=== PATIENT | female | born 1945 | race Caucasian/White ===

== ENCOUNTER 2019-11-19 11:21 | Outpatient (REF) | payer MEDICARE, SELFPAY | END 2019-11-19 11:22 | disposition home or self-care (01) | LOC: HO.LNP 11:21 | PROVIDERS: Visit Provider Internal Medicine | DX: G20 Parkinson's disease (principal); D64.9 Anemia, unspecified | CPT/HCPCS: 87045; 87046; 87177; 87209 ==

== ENCOUNTER → 2019-12-06 15:43 | Outpatient (BNVA) | payer MEDICARE, SELFPAY | PROVIDERS: PCP Internal Medicine; Visit Provider Nurse Practitioner | DX: K75.81 Nonalcoholic steatohepatitis (NASH) (principal); K62.5 Hemorrhage of anus and rectum; R35.0 Frequency of micturition | CPT/HCPCS: 99212 ==

== ENCOUNTER 2019-12-07 11:14 | Outpatient (REF) | payer MEDICARE, SELFPAY ==
[2019-12-07 11:55] LABS: MANUAL DIFF FLAG NO
[2019-12-07 11:59] LABS: Basophils Percent Auto 0.4 % (0-2); Eosinophils Absolute Auto 0.1 X10*3/uL (0.0-0.4); Eosinophils Percent Auto 1.3 % (0-4); Hematocrit 27.4 % (37-47); Hemoglobin 8.2 g/dl (12.0-16.0); Imm Gran Abs Auto 0.06 X10*3/uL (0.00-0.03); Imm Gran Pct Auto 0.6 % (0.0-0.4); Lymphocytes Absolute Auto 1.3 X10*3/uL (1.2-4.9); Lymphocytes Percent Auto 12.3 % (20-40); Mean Corpuscular HGB Conc 29.9 g/dl (31.0-35.0); Mean Corpuscular Hemoglobin 27.9 pg (27.0-33.0); Mean Corpuscular Volume 93.2 fL (80-98); Mean Platelet Volume 10.3 fL (9.4-12.3); Monocytes Absolute Auto 1.2 X10*3/uL (0.1-1.2); Monocytes Percent Auto 11.3 % (2-11); Neutrophils Absolute Auto 7.8 X10*3/uL (2.0-8.3); Neutrophils Percent Auto 74.1 % (45-73); Platelet Count 251 X10*3/uL (160-400); Red Blood Count 2.94 X10*6/uL (4.20-5.50); Red Cell Distribution Width 15.6 % (11.0-16.0); White Blood Count 10.5 X10*3/uL (4.8-10.8)
[2019-12-07 12:27] LABS: Alanine Aminotransferase 51 U/L (0-31); Albumin Level 3.7 g/dL (3.5-5.0); Alkaline Phosphatase 217 U/L (39-117); Anion Gap 16 (12-20); Aspartate Amino Transferase 105 U/L (5-31); Blood Urea Nitrogen 21 mg/dL (9-16); Carbon Dioxide 21 mmol/L (22-29); Chloride 104 mmol/L (96-108); Estimated Glomerular Filt Rate 54; Glucose Random 187 mg/dL (60-115); Iron 29 mcg/dL (30-160); Percent Iron Saturation 7 % (15-50); Potassium 4.4 mmol/l (3.3-5.1); Sodium 137 mmol/L (135-145); Total Iron Binding Capacity 426 mcg/dL (228-428); Total Protein 7.3 g/dL (6.5-8.0); Unsaturated Iron Binding 397 ug/dL
[2019-12-07 12:28] LABS: B Type Natriuretic Peptide 193 pg/mL (<100)
[2019-12-07 12:42] LABS: Ferritin 24 ng/mL (10-250)
[2019-12-07 14:26] LABS: Estimated Average Glucose 154 mg/dL
[2019-12-07 16:23] LABS: Immature Retic Fraction 32.5 % (3.0-15.9); Retic HGB Equivalent 27.1 pg (30.0-35.0); Reticulocyte Percent 2.6 % (0.5-1.8); Reticulocytes Absolute 0.077 X10*6/uL (0.026-0.095)
== END 2019-12-07 11:15 | disposition home or self-care (01) ==
LOC: HO.LAB 11:14
PROVIDERS: Absent Provider Nurse Practitioner; PCP Internal Medicine; Visit Provider Internal Medicine
DX: D64.9 Anemia, unspecified (principal); R35.0 Frequency of micturition; E11.65 Type 2 diabetes mellitus with hyperglycemia
CPT/HCPCS: 36415; 80053; 82728; 83036; 83540; 83880; 84443; 85025; 85045

== ENCOUNTER 2019-12-08 20:02 | Inpatient (IN) | payer MEDICARE, SELFPAY ==
[2019-12-08 20:17] LABS: Glucose, Whole Blood 149 mg/dL (60-115)
--- NOTE | 2019-12-08 20:20 | ECG_ITS ---
Test Reason : WEAKNESS AMS Blood Pressure : / mmHG Vent. Rate : 059 BPM Atrial Rate : 059 BPM P-R Int : 196 ms QRS Dur : 092 ms QT Int : 506 ms P-R-T Axes : 056 -22 029 degrees QTc Int : 500 ms Sinus bradycardia Nonspecific ST abnormality Prolonged QT Abnormal ECG When compared with ECG of 19-SEP-2019 19:17, No significant change was found Referred By: Rodney Lancaster Electronically Signed By:JENNIFER RICHARDSON MD
--- NOTE | 2019-12-08 20:20 | CT_ITS ---
EXAMINATION: CT HEAD WITHOUT CONTRAST CLINICAL INFORMATION: Weakness. COMPARISON: August 22, 2019. TECHNIQUE: Contiguous helical images of the brain were obtained without IV contrast. Multiplanar reconstructions were performed. DLP: 668 mGy-cm. FINDINGS: There are no pathologic extra-axial fluid collections. The lateral, third, fourth ventricles are mildly prominent, though stable, age-appropriate and concordant with the appearance of the sulci. There is no evidence for acute intraparenchymal hemorrhage or infarct. There is periventricular low-attenuation indicative of small vessel disease. There is neither mass nor mass effect. There is no shift of midline structures. The paranasal sinuses and mastoid air cells are clear. There are no osseous lesions. CT/CT head/brain wo con IMPRESSION: No evidence for acute intracranial injury. Automated exposure control (Care Dose) Adjustment of the mA and/or kv according to patient size (this includes techniques or standardized protocols for targeted exams where dose is matched to indication / reason for exam; i.e. extremities or head).
--- NOTE | 2019-12-08 20:20 | XR_ITS ---
EXAMINATION: CHEST 1 VIEW CLINICAL INFORMATION: Weakness. COMPARISON: September 19, 2019. TECHNIQUE: An AP view of the chest is provided. FINDINGS: The cardiac silhouette is stable. The mediastinal and hilar contours are unremarkable. There are neither pleural effusions nor pneumothoraces. There are no consolidations. The osseous structures are stable. XR/XR chest 1V IMPRESSION: No evidence for acute disease.
[2019-12-08 20:23] VITALS: BP 125/60; PULSE 63; RESP 16; TEMP 36.6; O2SAT 97; BMI 26.5
--- NOTE | 2019-12-08 20:24 | ED_ITS ---
HPI - Weakness General Chief complaint: Weakness Stated complaint: GENERAL WEAKNESS INCREASED X'S 1 WEEK Time Seen by Provider: 12/08/19 20:17 Source: EMS Mode of arrival: EMS Limitations: no limitations History of Present Illness HPI Narrative: 74-year-old female with past medical history that is significant for anxiety, depression, diastolic heart failure, CAD, Gout, hypertension, hyperlipidemia, type 2 diabetes, coronary artery disease, congestive heart failure, anxiety disorder, depression, atrial fibrillation on Eliquis, osteopenia, gout, essential tremor with reported TIA several months ago also history of abnormal EEG showed focal seizure of the left temporal without seizure on Lamictal extended release being followed by Neurology at [facility] currently undergoing evaluation for memory loss and since her TIA apparently she has had around the clock care at home but normally is ambulatory with walker but over the past 1 week or so per family patient has become progressively more weak and lethargic and been her bed. There is no URI symptoms, cough or fever. Family concerns symptoms most consistent with UTI. MD Complaint: generalized weakness Related Data Home Medications Medication Instructions Recorded Confirmed alendronate 70 mg tablet 70 mg PO QWEEK 12/05/19 12/08/19 allopurinol 100 mg tablet 100 mg PO DAILY 12/05/19 12/08/19 amiodarone 200 mg tablet 200 mg PO DAILY 12/05/19 12/09/19 amlodipine 5 mg tablet 5 mg PO DAILY 12/05/19 12/08/19 apixaban 5 mg tablet 5 mg PO BID 12/05/19 12/09/19 dulaglutide 1.5 mg/0.5 mL 1.5 mg SUBCUT QWEEK 12/05/19 12/09/19 subcutaneous pen injector furosemide 20 mg tablet 20 mg PO DAILY 12/05/19 12/08/19 insulin glargine U-300 conc 300 15 unit SUBCUT DAILY ml 12/05/19 12/05/19 unit/mL (3 mL) subcutaneous pen insulin lispro 100 unit/mL 5.5 unit SUBCUT BEDTIME 12/05/19 12/05/19 subcutaneous half-unit pen levetiracetam 500 mg tablet 500 mg PO Q12H 12/05/19 12/08/19 losartan 100 mg tablet 100 mg PO DAILY 12/05/19 12/08/19 metformin 500 mg tablet 500 mg PO BID 12/05/19 12/08/19 metoprolol tartrate 25 mg tablet 25 mg PO BID 12/05/19 12/09/19 multivit with 1 tab PO DAILY 12/05/19 12/09/19 rkdsizlc-orgo-XF-lutein 8 mg iron-400 mcg-300 mcg tablet omega-3 fatty acids 1,000 mg 1,000 mg PO DAILY 12/05/19 12/09/19 capsule primidone 50 mg tablet 50 mg PO BID tab 12/05/19 12/09/19 spironolactone 25 mg tablet 25 mg PO DAILY 12/05/19 12/09/19 Previous Rx's Medication Instructions Recorded sertraline 100 mg tablet 100 mg PO DAILY 90 Days #90 tab 11/16/19 Allergies Allergy/AdvReac Type Severity Reaction Status Date / Time lisinopril [From ZESTRIL] Allergy Intermediate RASH-FROM Verified 12/06/19 15:46 ZESTRIL propranolol [PROPRANOLOL] Allergy Mild HEADACHE Verified 12/05/19 15:23 atorvastatin [Lipitor] Allergy Unknown Unknown Verified 12/06/19 15:46 benazepril Allergy Unknown Unknown Verified 12/06/19 15:46 indomethacin [From INDOCIN] Allergy Unknown UNKNOWN Verified 12/06/19 15:46 simvastatin Allergy Unknown Unknown Verified 12/06/19 15:46 [facility] Past Medical History Medical History (Updated 12/09/19 @ 01:54 by Rodney Lancaster NP) Anxiety and depression Atrial fibrillation Congestive heart failure with LV diastolic dysfunction, NYHA class 2 Coronary artery disease Essential tremor Gout Hypercholesterolemia Hypertension Osteopenia 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 Tubular adenoma of colon Type 2 diabetes mellitus with hyperglycemia Surgical History (Updated 12/06/19 @ 15:49 by GABRIELLE Abel) Ganglion cyst H/O unilateral oophorectomy History of abdominal hysterectomy History of appendectomy History of carpal tunnel surgery History of cholecystectomy Hx of colonoscopy Family History Family History (Updated 12/06/19 @ 15:50 by GABRIELLE Abel) Father Diabetes Hypertension CVD (cardiovascular disease) Mother Diabetes Hypertension Cancer Rectal cancer Daughter Diabetes Social History Social History (Updated 12/06/19 @ 15:50 by GABRIELLE Abel) Alcohol intake: current Alcohol intake frequency: does not drink Smoking Status: Never smoker Advance Directives: No Advance Directives Information Provided: No Physical Exam Vital Signs: Vital Signs: Vital Signs Temp Pulse Resp BP Pulse Ox 12/09/19 00:00 60 16 139/67 96 12/08/19 23:17 63 16 126/61 98 12/08/19 22:00 62 16 124/58 L 98 12/08/19 20:23 97.8 F 63 16 125/60 97 Body Mass Index 26.5 MDM - Weakness MDM Narrative Medical decision making narrative: lab shows progressively worsening anemia since July, on Eliquis, occult stool positive. No obvious signs of infection. UA negative. Chest x-ray negative. COVID-19 negative. Differential Diagnosis Differential diagnosis: Likely UTI, anemia, hypoglycemia, hypothyroidism and dehydration; Unlikely rhabdomyolysis and sepsis Medical Records Attestation: I reviewed the patient's medical records. Medical records narrative: primary care office note Lab Data Attestation: I reviewed the patient's lab results. Result diagrams: 12/08/19 21:23 12/08/19 21:23 Labs: Lab Results 12/08/19 12/08/19 12/08/19 Range/Units 20:13 21:21 21:22 WBC (4.8-10.8) X10*3/uL RBC (4.20-5.50) X10*6/uL Hgb (12.0-16.0) g/dl Hct (37-47) % MCV (80-98) fL MCH (27.0-33.0) pg MCHC (31.0-35.0) g/dl RDW (11.0-16.0) % Plt Count (160-400) X10*3/uL MPV (9.4-12.3) fL Immature Gran % (Auto) (0.0-0.4) % Neut % (Auto) (45-73) % Lymph % (Auto) (20-40) % [place] % (Auto) (2-11) % Eos % (Auto) (0-4) % Baso % (Auto) (0-2) % Lymph # (Auto) (1.2-4.9) X10*3/uL [place] # (Auto) (0.1-1.2) X10*3/uL Eos # (Auto) (0.0-0.4) X10*3/uL Baso # (Auto) (0.0-0.2) X10*3/uL Abs Immat Gran (auto) (0.00-0.03) X10*3/uL Absolute Neuts (auto) (2.0-8.3) X10*3/uL Absolute Nucleated RBC (0.0-0.012) X10*3/uL Nucleated RBC % (auto) (0.0-0.2) /100WBC Smear Tech's Comments PT (10.8-13.0) SEC INR (0.9-1.1) APTT (24.1-38.0) SEC Sodium (135-145) mmol/L Potassium (3.3-5.1) mmol/l Chloride (96-108) mmol/L Carbon Dioxide (22-29) mmol/L Anion Gap (12-20) BUN (9-16) mg/dL Creatinine (0.5-1.4) mg/dL Estim Creat Clear Calc Estimated GFR POC Glucose 149 H (60-115) mg/dL Random Glucose (60-115) mg/dL Lactic Acid 2.4 H* (0.5-2.0) mmol/L Lactic Acid Fup @ 2Hr (0.5-2.0) mmol/L Calcium (8.4-10.2) mg/dL Magnesium (1.6-2.6) mg/dL Total Bilirubin (0.0-1.0) mg/dL AST (5-31) U/L ALT (0-31) U/L Alkaline Phosphatase (39-117) U/L Lactate Dehydrogenase (122-220) U/L Troponin I High Sens (<3.5-17.0) ng/L Total Protein (6.5-8.0) g/dL Albumin (3.5-5.0) g/dL Urine Color Urine Appearance Urine pH (5.0-8.0) Ur Specific [place] (1.005-1.025) Urine Protein (NEG-TRACE) MG/DL Urine Glucose (UA) (NEG) MG/DL Urine Ketones (NEG) MG/DL Urine Blood (NEG) Urine Nitrite (NEG) Ur Leukocyte Esterase (NEG) Stool Occult Blood (NEG) Coronavirus (PCR) NEGATIVE (Negative) 12/08/19 12/08/19 12/08/19 Range/Units 21:23 21:23 21:23 WBC 13.0 H (4.8-10.8) X10*3/uL RBC 2.82 L (4.20-5.50) X10*6/uL Hgb 8.0 L (12.0-16.0) g/dl Hct 25.6 L (37-47) % MCV 90.8 (80-98) fL MCH 28.4 (27.0-33.0) pg MCHC 31.3 (31.0-35.0) g/dl RDW 15.8 (11.0-16.0) % Plt Count 266 (160-400) X10*3/uL MPV 10.4 (9.4-12.3) fL Immature Gran % (Auto) 0.8 H (0.0-0.4) % Neut % (Auto) 71.1 (45-73) % Lymph % (Auto) 12.1 L (20-40) % [place] % (Auto) 14.0 H (2-11) % Eos % (Auto) 1.6 (0-4) % Baso % (Auto) 0.4 (0-2) % Lymph # (Auto) 1.6 (1.2-4.9) X10*3/uL [place] # (Auto) 1.8 H (0.1-1.2) X10*3/uL Eos # (Auto) 0.2 (0.0-0.4) X10*3/uL Baso # (Auto) 0.1 (0.0-0.2) X10*3/uL Abs Immat Gran (auto) 0.11 H (0.00-0.03) X10*3/uL Absolute Neuts (auto) 9.2 H (2.0-8.3) X10*3/uL Absolute Nucleated RBC 0.000 (0.0-0.012) X10*3/uL Nucleated RBC % (auto) 0.0 (0.0-0.2) /100WBC Smear Tech's Comments VERIFIED PT 28.5 H (10.8-13.0) SEC INR 2.4 H (0.9-1.1) APTT 42.8 H (24.1-38.0) SEC Sodium (135-145) mmol/L Potassium (3.3-5.1) mmol/l Chloride (96-108) mmol/L Carbon Dioxide (22-29) mmol/L Anion Gap (12-20) BUN (9-16) mg/dL Creatinine (0.5-1.4) mg/dL Estim Creat Clear Calc Estimated GFR POC Glucose (60-115) mg/dL Random Glucose (60-115) mg/dL Lactic Acid (0.5-2.0) mmol/L Lactic Acid Fup @ 2Hr (0.5-2.0) mmol/L Calcium (8.4-10.2) mg/dL Magnesium 1.5 L (1.6-2.6) mg/dL Total Bilirubin (0.0-1.0) mg/dL AST (5-31) U/L ALT (0-31) U/L Alkaline Phosphatase (39-117) U/L Lactate Dehydrogenase 184 (122-220) U/L Troponin I High Sens (<3.5-17.0) ng/L Total Protein (6.5-8.0) g/dL Albumin (3.5-5.0) g/dL Urine Color Urine Appearance Urine pH (5.0-8.0) Ur Specific [place] (1.005-1.025) Urine Protein (NEG-TRACE) MG/DL Urine Glucose (UA) (NEG) MG/DL Urine Ketones (NEG) MG/DL Urine Blood (NEG) Urine Nitrite (NEG) Ur Leukocyte Esterase (NEG) Stool Occult Blood (NEG) Coronavirus (PCR) (Negative) 12/08/19 12/08/19 12/08/19 Range/Units 21:23 21:23 22:34 WBC (4.8-10.8) X10*3/uL RBC (4.20-5.50) X10*6/uL Hgb (12.0-16.0) g/dl Hct (37-47) % MCV (80-98) fL MCH (27.0-33.0) pg MCHC (31.0-35.0) g/dl RDW (11.0-16.0) % Plt Count (160-400) X10*3/uL MPV (9.4-12.3) fL Immature Gran % (Auto) (0.0-0.4) % Neut % (Auto) (45-73) % Lymph % (Auto) (20-40) % [place] % (Auto) (2-11) % Eos % (Auto) (0-4) % Baso % (Auto) (0-2) % Lymph # (Auto) (1.2-4.9) X10*3/uL [place] # (Auto) (0.1-1.2) X10*3/uL Eos # (Auto) (0.0-0.4) X10*3/uL Baso # (Auto) (0.0-0.2) X10*3/uL Abs Immat Gran (auto) (0.00-0.03) X10*3/uL Absolute Neuts (auto) (2.0-8.3) X10*3/uL Absolute Nucleated RBC (0.0-0.012) X10*3/uL Nucleated RBC % (auto) (0.0-0.2) /100WBC Smear Tech's Comments PT (10.8-13.0) SEC INR (0.9-1.1) APTT (24.1-38.0) SEC Sodium 133 L (135-145) mmol/L Potassium 4.2 (3.3-5.1) mmol/l Chloride 101 (96-108) mmol/L Carbon Dioxide 20 L (22-29) mmol/L Anion Gap 16 (12-20) BUN 22 H (9-16) mg/dL Creatinine 1.18 (0.5-1.4) mg/dL Estim Creat Clear Calc 34.8 Estimated GFR 45 POC Glucose (60-115) mg/dL Random Glucose 107 D (60-115) mg/dL Lactic Acid (0.5-2.0) mmol/L Lactic Acid Fup @ 2Hr (0.5-2.0) mmol/L Calcium 9.5 (8.4-10.2) mg/dL Magnesium (1.6-2.6) mg/dL Total Bilirubin 0.7 (0.0-1.0) mg/dL AST 107 H (5-31) U/L ALT 52 H (0-31) U/L Alkaline Phosphatase 214 H (39-117) U/L Lactate Dehydrogenase (122-220) U/L Troponin I High Sens 27.8 H (<3.5-17.0) ng/L Total Protein 7.5 (6.5-8.0) g/dL Albumin 3.7 (3.5-5.0) g/dL Urine Color YELLOW Urine Appearance CLEAR Urine pH 6.0 (5.0-8.0) Ur Specific [place] 1.015 (1.005-1.025) Urine Protein NEG (NEG-TRACE) MG/DL Urine Glucose (UA) NEG (NEG) MG/DL Urine Ketones NEG (NEG) MG/DL Urine Blood NEG (NEG) Urine Nitrite NEG (NEG) Ur Leukocyte Esterase NEG (NEG) Stool Occult Blood (NEG) Coronavirus (PCR) (Negative) 12/08/19 12/08/19 12/09/19 Range/Units 23:12 23:35 00:41 WBC (4.8-10.8) X10*3/uL RBC (4.20-5.50) X10*6/uL Hgb (12.0-16.0) g/dl Hct (37-47) % MCV (80-98) fL MCH (27.0-33.0) pg MCHC (31.0-35.0) g/dl RDW (11.0-16.0) % Plt Count (160-400) X10*3/uL MPV (9.4-12.3) fL Immature Gran % (Auto) (0.0-0.4) % Neut % (Auto) (45-73) % Lymph % (Auto) (20-40) % [place] % (Auto) (2-11) % Eos % (Auto) (0-4) % Baso % (Auto) (0-2) % Lymph # (Auto) (1.2-4.9) X10*3/uL [place] # (Auto) (0.1-1.2) X10*3/uL Eos # (Auto) (0.0-0.4) X10*3/uL Baso # (Auto) (0.0-0.2) X10*3/uL Abs Immat Gran (auto) (0.00-0.03) X10*3/uL Absolute Neuts (auto) (2.0-8.3) X10*3/uL Absolute Nucleated RBC (0.0-0.012) X10*3/uL Nucleated RBC % (auto) (0.0-0.2) /100WBC Smear Tech's Comments PT (10.8-13.0) SEC INR (0.9-1.1) APTT (24.1-38.0) SEC Sodium (135-145) mmol/L Potassium (3.3-5.1) mmol/l Chloride (96-108) mmol/L Carbon Dioxide (22-29) mmol/L Anion Gap (12-20) BUN (9-16) mg/dL Creatinine (0.5-1.4) mg/dL Estim Creat Clear Calc Estimated GFR POC Glucose (60-115) mg/dL Random Glucose (60-115) mg/dL Lactic Acid (0.5-2.0) mmol/L Lactic Acid Fup @ 2Hr 1.6 (0.5-2.0) mmol/L Calcium (8.4-10.2) mg/dL Magnesium (1.6-2.6) mg/dL Total Bilirubin (0.0-1.0) mg/dL AST (5-31) U/L ALT (0-31) U/L Alkaline Phosphatase (39-117) U/L Lactate Dehydrogenase (122-220) U/L Troponin I High Sens 6.4 D (<3.5-17.0) ng/L Total Protein (6.5-8.0) g/dL Albumin (3.5-5.0) g/dL Urine Color Urine Appearance Urine pH (5.0-8.0) Ur Specific [place] (1.005-1.025) Urine Protein (NEG-TRACE) MG/DL Urine Glucose (UA) (NEG) MG/DL Urine Ketones (NEG) MG/DL Urine Blood (NEG) Urine Nitrite (NEG) Ur Leukocyte Esterase (NEG) Stool Occult Blood POS (NEG) Coronavirus (PCR) (Negative) Discharge Plan Discharge Clinical Impression: Anemia, Weakness Prescriptions: No Action sertraline 100 mg tablet 100 mg PO DAILY 90 Days Qty: 90 RF: 0 Centrum Silver Women 8 mg iron-400 mcg-300 mcg tablet 1 tab PO DAILY RF: 0 omega-3 fatty acids [Fish Oil Concentrate] 1,000 mg capsule 1,000 mg PO DAILY RF: 0 Eliquis 5 mg tablet 5 mg PO BID RF: 0 allopurinol 100 mg tablet 100 mg PO DAILY RF: 0 amiodarone 200 mg tablet 200 mg PO DAILY RF: 0 furosemide [Lasix] 20 mg tablet 20 mg PO DAILY RF: 0 spironolactone 25 mg tablet 25 mg PO DAILY RF: 0 levetiracetam 500 mg tablet 500 mg PO Q12H RF: 0 amlodipine 5 mg tablet 5 mg PO DAILY RF: 0 metoprolol tartrate 25 mg tablet 25 mg PO BID RF: 0 alendronate [Fosamax] 70 mg tablet 70 mg PO QWEEK RF: 0 Trulicity 1.5 mg/0.5 mL pen injector 1.5 mg subcut QWEEK RF: 0 metformin 500 mg tablet 500 mg PO BID RF: 0 Toujeo Max U-300 SoloStar 300 unit/mL (3 mL) insulin pen 15 unit subcut DAILY RF: 0 losartan 100 mg tablet 100 mg PO DAILY RF: 0 insulin lispro [Humalog Melquiades KwikPen U-100] 100 unit/mL insulin pen, half- unit 5.5 unit subcut BEDTIME RF: 0 primidone 50 mg tablet 50 mg PO BID RF: 0
[2019-12-08 21:32] LABS: Basophils Absolute Auto 0.1 X10*3/uL (0.0-0.2); Basophils Percent Auto 0.4 % (0-2); Eosinophils Absolute Auto 0.2 X10*3/uL (0.0-0.4); Eosinophils Percent Auto 1.6 % (0-4); Hematocrit 25.6 % (37-47); Imm Gran Abs Auto 0.11 X10*3/uL (0.00-0.03); Imm Gran Pct Auto 0.8 % (0.0-0.4); Lymphocytes Absolute Auto 1.6 X10*3/uL (1.2-4.9); Lymphocytes Percent Auto 12.1 % (20-40); MANUAL DIFF FLAG SCAN; Mean Corpuscular HGB Conc 31.3 g/dl (31.0-35.0); Mean Corpuscular Hemoglobin 28.4 pg (27.0-33.0); Mean Corpuscular Volume 90.8 fL (80-98); Mean Platelet Volume 10.4 fL (9.4-12.3); Monocytes Absolute Auto 1.8 X10*3/uL (0.1-1.2); Neutrophils Absolute Auto 9.2 X10*3/uL (2.0-8.3); Neutrophils Percent Auto 71.1 % (45-73); Platelet Count 266 X10*3/uL (160-400); Red Blood Count 2.82 X10*6/uL (4.20-5.50); Red Cell Distribution Width 15.8 % (11.0-16.0); SCAN SMEAR FLAG 1
[2019-12-08 21:38] LABS: INTERNATIONAL NORM RATIO 2.4 (0.9-1.1); Prothrombin Time 28.5 SEC (10.8-13.0)
[2019-12-08 21:41] LABS: Partial Thromboplastin Time 42.8 SEC (24.1-38.0)
[2019-12-08 21:52] LABS: Lactic Acid 2.4 mmol/L (0.5-2.0)
[2019-12-08 21:54] LABS: Lactate Dehydrogenase 184 U/L (122-220); Magnesium 1.5 mg/dL (1.6-2.6)
[2019-12-08 21:55] LABS: SLIDE REVIEW VERIFIED
[2019-12-08 21:57] LABS: Alanine Aminotransferase 52 U/L (0-31); Albumin Level 3.7 g/dL (3.5-5.0); Alkaline Phosphatase 214 U/L (39-117); Anion Gap 16 (12-20); Aspartate Amino Transferase 107 U/L (5-31); Bilirubin Total 0.7 mg/dL (0.0-1.0); Blood Urea Nitrogen 22 mg/dL (9-16); Calcium 9.5 mg/dL (8.4-10.2); Carbon Dioxide 20 mmol/L (22-29); Chloride 101 mmol/L (96-108); Creatinine Clr Calc Pharmacy 34.8; Estimated Glomerular Filt Rate 45; Glucose Random 107 mg/dL (60-115); Potassium 4.2 mmol/l (3.3-5.1); Sodium 133 mmol/L (135-145); Total Protein 7.5 g/dL (6.5-8.0)
[2019-12-08 22:00] VITALS: BP 124/58; PULSE 62; RESP 16; O2SAT 98
[2019-12-08 22:04] LABS: Troponin-I High Sensitivity 27.8 ng/L (<3.5-17.0)
[2019-12-08 22:49] LABS: SARS COV2 PCR INHOUSE NEGATIVE (Negative)
[2019-12-08 22:52] LABS: Glucose Urine UA NEG (NEG); Leukocyte Esterase Urine NEG (NEG); Nitrite Urine NEG (NEG); Specific Gravity - Urine 1.015 (1.005-1.025); Urine Blood NEG (NEG); Urine Ketones NEG (NEG); Urine Protein NEG (NEG-TRACE)
[2019-12-08 22:56] LABS: Appearance Urine CLEAR; Color Urine YELLOW
--- NOTE | 2019-12-08 23:00 | PC.NURSE ---
pt was straight cath at 2230 by PCT.
[2019-12-08 23:17] VITALS: BP 126/61; PULSE 63; RESP 16; O2SAT 98
[2019-12-08 23:27] LABS: Reflex Lactate? Lactic Acid Added
--- NOTE | 2019-12-08 23:37 | PC.NURSE ---
LACTIC ACID AND TROPONIN DRAWN AT THIS TIME TO LAB. PT AWAKE AND NONVERBAL AT THIS TIME. RESPIRATIONS EASY, N/L. SKIN W/D. PT AWAITING FURTHER ORDERS. COVID SWAB OBTAINED TO LAB.
[2019-12-09] VITALS (12 sets, daily range): BP systolic 124–161; BP diastolic 61–74; PULSE 56–69; RESP 16–20; TEMP 36.6–37; O2SAT 94–98
[2019-12-09 00:13] LABS: Troponin-I High Sensitivity 6.4 ng/L (<3.5-17.0)
[2019-12-09 00:14] LABS: ~Lactic Acid-LAB USE ONLY 1.6 mmol/L (0.5-2.0)
--- NOTE | 2019-12-09 00:35 | CT_ITS ---
EXAMINATION: CT ABDOMEN AND PELVIS WITHOUT CONTRAST CLINICAL INFORMATION: Weakness COMPARISON: MRI 12/30/2018 TECHNIQUE: Multidetector volumetric imaging was performed from the superior aspect of the liver through the pubic symphysis. Sagittal and coronal reformatted images were obtained on the technologist's workstation. This CT examination was performed using dose optimization techniques as appropriate, variously including the following: *Automated exposure control *Adjustment of mA and/or kV according to patient size (this includes techniques or standardized protocols for targeted exams where dose is matched to indication/reason for exam; i.e. extremities or head) *Use of iterative reconstruction technique DLP: 515 mGy-cm FINDINGS: LUNG BASES: Left basilar atelectasis. The heart is enlarged. LIVER, GALLBLADDER, AND BILIARY TREE: Normal size of the liver with nodular Contour. No focal hepatic lesion. No biliary ductal dilatation. The gallbladder is not seen. PANCREAS: Unremarkable. SPLEEN: Unremarkable. ADRENAL GLANDS: Unremarkable. KIDNEYS AND URETERS: The kidneys are normal in size, shape, and attenuation. No hydronephrosis, hydroureter, or calculi seen. No perinephric stranding. Right renal cysts are noted. BLADDER: Unremarkable. GASTROINTESTINAL TRACT: The stomach is decompressed with no gross abnormality. Normal caliber small bowel. No obstruction. Scattered colonic diverticulosis. No diverticulitis. No free air. No free fluid. ABDOMINAL WALL: Small pelvic fat-containing hernias. LYMPH NODES: Normal. VASCULAR: Normal caliber aorta. Mild atherosclerotic calcification. PELVIC VISCERA: Uterus is not seen. No adnexal mass. OSSEOUS STRUCTURES: No acute or suspicious osseous abnormality. Degenerative changes throughout the spine. Mild changes of the hips. CT/CT abdomen pelvis wo con IMPRESSION: Cirrhotic liver. No acute findings in the abdomen or pelvis.
[2019-12-09 01:27] LABS: OBS Int Ctl Valid YES; OBS1 POS (NEG)
--- NOTE | 2019-12-09 05:06 | PM.IMHP ---
History of Present Illness Date of Service: 12/09/19 Chief Complaint: GI bleed this is a 74-year-old female with an extensive past medical history who presents to the hospital from home with complaints of rectal bleed as well as increased lethargy. History is obtained mostly from the ED PA as patient is somnolent and is not really giving me any history. I also reviewed the EMR and the director of social media marketing's note from 12/04. It appears that patient has caretakers have been concerned about the patient as she has becoming more lethargic and has had rectal bleeding. Patient has a new diagnosis of Parkinson's disease which was recently diagnosed at [facility]. Patient has also been falling. Labs done outpatient reveals patient to be more anemic. Rest of review of system cannot be obtained as patient not cooperating. On arrival to the ED hemodynamically stable with no significant abnormal vitals , no hypoxia Labs are significant for WBC count of 13, hemoglobin of 8.2. on review of her chart, patient's hemoglobin has been progressively dropping from June of this year at 11.3-8.2 today. Patient is on Eliquis for AFib. Patient's other labs are significant for a PT of 28.5, INR of 2.4, sodium of 133, BUN of 22 with a creatinine of 1.18 ( baseline), lactic acid of 2.4, magnesium of 1.5, AST of 107, ALT of 52, alk-phos of 214. COVID-19 negative, chest x-ray no evidence for acute distress abdominal CT showed cirrhotic liver with no acute findings in the abdomen or pelvis head CT negative for acute intracranial injury History is obtained from chart Past medical history: AFib on Eliquis, hyperlipidemia, hypertension, diabetes, seizure disorder, and dementia Surgical history: Appendectomy, hysterectomy, cholecystectomy, carpal tunnel release Family history: CAD, diabetes Social history: Dependent for ADLs, no history of tobacco alcohol or drugs Review of Systems Review of Systems: Yes all other systems are reviewed and are negative [facility] Medical History Anxiety and depression Atrial fibrillation Congestive heart failure with LV diastolic dysfunction, NYHA class 2 Coronary artery disease Essential tremor Gout Hypercholesterolemia Hypertension Osteopenia 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 Tubular adenoma of colon Type 2 diabetes mellitus with hyperglycemia Family History Father Diabetes Hypertension CVD (cardiovascular disease) Mother Diabetes Hypertension Cancer Rectal cancer Daughter Diabetes Surgical History Ganglion cyst H/O unilateral oophorectomy History of abdominal hysterectomy History of appendectomy History of carpal tunnel surgery History of cholecystectomy Hx of colonoscopy Social History Alcohol intake: current Alcohol intake frequency: does not drink Smoking Status: Never smoker Advance Directives: No Advance Directives Information Provided: No Meds Allergies Allergy/AdvReac Type Severity Reaction Status Date / Time lisinopril [From ZESTRIL] Allergy Intermediate RASH-FROM Verified 12/06/19 15:46 ZESTRIL propranolol [PROPRANOLOL] Allergy Mild HEADACHE Verified 12/05/19 15:23 atorvastatin [Lipitor] Allergy Unknown Unknown Verified 12/06/19 15:46 benazepril Allergy Unknown Unknown Verified 12/06/19 15:46 indomethacin [From INDOCIN] Allergy Unknown UNKNOWN Verified 12/06/19 15:46 simvastatin Allergy Unknown Unknown Verified 12/06/19 15:46 Home Medications Medication Instructions Recorded Confirmed Type alendronate 70 mg tablet 70 mg PO QWEEK 12/05/19 12/08/19 History allopurinol 100 mg tablet 100 mg PO DAILY 12/05/19 12/08/19 History amiodarone 200 mg tablet 200 mg PO DAILY 12/05/19 12/09/19 History amlodipine 5 mg tablet 5 mg PO DAILY 12/05/19 12/08/19 History apixaban 5 mg tablet 5 mg PO BID 12/05/19 12/09/19 History dulaglutide 1.5 mg/0.5 mL 1.5 mg SUBCUT QWEEK 12/05/19 12/09/19 History subcutaneous pen injector furosemide 20 mg tablet 20 mg PO DAILY 12/05/19 12/08/19 History insulin glargine U-300 conc 300 15 unit SUBCUT DAILY ml 12/05/19 12/05/19 History unit/mL (3 mL) subcutaneous pen insulin lispro 100 unit/mL 5.5 unit SUBCUT BEDTIME 12/05/19 12/05/19 History subcutaneous half-unit pen levetiracetam 500 mg tablet 500 mg PO Q12H 12/05/19 12/08/19 History losartan 100 mg tablet 100 mg PO DAILY 12/05/19 12/08/19 History metformin 500 mg tablet 500 mg PO BID 12/05/19 12/08/19 History metoprolol tartrate 25 mg tablet 25 mg PO BID 12/05/19 12/09/19 History multivit with 1 tab PO DAILY 12/05/19 12/09/19 History vsqicmjc-ttro-YM-lutein 8 mg iron-400 mcg-300 mcg tablet omega-3 fatty acids 1,000 mg 1,000 mg PO DAILY 12/05/19 12/09/19 History capsule primidone 50 mg tablet 50 mg PO BID tab 12/05/19 12/09/19 History spironolactone 25 mg tablet 25 mg PO DAILY 12/05/19 12/09/19 History Physical Exam Vital Signs and Narrative: Vital Signs: Last Vital Signs Temp 97.8 F 12/08/19 20:23 Pulse 56 12/09/19 02:00 Resp 16 12/09/19 02:00 BP 128/61 12/09/19 02:00 Pulse Ox 98 12/09/19 02:00 Body Mass Index 26.5 Const: General: no acute distress and lethargic Orientation/consciousness: lethargic Eyes: General: appearance normal, both eyes and all related structures Resp: Effort & Inspection: normal respiratory effort Auscultation: clear to auscultation bilaterally Cardio: Rate: regular rate Rhythm: regular rhythm GI: Palpation (GI): Soft to palpation Auscultation: normal bowel sounds Skin: General skin exam: no rashes or lesions noted Neuro: Other: unable to assess orientation, Extrem: General: Yes normal to inspection and Yes no pedal edema Results Labs Labs: Laboratory Tests 12/08/19 12/08/19 12/08/19 20:13 21:21 21:22 WBC RBC Hgb Hct MCV MCH MCHC RDW Plt Count MPV Immature Gran % (Auto) Neut % (Auto) Lymph % (Auto) [place] % (Auto) Eos % (Auto) Baso % (Auto) Lymph # (Auto) [place] # (Auto) Eos # (Auto) Baso # (Auto) Abs Immat Gran (auto) Absolute Neuts (auto) Absolute Nucleated RBC Nucleated RBC % (auto) Smear Tech's Comments PT INR APTT Sodium Potassium Chloride Carbon Dioxide Anion Gap BUN Creatinine Estim Creat Clear Calc Estimated GFR POC Glucose 149 H Random Glucose Lactic Acid 2.4 H* Lactic Acid Fup @ 2Hr Calcium Magnesium Total Bilirubin AST ALT Alkaline Phosphatase Lactate Dehydrogenase Troponin I High Sens Total Protein Albumin Urine Color Urine Appearance Urine pH Ur Specific [place] Urine Protein Urine Glucose (UA) Urine Ketones Urine Blood Urine Nitrite Ur Leukocyte Esterase Stool Occult Blood Coronavirus (PCR) NEGATIVE Blood Type Antibody Screen 12/08/19 12/08/19 12/08/19 21:23 21:23 21:23 WBC 13.0 H RBC 2.82 L Hgb 8.0 L Hct 25.6 L MCV 90.8 MCH 28.4 MCHC 31.3 RDW 15.8 Plt Count 266 MPV 10.4 Immature Gran % (Auto) 0.8 H Neut % (Auto) 71.1 Lymph % (Auto) 12.1 L [place] % (Auto) 14.0 H Eos % (Auto) 1.6 Baso % (Auto) 0.4 Lymph # (Auto) 1.6 [place] # (Auto) 1.8 H Eos # (Auto) 0.2 Baso # (Auto) 0.1 Abs Immat Gran (auto) 0.11 H Absolute Neuts (auto) 9.2 H Absolute Nucleated RBC 0.000 Nucleated RBC % (auto) 0.0 Smear Tech's Comments VERIFIED PT 28.5 H INR 2.4 H APTT 42.8 H Sodium Potassium Chloride Carbon Dioxide Anion Gap BUN Creatinine Estim Creat Clear Calc Estimated GFR POC Glucose Random Glucose Lactic Acid Lactic Acid Fup @ 2Hr Calcium Magnesium 1.5 L Total Bilirubin AST ALT Alkaline Phosphatase Lactate Dehydrogenase 184 Troponin I High Sens Total Protein Albumin Urine Color Urine Appearance Urine pH Ur Specific [place] Urine Protein Urine Glucose (UA) Urine Ketones Urine Blood Urine Nitrite Ur Leukocyte Esterase Stool Occult Blood Coronavirus (PCR) Blood Type Antibody Screen 12/08/19 12/08/19 12/08/19 21:23 21:23 22:34 WBC RBC Hgb Hct MCV MCH MCHC RDW Plt Count MPV Immature Gran % (Auto) Neut % (Auto) Lymph % (Auto) [place] % (Auto) Eos % (Auto) Baso % (Auto) Lymph # (Auto) [place] # (Auto) Eos # (Auto) Baso # (Auto) Abs Immat Gran (auto) Absolute Neuts (auto) Absolute Nucleated RBC Nucleated RBC % (auto) Smear Tech's Comments PT INR APTT Sodium 133 L Potassium 4.2 Chloride 101 Carbon Dioxide 20 L Anion Gap 16 BUN 22 H Creatinine 1.18 Estim Creat Clear Calc 34.8 Estimated GFR 45 POC Glucose Random Glucose 107 D Lactic Acid Lactic Acid Fup @ 2Hr Calcium 9.5 Magnesium Total Bilirubin 0.7 AST 107 H ALT 52 H Alkaline Phosphatase 214 H Lactate Dehydrogenase Troponin I High Sens 27.8 H Total Protein 7.5 Albumin 3.7 Urine Color YELLOW Urine Appearance CLEAR Urine pH 6.0 Ur Specific [place] 1.015 Urine Protein NEG Urine Glucose (UA) NEG Urine Ketones NEG Urine Blood NEG Urine Nitrite NEG Ur Leukocyte Esterase NEG Stool Occult Blood Coronavirus (PCR) Blood Type Antibody Screen 12/08/19 12/08/19 12/09/19 23:12 23:35 00:41 WBC RBC Hgb Hct MCV MCH MCHC RDW Plt Count MPV Immature Gran % (Auto) Neut % (Auto) Lymph % (Auto) [place] % (Auto) Eos % (Auto) Baso % (Auto) Lymph # (Auto) [place] # (Auto) Eos # (Auto) Baso # (Auto) Abs Immat Gran (auto) Absolute Neuts (auto) Absolute Nucleated RBC Nucleated RBC % (auto) Smear Tech's Comments PT INR APTT Sodium Potassium Chloride Carbon Dioxide Anion Gap BUN Creatinine Estim Creat Clear Calc Estimated GFR POC Glucose Random Glucose Lactic Acid Lactic Acid Fup @ 2Hr 1.6 Calcium Magnesium Total Bilirubin AST ALT Alkaline Phosphatase Lactate Dehydrogenase Troponin I High Sens 6.4 D Total Protein Albumin Urine Color Urine Appearance Urine pH Ur Specific [place] Urine Protein Urine Glucose (UA) Urine Ketones Urine Blood Urine Nitrite Ur Leukocyte Esterase Stool Occult Blood POS Coronavirus (PCR) Blood Type Antibody Screen 12/09/19 03:41 WBC RBC Hgb Hct MCV MCH MCHC RDW Plt Count MPV Immature Gran % (Auto) Neut % (Auto) Lymph % (Auto) [place] % (Auto) Eos % (Auto) Baso % (Auto) Lymph # (Auto) [place] # (Auto) Eos # (Auto) Baso # (Auto) Abs Immat Gran (auto) Absolute Neuts (auto) Absolute Nucleated RBC Nucleated RBC % (auto) Smear Tech's Comments PT INR APTT Sodium Potassium Chloride Carbon Dioxide Anion Gap BUN Creatinine Estim Creat Clear Calc Estimated GFR POC Glucose Random Glucose Lactic Acid Lactic Acid Fup @ 2Hr Calcium Magnesium Total Bilirubin AST ALT Alkaline Phosphatase Lactate Dehydrogenase Troponin I High Sens Total Protein Albumin Urine Color Urine Appearance Urine pH Ur Specific [place] Urine Protein Urine Glucose (UA) Urine Ketones Urine Blood Urine Nitrite Ur Leukocyte Esterase Stool Occult Blood Coronavirus (PCR) Blood Type A Negative Antibody Screen NEGATIVE ECG Interpretation: Sinus bradycardia Nonspecific ST abnormality Prolonged QT Abnormal ECG When compared with ECG of 19-SEP-2019 19:17, No significant change was found Imaging CT scan - abdomen: My impression: IMPRESSION: Cirrhotic liver. No acute findings in the abdomen or pelvis. CT scan - head: Radiologist's impression: IMPRESSION: No evidence for acute intracranial injury. Chest x-ray: Radiologist's impression: IMPRESSION: No evidence for acute disease. 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 Patient was also noted to have hemorrhoids which may also be contributing to her anemia. - Guaiac positive - Unable to assess for any symptoms due to anemia - last colonoscopy was in 2006 and the were 3 polyps, she has a history of multiple polyps on scope and is officially due to get a colonoscopy in 2021 - patient on Eliquis plan - NPO, pantoprazole b.i.d., will consult director of social media marketing for pulse will in-patient colonoscopy/ endoscopy - will hold Eliquis at this time # normocytic anemia - hemoglobin trending down from 11 in June to 8 today - has an iron level of 29, ferritin level of 24 suggestive of iron deficiency anemia Plan: - GI consult - given the normocytic anemia will also obtain B12 and folic ass - iron supplement - transfusions threshold of # encephalopathy - unclear etiology - possibly secondary to progressive dementia, deconditioning versus electrolyte abnormality - patient was recently diagnosed with Parkinson's disease - has no evidence of infection, UA negative, chest x-ray negative, abdominal CT negative, has mild leukocytosis with no fever - has hypomagnesemia, hyponatremia, and most likely lower intake plan - IV fluids, replete electrolytes, - if worsening or no improvement, consider LP - PT OT - possibly will need placement # leukocytosis - no evidence of infection, UA negative, imaging negative, afebrile - will follow CBC and if continues to trend up, we will consider LP # lactic acidosis - most likely secondary to dehydration - no evidence of infection - . Patient on fluid - trend lactic at # hyponatremia - most likely secondary to low solute intake - will start on NS and follow BMP # AFib - on Eliquis, amiodarone, and metoprolol - will hold Eliquis, resume amiodarone and metoprolol - admit to telemetry # diabetes - continue home ago that, start low-dose sliding scale insulin, diabetic diet # hypertension - stable - continue losartan, spironolactone, # congestive heart failure - no exacerbated - continue furosemide and metoprolol, spironolactone # history of seizure - continue Keppra DVT prophylaxis: SCDs
--- NOTE | 2019-12-09 05:31 | PC.NURSE ---
spoke with Sirena, Daughter who wants to speak with Hospitalist on phone this morning. Passed info to nurse on floor. report given to Annetta. [facility].
[2019-12-09] MEDS: 0.9 % Sodium Chloride 1,000 ML 100 ML IVCONT ×2 (06:33→16:14)
[2019-12-09] MEDS: Pantoprazole Sodium 40 MG/10 ML VIAL IVPUSH ×2 (06:50→16:20)
[2019-12-09 07:41] LABS: Glucose, Whole Blood 130 mg/dL (60-115)
[2019-12-09 08:28] LABS: Magnesium 1.5 mg/dL (1.6-2.6)
--- NOTE | 2019-12-09 08:44 | MHC.CM.PN ---
pt lives c her son in her home. she is a . her son helps her where needed and will give pt a ride home at dc if plan is home. she reports she also has a vna agency coming into the home, however at this time she cannot remember the name of the agency. pt uses a walker c ambulation. right now she is very weak , she may need str pending a PT eval. pt was unable to give me any ref. choices at this time. dc plan at this time is home c vna for which she cannot remember the name of the agency vs. str pending a pt eval. cm to cont. to follow.
[2019-12-09 09:31] LABS: Folate > 20.0 ng/mL (> or = 4.0); Vitamin B12 1371 pg/mL (200-900)
--- NOTE | 2019-12-09 10:35 | PM.EVENT ---
Event Note Event Note: Seen and examined. H and P from this morning reviewed. Has active bleed, hemodynamically stable. H/H seem stable. A/P per H and p from today. Repeat H/H now.
[2019-12-09 11:08] LABS: Hematocrit 24.9 % (37-47); Hemoglobin 7.7 g/dl (12.0-16.0); Mean Corpuscular HGB Conc 30.9 g/dl (31.0-35.0); Mean Corpuscular Hemoglobin 28.5 pg (27.0-33.0); Mean Corpuscular Volume 92.2 fL (80-98); Mean Platelet Volume 10.8 fL (9.4-12.3); Platelet Count 228 X10*3/uL (160-400); Red Cell Distribution Width 15.9 % (11.0-16.0); White Blood Count 10.2 X10*3/uL (4.8-10.8)
--- NOTE | 2019-12-09 11:11 | PM.GICN ---
History of Present Illness Data of Consult Service Date: 12/09/19 Requesting physician: Wiliam Huggins Primary Care Provider: Mahsa Torres MD [facility] Reason for consult: GI Bleeding, anemia 74 YF with Type 2 DM, CAD, CHF with NYHA class 2, AF on chronic anticoagulation, Htn, Gout, and KIM seen at [facility] [facility] ED yesterday with lethargy, weakness, poor appetite and rectal bleeding. Patient is on Eliquis for AFib. She lives at home with 24 hour care givers. Labs showed worsening anemia with WBC count of 13, hemoglobin of 8.2. On review of her chart, patient's hemoglobin has been progressively dropping from June of this year at 11.3-8.2 today. Patient's other labs are significant for a PT of 28.5, INR of 2.4, sodium of 133, BUN of 22 with a creatinine of 1.18 ( baseline), lactic acid of 2.4, magnesium of 1.5, AST of 107, ALT of 52, alk-phos of 214. COVID-19 negative, chest x-ray no evidence for acute distress. Head CT negative for acute intracranial injury IMAGING STUDIES: 12/08/[address] scan showed: LIVER, GALLBLADDER, AND BILIARY TREE: Normal size of the liver with nodular Contour. No focal hepatic lesion. No biliary ductal dilatation. The gallbladder is not seen. PANCREAS: Unremarkable. SPLEEN: Unremarkable. ENDOSCOPIC STUDIES:2016 colonoscopy was performed by Dr Mata and 6 adenomatous polyps were removed. Pt answers very few questions and its not possible to get a meaningful history from the patient. I spoke to patient's daughter/HCP Sirena ([place] [facility] at [phone] regarding the patient. Daughter reports that patient has had rectal bleeding with passage of bright red blood with bowel movement and on wiping. Patient has been eating poorly with minimal p.o. intake for the past week and has been unable to walk due to weakness. She has been lethargic and sleeps all day. She has been incontinent of urine and bowel movements. Last dose of Eliquis was on 12/08/19. Pt was recently evaluated [place] [facility] and suspected to have Parkinson's disease. Patient's mom was diagnosed with rectal cancer in her 60s. PAST GI HISTORY BY REVIEW OF MEDICAL RECORDS: Pt is followed in the GI clinic by Charla Rodriguez, CARE ADMINISTRATIVE TECH for KIM and was last seen in 12/05/2019: Pt complained of abdominal bloating, decreased appetite and intermittent rectal bleeding. Her jewelry sales representative tells me that they gave concerns, the patient is having a bloated stomach and some rectal bleeding. She was seen at [facility] and they did a CT for her brain and she has a new dx of Parkinsons Disease. Her mother of CRC. Peace last colonoscopy was in 2017 and there were 3 polyps, she has a hx of multiple polyps on scopes and would officially be due for scope in 2021. She came home from [facility] with diarrhea, and was tested for c diff. 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 Her eating habits have changed, she used to eat well but now she is not eating much. It appears that she is having trouble with her hand handling silverware, and she is sleeping alot. BUT this is not the cause of the eating as the staff will readily feed her. They did notice that her butt was extremely raw when she came [place] [facility] and her hemorrhoids were hanging out. They have been using hemorrhoid cream and calmoseptine cream with some relief. Generally, I do not think the anemia is new I reviewed her labs and is normocytic, normochromic so she may have some sort of thalassemia. I will get a ferritin to double-check and consider she should be on iron replacement therapy. I think that her change in mental status may be due to urine tract infection given the patient's history of diarrhea and her history of excoriated broken down skin after her brief hospitalization. This is a common reason for change in mental status and weakness acutely in the elderly and I think it is a good idea to rule out even though it is not exactly a Gastroenterology problem. I have recommended that they start Kandis on fiber as this is very soothing and will help with both constipation and diarrhea until we determine exactly what the problem is. Once we have these tests back and we evaluate her response to any treatment we might render from these I will consider whether not we want to do her colonoscopy early. I really think the rectal bleeding is more from perianal trauma but she does have a strong history and would have been do a due in 2021 for re-screening anyway. If her appetite continues to be off a probably need to consider an EGD. All of this was presented to the family and they are in agreement Review of Systems Review of Systems: Yes Unobtainable due to mental condition Constitutional: Constitutional: Reports daytime sleepiness, Denies fever(s), Reports lethargy, Reports poor appetite and Reports weakness Neurologic: Reports weakness PMFSH Past Medical History Medical History (Updated 12/09/19 @ 18:55 by Kasandra Dobbs MD) Anxiety and depression Atrial fibrillation Cirrhosis of liver without ascites Congestive heart failure with LV diastolic dysfunction, NYHA class 2 Coronary artery disease Essential tremor Gout Hypercholesterolemia Hypertension Osteopenia 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 Tubular adenoma of colon Type 2 diabetes mellitus with hyperglycemia Family History Family History Father Diabetes Hypertension CVD (cardiovascular disease) Mother Diabetes Hypertension Cancer Rectal cancer Daughter Diabetes Surgical History Surgical History Ganglion cyst H/O unilateral oophorectomy History of abdominal hysterectomy History of appendectomy History of carpal tunnel surgery History of cholecystectomy Hx of colonoscopy Social History Social History Household Members: Caregiver Housing: House Do you presently have visiting nurse or other home services: Yes Alcohol intake: current Alcohol intake frequency: does not drink Smoking Status: Never smoker Second Hand Smoke Exposure: No Use of substances other than those prescribed or required for medical reasons: No Currently Displaying Signs/Symptoms of Drug Intoxication Withdrawal: No Have you been hit, kicked, punched, or otherwise hurt by someone within the past year? If so, by whom?: No Do you feel safe in your current relationship?: Yes Is there a partner from a previous relationship who is making you feel unsafe now?: No Are you made to feel afraid or neglected: No Advance Directives: No Advance Directives Information Provided: No Do you have thoughts of harming others: None Do you have a plan to hurt others: No Plan Recently lost weight without trying: No service: No Current occupational status: retired Meds Allergies Allergy/AdvReac Type Severity Reaction Status Date / Time lisinopril [From ZESTRIL] Allergy Intermediate RASH-FROM Verified 12/06/19 15:46 ZESTRIL propranolol [PROPRANOLOL] Allergy Mild HEADACHE Verified 12/05/19 15:23 atorvastatin [Lipitor] Allergy Unknown Unknown Verified 12/06/19 15:46 benazepril Allergy Unknown Unknown Verified 12/06/19 15:46 indomethacin [From INDOCIN] Allergy Unknown UNKNOWN Verified 12/06/19 15:46 simvastatin Allergy Unknown Unknown Verified 12/06/19 15:46 Home Medications Medication Instructions Recorded Confirmed Type alendronate 70 mg tablet 70 mg PO QWEEK 12/05/19 12/08/19 History allopurinol 100 mg tablet 100 mg PO DAILY 12/05/19 12/08/19 History amiodarone 200 mg tablet 200 mg PO DAILY 12/05/19 12/09/19 History amlodipine 5 mg tablet 5 mg PO DAILY 12/05/19 12/08/19 History apixaban 5 mg tablet 5 mg PO BID 12/05/19 12/09/19 History dulaglutide 1.5 mg/0.5 mL 1.5 mg SUBCUT QWEEK 12/05/19 12/09/19 History subcutaneous pen injector furosemide 20 mg tablet 20 mg PO DAILY 12/05/19 12/08/19 History insulin glargine U-300 conc 300 15 unit SUBCUT DAILY ml 12/05/19 12/05/19 History unit/mL (3 mL) subcutaneous pen insulin lispro 100 unit/mL 5.5 unit SUBCUT BEDTIME 12/05/19 12/05/19 History subcutaneous half-unit pen levetiracetam 500 mg tablet 500 mg PO Q12H 12/05/19 12/08/19 History losartan 100 mg tablet 100 mg PO DAILY 12/05/19 12/08/19 History metformin 500 mg tablet 500 mg PO BID 12/05/19 12/08/19 History metoprolol tartrate 25 mg tablet 25 mg PO BID 12/05/19 12/09/19 History multivit with 1 tab PO DAILY 12/05/19 12/09/19 History hcfshpbj-anlt-ON-lutein 8 mg iron-400 mcg-300 mcg tablet omega-3 fatty acids 1,000 mg 1,000 mg PO DAILY 12/05/19 12/09/19 History capsule primidone 50 mg tablet 50 mg PO BID tab 12/05/19 12/09/19 History spironolactone 25 mg tablet 25 mg PO DAILY 12/05/19 12/09/19 History Physical Exam Vital Signs: Vital Signs: Vital Signs Temp Pulse Resp BP Pulse Ox 12/09/19 07:28 97.8 F 62 18 151/70 H 96 12/09/19 06:04 98.6 F 61 18 161/74 H 98 12/09/19 05:16 58 16 126/64 96 12/09/19 04:00 60 16 124/68 97 12/09/19 02:00 56 16 128/61 98 12/09/19 00:00 60 16 139/67 96 12/08/19 23:17 63 16 126/61 98 12/08/19 22:00 62 16 124/58 L 98 12/08/19 20:23 97.8 F 63 16 125/60 97 Body Mass Index 26.5 Const: General: no acute distress and ill appearing Nutritional Appearance: average body habitus Orientation/consciousness: oriented to person Limitations: no limitations HENMT: Head: Yes normal to inspection Ears: hearing grossly normal bilaterally Mouth: Normal oral and palatal mucosa present Eyes: Sclerae: sclerae normal Pupils: Equal, round and reactive pupils present Neck: Neck: Yes normal visual inspection Chest: Chest palpation & inspection: normal inspection of the chest Resp: Effort & Inspection: normal respiratory effort Auscultation: clear to auscultation bilaterally Cardio: Palpation: normal PMI Rhythm: abnormal rhythm (irregularly Irregular) Heart sounds: S1 normal heart sound present, S2 normal heart sound present and no murmurs GI: Palpation (GI): Soft to palpation, nontender and No hepatosplenomegaly present Auscultation: normal bowel sounds Rectal Exam - Female: deferred Skin: General skin exam: no rashes or lesions noted Neuro: General: oriented to person, gait normal and moves all extremities Cranial nerves: Yes Equal, round and reactive pupils present Psych: Appearance: grossly normal Mental Status: mental status grossly normal Results Labs CBC & Chem 7: 12/09/19 07:49 12/08/19 21:23 Labs: Short CBC 12/08/19 12/09/19 Range/Units 21:23 07:49 WBC 13.0 H 10.2 (4.8-10.8) X10*3/uL Hgb 8.0 L 7.7 L (12.0-16.0) g/dl Hct 25.6 L 24.9 L (37-47) % Plt Count 266 228 (160-400) X10*3/uL BMP 12/08/19 21:23 Sodium 133 L Potassium 4.2 Chloride 101 Carbon Dioxide 20 L BUN 22 H Creatinine 1.18 Calcium 9.5 Liver Function 12/08/19 Range/Units 21:23 Total Bilirubin 0.7 (0.0-1.0) mg/dL AST 107 H (5-31) U/L ALT 52 H (0-31) U/L Alkaline Phosphatase 214 H (39-117) U/L Albumin 3.7 (3.5-5.0) g/dL Urine 12/08/19 Range/Units 22:34 Urine Color YELLOW Urine Appearance CLEAR Urine pH 6.0 (5.0-8.0) Ur Specific [place] 1.015 (1.005-1.025) Urine Protein NEG (NEG-TRACE) MG/DL Urine Glucose (UA) NEG (NEG) MG/DL Assessment and Plan (1) Anemia: Problem details: Likely a combination of anemia of chronic disease with superimposed iron def anemia Status: Acute (2) GI bleed: Problem details: Likely from hemorrhoids or colon polyps Status: Acute (3) Cirrhosis of liver without ascites: Status: Acute 74 YF with Type 2 DM, CAD, CHF with NYHA class 2, AF on chronic anticoagulation, Htn, Gout, and KIM seen at [facility] [place] [facility] yesterday with lethargy, weakness, poor appetite and rectal bleeding. Pt has a personal hx of multiple colon polyp removed during her last colonoscopy in 2017. She has a known FH hx of rectal cancer in her Mom. Patient is on Eliquis for AFib and last dose was on 12/08/19. Labs showed worsening anemia. Abd CT scan shows cirrhosis attributed to KIM. Liver Fibrosis score was 0.69 with fibrosis stage of F3 in 2016. Cirrhosis can be due to Autoimmune hepatitis or PBC. MELD score is 18 Hepatitis B & C serologies were negative in 2010. RECOMMENDATIONS: 1. Check , AMA, WESLY, ASMA, SPEP, iron studies - ordered for tomorrow am. 2. Resume ADA. 3. If Hct is less than 23%, transfuse with 2 units of PRBC 4. Rhodell of Lactulose once daily since lethargy and daytime somnolence may be due to hepatic encephalopathy. 4. EGD and Colonoscopy is scheduled on 12/12/19 at 3 pm. Order placed for a clear liquid diet and PEG prep on 12/11/19 Above plan was discussed with Sirena, patient's daughter/ HCP who agrees with proceeding with EGD and colon as planned and signed consents for both procedures.
[2019-12-09 11:40] LABS: Glucose, Whole Blood 131 mg/dL (60-115)
[2019-12-09 16:43] LABS: Glucose, Whole Blood 122 mg/dL (60-115)
[2019-12-09 20:52] LABS: Glucose, Whole Blood 139 mg/dL (60-115)
[2019-12-09] MEDS: Lactulose 20 GM/30 ML SOLUTION PO (21:07)
[2019-12-09] MEDS: 0.9 % Sodium Chloride Flush 3 ML SYRINGE IVFLUSH (21:07)
[2019-12-09] MEDS: Primidone 50 MG TABLET PO (21:07)
[2019-12-09] MEDS: levETIRAcetam 500 MG TABLET PO (21:08)
[2019-12-09] MEDS: Metoprolol Tartrate 25 MG TABLET PO (21:12)
[2019-12-10] VITALS (15 sets, daily range): BP systolic 133–156; BP diastolic 62–79; PULSE 56–78; RESP 16–18; TEMP 36–36.7; O2SAT 95–98
[2019-12-10] MEDS: 0.9 % Sodium Chloride 1,000 ML 100 ML IVCONT ×2 (01:51→13:57)
[2019-12-10] MEDS: Pantoprazole Sodium 40 MG/10 ML VIAL IVPUSH ×2 (05:35→16:54)
[2019-12-10 07:01] LABS: MANUAL DIFF FLAG NO
[2019-12-10 07:13] LABS: INTERNATIONAL NORM RATIO 1.5 (0.9-1.1)
[2019-12-10 07:14] LABS: Glucose, Whole Blood 117 mg/dL (60-115)
[2019-12-10 07:17] LABS: Basophils Percent Auto 0.5 % (0-2); Eosinophils Absolute Auto 0.1 X10*3/uL (0.0-0.4); Eosinophils Percent Auto 1.4 % (0-4); Hematocrit 22.9 % (37-47); Imm Gran Abs Auto 0.05 X10*3/uL (0.00-0.03); Imm Gran Pct Auto 0.6 % (0.0-0.4); Lymphocytes Percent Auto 12.8 % (20-40); Mean Corpuscular HGB Conc 30.6 g/dl (31.0-35.0); Mean Corpuscular Volume 91.6 fL (80-98); Mean Platelet Volume 10.3 fL (9.4-12.3); Monocytes Absolute Auto 1.1 X10*3/uL (0.1-1.2); Monocytes Percent Auto 13.6 % (2-11); Neutrophils Absolute Auto 5.6 X10*3/uL (2.0-8.3); Neutrophils Percent Auto 71.1 % (45-73); Platelet Count 176 X10*3/uL (160-400); Red Cell Distribution Width 15.8 % (11.0-16.0); White Blood Count 7.9 X10*3/uL (4.8-10.8)
[2019-12-10 07:31] LABS: Iron 15 mcg/dL (30-160); Percent Iron Saturation 4 % (15-50); Total Iron Binding Capacity 369 mcg/dL (228-428); Unsaturated Iron Binding 354 ug/dL
[2019-12-10 07:37] LABS: Anion Gap 12 (12-20); Blood Urea Nitrogen 14 mg/dL (9-16); Carbon Dioxide 20 mmol/L (22-29); Chloride 110 mmol/L (96-108); Creatinine Clr Calc Pharmacy 51.9; Estimated Glomerular Filt Rate > 60; Glucose Random 120 mg/dL (60-115); Potassium 3.9 mmol/l (3.3-5.1); Sodium 138 mmol/L (135-145)
[2019-12-10 07:53] LABS: Ferritin 32 ng/mL (10-250)
[2019-12-10 07:54] LABS: Calcium 7.7 mg/dL (8.4-10.2)
[2019-12-10] MEDS: Lactulose 20 GM/30 ML SOLUTION PO (08:05)
[2019-12-10] MEDS: Furosemide 20 MG TABLET PO (08:06)
[2019-12-10] MEDS: levETIRAcetam 500 MG TABLET PO ×2 (08:06→21:40)
[2019-12-10] MEDS: Spironolactone 25 MG TABLET PO (08:06)
[2019-12-10] MEDS: 0.9 % Sodium Chloride Flush 3 ML SYRINGE IVFLUSH ×3 (08:06→21:46)
[2019-12-10] MEDS: Sertraline HCL 100 MG TABLET PO (08:06)
[2019-12-10] MEDS: allopurinoL 100 MG TABLET PO (08:06)
[2019-12-10] MEDS: Iron Polysaccharide Complex 150 MG CAPSULE PO (08:07)
[2019-12-10] MEDS: Amiodarone HCL 200 MG TABLET PO (08:09)
[2019-12-10] MEDS: Primidone 50 MG TABLET PO ×2 (08:11→21:40)
--- NOTE | 2019-12-10 11:02 | P.PNIM_ITS ---
Subjective Subjective Date of Service: 12/10/19 Interval History: Seen in follow up for for acute blood loss anemia and rectala bleeding. H/H has drop further and hgb is 7, however not having active bleed. She is more awake and alert today, sitting up and eating breakfast Review of Systems Gen: no fever Resp: no sob, no cough CV: no chest, no PRIEST, no leg edema GI: No n/v, no abd pain, no rectal bleeding Neuro: + confusion from dementia Physical Exam Vital Signs: Vital Signs: Vital Signs Temp Pulse Resp BP Pulse Ox 12/10/19 08:10 56 133/67 12/10/19 08:09 56 133/67 12/10/19 08:07 56 12/10/19 08:06 58 133/67 12/10/19 07:08 97.1 F 62 18 133/67 97 12/10/19 04:00 98.0 F 59 16 134/64 95 12/10/19 03:39 98.0 F 59 16 134/64 95 12/09/19 23:45 98.5 F 64 18 146/65 H 96 12/09/19 23:07 98.5 F 63 18 144/65 H 94 12/09/19 21:12 69 153/70 H 12/09/19 19:09 98.4 F 69 18 144/67 H 98 12/09/19 15:48 98 F 65 17 152/72 H 95 12/09/19 11:39 98.1 F 68 20 155/70 H 95 Body Mass Index 26.5 General: Oriented to self otherwise vague Resp: CTA bilateral CVS: S1,S2,RRR GI: +BS, NT, no distention Skin: No rash Neuro: motor grossly intact Psych: flat affect Objective Data Current Medications Generic Name Dose Route Start Last Admin Trade Name Freq PRN Reason Stop Dose Admin Acetaminophen 650 mg 12/09/19 05:31 Acetaminophen 325 Mg Tablet PO Q6H PRN Pain, Mild (Pain Scale 1-3) Allopurinol 100 mg 12/09/19 09:00 12/10/19 08:06 Allopurinol 100 Mg Tablet PO 100 mg DAILY LAN Administration Amiodarone HCl 200 mg 12/09/19 09:00 12/10/19 08:09 Amiodarone Hcl 200 Mg Tablet PO 200 mg DAILY LAN Administration Amlodipine Besylate 5 mg 12/09/19 09:00 12/10/19 08:10 Amlodipine Besylate 5 Mg Tablet PO Not Given DAILY LAN Protocol Furosemide 20 mg 12/09/19 09:00 12/10/19 08:06 Furosemide 20 Mg Tablet PO 20 mg DAILY LAN Administration Protocol Sodium Chloride 1,000 mls @ 100 mls/hr 12/09/19 05:15 12/10/19 01:51 Ns IVCONT 100 mls/hr .Q10H LAN Administration Insulin Glargine 10 unit 12/09/19 21:00 12/09/19 21:06 Insulin Glargine,Hum.Rec.Anlog 100 Unit/Ml 10 Ml Vial SUBCUT Not Given BEDTIME [facility] Insulin Human Lispro 0 unit 12/09/19 07:30 12/10/19 08:06 Insulin Lispro 100 Unit/Ml 3 Ml Vial SUBCUT Not Given QIDACHS [facility] Protocol Lactulose 20 gm 12/09/19 18:45 12/10/19 08:05 Lactulose 20 Gm/30 Ml Solution PO 20 gm DAILY LAN Administration Levetiracetam 500 mg 12/09/19 09:00 12/10/19 08:06 Levetiracetam 500 Mg Tablet PO 500 mg Q12H LAN Administration Losartan Potassium 100 mg 12/09/19 09:00 12/09/19 08:42 Losartan Potassium 50 Mg Tablet PO Not Given DAILY [facility] Protocol Metoprolol Tartrate 25 mg 12/09/19 09:00 12/10/19 08:07 Metoprolol Tartrate 25 Mg Tablet PO Not Given BID LAN Protocol Multivitamins/Minerals 1 tab 12/09/19 09:00 12/10/19 08:06 Multivitamin With Minerals Tablet PO 1 tab DAILY LAN Administration Ondansetron HCl 4 mg 12/09/19 05:31 Ondansetron Hcl 4 Mg/2 Ml Vial IVPUSH Q8H PRN Nausea and Vomiting Pantoprazole Sodium 40 mg 12/09/19 06:30 12/10/19 05:35 Pantoprazole Sodium 40 Mg/10 Ml Vial IVPUSH 40 mg BID@0630,1630 LAN Administration Polyethylene Glycol/Electrolytes 4,000 ml 12/11/19 14:00 Peg 3350/Na Sulf,Bicarb,Cl/Kcl 4,000 Ml Soln.Recon PO 12/11/19 14:01 ONCE ONE Polysaccharide Iron Complex 150 mg 12/09/19 09:00 12/10/19 08:07 Iron Polysaccharide Complex 150 Mg Capsule PO 150 mg DAILY LAN Administration Primidone 50 mg 12/09/19 09:00 12/10/19 08:11 Primidone 50 Mg Tablet PO 50 mg BID LAN Administration Sertraline HCl 100 mg 12/09/19 09:00 12/10/19 08:06 Sertraline Hcl 100 Mg Tablet PO 100 mg DAILY LAN Administration Sodium Chloride 3 ml 12/09/19 08:00 12/10/19 08:06 0.9 % Sodium Chloride Flush 3 Ml Syringe IVFLUSH 3 ml QSHIFT LAN Administration Spironolactone 25 mg 12/09/19 09:00 12/10/19 08:06 Spironolactone 25 Mg Tablet PO 25 mg DAILY LAN Administration Protocol Labs CBC & Chem 7: 12/10/19 06:09 12/10/19 06:09 Microbiology Microbiology Results: Microbiology 12/08/19 21:22 Blood - Venous Blood Culture - Preliminary No growth after 24 hours. 12/08/19 21:22 Blood - Venous Blood Culture - Preliminary No growth after 24 hours. Assessment and Plan (1) Type 2 diabetes mellitus with hyperglycemia: Status: Acute Assessment and Plan: 74-year-old female with dementia, HLD, HTN, DM, AF on eliquis here with rectal bleeding, acute blood loss anemia. # LGIB, Acute blood loss anemiano active bleed. Baseline hgb is 11 now 7. -Transfuse 2 units today -Eliquis stopped -For EGD/Colonoscopy by Dr. Dobbs on Monday 12/11 -PPI -Bleeding scan with active bleed #Confusion likely from dementia, no acute delirium or encephalopathy component here. -check Ammonia given history of KIM # leukocytosis--reative, and resolved. # lactic acidosis--not due to sepsis, likely related to anemia, resolved. #KIM--LFTS are normal, -AMA, WESLY, ASMA, SPEP, iron studies --pending # hyponatremia--mild 133, now 138 # AFib--rate controlled on Amio and Metoprolol. -Hold Eliquis due to GIB # diabetes--continue Lantus and SSI # hypertension - stable - continue losartan, spironolactone, # congestive heart failure - no exacerbated - continue furosemide and metoprolol, spironolactone # history of seizure - continue Keppra # Gout: Allopurinol DVT prophylaxis: SCDs (2) Atrial fibrillation: Status: Acute (3) Hypercholesterolemia: Status: Acute (4) Hypertension: Status: Acute (5) Coronary artery disease: Problem details: Echo 60-65% grade 2 diastolic dysfunction November 2017 normal LV grade 2 diastolic dysfunction moderate MR, left atrial enlargement May 2019, NSTEMI June 2019, nuclear stress test June 2019 normal Status: Acute (6) GI bleed: Problem details: Likely from hemorrhoids or colon polyps Status: Acute (7) Lethargy: Status: Acute (8) 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
[2019-12-10 12:08] LABS: Glucose, Whole Blood 193 mg/dL (60-115)
[2019-12-10] MEDS: Insulin Lispro 100 UNIT/ML 3 ML VIAL SUBCUT ×2 (12:12→21:41)
[2019-12-10 17:02] LABS: Glucose, Whole Blood 114 mg/dL (60-115)
[2019-12-10 21:34] LABS: Glucose, Whole Blood 160 mg/dL (60-115)
[2019-12-10] MEDS: Metoprolol Tartrate 25 MG TABLET PO (21:40)
[2019-12-10 21:42] LABS: MANUAL DIFF FLAG NO
[2019-12-10 21:44] LABS: Basophils Percent Auto 0.3 % (0-2); Eosinophils Absolute Auto 0.1 X10*3/uL (0.0-0.4); Eosinophils Percent Auto 1.2 % (0-4); Hematocrit 29.1 % (37-47); Hemoglobin 9.3 g/dl (12.0-16.0); Imm Gran Abs Auto 0.16 X10*3/uL (0.00-0.03); Imm Gran Pct Auto 1.6 % (0.0-0.4); Lymphocytes Absolute Auto 1.1 X10*3/uL (1.2-4.9); Lymphocytes Percent Auto 10.9 % (20-40); Mean Corpuscular Hemoglobin 28.9 pg (27.0-33.0); Mean Corpuscular Volume 90.4 fL (80-98); Mean Platelet Volume 9.6 fL (9.4-12.3); Monocytes Absolute Auto 1.4 X10*3/uL (0.1-1.2); Monocytes Percent Auto 14.3 % (2-11); NRBC Pct Auto 0.3 /100WBC (0.0-0.2); Neutrophils Absolute Auto 7.1 X10*3/uL (2.0-8.3); Neutrophils Percent Auto 71.7 % (45-73); Platelet Count 165 X10*3/uL (160-400); Red Blood Count 3.22 X10*6/uL (4.20-5.50); White Blood Count 9.9 X10*3/uL (4.8-10.8)
[2019-12-11] VITALS (10 sets, daily range): BP systolic 128–169; BP diastolic 62–81; PULSE 54–64; RESP 18–20; TEMP 36.2–37.1; O2SAT 95–100
[2019-12-11] MEDS: 0.9 % Sodium Chloride 1,000 ML 100 ML IVCONT ×2 (04:38→15:54)
[2019-12-11] MEDS: Pantoprazole Sodium 40 MG/10 ML VIAL IVPUSH ×2 (05:21→16:45)
[2019-12-11 07:14] LABS: Hematocrit 29.2 % (37-47); Hemoglobin 9.4 g/dl (12.0-16.0); Mean Corpuscular HGB Conc 32.2 g/dl (31.0-35.0); Mean Corpuscular Volume 90.1 fL (80-98); Mean Platelet Volume 10.4 fL (9.4-12.3); NRBC Pct Auto 0.2 /100WBC (0.0-0.2); Platelet Count 165 X10*3/uL (160-400); Red Blood Count 3.24 X10*6/uL (4.20-5.50); White Blood Count 8.1 X10*3/uL (4.8-10.8)
[2019-12-11 07:33] LABS: Glucose, Whole Blood 113 mg/dL (60-115)
[2019-12-11 07:48] LABS: Glucose, Whole Blood 114 mg/dL (60-115)
[2019-12-11] MEDS: Losartan Potassium 50 MG TABLET 100 MG PO (08:00)
[2019-12-11] MEDS: Sertraline HCL 100 MG TABLET PO (08:01)
[2019-12-11] MEDS: Amiodarone HCL 200 MG TABLET PO (08:01)
[2019-12-11] MEDS: amLODIPine Besylate 5 MG TABLET PO (08:01)
[2019-12-11] MEDS: levETIRAcetam 500 MG TABLET PO ×2 (08:01→21:40)
[2019-12-11] MEDS: allopurinoL 100 MG TABLET PO (08:01)
[2019-12-11] MEDS: Furosemide 20 MG TABLET PO (08:01)
[2019-12-11] MEDS: Primidone 50 MG TABLET PO ×2 (08:01→21:40)
[2019-12-11] MEDS: Spironolactone 25 MG TABLET PO (08:01)
[2019-12-11] MEDS: 0.9 % Sodium Chloride Flush 3 ML SYRINGE IVFLUSH ×2 (08:03→15:54)
[2019-12-11] MEDS: Iron Polysaccharide Complex 150 MG CAPSULE PO (08:04)
[2019-12-11 11:34] LABS: Glucose, Whole Blood 141 mg/dL (60-115)
--- NOTE | 2019-12-11 13:49 | HO.PM.IMPN ---
Subjective Subjective Date of Service: 12/11/19 Interval History: no complaints Cardiovascular Cardiovascular: Reports no additional cardiovascular complaints Respiratory Respiratory: Reports no additional respiratory complaints Physical Exam Vital Signs: Vital Signs: Vital Signs Temp Pulse Resp BP Pulse Ox 12/11/19 12:00 98.6 F 59 18 128/62 98 12/11/19 08:01 64 140/76 H 12/11/19 08:00 64 140/76 H 12/11/19 07:48 98.2 F 57 18 140/76 H 97 12/11/19 02:59 98.4 F 60 18 147/71 H 97 12/11/19 00:00 98.0 F 57 18 135/73 95 12/10/19 21:40 65 152/70 H 12/10/19 19:45 98 F 75 18 156/66 H 12/10/19 19:44 98 F 75 18 151/66 H 98 12/10/19 16:46 96.8 F 78 16 142/79 H 12/10/19 16:26 97.7 F 66 18 141/65 H Body Mass Index 26.5 General: no acute distress Resp: CTA bilateral CVS: S1,S2,RRR GI: soft, non tender, non distended Neuro: motor grossly intact Psych: impaired insight Objective Data Current Medications Generic Name Dose Route Start Last Admin Trade Name Justoq PRN Reason Stop Dose Admin Acetaminophen 650 mg 12/09/19 05:31 Acetaminophen 325 Mg Tablet PO Q6H PRN Pain, Mild (Pain Scale 1-3) Allopurinol 100 mg 12/09/19 09:00 12/11/19 08:01 Allopurinol 100 Mg Tablet PO 100 mg DAILY LAN Administration Amiodarone HCl 200 mg 12/09/19 09:00 12/11/19 08:01 Amiodarone Hcl 200 Mg Tablet PO 200 mg DAILY LAN Administration Amlodipine Besylate 5 mg 12/09/19 09:00 12/11/19 08:01 Amlodipine Besylate 5 Mg Tablet PO 5 mg DAILY LAN Administration Protocol Sodium Chloride 1,000 mls @ 100 mls/hr 12/09/19 05:15 12/11/19 04:38 Ns IVCONT 100 mls/hr .Q10H LAN Administration Insulin Glargine 10 unit 12/09/19 21:00 12/10/19 21:42 Insulin Glargine,Hum.Rec.Anlog 100 Unit/Ml 10 Ml Vial SUBCUT Not Given BEDTIME [facility] Insulin Human Lispro 0 unit 12/09/19 07:30 12/11/19 13:13 Insulin Lispro 100 Unit/Ml 3 Ml Vial SUBCUT Not Given QIDACHS [facility] Protocol Lactulose 20 gm 12/09/19 18:45 12/11/19 08:02 Lactulose 20 Gm/30 Ml Solution PO Not Given DAILY LAN Levetiracetam 500 mg 12/09/19 09:00 12/11/19 08:01 Levetiracetam 500 Mg Tablet PO 500 mg Q12H LAN Administration Losartan Potassium 100 mg 12/09/19 09:00 12/11/19 08:00 Losartan Potassium 50 Mg Tablet PO 100 mg DAILY LAN Administration Protocol Metoprolol Tartrate 25 mg 12/09/19 09:00 12/11/19 08:04 Metoprolol Tartrate 25 Mg Tablet PO Not Given BID [facility] Protocol Multivitamins/Minerals 1 tab 12/09/19 09:00 12/11/19 08:01 Multivitamin With Minerals Tablet PO 1 tab DAILY LAN Administration Ondansetron HCl 4 mg 12/09/19 05:31 Ondansetron Hcl 4 Mg/2 Ml Vial IVPUSH Q8H PRN Nausea and Vomiting Pantoprazole Sodium 40 mg 12/09/19 06:30 12/11/19 05:21 Pantoprazole Sodium 40 Mg/10 Ml Vial IVPUSH 40 mg BID@0630,1630 LAN Administration Polyethylene Glycol/Electrolytes 4,000 ml 12/11/19 14:00 Peg 3350/Na Sulf,Bicarb,Cl/Kcl 4,000 Ml Soln.Recon PO 12/11/19 14:01 ONCE ONE Polysaccharide Iron Complex 150 mg 12/09/19 09:00 12/11/19 08:04 Iron Polysaccharide Complex 150 Mg Capsule PO 150 mg DAILY LAN Administration Primidone 50 mg 12/09/19 09:00 12/11/19 08:01 Primidone 50 Mg Tablet PO 50 mg BID LAN Administration Sertraline HCl 100 mg 12/09/19 09:00 12/11/19 08:01 Sertraline Hcl 100 Mg Tablet PO 100 mg DAILY LAN Administration Sodium Chloride 3 ml 12/09/19 08:00 12/11/19 08:03 0.9 % Sodium Chloride Flush 3 Ml Syringe IVFLUSH 3 ml QSHIFT LAN Administration Spironolactone 25 mg 12/09/19 09:00 12/11/19 08:01 Spironolactone 25 Mg Tablet PO 25 mg DAILY LAN Administration Protocol Labs CBC & Chem 7: 12/11/19 06:07 12/10/19 06:09 Microbiology Microbiology Results: Microbiology 12/08/19 21:22 Blood - Venous Blood Culture - Preliminary No growth after 48 hours. 12/08/19 21:22 Blood - Venous Blood Culture - Preliminary No growth after 48 hours. 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 Acute blood loss anemiano active bleed. -Transfused 2 units 10-, hgb responeded appropriately -Eliquis stopped -For EGD/Colonoscopy by Dr. Dobbs on Monday 12/11 -PPI -Bleeding scan if active bleed Confusion likely from dementia, no acute delirium or encephalopathy component here. KIM--LFTS are normal, -AMA, WESLY, ASMA, SPEP, iron studies --pending aFib-- rate controlled on Amio and Metoprolol. -Hold Eliquis due to GIB diabetes-- continue Lantus and SSI hypertension continue losartan, spironolactone, chronic diastolic congestive heart failure - not exacerbated history of seizure - continue Keppra Gout: Allopurinol
[2019-12-11 16:31] LABS: Glucose, Whole Blood 135 mg/dL (60-115)
[2019-12-11] MEDS: PEG 3350/Na Sulf,Bicarb,Cl/KCL 4,000 ML SOLN.RECON 4000 ML PO (16:35)
[2019-12-11] MEDS: Metoprolol Tartrate 25 MG TABLET PO (21:40)
[2019-12-11 21:50] LABS: Glucose, Whole Blood 110 mg/dL (60-115)
[2019-12-12] VITALS (15 sets, daily range): BP systolic 120–167; BP diastolic 55–95; PULSE 52–66; RESP 14–20; TEMP 36.2–37; O2SAT 92–99; BMI 26.5; BMI 27.3
[2019-12-12] MEDS: 0.9 % Sodium Chloride 1,000 ML 100 ML IVCONT (01:57)
[2019-12-12] MEDS: Pantoprazole Sodium 40 MG/10 ML VIAL IVPUSH (05:33)
[2019-12-12 06:19] LABS: MANUAL DIFF FLAG NO
[2019-12-12 06:49] LABS: Basophils Absolute Auto 0.1 X10*3/uL (0.0-0.2); Basophils Percent Auto 0.6 % (0-2); Eosinophils Absolute Auto 0.2 X10*3/uL (0.0-0.4); Eosinophils Percent Auto 2.4 % (0-4); Hematocrit 32.1 % (37-47); Hemoglobin 10.1 g/dl (12.0-16.0); Imm Gran Abs Auto 0.11 X10*3/uL (0.00-0.03); Imm Gran Pct Auto 1.2 % (0.0-0.4); Lymphocytes Percent Auto 11.2 % (20-40); Mean Corpuscular HGB Conc 31.5 g/dl (31.0-35.0); Mean Corpuscular Hemoglobin 28.4 pg (27.0-33.0); Mean Corpuscular Volume 90.2 fL (80-98); Monocytes Percent Auto 11.6 % (2-11); Neutrophils Absolute Auto 6.5 X10*3/uL (2.0-8.3); Platelet Count 196 X10*3/uL (160-400); Red Blood Count 3.56 X10*6/uL (4.20-5.50); White Blood Count 8.9 X10*3/uL (4.8-10.8)
[2019-12-12 06:52] LABS: Anion Gap 15 (12-20); Blood Urea Nitrogen 7 mg/dL (9-16); Calcium 7.8 mg/dL (8.4-10.2); Carbon Dioxide 18 mmol/L (22-29); Chloride 111 mmol/L (96-108); Creatinine Clr Calc Pharmacy 67.3; Estimated Glomerular Filt Rate > 60; Glucose Fasting 112 mg/dL (60-99); Potassium 3.2 mmol/l (3.3-5.1); Sodium 141 mmol/L (135-145)
[2019-12-12 08:40] LABS: Glucose, Whole Blood 114 mg/dL (60-115)
--- NOTE | 2019-12-12 09:44 | P.PNIM_ITS ---
Subjective Subjective Interval History: no complaints Physical Exam Vital Signs: Vital Signs: Vital Signs Temp Pulse Resp BP Pulse Ox 12/12/19 07:06 97.7 F 53 20 149/95 H 99 12/12/19 03:02 98.6 F 53 18 128/64 92 12/11/19 23:34 98.6 F 54 20 145/81 H 97 12/11/19 21:40 60 166/71 H 12/11/19 19:30 98.7 F 58 18 169/68 H 98 12/11/19 15:31 97.1 F 57 18 138/64 100 12/11/19 12:00 98.6 F 59 18 128/62 98 Body Mass Index 26.5 General: no acute distress Resp: CTA bilateral CVS: S1,S2,RRR GI: soft, non tender, non distended Neuro: motor grossly intact Psych: impaired insight Objective Data Current Medications Generic Name Dose Route Start Last Admin Trade Name Freq PRN Reason Stop Dose Admin Acetaminophen 650 mg 12/09/19 05:31 Acetaminophen 325 Mg Tablet PO Q6H PRN Pain, Mild (Pain Scale 1-3) Allopurinol 100 mg 12/09/19 09:00 12/11/19 08:01 Allopurinol 100 Mg Tablet PO 100 mg DAILY LAN Administration Amiodarone HCl 200 mg 12/09/19 09:00 12/11/19 08:01 Amiodarone Hcl 200 Mg Tablet PO 200 mg DAILY LAN Administration Amlodipine Besylate 5 mg 12/09/19 09:00 12/11/19 08:01 Amlodipine Besylate 5 Mg Tablet PO 5 mg DAILY LAN Administration Protocol Insulin Glargine 10 unit 12/09/19 21:00 12/11/19 21:39 Insulin Glargine,Hum.Rec.Anlog 100 Unit/Ml 10 Ml Vial SUBCUT Not Given BEDTIME COUNTS INCLUDE 234 BEDS AT THE [facility] Insulin Human Lispro 0 unit 12/09/19 07:30 12/11/19 21:40 Insulin Lispro 100 Unit/Ml 3 Ml Vial SUBCUT Not Given QIDACHS COUNTS INCLUDE 234 BEDS AT THE [facility] Protocol Lactulose 20 gm 12/09/19 18:45 12/11/19 08:02 Lactulose 20 Gm/30 Ml Solution PO Not Given DAILY LAN Levetiracetam 500 mg 12/09/19 09:00 12/11/19 21:40 Levetiracetam 500 Mg Tablet PO 500 mg Q12H ALN Administration Losartan Potassium 100 mg 12/09/19 09:00 12/11/19 08:00 Losartan Potassium 50 Mg Tablet PO 100 mg DAILY COUNTS INCLUDE 234 BEDS AT THE [facility] Administration Protocol Metoprolol Tartrate 25 mg 12/09/19 09:00 12/11/19 21:40 Metoprolol Tartrate 25 Mg Tablet PO 25 mg BID LAN Administration Protocol Multivitamins/Minerals 1 tab 12/09/19 09:00 12/11/19 08:01 Multivitamin With Minerals Tablet PO 1 tab DAILY LAN Administration Ondansetron HCl 4 mg 12/09/19 05:31 Ondansetron Hcl 4 Mg/2 Ml Vial IVPUSH Q8H PRN Nausea and Vomiting Polysaccharide Iron Complex 150 mg 12/09/19 09:00 12/11/19 08:04 Iron Polysaccharide Complex 150 Mg Capsule PO 150 mg DAILY COUNTS INCLUDE 234 BEDS AT THE [facility] Administration Primidone 50 mg 12/09/19 09:00 12/11/19 21:40 Primidone 50 Mg Tablet PO 50 mg BID LAN Administration Sertraline HCl 100 mg 12/09/19 09:00 12/11/19 08:01 Sertraline Hcl 100 Mg Tablet PO 100 mg DAILY COUNTS INCLUDE 234 BEDS AT THE [facility] Administration Sodium Chloride 3 ml 12/09/19 08:00 12/11/19 22:56 0.9 % Sodium Chloride Flush 3 Ml Syringe IVFLUSH Not Given QSHIFT COUNTS INCLUDE 234 BEDS AT THE [facility] Spironolactone 25 mg 12/09/19 09:00 12/11/19 08:01 Spironolactone 25 Mg Tablet PO 25 mg DAILY COUNTS INCLUDE 234 BEDS AT THE [facility] Administration Protocol Labs CBC & Chem 7: 12/12/19 05:17 12/12/19 05:17 Microbiology Microbiology Results: Microbiology 12/08/19 21:22 Blood - Venous Blood Culture - Preliminary No growth after 48 hours. 12/08/19 21:22 Blood - Venous Blood Culture - Preliminary No growth after 48 hours. 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 Acute blood loss anemiano active bleed. -Transfused 2 units 10-, hgb responeded appropriately -Eliquis stopped -For EGD/Colonoscopy by Dr. Dobbs today -PPI Confusion likely from dementia, no acute delirium or encephalopathy component here. KIM--LFTS are normal, -AMA, WESLY, ASMA, SPEP, iron studies --pending aFib-- rate controlled on Amio and Metoprolol. -Hold Eliquis due to GIB diabetes-- continue Lantus and SSI hypertension continue losartan, spironolactone, chronic diastolic congestive heart failure - not exacerbated history of seizure - continue Keppra Gout: Allopurinol
[2019-12-12] MEDS: Primidone 50 MG TABLET PO ×2 (09:46→20:08)
[2019-12-12] MEDS: allopurinoL 100 MG TABLET PO (09:47)
[2019-12-12] MEDS: Sertraline HCL 100 MG TABLET PO (09:47)
[2019-12-12] MEDS: Iron Polysaccharide Complex 150 MG CAPSULE PO (09:47)
[2019-12-12] MEDS: levETIRAcetam 500 MG TABLET PO ×2 (09:47→20:09)
[2019-12-12] MEDS: Amiodarone HCL 200 MG TABLET PO (09:49)
[2019-12-12] MEDS: amLODIPine Besylate 5 MG TABLET PO (09:52)
[2019-12-12] MEDS: Metoprolol Tartrate 25 MG TABLET PO ×2 (09:52→20:08)
[2019-12-12] MEDS: Losartan Potassium 50 MG TABLET 100 MG PO (09:52)
[2019-12-12] MEDS: Spironolactone 25 MG TABLET PO (09:52)
[2019-12-12 11:27] LABS: Glucose, Whole Blood 120 mg/dL (60-115)
[2019-12-12] MEDS: Potassium Chloride/H20 10 MEQ/100 ML PIGGYBACK 100 MEQ IV ×4 (11:34→18:24)
--- NOTE | 2019-12-12 11:41 | MHC.CM.PN ---
Patient is active with [facility]; a referral has been made in [employer].
--- NOTE | 2019-12-12 11:43 | MHC.CM.PN ---
The goal for dc is to return home with resumption of [facility]. Patient appears to be a 2 assist with mobility and may need a PT eval to determine if STR is recommended. CM will continue to follow for dc planning.
--- NOTE | 2019-12-12 12:28 | MHC.CLN ---
RE: CONSULT WHEN DIET TO ADVANCE; RECOMMEND STARTING GLUCERNA BID TO INCREASE KCALS R/T HX POOR PO INTAKE STRICT PO INTAKE RECORDS SEE ALSO NUTRITION ASSESSMENT
[2019-12-12 14:51] LABS: Prot Elec - Albumin 2.9 g/dL (3.8-4.8); Prot Elec - Alpha1 0.4 g/dL (0.2-0.3); Prot Elec - Alpha2 0.8 g/dL (0.5-0.9); Prot Elec - Beta 1 0.5 g/dL (0.4-0.6); Prot Elec - Beta 2 0.6 g/dL (0.2-0.5); Prot Elec - Gamma 1.2 g/dL (0.8-1.7); Prot Elec - Total Protein 6.2 g/dL (6.1-8.1)
[2019-12-12 15:05] LABS: Glucose, Whole Blood 111 mg/dL (60-115)
--- NOTE | 2019-12-12 15:23 | MHC.SHP ---
Pre-Procedural Eval Section A The patient is an INPATIENT: Yes Changes since office visit: No Cold of Flu in the past 2 weeks, No New Medical Problems, No Changes in Medication and No Patient answered all questions The History & Physical has been completed within 30 days and I have reviewed it.: Yes Section B Chief Complaint: GI BLEED Allergies: Allergies Allergy/AdvReac Type Severity Reaction Status Date / Time lisinopril [From ZESTRIL] Allergy Intermediate RASH-FROM Verified 12/06/19 15:46 ZESTRIL propranolol [PROPRANOLOL] Allergy Mild HEADACHE Verified 12/05/19 15:23 atorvastatin [Lipitor] Allergy Unknown Unknown Verified 12/06/19 15:46 benazepril Allergy Unknown Unknown Verified 12/06/19 15:46 indomethacin [From INDOCIN] Allergy Unknown UNKNOWN Verified 12/06/19 15:46 simvastatin Allergy Unknown Unknown Verified 12/06/19 15:46 Plan Patient has been examined and remains a candidate for the planned procedure
--- NOTE | 2019-12-12 15:25 | HO.ANESPROP2 ---
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 Tubular adenoma of colon Type 2 diabetes mellitus with hyperglycemia Family History Family History Father Diabetes Hypertension CVD (cardiovascular disease) Mother Diabetes Hypertension Cancer Rectal cancer Daughter Diabetes Surgical History Surgical History Ganglion cyst H/O unilateral oophorectomy History of abdominal hysterectomy History of appendectomy History of carpal tunnel surgery History of cholecystectomy Hx of colonoscopy Social History Social History Household Members: Caregiver Housing: House Do you presently have visiting nurse or other home services: Yes Alcohol intake: current Alcohol intake frequency: does not drink Smoking Status: Never smoker Second Hand Smoke Exposure: No Use of substances other than those prescribed or required for medical reasons: No Currently Displaying Signs/Symptoms of Drug Intoxication Withdrawal: No Have you been hit, kicked, punched, or otherwise hurt by someone within the past year? If so, by whom?: No Do you feel safe in your current relationship?: Yes Is there a partner from a previous relationship who is making you feel unsafe now?: No Are you made to feel afraid or neglected: No Advance Directives: No Advance Directives Information Provided: No Do you have thoughts of harming others: None Do you have a plan to hurt others: No Plan Recently lost weight without trying: No service: No Current occupational status: retired Meds Allergies Allergy/AdvReac Type Severity Reaction Status Date / Time lisinopril [From ZESTRIL] Allergy Intermediate RASH-FROM Verified 12/06/19 15:46 ZESTRIL propranolol [PROPRANOLOL] Allergy Mild HEADACHE Verified 12/05/19 15:23 atorvastatin [Lipitor] Allergy Unknown Unknown Verified 12/06/19 15:46 benazepril Allergy Unknown Unknown Verified 12/06/19 15:46 indomethacin [From INDOCIN] Allergy Unknown UNKNOWN Verified 12/06/19 15:46 simvastatin Allergy Unknown Unknown Verified 12/06/19 15:46 Home Medications Medication Instructions Recorded Confirmed Type alendronate 70 mg tablet 70 mg PO QWEEK 12/05/19 12/08/19 History allopurinol 100 mg tablet 100 mg PO DAILY 12/05/19 12/08/19 History amiodarone 200 mg tablet 200 mg PO DAILY 12/05/19 12/09/19 History amlodipine 5 mg tablet 5 mg PO DAILY 12/05/19 12/08/19 History apixaban 5 mg tablet 5 mg PO BID 12/05/19 12/09/19 History dulaglutide 1.5 mg/0.5 mL 1.5 mg SUBCUT QWEEK 12/05/19 12/09/19 History subcutaneous pen injector furosemide 20 mg tablet 20 mg PO DAILY 12/05/19 12/08/19 History insulin glargine U-300 conc 300 15 unit SUBCUT DAILY ml 12/05/19 12/05/19 History unit/mL (3 mL) subcutaneous pen insulin lispro 100 unit/mL 5.5 unit SUBCUT BEDTIME 12/05/19 12/05/19 History subcutaneous half-unit pen levetiracetam 500 mg tablet 500 mg PO Q12H 12/05/19 12/08/19 History losartan 100 mg tablet 100 mg PO DAILY 12/05/19 12/08/19 History metformin 500 mg tablet 500 mg PO BID 12/05/19 12/08/19 History metoprolol tartrate 25 mg tablet 25 mg PO BID 12/05/19 12/09/19 History multivit with 1 tab PO DAILY 12/05/19 12/09/19 History cqumyqap-ihma-ZC-lutein 8 mg iron-400 mcg-300 mcg tablet omega-3 fatty acids 1,000 mg 1,000 mg PO DAILY 12/05/19 12/09/19 History capsule primidone 50 mg tablet 50 mg PO BID tab 12/05/19 12/09/19 History spironolactone 25 mg tablet 25 mg PO DAILY 12/05/19 12/09/19 History Exam Exam Date and Time: December 12, 2019 1525 Height,Weight and Vital Signs: Height 5 ft Weight 63.503 kg Last Vital Signs Temp 98.4 F 12/12/19 14:46 Pulse 56 12/12/19 14:46 Resp 16 12/12/19 14:46 BP 149/66 H 12/12/19 14:46 Pulse Ox 96 12/12/19 14:46 Pertinent Lab Results Pertinent Lab Results: Laboratory Tests 12/08/19 12/08/19 12/08/19 20:13 21:21 21:22 WBC RBC Hgb Hct MCV MCH MCHC RDW Plt Count MPV Immature Gran % (Auto) Neut % (Auto) Lymph % (Auto) [place] % (Auto) Eos % (Auto) Baso % (Auto) Lymph # (Auto) [place] # (Auto) Eos # (Auto) Baso # (Auto) Abs Immat Gran (auto) Absolute Neuts (auto) Absolute Nucleated RBC Nucleated RBC % (auto) Smear Tech's Comments PT INR APTT Sodium Potassium Chloride Carbon Dioxide Anion Gap BUN Creatinine Estim Creat Clear Calc Estimated GFR POC Glucose 149 H Random Glucose Fasting Glucose Lactic Acid 2.4 H* Lactic Acid Fup @ 2Hr Calcium Magnesium Iron TIBC % Saturation Unsat Iron Binding Ferritin Total Bilirubin AST ALT Alkaline Phosphatase Lactate Dehydrogenase Troponin I High Sens Total Protein Total Protein (PEP) Albumin Albumin (PEP) Btsum-2-Kkvjvemjx Krbmn-1-Ipmqwesgm Xivk-2-Duoxzobx Yajf-9-Uqcdthrz Gamma Globulins Abnorm Protein Band 1 PEP Interpretation Vitamin B12 Folate Urine Color Urine Appearance Urine pH Ur Specific [place] Urine Protein Urine Glucose (UA) Urine Ketones Urine Blood Urine Nitrite Ur Leukocyte Esterase Stool Occult Blood Coronavirus (PCR) NEGATIVE Blood Type Antibody Screen Crossmatch 12/08/19 12/08/19 12/08/19 21:23 21:23 21:23 WBC 13.0 H RBC 2.82 L Hgb 8.0 L Hct 25.6 L MCV 90.8 MCH 28.4 MCHC 31.3 RDW 15.8 Plt Count 266 MPV 10.4 Immature Gran % (Auto) 0.8 H Neut % (Auto) 71.1 Lymph % (Auto) 12.1 L [place] % (Auto) 14.0 H Eos % (Auto) 1.6 Baso % (Auto) 0.4 Lymph # (Auto) 1.6 [place] # (Auto) 1.8 H Eos # (Auto) 0.2 Baso # (Auto) 0.1 Abs Immat Gran (auto) 0.11 H Absolute Neuts (auto) 9.2 H Absolute Nucleated RBC 0.000 Nucleated RBC % (auto) 0.0 Smear Tech's Comments VERIFIED PT 28.5 H INR 2.4 H APTT 42.8 H Sodium Potassium Chloride Carbon Dioxide Anion Gap BUN Creatinine Estim Creat Clear Calc Estimated GFR POC Glucose Random Glucose Fasting Glucose Lactic Acid Lactic Acid Fup @ 2Hr Calcium Magnesium 1.5 L Iron TIBC % Saturation Unsat Iron Binding Ferritin Total Bilirubin AST ALT Alkaline Phosphatase Lactate Dehydrogenase 184 Troponin I High Sens Total Protein Total Protein (PEP) Albumin Albumin (PEP) Lwigi-2-Ncgnwjxfn Mxyzc-1-Yvaxmdomc Jspr-3-Zzwicsax Rquu-1-Luscbdcb Gamma Globulins Abnorm Protein Band 1 PEP Interpretation Vitamin B12 Folate Urine Color Urine Appearance Urine pH Ur Specific [place] Urine Protein Urine Glucose (UA) Urine Ketones Urine Blood Urine Nitrite Ur Leukocyte Esterase Stool Occult Blood Coronavirus (PCR) Blood Type Antibody Screen Crossmatch 12/08/19 12/08/19 12/08/19 21:23 21:23 22:34 WBC RBC Hgb Hct MCV MCH MCHC RDW Plt Count MPV Immature Gran % (Auto) Neut % (Auto) Lymph % (Auto) [place] % (Auto) Eos % (Auto) Baso % (Auto) Lymph # (Auto) [place] # (Auto) Eos # (Auto) Baso # (Auto) Abs Immat Gran (auto) Absolute Neuts (auto) Absolute Nucleated RBC Nucleated RBC % (auto) Smear Tech's Comments PT INR APTT Sodium 133 L Potassium 4.2 Chloride 101 Carbon Dioxide 20 L Anion Gap 16 BUN 22 H Creatinine 1.18 Estim Creat Clear Calc 34.8 Estimated GFR 45 POC Glucose Random Glucose 107 D Fasting Glucose Lactic Acid Lactic Acid Fup @ 2Hr Calcium 9.5 Magnesium Iron TIBC % Saturation Unsat Iron Binding Ferritin Total Bilirubin 0.7 AST 107 H ALT 52 H Alkaline Phosphatase 214 H Lactate Dehydrogenase Troponin I High Sens 27.8 H Total Protein 7.5 Total Protein (PEP) Albumin 3.7 Albumin (PEP) Cltfi-2-Ikfxtuukx Ntjxt-3-Pvnopbuhx Wiui-4-Innvemlf Ffiw-8-Mewplhui Gamma Globulins Abnorm Protein Band 1 PEP Interpretation Vitamin B12 Folate Urine Color YELLOW Urine Appearance CLEAR Urine pH 6.0 Ur Specific [place] 1.015 Urine Protein NEG Urine Glucose (UA) NEG Urine Ketones NEG Urine Blood NEG Urine Nitrite NEG Ur Leukocyte Esterase NEG Stool Occult Blood Coronavirus (PCR) Blood Type Antibody Screen Crossmatch 12/08/19 12/08/19 12/09/19 23:12 23:35 00:41 WBC RBC Hgb Hct MCV MCH MCHC RDW Plt Count MPV Immature Gran % (Auto) Neut % (Auto) Lymph % (Auto) [place] % (Auto) Eos % (Auto) Baso % (Auto) Lymph # (Auto) [place] # (Auto) Eos # (Auto) Baso # (Auto) Abs Immat Gran (auto) Absolute Neuts (auto) Absolute Nucleated RBC Nucleated RBC % (auto) Smear Tech's Comments PT INR APTT Sodium Potassium Chloride Carbon Dioxide Anion Gap BUN Creatinine Estim Creat Clear Calc Estimated GFR POC Glucose Random Glucose Fasting Glucose Lactic Acid Lactic Acid Fup @ 2Hr 1.6 Calcium Magnesium Iron TIBC % Saturation Unsat Iron Binding Ferritin Total Bilirubin AST ALT Alkaline Phosphatase Lactate Dehydrogenase Troponin I High Sens 6.4 D Total Protein Total Protein (PEP) Albumin Albumin (PEP) Sfqov-3-Mxrjnxisz Jycsk-7-Zxxsfjuzz Lazz-9-Hzgzwfks Famw-2-Lgpnalth Gamma Globulins Abnorm Protein Band 1 PEP Interpretation Vitamin B12 Folate Urine Color Urine Appearance Urine pH Ur Specific [place] Urine Protein Urine Glucose (UA) Urine Ketones Urine Blood Urine Nitrite Ur Leukocyte Esterase Stool Occult Blood POS Coronavirus (PCR) Blood Type Antibody Screen Crossmatch 12/09/19 12/09/19 12/09/19 03:41 07:37 07:49 WBC RBC Hgb Hct MCV MCH MCHC RDW Plt Count MPV Immature Gran % (Auto) Neut % (Auto) Lymph % (Auto) [place] % (Auto) Eos % (Auto) Baso % (Auto) Lymph # (Auto) [place] # (Auto) Eos # (Auto) Baso # (Auto) Abs Immat Gran (auto) Absolute Neuts (auto) Absolute Nucleated RBC Nucleated RBC % (auto) Smear Tech's Comments PT INR APTT Sodium Potassium Chloride Carbon Dioxide Anion Gap BUN Creatinine Estim Creat Clear Calc Estimated GFR POC Glucose 130 H Random Glucose Fasting Glucose Lactic Acid Lactic Acid Fup @ 2Hr Calcium Magnesium 1.5 L Iron TIBC % Saturation Unsat Iron Binding Ferritin Total Bilirubin AST ALT Alkaline Phosphatase Lactate Dehydrogenase Troponin I High Sens Total Protein Total Protein (PEP) Albumin Albumin (PEP) Yskzm-6-Nmbktgvxb Ymxlf-1-Pktpavmiy Niok-2-Nxuxigqe Uuql-0-Kjlasabt Gamma Globulins Abnorm Protein Band 1 PEP Interpretation Vitamin B12 Folate Urine Color Urine Appearance Urine pH Ur Specific [place] Urine Protein Urine Glucose (UA) Urine Ketones Urine Blood Urine Nitrite Ur Leukocyte Esterase Stool Occult Blood Coronavirus (PCR) Blood Type A Negative Antibody Screen NEGATIVE Crossmatch See Detail 12/09/19 12/09/19 12/09/19 07:49 07:49 11:36 WBC 10.2 RBC 2.70 L Hgb 7.7 L Hct 24.9 L MCV 92.2 MCH 28.5 MCHC 30.9 L RDW 15.9 Plt Count 228 MPV 10.8 Immature Gran % (Auto) Neut % (Auto) Lymph % (Auto) [place] % (Auto) Eos % (Auto) Baso % (Auto) Lymph # (Auto) [place] # (Auto) Eos # (Auto) Baso # (Auto) Abs Immat Gran (auto) Absolute Neuts (auto) Absolute Nucleated RBC 0.000 Nucleated RBC % (auto) 0.0 Smear Tech's Comments PT INR APTT Sodium Potassium Chloride Carbon Dioxide Anion Gap BUN Creatinine Estim Creat Clear Calc Estimated GFR POC Glucose 131 H Random Glucose Fasting Glucose Lactic Acid Lactic Acid Fup @ 2Hr Calcium Magnesium Iron TIBC % Saturation Unsat Iron Binding Ferritin Total Bilirubin AST ALT Alkaline Phosphatase Lactate Dehydrogenase Troponin I High Sens Total Protein Total Protein (PEP) Albumin Albumin (PEP) Hxvdn-4-Pjivgkrwm Hxllm-7-Dmxwrodzd Yuef-1-Tzqrwfnm Ylzj-5-Lrrzugmg Gamma Globulins Abnorm Protein Band 1 PEP Interpretation Vitamin B12 1371 H Folate > 20.0 Urine Color Urine Appearance Urine pH Ur Specific [place] Urine Protein Urine Glucose (UA) Urine Ketones Urine Blood Urine Nitrite Ur Leukocyte Esterase Stool Occult Blood Coronavirus (PCR) Blood Type Antibody Screen Crossmatch 12/09/19 12/09/19 12/10/19 16:30 20:43 06:09 WBC 7.9 RBC 2.50 L Hgb 7.0 L* Hct 22.9 L MCV 91.6 MCH 28.0 MCHC 30.6 L RDW 15.8 Plt Count 176 MPV 10.3 Immature Gran % (Auto) 0.6 H Neut % (Auto) 71.1 Lymph % (Auto) 12.8 L [place] % (Auto) 13.6 H Eos % (Auto) 1.4 Baso % (Auto) 0.5 Lymph # (Auto) 1.0 L [place] # (Auto) 1.1 Eos # (Auto) 0.1 Baso # (Auto) 0.0 Abs Immat Gran (auto) 0.05 H Absolute Neuts (auto) 5.6 Absolute Nucleated RBC 0.000 Nucleated RBC % (auto) 0.0 Smear Tech's Comments PT INR APTT Sodium Potassium Chloride Carbon Dioxide Anion Gap BUN Creatinine Estim Creat Clear Calc Estimated GFR POC Glucose 122 H 139 H Random Glucose Fasting Glucose Lactic Acid Lactic Acid Fup @ 2Hr Calcium Magnesium Iron TIBC % Saturation Unsat Iron Binding Ferritin Total Bilirubin AST ALT Alkaline Phosphatase Lactate Dehydrogenase Troponin I High Sens Total Protein Total Protein (PEP) Albumin Albumin (PEP) Zdwrg-4-Ckxqytkze Uvxxv-7-Cxxdvntqj Bpar-5-Kjnsgtzq Jfrz-9-Ujibqqwi Gamma Globulins Abnorm Protein Band 1 PEP Interpretation Vitamin B12 Folate Urine Color Urine Appearance Urine pH Ur Specific [place] Urine Protein Urine Glucose (UA) Urine Ketones Urine Blood Urine Nitrite Ur Leukocyte Esterase Stool Occult Blood Coronavirus (PCR) Blood Type Antibody Screen Crossmatch 12/10/19 12/10/19 12/10/19 06:09 06:09 06:09 WBC RBC Hgb Hct MCV MCH MCHC RDW Plt Count MPV Immature Gran % (Auto) Neut % (Auto) Lymph % (Auto) [place] % (Auto) Eos % (Auto) Baso % (Auto) Lymph # (Auto) [place] # (Auto) Eos # (Auto) Baso # (Auto) Abs Immat Gran (auto) Absolute Neuts (auto) Absolute Nucleated RBC Nucleated RBC % (auto) Smear Tech's Comments PT 18.0 H D INR 1.5 H APTT Sodium 138 Potassium 3.9 Chloride 110 H Carbon Dioxide 20 L Anion Gap 12 BUN 14 Creatinine 0.79 Estim Creat Clear Calc 51.9 Estimated GFR > 60 POC Glucose Random Glucose 120 H Fasting Glucose Lactic Acid Lactic Acid Fup @ 2Hr Calcium 7.7 L Magnesium Iron TIBC % Saturation Unsat Iron Binding Ferritin Total Bilirubin AST ALT Alkaline Phosphatase Lactate Dehydrogenase Troponin I High Sens Total Protein Total Protein (PEP) 6.2 Albumin Albumin (PEP) 2.9 L Kpqqv-2-Hgnsgxyyg 0.4 H Zgfgo-2-Zazcmglds 0.8 Ksah-2-Mwieoavd 0.5 Mgqo-2-Ediaykmo 0.6 H Gamma Globulins 1.2 Abnorm Protein Band 1 SEE NOTE PEP Interpretation SEE NOTE Vitamin B12 Folate Urine Color Urine Appearance Urine pH Ur Specific [place] Urine Protein Urine Glucose (UA) Urine Ketones Urine Blood Urine Nitrite Ur Leukocyte Esterase Stool Occult Blood Coronavirus (PCR) Blood Type Antibody Screen Crossmatch 12/10/19 12/10/19 12/10/19 06:09 07:12 12:05 WBC RBC Hgb Hct MCV MCH MCHC RDW Plt Count MPV Immature Gran % (Auto) Neut % (Auto) Lymph % (Auto) [place] % (Auto) Eos % (Auto) Baso % (Auto) Lymph # (Auto) [place] # (Auto) Eos # (Auto) Baso # (Auto) Abs Immat Gran (auto) Absolute Neuts (auto) Absolute Nucleated RBC Nucleated RBC % (auto) Smear Tech's Comments PT INR APTT Sodium Potassium Chloride Carbon Dioxide Anion Gap BUN Creatinine Estim Creat Clear Calc Estimated GFR POC Glucose 117 H 193 H Random Glucose Fasting Glucose Lactic Acid Lactic Acid Fup @ 2Hr Calcium Magnesium Iron 15 L TIBC 369 % Saturation 4 L Unsat Iron Binding 354 Ferritin 32 Total Bilirubin AST ALT Alkaline Phosphatase Lactate Dehydrogenase Troponin I High Sens Total Protein Total Protein (PEP) Albumin Albumin (PEP) Zovvh-7-Ttmlkanjd Sucna-7-Duoqipbwh Ihii-0-Okeukjgv Aorw-7-Hlpbjymk Gamma Globulins Abnorm Protein Band 1 PEP Interpretation Vitamin B12 Folate Urine Color Urine Appearance Urine pH Ur Specific [place] Urine Protein Urine Glucose (UA) Urine Ketones Urine Blood Urine Nitrite Ur Leukocyte Esterase Stool Occult Blood Coronavirus (PCR) Blood Type Antibody Screen Crossmatch 12/10/19 12/10/19 12/10/19 16:58 21:29 21:37 WBC 9.9 RBC 3.22 L D Hgb 9.3 L D Hct 29.1 L D MCV 90.4 MCH 28.9 MCHC 32.0 RDW 15.0 Plt Count 165 MPV 9.6 Immature Gran % (Auto) 1.6 H Neut % (Auto) 71.7 Lymph % (Auto) 10.9 L [place] % (Auto) 14.3 H Eos % (Auto) 1.2 Baso % (Auto) 0.3 Lymph # (Auto) 1.1 L [place] # (Auto) 1.4 H Eos # (Auto) 0.1 Baso # (Auto) 0.0 Abs Immat Gran (auto) 0.16 H Absolute Neuts (auto) 7.1 Absolute Nucleated RBC 0.030 H Nucleated RBC % (auto) 0.3 H Smear Tech's Comments PT INR APTT Sodium Potassium Chloride Carbon Dioxide Anion Gap BUN Creatinine Estim Creat Clear Calc Estimated GFR POC Glucose 114 160 H Random Glucose Fasting Glucose Lactic Acid Lactic Acid Fup @ 2Hr Calcium Magnesium Iron TIBC % Saturation Unsat Iron Binding Ferritin Total Bilirubin AST ALT Alkaline Phosphatase Lactate Dehydrogenase Troponin I High Sens Total Protein Total Protein (PEP) Albumin Albumin (PEP) Nvjad-9-Kvejuzbil Wujge-2-Tokpckolq Viyx-7-Vicobjny Iqpf-4-Vrpvnzmy Gamma Globulins Abnorm Protein Band 1 PEP Interpretation Vitamin B12 Folate Urine Color Urine Appearance Urine pH Ur Specific [place] Urine Protein Urine Glucose (UA) Urine Ketones Urine Blood Urine Nitrite Ur Leukocyte Esterase Stool Occult Blood Coronavirus (PCR) Blood Type Antibody Screen Crossmatch 12/11/19 12/11/19 12/11/19 06:07 07:29 07:44 WBC 8.1 RBC 3.24 L Hgb 9.4 L Hct 29.2 L MCV 90.1 MCH 29.0 MCHC 32.2 RDW 15.0 Plt Count 165 MPV 10.4 Immature Gran % (Auto) Neut % (Auto) Lymph % (Auto) [place] % (Auto) Eos % (Auto) Baso % (Auto) Lymph # (Auto) [place] # (Auto) Eos # (Auto) Baso # (Auto) Abs Immat Gran (auto) Absolute Neuts (auto) Absolute Nucleated RBC 0.020 H Nucleated RBC % (auto) 0.2 Smear Tech's Comments PT INR APTT Sodium Potassium Chloride Carbon Dioxide Anion Gap BUN Creatinine Estim Creat Clear Calc Estimated GFR POC Glucose 113 114 Random Glucose Fasting Glucose Lactic Acid Lactic Acid Fup @ 2Hr Calcium Magnesium Iron TIBC % Saturation Unsat Iron Binding Ferritin Total Bilirubin AST ALT Alkaline Phosphatase Lactate Dehydrogenase Troponin I High Sens Total Protein Total Protein (PEP) Albumin Albumin (PEP) Plmvx-7-Jnuuzzhxi Otiqm-6-Tmlejohhh Kxxr-3-Epvtcxti Crvb-6-Epoihzzc Gamma Globulins Abnorm Protein Band 1 PEP Interpretation Vitamin B12 Folate Urine Color Urine Appearance Urine pH Ur Specific [place] Urine Protein Urine Glucose (UA) Urine Ketones Urine Blood Urine Nitrite Ur Leukocyte Esterase Stool Occult Blood Coronavirus (PCR) Blood Type Antibody Screen Crossmatch 12/11/19 12/11/19 12/11/19 11:29 16:18 21:32 WBC RBC Hgb Hct MCV MCH MCHC RDW Plt Count MPV Immature Gran % (Auto) Neut % (Auto) Lymph % (Auto) [place] % (Auto) Eos % (Auto) Baso % (Auto) Lymph # (Auto) [place] # (Auto) Eos # (Auto) Baso # (Auto) Abs Immat Gran (auto) Absolute Neuts (auto) Absolute Nucleated RBC Nucleated RBC % (auto) Smear Tech's Comments PT INR APTT Sodium Potassium Chloride Carbon Dioxide Anion Gap BUN Creatinine Estim Creat Clear Calc Estimated GFR POC Glucose 141 H 135 H 110 Random Glucose Fasting Glucose Lactic Acid Lactic Acid Fup @ 2Hr Calcium Magnesium Iron TIBC % Saturation Unsat Iron Binding Ferritin Total Bilirubin AST ALT Alkaline Phosphatase Lactate Dehydrogenase Troponin I High Sens Total Protein Total Protein (PEP) Albumin Albumin (PEP) Cibmd-3-Vtjklmwvw [place]alum-3-Dlmfplcpn Cihm-8-Zekjjspx Rigz-0-Zjzkfgcc Gamma Globulins Abnorm Protein Band 1 PEP Interpretation Vitamin B12 Folate Urine Color Urine Appearance Urine pH Ur Specific [place] Urine Protein Urine Glucose (UA) Urine Ketones Urine Blood Urine Nitrite Ur Leukocyte Esterase Stool Occult Blood Coronavirus (PCR) Blood Type Antibody Screen Crossmatch 12/12/19 12/12/19 12/12/19 05:17 05:17 07:17 WBC 8.9 RBC 3.56 L Hgb 10.1 L Hct 32.1 L MCV 90.2 MCH 28.4 MCHC 31.5 RDW 15.0 Plt Count 196 MPV 10.0 Immature Gran % (Auto) 1.2 H Neut % (Auto) 73.0 Lymph % (Auto) 11.2 L [place] % (Auto) 11.6 H Eos % (Auto) 2.4 Baso % (Auto) 0.6 Lymph # (Auto) 1.0 L [place] # (Auto) 1.0 Eos # (Auto) 0.2 Baso # (Auto) 0.1 Abs Immat Gran (auto) 0.11 H Absolute Neuts (auto) 6.5 Absolute Nucleated RBC 0.000 Nucleated RBC % (auto) 0.0 Smear Tech's Comments PT INR APTT Sodium 141 Potassium 3.2 L Chloride 111 H Carbon Dioxide 18 L Anion Gap 15 BUN 7 L Creatinine 0.61 Estim Creat Clear Calc 67.3 Estimated GFR > 60 POC Glucose 114 Random Glucose Fasting Glucose 112 H Lactic Acid Lactic Acid Fup @ 2Hr Calcium 7.8 L Magnesium Iron TIBC % Saturation Unsat Iron Binding Ferritin Total Bilirubin AST ALT Alkaline Phosphatase Lactate Dehydrogenase Troponin I High Sens Total Protein Total Protein (PEP) Albumin Albumin (PEP) Uuabg-9-Dyqozqizp Inott-7-Zqxquyhkg Bunc-7-Mcvzrjgw Roek-0-Youvpcyc Gamma Globulins Abnorm Protein Band 1 PEP Interpretation Vitamin B12 Folate Urine Color Urine Appearance Urine pH Ur Specific [place] Urine Protein Urine Glucose (UA) Urine Ketones Urine Blood Urine Nitrite Ur Leukocyte Esterase Stool Occult Blood Coronavirus (PCR) Blood Type Antibody Screen Crossmatch 12/12/19 12/12/19 11:21 14:59 WBC RBC Hgb Hct MCV MCH MCHC RDW Plt Count MPV Immature Gran % (Auto) Neut % (Auto) Lymph % (Auto) [place] % (Auto) Eos % (Auto) Baso % (Auto) Lymph # (Auto) [place] # (Auto) Eos # (Auto) Baso # (Auto) Abs Immat Gran (auto) Absolute Neuts (auto) Absolute Nucleated RBC Nucleated RBC % (auto) Smear Tech's Comments PT INR APTT Sodium Potassium Chloride Carbon Dioxide Anion Gap BUN Creatinine Estim Creat Clear Calc Estimated GFR POC Glucose 120 H 111 Random Glucose Fasting Glucose Lactic Acid Lactic Acid Fup @ 2Hr Calcium Magnesium Iron TIBC % Saturation Unsat Iron Binding Ferritin Total Bilirubin AST ALT Alkaline Phosphatase Lactate Dehydrogenase Troponin I High Sens Total Protein Total Protein (PEP) Albumin Albumin (PEP) Liqkv-7-Cjkgqxipy Sbdeu-7-Mmpgcdwbt Opty-5-Fegcidnr Aqth-8-Tapmfaiv Gamma Globulins Abnorm Protein Band 1 PEP Interpretation Vitamin B12 Folate Urine Color Urine Appearance Urine pH Ur Specific [place] Urine Protein Urine Glucose (UA) Urine Ketones Urine Blood Urine Nitrite Ur Leukocyte Esterase Stool Occult Blood Coronavirus (PCR) Blood Type Antibody Screen Crossmatch Airway Mallampati Class: III TM Dist: >3cm Neck ROM: Poor Loose/Missing/Broken Teeth: Yes (Missing) Heart: RRR Assessment and Plan Assessment Anesthesia Assessment: Anesthesia Plan Discussed Final Anesthetic Review NPO: Yes ASA Class: IV Final Preanesthetic Review: Consent Obtained/Reviewed and DNR Form (If Appl.) Anesthetic Plan Anesthetic Plan: MAC:
[2019-12-12 15:36] LABS: Mitochondrial Antibodies NEGATIVE (NEGATIVE)
--- NOTE | 2019-12-12 15:39 | PC.NURSE ---
pt's daughter with pt and states she is supposed to be a DNR. MOLST form in computer. Unable to obtain which hospitalist is covering at this time. 3 different hospitalists notified and dr marin responded he will take care of it.
[2019-12-12 20:22] LABS: Glucose, Whole Blood 122 mg/dL (60-115)
[2019-12-13 02:58] VITALS: BP 160/84; PULSE 52; RESP 19; TEMP 36.1; O2SAT 97
[2019-12-13] MEDS: Pantoprazole Sodium 40 MG/10 ML VIAL IVPUSH (05:34)
[2019-12-13 06:11] LABS: MANUAL DIFF FLAG NO
[2019-12-13 06:27] LABS: Basophils Absolute Auto 0.1 X10*3/uL (0.0-0.2); Basophils Percent Auto 0.6 % (0-2); Eosinophils Absolute Auto 0.2 X10*3/uL (0.0-0.4); Eosinophils Percent Auto 1.6 % (0-4); Hematocrit 33.7 % (37-47); Hemoglobin 10.5 g/dl (12.0-16.0); Imm Gran Abs Auto 0.08 X10*3/uL (0.00-0.03); Imm Gran Pct Auto 0.7 % (0.0-0.4); Lymphocytes Absolute Auto 1.2 X10*3/uL (1.2-4.9); Mean Corpuscular HGB Conc 31.2 g/dl (31.0-35.0); Mean Corpuscular Hemoglobin 28.7 pg (27.0-33.0); Mean Corpuscular Volume 92.1 fL (80-98); Mean Platelet Volume 9.9 fL (9.4-12.3); Monocytes Absolute Auto 1.3 X10*3/uL (0.1-1.2); Neutrophils Absolute Auto 8.8 X10*3/uL (2.0-8.3); Neutrophils Percent Auto 76.1 % (45-73); Platelet Count 230 X10*3/uL (160-400); Red Blood Count 3.66 X10*6/uL (4.20-5.50); Red Cell Distribution Width 15.3 % (11.0-16.0); White Blood Count 11.6 X10*3/uL (4.8-10.8)
[2019-12-13 06:56] LABS: Anion Gap 17 (12-20); Blood Urea Nitrogen 8 mg/dL (9-16); Calcium 8.1 mg/dL (8.4-10.2); Carbon Dioxide 16 mmol/L (22-29); Chloride 108 mmol/L (96-108); Creatinine Clr Calc Pharmacy 68.3; Estimated Glomerular Filt Rate > 60; Glucose Fasting 104 mg/dL (60-99); Potassium 3.6 mmol/l (3.3-5.1); Sodium 137 mmol/L (135-145)
[2019-12-13 07:20] VITALS: BP 154/72; PULSE 56; RESP 18; TEMP 36.4; O2SAT 97
[2019-12-13 07:47] LABS: Glucose, Whole Blood 102 mg/dL (60-115)
[2019-12-13] MEDS: levETIRAcetam 500 MG TABLET PO (07:59)
[2019-12-13] MEDS: allopurinoL 100 MG TABLET PO (07:59)
[2019-12-13] MEDS: amLODIPine Besylate 5 MG TABLET PO (08:00)
[2019-12-13] MEDS: Sertraline HCL 100 MG TABLET PO (08:01)
[2019-12-13] MEDS: Amiodarone HCL 200 MG TABLET PO (08:01)
[2019-12-13] MEDS: Primidone 50 MG TABLET PO (08:01)
[2019-12-13] MEDS: Furosemide 20 MG TABLET PO (08:02)
[2019-12-13] MEDS: Spironolactone 25 MG TABLET PO (08:02)
--- NOTE | 2019-12-13 09:58 | P.DS_ITS ---
DS: Providers Provider Date of admission: 12/09/19 03:34 Primary care physician: Unknown Physician Consults: 12/09/19 05:31 Consult to Gastroenterology Routine Consulting Provider: Madhu Tierney Reason for consultation: GI bleed Has provider been notified: No DS: Diagnosis Discharge Diagnosis (1) Type 2 diabetes mellitus with hyperglycemia: Status: Acute (2) Atrial fibrillation: Status: Acute (3) Hypercholesterolemia: Status: Acute (4) Hypertension: Status: Acute (5) Coronary artery disease: Status: Acute Problem details: Echo 60-65% grade 2 diastolic dysfunction November 2017 normal LV grade 2 diastolic dysfunction moderate MR, left atrial enlargement May 2019, NSTEMI June 2019, nuclear stress test June 2019 normal (6) GI bleed: Status: Acute Problem details: Likely from hemorrhoids or colon polyps (7) Lethargy: Status: Acute (8) 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 She was transfused 2 units and hemoglobin responded appropriately. Patient then had no further bleeding. Her Eliquis was discontinued. She was given PPI. She was seen by Dr. Dobbs who performed EGD and colonoscopy which revealed grade 3-4 varices and underwent band ligation, focal esophagitis, mild portal hypertensive gastropathy, multiple large polyps on colonoscopy, moderate diverticulosis, moderate hemorrhoids. Patient's metoprolol was switched to nadolol, she is started on Prilosec, she was given Barrier cream for her perianal rash, her Eliquis will be on hold for 1 week, she should follow-up with Gastroenterology. Time Spent with Patient Time attestation: Total time spent providing and/or coordinating discharge services: Physical Exam Vital Signs: Vital Signs: Vital Signs Temp Pulse Resp BP Pulse Ox 12/13/19 07:20 97.6 F 56 18 154/72 H 97 12/13/19 02:58 96.9 F 52 19 160/84 H 97 12/12/19 23:04 97.2 F 60 19 167/81 H 97 12/12/19 20:08 62 158/68 H 12/12/19 19:08 98.3 F 54 18 159/64 H 98 12/12/19 18:25 98.5 F 54 18 161/72 H 97 12/12/19 18:00 56 16 133/57 L 95 12/12/19 17:45 97.4 F 53 16 127/55 L 95 12/12/19 17:30 52 16 133/56 L 96 12/12/19 17:23 56 16 133/59 L 95 12/12/19 17:18 97.6 F 53 14 126/60 12/12/19 14:46 98.4 F 56 16 149/66 H 96 12/12/19 11:06 97.7 F 54 16 120/58 L 98 Body Mass Index 27.3 General: AO X 3, lethargic, no acute distress Resp: CTA bilateral CVS: S1,S2,RRR GI: soft, non tender, non distended Neuro: motor grossly intact Psych: appropriate affect DS: Data Data Completed and Pending Pending studies at discharge: Pending at discharge 12/12/19 16:40 Surgical [PTH] Routine Labs on day of discharge: Labs from last 24 hours 12/13/19 12/13/19 12/13/19 07:07 05:25 05:25 WBC 11.6 H RBC 3.66 L Hgb 10.5 L Hct 33.7 L MCV 92.1 MCH 28.7 MCHC 31.2 RDW 15.3 Plt Count 230 MPV 9.9 Immature Gran % (Auto) 0.7 H Neut % (Auto) 76.1 H Lymph % (Auto) 10.0 L [place] % (Auto) 11.0 Eos % (Auto) 1.6 Baso % (Auto) 0.6 Lymph # (Auto) 1.2 [place] # (Auto) 1.3 H Eos # (Auto) 0.2 Baso # (Auto) 0.1 Abs Immat Gran (auto) 0.08 H Absolute Neuts (auto) 8.8 H Absolute Nucleated RBC 0.000 Nucleated RBC % (auto) 0.0 Sodium 137 Potassium 3.6 Chloride 108 Carbon Dioxide 16 L Anion Gap 17 BUN 8 L Creatinine 0.61 Estim Creat Clear Calc 68.3 Estimated GFR > 60 POC Glucose 102 Fasting Glucose 104 H Calcium 8.1 L Total Protein (PEP) Albumin (PEP) Lsatr-0-Vreeesyfk Rdfow-4-Mycihbuvf Ivvw-5-Ihbjmfwq Oclq-9-Bwdptxmh Gamma Globulins Abnorm Protein Band 1 Abnorm Protein Band 2 Abnorm Protein Band 3 PEP Interpretation Mitochondrial AB Titer Anti-Mitochondrial Ab 12/12/19 12/12/19 12/12/19 20:11 14:59 11:21 WBC RBC Hgb Hct MCV MCH MCHC RDW Plt Count MPV Immature Gran % (Auto) Neut % (Auto) Lymph % (Auto) [place] % (Auto) Eos % (Auto) Baso % (Auto) Lymph # (Auto) [place] # (Auto) Eos # (Auto) Baso # (Auto) Abs Immat Gran (auto) Absolute Neuts (auto) Absolute Nucleated RBC Nucleated RBC % (auto) Sodium Potassium Chloride Carbon Dioxide Anion Gap BUN Creatinine Estim Creat Clear Calc Estimated GFR POC Glucose 122 H 111 120 H Fasting Glucose Calcium Total Protein (PEP) Albumin (PEP) Uewiy-6-Pagnjslss Fzvlt-4-Ipyhoukaq Ggsu-8-Qrgcisxh Tnmo-3-Cpedzoua Gamma Globulins Abnorm Protein Band 1 Abnorm Protein Band 2 Abnorm Protein Band 3 PEP Interpretation Mitochondrial AB Titer Anti-Mitochondrial Ab 12/10/19 12/10/19 06:09 06:09 WBC RBC Hgb Hct MCV MCH MCHC RDW Plt Count MPV Immature Gran % (Auto) Neut % (Auto) Lymph % (Auto) [place] % (Auto) Eos % (Auto) Baso % (Auto) Lymph # (Auto) [place] # (Auto) Eos # (Auto) Baso # (Auto) Abs Immat Gran (auto) Absolute Neuts (auto) Absolute Nucleated RBC Nucleated RBC % (auto) Sodium Potassium Chloride Carbon Dioxide Anion Gap BUN Creatinine Estim Creat Clear Calc Estimated GFR POC Glucose Fasting Glucose Calcium Total Protein (PEP) 6.2 Albumin (PEP) 2.9 L Loeok-9-Wmtmzaabk 0.4 H Davkj-1-Znhgewoar 0.8 Mkuc-8-Nixidxik 0.5 Wnkb-9-Ptssledc 0.6 H Gamma Globulins 1.2 Abnorm Protein Band 1 SEE NOTE Abnorm Protein Band 2 TNP Abnorm Protein Band 3 TNP PEP Interpretation SEE NOTE Mitochondrial AB Titer TNP Anti-Mitochondrial Ab NEGATIVE Preliminary micro results at discharge 12/08/19 21:22 Blood Culture - Preliminary Blood - Venous No growth after 48 hours. 12/08/19 21:22 Blood Culture - Preliminary Blood - Venous No growth after 48 hours. Discharge Plan Discharge Patient Disposition: Home Health Service Referrals: Kasandra Dobbs MD [Physician] - Physician,Unknown [Primary Care Provider] - Discharge Medications: New zinc oxide 20 % Ointment 1 applic topical TID PRN (Reason: skin irritation) Qty: 28 RF: 0 nadolol 40 mg tablet 40 mg PO DAILY Qty: 30 RF: 0 omeprazole 40 mg capsule,delayed release(DR/EC) 40 mg PO DAILY Qty: 30 RF: 0 Continued sertraline 100 mg tablet 100 mg PO DAILY 90 Days Qty: 90 RF: 0 Centrum Silver Women 8 mg iron-400 mcg-300 mcg tablet 1 tab PO DAILY RF: 0 omega-3 fatty acids [Fish Oil Concentrate] 1,000 mg capsule 1,000 mg PO DAILY RF: 0 allopurinol 100 mg tablet 100 mg PO DAILY RF: 0 amiodarone 200 mg tablet 200 mg PO DAILY RF: 0 furosemide [Lasix] 20 mg tablet 20 mg PO DAILY RF: 0 spironolactone 25 mg tablet 25 mg PO DAILY RF: 0 levetiracetam 500 mg tablet 500 mg PO Q12H RF: 0 amlodipine 5 mg tablet 5 mg PO DAILY RF: 0 alendronate [Fosamax] 70 mg tablet 70 mg PO QWEEK RF: 0 Trulicity 1.5 mg/0.5 mL pen injector 1.5 mg subcut QWEEK RF: 0 metformin 500 mg tablet 500 mg PO BID RF: 0 Toujeo Max U-300 SoloStar 300 unit/mL (3 mL) insulin pen 15 unit subcut DAILY RF: 0 losartan 100 mg tablet 100 mg PO DAILY RF: 0 insulin lispro [Humalog Melquiades KwikPen U-100] 100 unit/mL insulin pen, half- unit 5.5 unit subcut BEDTIME RF: 0 primidone 50 mg tablet 50 mg PO BID RF: 0 Held Eliquis 5 mg tablet 5 mg PO BID RF: 0 Hold Instructions: Resume on 12/19/19. Discontinued metoprolol tartrate 25 mg tablet 25 mg PO BID RF: 0 Discharge Orders: Discharge Order (Routine); Ordered 12/13/19 Ordered By: Osei Blanchard Diet: advance to your usual diet Activity on Discharge: As tolerated Visit Report Forms: Patient Portal Discharge page Care Plan Goals: recovery Health Concerns: liver cirrhosis Plan of Treatment: metoprolol changed to nadolol as better for varices, start prilosec, barrier cream, hold eliquis for one week, follow up with gi
--- NOTE | 2019-12-13 10:52 | HO.POSTANES ---
Post Anesthesia Evaluation Post Anesthesia Evaluation Vital Signs: Vital Signs Temp Pulse Resp BP Pulse Ox 12/13/19 07:20 97.6 F 56 18 154/72 H 97 12/13/19 02:58 96.9 F 52 19 160/84 H 97 12/12/19 23:04 97.2 F 60 19 167/81 H 97 Anesthesia: Monitored Mental Status: Awake Pain Control: Satisfactory Nausea/Vomiting: None Hydration: Adequate Anesthesia-Related Issues: No Anes. Related Issues
[2019-12-13 11:00] VITALS: BP 123/60; PULSE 58; RESP 18; TEMP 36.4; O2SAT 98
[2019-12-13 11:23] LABS: CDIFF Ag Negative (Negative); CDIFF Internal ctrl Dots and bkg OK (V); CDiff Toxin Negative (Negative)
--- NOTE | 2019-12-13 11:52 | MHC.CM.PN ---
Addendum entered by Lety Hernandez 12/13/19 13:35: Spoke with HCP Sirena GARNICA. Due to weakness and deconditioning, from GIB. The patient will return home via [facility] @ 2:30pm. Scheduled at 2:30pm at request of DTR, Sirena/HCP.. in network provider declined the call. Original Note: IMM 12/13/19 DC today home with RESUPTION of [facility]. Notified Pts Son Alexx of DC. Alexx will arrange for transportation later this afternoon .
[2019-12-13 11:53] LABS: Glucose, Whole Blood 262 mg/dL (60-115)
[2019-12-13] MEDS: Insulin Lispro 100 UNIT/ML 3 ML VIAL SUBCUT (11:54)
--- NOTE | 2019-12-13 15:11 | PC.NURSE ---
pt discharged home via ambulance. attempted to review discharge with daughter austin bergman. left message that her mother was doing well .
[2019-12-15 13:36] LABS: Smooth Muscle Antibody <20 U (<20)
--- NOTE | 2019-12-18 13:20 | W.PM.OPN ---
Operative Note Operative Note Narrative: Date of procedure: 12/18/19 Pre-op diagnosis: anemia, history of colon polyps Post-op diagnosis: other (esophageal varices, portal gastropathy, colon polyps, diverticulosis, hemorrhoids) Procedure: FLEXIBLE TRANSORAL UPPER GASTROINTESTINAL ENDOSCOPY WITH BAND LIGATION OF ESOPHAGEAL VARICES AND COLONOSCOPY TILL CECUM WITH BIOPSIES AND SNARE POLYPECTOMY UPPER ENDOSCOPY Consent: Indications for the procedure and potential complications of bleeding, perforation, reaction to medications and missed diagnosis were discussed with the patient and informed consent was obtained. Instrument: Olympus GIF H 190 mid size upper endoscope Monitoring: Vital signs and clinical assessment, continuous EKG monitoring, Pulse oximetry, Carbon Dioxide monitoring and blood pressure monitoring were done throughout the procedure. Procedure: The patient was placed in the left lateral decubitis position and pre-procedure medications were administered and a bite block was placed. The endoscope was inserted into the mouth and advanced under direct vision to the third part of duodenum. A careful inspection was made as the upper endoscope was withdrawn including a retroflexed examination of the proximal stomach; Findings and interventions are described below. Findings: Larynx: Normal Esophagus: Grade 3-4 four column varices from 25 to 35 cms - band ligation x 5 with flattening of varices. GE junction at 35 cms. Focal esophagtitis at GE junction Stomach: Mild portal hypertensive gastropathy involving the entire gastric mucosa. Grade 2 flap valve and prominent folds versus early gastric varices on retroflexed examination of the cardia. Duodenum: Normal bulb and descending duodenum Intervention: Band ligation as noted above COLONOSCOPY PROCEDURE NOTE Consent: Indications for the procedure and potential complications of bleeding, perforation, reaction to medications and missed diagnosis were discussed with the patient and informed consent was obtained. Instrument: Olympus PCF H 190 L variable stiffness pediatric colonoscope Monitoring: Vital signs and clinical assessment, intermittent blood pressure monitoring, continuous EKG monitoring, Pulse oximetry and Carbon Dioxide monitoring were done throughout the procedure. Colon withdrawl time was 40 minutes. Procedure: The patient was placed in the left lateral decubitis position and pre-procedure medications were administered. After a digital rectal examination of the ano-rectum, the video colonoscope was inserted into the rectum and advanced through the colon to the cecum. The colonoscope was slowly withdrawn in a retrograde panoramic fashion and the colon mucosa was carefully examined including a retroflexed view of the rectum. Findings and interventions are described below. Procedure Difficulty: LLQ pressure applied to intubate the cecum Findings: Terminal Ileum: Not evaluated Cecum: A 10-12 mm sessile polyp overlying a fold removed with a hot snare - minor bleeding from polypectomy site treated with cautery using the snare tip. A 4-5 mm sessile polyp removed with the cold biopsy. An 8-9 mm sessile polyp removed with a cold snare. Ascending Colon: Normal Transverse Colon: Three 10-15 mm sessile polyps removed with hot and cold snares. Descending Colon: Moderate diverticulosis. Sigmoid Colon: Four 10-20 mm sessile polyps removed with a hot snare. And moderate diverticulosis Rectum: Normal Ano-rectum: Moderate internal hemorrhoids and perianal skin tags. Colon preparation: Good after copious irrigation. Impression and Post Procedure Diagnosis: Endoscopy Findings: ESOPHAGUS: Grade 3-4 four column varices from 25 to 35 cms - band ligation x 5 with flattening of varices. GE junction at 35 cms. Focal esophagtitis at GE junction STOMACH: Mild portal hypertensive gastropathy involving the entire gastric mucosa. Colonoscopy Findings: Ten medium to large polyps removed Moderate diverticulosis seen in the left colon Moderate hemorrhoids on retroflexed exam. Plan: Await pathology results Patient has a FU appointment on 01/25/20 in the [facility] with Charla Rodriguez NP -. Repeat Colonoscopy interval based on path results - in 1-2 years if polyps are adenomatous if pt remains in stable health. Above findings were reviewed with the patient and colon polyps and diverticulosis handouts were given in the discharge area Surgeon: Kasandra Dobbs MD Anesthesia: MAC Estimated blood loss (mL): 0 Pathology: other (A. Cecal polyps x 3, B. Random colon bx, C. TC polyps x 3, D. SC polyps x 4) Condition: stable Disposition: PACU
== END 2019-12-13 15:14 | disposition home health service (06) | DRG 377 ==
LOC: HO.ED 12-09 03:19 → HO.IMC 12-09 04:21
PROVIDERS: Internal Medicine; Internal Medicine Gastroenterology; Nurse Practitioner Primary Care; Admitting Provider Internal Medicine; Emergency Provider Emergency Medicine; Visit Provider Internal Medicine
PROC: 0DBH8ZZ Excision of Cecum, Via Natural or Artificial Opening Endoscopic (ICD-10-PCS; principal; 2019-12-12 14:00)
DX: K57.31 Diverticulosis of large intestine without perforation or abscess with bleeding (principal); I85.11 Secondary esophageal varices with bleeding; D62 Acute posthemorrhagic anemia; E87.1 Hypo-osmolality and hyponatremia; I50.32 Chronic diastolic (congestive) heart failure; K76.6 Portal hypertension; K74.60 Unspecified cirrhosis of liver; K31.89 Other diseases of stomach and duodenum; K63.5 Polyp of colon; I11.0 Hypertensive heart disease with heart failure; E11.65 Type 2 diabetes mellitus with hyperglycemia; F41.9 Anxiety disorder, unspecified; G40.909 Epilepsy, unspecified, not intractable, without status epilepticus; F03.90 Unspecified dementia, unspecified severity, without behavioral disturbance, psychotic disturbance, mood disturbance, and anxiety; I25.10 Atherosclerotic heart disease of native coronary artery without angina pectoris; I25.2 Old myocardial infarction; M10.9 Gout, unspecified; F32.9 Major depressive disorder, single episode, unspecified; Z20.828 Contact with and (suspected) exposure to other viral communicable diseases; Z79.4 Long term (current) use of insulin; Z79.01 Long term (current) use of anticoagulants; Z79.899 Other long term (current) drug therapy
CPT/HCPCS: 36415; 70450; 71045; 74176; 80048; 80053; 81003; 82272; 82607; 82728; 82746; 82947; 83036; 83540; 83605; 83615; 83735; 83880; 84155; 84165; 84443; 84484; 85025; 85027; 85045; 85610; 85730; 86038; 86039; 86255; 86256; 86850; 86900; 86901; 86920; 86923; 87040; 87324; 87449; 88305; 93005; 99212; 99285; J2405; P9016; U0003

== ENCOUNTER 2019-12-23 11:21 | Inpatient (IN) | payer MEDICARE, SELFPAY ==
[2019-12-23] VITALS (7 sets, daily range): BP systolic 119–151; BP diastolic 55–78; PULSE 56–62; RESP 16–18; TEMP 36.1–37.2; O2SAT 94–98; BMI 25.0; BMI 24.3
--- NOTE | 2019-12-23 11:24 | ED_ITS ---
HPI - Altered Mental Status General Chief Complaint: Weakness Stated Complaint: AMS/WEAKNESS,D/C LAST WEEK Time Seen by Provider: 12/23/19 11:24 Source: patient, EMS and old records reviewed Mode of arrival: EMS Limitations: altered mental status History of Present Illness complaint: altered mental status Onset (ago): day(s) (started yesterday) Timing confirmed by: family member Severity: moderate Consistency of symptoms: getting Worse Context: liver disease Associated symptoms: loss of appetite, malaise, weakness and difficulty walking Related Data Home Medications Medication Instructions Recorded Confirmed alendronate 70 mg tablet 70 mg PO QWEEK 12/05/19 12/08/19 allopurinol 100 mg tablet 100 mg PO DAILY 12/05/19 12/08/19 amiodarone 200 mg tablet 200 mg PO DAILY 12/05/19 12/09/19 amlodipine 5 mg tablet 5 mg PO DAILY 12/05/19 12/08/19 apixaban 5 mg tablet 5 mg PO BID 12/05/19 12/09/19 dulaglutide 1.5 mg/0.5 mL 1.5 mg SUBCUT QWEEK 12/05/19 12/09/19 subcutaneous pen injector furosemide 20 mg tablet 20 mg PO DAILY 12/05/19 12/08/19 insulin glargine U-300 conc 300 15 unit SUBCUT DAILY ml 12/05/19 12/05/19 unit/mL (3 mL) subcutaneous pen insulin lispro 100 unit/mL 5.5 unit SUBCUT BEDTIME 12/05/19 12/05/19 subcutaneous half-unit pen levetiracetam 500 mg tablet 500 mg PO Q12H 12/05/19 12/08/19 losartan 100 mg tablet 100 mg PO DAILY 12/05/19 12/08/19 metformin 500 mg tablet 500 mg PO BID 12/05/19 12/08/19 multivit with 1 tab PO DAILY 12/05/19 12/09/19 bbrflkbe-dhpz-KH-lutein 8 mg iron-400 mcg-300 mcg tablet omega-3 fatty acids 1,000 mg 1,000 mg PO DAILY 12/05/19 12/09/19 capsule primidone 50 mg tablet 50 mg PO BID tab 12/05/19 12/09/19 spironolactone 25 mg tablet 25 mg PO DAILY 12/05/19 12/09/19 Previous Rx's Medication Instructions Recorded sertraline 100 mg tablet 100 mg PO DAILY 90 Days #90 tab 11/16/19 nadolol 40 mg PO DAILY #30 tab 12/13/19 omeprazole 40 mg PO DAILY #30 cap 12/13/19 zinc oxide 1 applic TOPICAL TID PRN #28 g 12/13/19 Allergies Allergy/AdvReac Type Severity Reaction Status Date / Time lisinopril [From ZESTRIL] Allergy Intermediate RASH-FROM Verified 12/06/19 15:46 ZESTRIL propranolol [PROPRANOLOL] Allergy Mild HEADACHE Verified 12/05/19 15:23 atorvastatin [Lipitor] Allergy Unknown Unknown Verified 12/06/19 15:46 benazepril Allergy Unknown Unknown Verified 12/06/19 15:46 indomethacin [From INDOCIN] Allergy Unknown UNKNOWN Verified 12/06/19 15:46 simvastatin Allergy Unknown Unknown Verified 12/06/19 15:46 Review of Systems Review of Systems: ROS unable to be obtained due to altered mental status PMFSH Past Medical History Attestation statement: The following information was validated with the patient. 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 Tubular adenoma of colon Type 2 diabetes mellitus with hyperglycemia Surgical History Ganglion cyst H/O unilateral oophorectomy History of abdominal hysterectomy History of appendectomy History of carpal tunnel surgery History of cholecystectomy Hx of colonoscopy Family History Family History Father Diabetes Hypertension CVD (cardiovascular disease) Mother Diabetes Hypertension Cancer Rectal cancer Daughter Diabetes Social History Social History Household Members: Caregiver Housing: House Alcohol intake: former Smoking Status: Former smoker Second Hand Smoke Exposure: No Use of substances other than those prescribed or required for medical reasons: No Advance Directives: No Advance Directives Information Provided: Yes service: No Current occupational status: retired Physical Exam Vital Signs: Vital Signs: Last Vital Signs Temp 98.1 F 12/23/19 11:56 Pulse 56 12/23/19 11:56 Resp 16 12/23/19 11:56 BP 151/70 H 12/23/19 11:56 Pulse Ox 96 12/23/19 11:56 Body Mass Index 25.0 Appearance: Somnolent, does respond to her name. able to say her name. Confused. Mild acute distress. Eyes: Pupils equal, round and reactive to light. ENT: Pharynx normal. Neck: Normal inspection. Neck supple. CVS: Normal heart rate and rhythm. Pulses normal. Respiratory: No respiratory distress. Breath sounds normal. able to protect airway Abdomen: Soft and nontender. no grimace to palpation Skin: Skin warm and dry. Normal skin color. Normal skin turgor. Extremities: No lower extremity edema. No calf ttp Neuro: Confused, diffusely weak, slow to respond, no focal deficits noted, no asterixis Course Course Course Narrative: likely encephalopathy - will start on lactulose and admit MDM - Altered Mental Status MDM Narrative Medical decision making narrative: 74 yo female with hx of KIM and cirrhosis with varices recent GIB [facility] therapy held DC 12/12 s/p transfusion 2 UPRBCs here now with AMS and diffuse weakness since yesterday, suspect either encephalopathy vs infection, labs, cultures, UA, ammonia level, CT scan for ICH ordered, CXR, anticipate admit. Lab Data Result diagrams: 12/23/19 12:00 12/23/19 12:01 Labs: Lab Results 12/23/19 12/23/19 12/23/19 Range/Units 12:00 12:00 12:00 WBC 11.6 H (4.8-10.8) X10*3/uL RBC 3.61 L (4.20-5.50) X10*6/uL Hgb 10.2 L (12.0-16.0) g/dl Hct 32.8 L (37-47) % MCV 90.9 (80-98) fL MCH 28.3 (27.0-33.0) pg MCHC 31.1 (31.0-35.0) g/dl RDW 16.8 H (11.0-16.0) % Plt Count 188 (160-400) X10*3/uL MPV 10.3 (9.4-12.3) fL Immature Gran % (Auto) 0.5 H (0.0-0.4) % Neut % (Auto) 76.7 H (45-73) % Lymph % (Auto) 9.8 L (20-40) % [place] % (Auto) 11.7 H (2-11) % Eos % (Auto) 0.9 (0-4) % Baso % (Auto) 0.4 (0-2) % Lymph # (Auto) 1.1 L (1.2-4.9) X10*3/uL [place] # (Auto) 1.4 H (0.1-1.2) X10*3/uL Eos # (Auto) 0.1 (0.0-0.4) X10*3/uL Baso # (Auto) 0.1 (0.0-0.2) X10*3/uL Abs Immat Gran (auto) 0.06 H (0.00-0.03) X10*3/uL Absolute Neuts (auto) 8.9 H (2.0-8.3) X10*3/uL Absolute Nucleated RBC 0.000 (0.0-0.012) X10*3/uL Nucleated RBC % (auto) 0.0 (0.0-0.2) /100WBC PT 21.9 H D (10.8-13.0) SEC INR 1.8 H (0.9-1.1) APTT 45.7 H (24.1-38.0) SEC Sodium (135-145) mmol/L Potassium (3.3-5.1) mmol/l Chloride (96-108) mmol/L Carbon Dioxide (22-29) mmol/L Anion Gap (12-20) BUN (9-16) mg/dL Creatinine (0.5-1.4) mg/dL Estim Creat Clear Calc Estimated GFR Random Glucose (60-115) mg/dL Lactic Acid (0.5-2.0) mmol/L Calcium (8.4-10.2) mg/dL Magnesium (1.6-2.6) mg/dL Total Bilirubin (0.0-1.0) mg/dL Direct Bilirubin (0.0-0.5) mg/dL AST (5-31) U/L ALT (0-31) U/L Alkaline Phosphatase (39-117) U/L Ammonia 94 H (13-55) umol/L Troponin I High Sens (<3.5-17.0) ng/L Total Protein (6.5-8.0) g/dL Albumin (3.5-5.0) g/dL Lipase (8-78) U/L TSH (0.32-4.0) uIU/mL 12/23/19 12/23/19 12/23/19 Range/Units 12:01 12:01 12:07 WBC (4.8-10.8) X10*3/uL RBC (4.20-5.50) X10*6/uL Hgb (12.0-16.0) g/dl Hct (37-47) % MCV (80-98) fL MCH (27.0-33.0) pg MCHC (31.0-35.0) g/dl RDW (11.0-16.0) % Plt Count (160-400) X10*3/uL MPV (9.4-12.3) fL Immature Gran % (Auto) (0.0-0.4) % Neut % (Auto) (45-73) % Lymph % (Auto) (20-40) % [place] % (Auto) (2-11) % Eos % (Auto) (0-4) % Baso % (Auto) (0-2) % Lymph # (Auto) (1.2-4.9) X10*3/uL [place] # (Auto) (0.1-1.2) X10*3/uL Eos # (Auto) (0.0-0.4) X10*3/uL Baso # (Auto) (0.0-0.2) X10*3/uL Abs Immat Gran (auto) (0.00-0.03) X10*3/uL Absolute Neuts (auto) (2.0-8.3) X10*3/uL Absolute Nucleated RBC (0.0-0.012) X10*3/uL Nucleated RBC % (auto) (0.0-0.2) /100WBC PT (10.8-13.0) SEC INR (0.9-1.1) APTT (24.1-38.0) SEC Sodium 137 (135-145) mmol/L Potassium 3.9 (3.3-5.1) mmol/l Chloride 105 (96-108) mmol/L Carbon Dioxide 22 (22-29) mmol/L Anion Gap 14 (12-20) BUN 14 D (9-16) mg/dL Creatinine 0.81 (0.5-1.4) mg/dL Estim Creat Clear Calc 55.7 Estimated GFR > 60 Random Glucose 133 H (60-115) mg/dL Lactic Acid 1.7 (0.5-2.0) mmol/L Calcium 9.0 D (8.4-10.2) mg/dL Magnesium 1.5 L (1.6-2.6) mg/dL Total Bilirubin 1.0 (0.0-1.0) mg/dL Direct Bilirubin 0.6 H (0.0-0.5) mg/dL AST 101 H (5-31) U/L ALT 54 H (0-31) U/L Alkaline Phosphatase 238 H (39-117) U/L Ammonia (13-55) umol/L Troponin I High Sens 4.3 (<3.5-17.0) ng/L Total Protein 7.1 (6.5-8.0) g/dL Albumin 3.5 (3.5-5.0) g/dL Lipase 105 H (8-78) U/L TSH 3.19 (0.32-4.0) uIU/mL ECG Data ECG #1: Attestation: I personally reviewed and interpreted this ECG as follows: ECG interpretation date: 12/23/19 ECG interpretation time: 11:45 Interpretation: Rate: 58 Rhythm: sinus bradycardia [place]: left Normal P waves. Normal AKT. Normal QRS complex. ST T wave : nonspecific qTC: prolonged prior studies: no acute ischemia The study has been interpreted contemporaneously by me. . Discharge Plan Discharge Clinical Impression: Acute hepatic encephalopathy Patient Disposition: Admitted As Inpatient Prescriptions: No [facility] sertraline 100 mg tablet 100 mg PO DAILY 90 Days Qty: 90 RF: 0 zinc oxide 20 % Ointment 1 applic topical TID PRN (Reason: skin irritation) Qty: 28 RF: 0 nadolol 40 mg tablet 40 mg PO DAILY Qty: 30 RF: 0 omeprazole 40 mg capsule,delayed release(DR/EC) 40 mg PO DAILY Qty: 30 RF: 0 Centrum Silver Women 8 mg iron-400 mcg-300 mcg tablet 1 tab PO DAILY RF: 0 omega-3 fatty acids [Fish Oil Concentrate] 1,000 mg capsule 1,000 mg PO DAILY RF: 0 Eliquis 5 mg tablet 5 mg PO BID RF: 0 Hold Instructions: Resume on 12/19/19. allopurinol 100 mg tablet 100 mg PO DAILY RF: 0 amiodarone 200 mg tablet 200 mg PO DAILY RF: 0 furosemide [Lasix] 20 mg tablet 20 mg PO DAILY RF: 0 spironolactone 25 mg tablet 25 mg PO DAILY RF: 0 levetiracetam 500 mg tablet 500 mg PO Q12H RF: 0 amlodipine 5 mg tablet 5 mg PO DAILY RF: 0 alendronate [Fosamax] 70 mg tablet 70 mg PO QWEEK RF: 0 Trulicity 1.5 mg/0.5 mL pen injector 1.5 mg subcut QWEEK RF: 0 metformin 500 mg tablet 500 mg PO BID RF: 0 Toujeo Max U-300 SoloStar 300 unit/mL (3 mL) insulin pen 15 unit subcut DAILY RF: 0 losartan 100 mg tablet 100 mg PO DAILY RF: 0 insulin lispro [Humalog Melquiades KwikPen U-100] 100 unit/mL insulin pen, half- unit 5.5 unit subcut BEDTIME RF: 0 primidone 50 mg tablet 50 mg PO BID RF: 0
--- NOTE | 2019-12-23 11:25 | ECG_ITS ---
Test Reason : WEAKNESS Blood Pressure : / mmHG Vent. Rate : 058 BPM Atrial Rate : 058 BPM P-R Int : 190 ms QRS Dur : 090 ms QT Int : 528 ms P-R-T Axes : 066 -19 013 degrees QTc Int : 518 ms Sinus bradycardia Nonspecific ST and T wave abnormality Prolonged QT Abnormal ECG When compared with ECG of 08-DEC-2019 21:01, Nonspecific T wave abnormality now evident in Anterior leads Referred By: Kimmie Gambino Electronically Signed By:JENNIFER RICHARDSON MD
--- NOTE | 2019-12-23 11:25 | CT_ITS ---
EXAMINATION: CT HEAD WITHOUT CONTRAST CLINICAL INFORMATION: Acute mental status change COMPARISON: Previous exam most recent November 2019 TECHNIQUE: Contiguous axial imaging was performed from the skull base to vertex without intravenous administration of contrast. This CT examination was performed using dose optimization techniques as appropriate, variously including the following: *Automated exposure control *Adjustment of mA and/or kV according to patient size (this includes techniques or standardized protocols for targeted exams where dose is matched to indication/reason for exam; i.e. extremities or head) *Use of iterative reconstruction technique DLP: 6 7 mGy-cm FINDINGS: There is no evidence of acute intracranial hemorrhage or territorial infarction. No abnormal mass effect or midline shift is seen. There is nonspecific periventricular white matter disease similar to previous exam. No extra-axial fluid collections are identified. The ventricles are normal in size. There is no abnormal attenuation within the brain parenchyma. The osseous structures and soft tissues are normal. The mastoid air cells and visualized portions of the paranasal sinuses are well aerated. CT/CT head/brain wo con IMPRESSION: No acute intracranial findings. Nonspecific periventricular white matter disease similar to previous exams.
--- NOTE | 2019-12-23 11:26 | XR_ITS ---
EXAMINATION: XR CHEST CLINICAL INFORMATION: Acute mental status change COMPARISON: Previous chest x-ray 12/08/2019 TECHNIQUE: Frontal view of the chest was obtained. FINDINGS: The cardiac and mediastinal contours are stable. The lungs are clear. There is no pleural effusion or pneumothorax. Bony structures are unremarkable. XR/XR chest 1V IMPRESSION: No evidence for acute disease in the chest.
[2019-12-23 12:05] LABS: MANUAL DIFF FLAG NO
[2019-12-23 12:07] LABS: Basophils Absolute Auto 0.1 X10*3/uL (0.0-0.2); Basophils Percent Auto 0.4 % (0-2); Eosinophils Absolute Auto 0.1 X10*3/uL (0.0-0.4); Eosinophils Percent Auto 0.9 % (0-4); Hematocrit 32.8 % (37-47); Hemoglobin 10.2 g/dl (12.0-16.0); Imm Gran Abs Auto 0.06 X10*3/uL (0.00-0.03); Imm Gran Pct Auto 0.5 % (0.0-0.4); Lymphocytes Absolute Auto 1.1 X10*3/uL (1.2-4.9); Lymphocytes Percent Auto 9.8 % (20-40); Mean Corpuscular HGB Conc 31.1 g/dl (31.0-35.0); Mean Corpuscular Hemoglobin 28.3 pg (27.0-33.0); Mean Corpuscular Volume 90.9 fL (80-98); Mean Platelet Volume 10.3 fL (9.4-12.3); Monocytes Absolute Auto 1.4 X10*3/uL (0.1-1.2); Monocytes Percent Auto 11.7 % (2-11); Neutrophils Absolute Auto 8.9 X10*3/uL (2.0-8.3); Neutrophils Percent Auto 76.7 % (45-73); Platelet Count 188 X10*3/uL (160-400); Red Blood Count 3.61 X10*6/uL (4.20-5.50); Red Cell Distribution Width 16.8 % (11.0-16.0); White Blood Count 11.6 X10*3/uL (4.8-10.8)
[2019-12-23 12:15] LABS: INTERNATIONAL NORM RATIO 1.8 (0.9-1.1); Prothrombin Time 21.9 SEC (10.8-13.0)
[2019-12-23 12:18] LABS: Partial Thromboplastin Time 45.7 SEC (24.1-38.0)
[2019-12-23 12:33] LABS: Lactic Acid 1.7 mmol/L (0.5-2.0)
[2019-12-23 12:41] LABS: Troponin-I High Sensitivity 4.3 ng/L (<3.5-17.0)
[2019-12-23 12:48] LABS: Alanine Aminotransferase 54 U/L (0-31); Albumin Level 3.5 g/dL (3.5-5.0); Alkaline Phosphatase 238 U/L (39-117); Anion Gap 14 (12-20); Aspartate Amino Transferase 101 U/L (5-31); Bilirubin Direct 0.6 mg/dL (0.0-0.5); Blood Urea Nitrogen 14 mg/dL (9-16); Carbon Dioxide 22 mmol/L (22-29); Chloride 105 mmol/L (96-108); Creatinine Clr Calc Pharmacy 55.7; Estimated Glomerular Filt Rate > 60; Glucose Random 133 mg/dL (60-115); Magnesium 1.5 mg/dL (1.6-2.6); Potassium 3.9 mmol/l (3.3-5.1); Sodium 137 mmol/L (135-145); Total Protein 7.1 g/dL (6.5-8.0)
[2019-12-23 12:52] LABS: Ammonia 94 umol/L (13-55)
[2019-12-23 12:59] LABS: Thyroid Stimulating Hormone 3.19 uIU/mL (0.32-4.0)
[2019-12-23 13:03] LABS: Lipase 105 U/L (8-78)
--- NOTE | 2019-12-23 13:40 | PM.EVENT ---
Event Note Date of Service: 12/23/19 Event Note: Patient seen and examined independently and was present during nguyen portion of E/M service. Agree with midlevel's history, physical, assessment, and plan. 74F presented with confusion metabolic encephalopathy likely hepatic encephaloapthy, lactulose, GI,
[2019-12-23] MEDS: Magnesium Sulfate/H2O 2 GM/50 ML PIGGYBACK IV (13:55)
[2019-12-23] MEDS: Lactulose 20 GM/30 ML SOLUTION 30 GM PO (13:56)
[2019-12-23 14:03] LABS: HCO3 VBG 20 mmol/L; PCO2 VBG 30 mmhg; PO2 VBG 44 mmhg; pH VBG 7.46 (7.32-7.43)
[2019-12-23 14:04] LABS: Glucose Urine UA NEG (NEG); Nitrite Urine NEG (NEG); Specific Gravity - Urine 1.015 (1.005-1.025); Urine Blood NEG (NEG); Urine Ketones NEG (NEG); Urine Protein NEG (NEG-TRACE)
[2019-12-23 14:04] LABS: Base Excess VBG -2.7 mmol/L; Oxygen Saturation VBG 79.7 %
[2019-12-23 14:13] LABS: Appearance Urine CLOUDY; Color Urine YELLOW
[2019-12-23 14:14] LABS: Leukocyte Esterase Urine TRACE (NEG)
[2019-12-23 14:15] LABS: Bacteria Urine 4+ /LPF; RBC Urine 0 /HPF (0); Squamous Epithelial Cell Urine TRACE /LPF
--- NOTE | 2019-12-23 14:29 | PC.NURSE ---
pt seen by hospitalist, waiting on orders and bed
[2019-12-23 14:38] LABS: COVID-19 Test Negative (Negative); IDNOW Serial# 9DD0AD1C
--- NOTE | 2019-12-23 14:47 | PM.IMHP ---
History of Present Illness Date of Service: 12/23/19 Chief Complaint: lethargy this is a 74-year-old female with a history of KIM with esophageal varices who was brought in due to increasing lethargy. Workup in the emergency department including brain CT was unremarkable with the exception of ammonia level of 94 and magnesium of 1.5. she was given a dose of lactulose and magnesium replacement. And the decision was made to admit her for hepatic encephalopathy. Patient was unable to provide any significant history. 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 Tubular adenoma of colon Type 2 diabetes mellitus with hyperglycemia Family History Father Diabetes Hypertension CVD (cardiovascular disease) Mother Diabetes Hypertension Cancer Rectal cancer Daughter Diabetes Surgical History Ganglion cyst H/O unilateral oophorectomy History of abdominal hysterectomy History of appendectomy History of carpal tunnel surgery History of cholecystectomy Hx of colonoscopy Social History Household Members: Caregiver Housing: House Alcohol intake: former Smoking Status: Former smoker Second Hand Smoke Exposure: No Use of substances other than those prescribed or required for medical reasons: No Advance Directives: No Advance Directives Information Provided: Yes service: No Current occupational status: retired Meds Allergies Allergy/AdvReac Type Severity Reaction Status Date / Time lisinopril [From ZESTRIL] Allergy Intermediate RASH-FROM Verified 12/06/19 15:46 ZESTRIL propranolol [PROPRANOLOL] Allergy Mild HEADACHE Verified 12/05/19 15:23 atorvastatin [Lipitor] Allergy Unknown Unknown Verified 12/06/19 15:46 benazepril Allergy Unknown Unknown Verified 12/06/19 15:46 indomethacin [From INDOCIN] Allergy Unknown UNKNOWN Verified 12/06/19 15:46 simvastatin Allergy Unknown Unknown Verified 12/06/19 15:46 Home Medications Medication Instructions Recorded Confirmed Type alendronate 70 mg tablet 70 mg PO QWEEK 12/05/19 12/23/19 History allopurinol 100 mg tablet 100 mg PO DAILY 12/05/19 12/23/19 History amiodarone 200 mg tablet 200 mg PO DAILY 12/05/19 12/23/19 History amlodipine 5 mg tablet 5 mg PO DAILY 12/05/19 12/23/19 History apixaban 5 mg tablet 5 mg PO BID 12/05/19 12/23/19 History dulaglutide 1.5 mg/0.5 mL 1.5 mg SUBCUT QWEEK 12/05/19 12/23/19 History subcutaneous pen injector furosemide 20 mg tablet 20 mg PO DAILY 12/05/19 12/23/19 History insulin glargine U-300 conc 300 15 unit SUBCUT DAILY ml 12/05/19 12/23/19 History unit/mL (3 mL) subcutaneous pen insulin lispro 100 unit/mL 5.5 unit SUBCUT BEDTIME 12/05/19 12/23/19 History subcutaneous half-unit pen levetiracetam 500 mg tablet 500 mg PO Q12H 12/05/19 12/23/19 History losartan 100 mg tablet 100 mg PO DAILY 12/05/19 12/23/19 History metformin 500 mg tablet 500 mg PO BID 12/05/19 12/23/19 History multivit with 1 tab PO DAILY 12/05/19 12/23/19 History vxqlypwv-cqvb-AR-lutein 8 mg iron-400 mcg-300 mcg tablet omega-3 fatty acids 1,000 mg 1,000 mg PO DAILY 12/05/19 12/23/19 History capsule primidone 50 mg tablet 50 mg PO BID tab 12/05/19 12/23/19 History spironolactone 25 mg tablet 25 mg PO DAILY 12/05/19 12/23/19 History Physical Exam Vital Signs and Narrative: Vital Signs: Last Vital Signs Temp 98.1 F 12/23/19 14:00 Pulse 56 12/23/19 14:00 Resp 16 12/23/19 14:00 BP 148/74 H 12/23/19 14:00 Pulse Ox 98 12/23/19 14:00 Body Mass Index 25.0 Const: General: awake and lethargic Nutritional Appearance: well nourished Orientation/consciousness: lethargic HENMT: Head: Yes normocephalic and Yes atraumatic Eyes: Sclerae: sclerae normal Chest: Chest palpation & inspection: normal inspection of the chest Resp: Effort & Inspection: normal respiratory effort and no respiratory distress Cardio: Rate: regular rate Rhythm: regular rhythm GI: Palpation (GI): Soft to palpation and nontender Skin: General skin exam: no rashes or lesions noted Neuro: Other: awake, answering only simple questions. Extrem: General: Yes normal to inspection Results Labs CBC and Chem 7: 12/23/19 12:00 12/23/19 12:01 Labs: Laboratory Results - last 24 hr 12/23/19 12/23/19 12/23/19 12:00 12:00 12:00 MCV 90.9 MCH 28.3 MCHC 31.1 RDW 16.8 H Plt Count 188 MPV 10.3 Immature Gran % (Auto) 0.5 H Neut % (Auto) 76.7 H Lymph % (Auto) 9.8 L Travis % (Auto) 11.7 H Eos % (Auto) 0.9 Baso % (Auto) 0.4 Lymph # (Auto) 1.1 L Travis # (Auto) 1.4 H Eos # (Auto) 0.1 Baso # (Auto) 0.1 Abs Immat Gran (auto) 0.06 H Absolute Neuts (auto) 8.9 H Absolute Nucleated RBC 0.000 Nucleated RBC % (auto) 0.0 PT 21.9 H D INR 1.8 H APTT 45.7 H VBG pH VBG pCO2 VBG Oxygen Liters/Min VBG pO2 VBG HCO3 VBG O2 Saturation VBG Base Excess Anion Gap Estim Creat Clear Calc Estimated GFR Random Glucose Lactic Acid Calcium Magnesium Total Bilirubin Direct Bilirubin AST ALT Alkaline Phosphatase Ammonia 94 H Troponin I High Sens Total Protein Albumin Lipase TSH Urine Color Urine Appearance Urine pH Ur Specific [place] Urine Protein Urine Glucose (UA) Urine Ketones Urine Blood Urine Nitrite Ur Leukocyte Esterase Urine RBC Urine WBC Ur Squamous Epith Cells Urine Bacteria COVID-19 (RUDDY) COVID-19 Clin Com 12/23/19 12/23/19 12/23/19 12:01 12:01 12:07 MCV MCH MCHC RDW Plt Count MPV Immature Gran % (Auto) Neut % (Auto) Lymph % (Auto) Travis % (Auto) Eos % (Auto) Baso % (Auto) Lymph # (Auto) Travis # (Auto) Eos # (Auto) Baso # (Auto) Abs Immat Gran (auto) Absolute Neuts (auto) Absolute Nucleated RBC Nucleated RBC % (auto) PT INR APTT VBG pH VBG pCO2 VBG Oxygen Liters/Min VBG pO2 VBG HCO3 VBG O2 Saturation VBG Base Excess Anion Gap 14 Estim Creat Clear Calc 55.7 Estimated GFR > 60 Random Glucose 133 H Lactic Acid 1.7 Calcium 9.0 D Magnesium 1.5 L Total Bilirubin 1.0 Direct Bilirubin 0.6 H AST 101 H ALT 54 H Alkaline Phosphatase 238 H Ammonia Troponin I High Sens 4.3 Total Protein 7.1 Albumin 3.5 Lipase 105 H TSH 3.19 Urine Color Urine Appearance Urine pH Ur Specific [place] Urine Protein Urine Glucose (UA) Urine Ketones Urine Blood Urine Nitrite Ur Leukocyte Esterase Urine RBC Urine WBC Ur Squamous Epith Cells Urine Bacteria COVID-19 ([facility]UDDY) COVID-19 Clin Com 12/23/19 12/23/19 12/23/19 13:36 13:38 13:38 MCV MCH MCHC RDW Plt Count MPV Immature Gran % (Auto) Neut % (Auto) Lymph % (Auto) Travis % (Auto) Eos % (Auto) Baso % (Auto) Lymph # (Auto) Travis # (Auto) Eos # (Auto) Baso # (Auto) Abs Immat Gran (auto) Absolute Neuts (auto) Absolute Nucleated RBC Nucleated RBC % (auto) PT INR APTT VBG pH 7.46 H VBG pCO2 30 VBG Oxygen Liters/Min TNP VBG pO2 44 VBG HCO3 20 VBG O2 Saturation 79.7 VBG Base Excess -2.7 Anion Gap Estim Creat Clear Calc Estimated GFR Random Glucose Lactic Acid Calcium Magnesium Total Bilirubin Direct Bilirubin AST ALT Alkaline Phosphatase Ammonia Troponin I High Sens Total Protein Albumin Lipase TSH Urine Color YELLOW Urine Appearance CLOUDY Urine pH 7.0 Ur Specific [place] 1.015 Urine Protein NEG Urine Glucose (UA) NEG Urine Ketones NEG Urine Blood NEG Urine Nitrite NEG Ur Leukocyte Esterase TRACE H Urine RBC 0 Urine WBC 5-9 H Ur Squamous Epith Cells TRACE Urine Bacteria 4+ COVID-19 ([facility]UDDY) Negative COVID-19 Clin Com See Note Imaging Radiologist's Impressions: Impressions Head CT 12/23/19 11:25 IMPRESSION: No acute intracranial findings. Nonspecific periventricular white matter disease similar to previous exams. Chest X-Ray 12/23/19 11:26 IMPRESSION: No evidence for acute disease in the chest. Assessment and Plan (1) Acute hepatic encephalopathy: Status: Acute this is a 74-year-old female with a history KIM, diabetes, seizure disorder, atrial fibrillation on Eliquis, coronary artery disease among others who presents to the emergency department with increasing lethargy found to have hepatic encephalopathy hepatic encephalopathy lactulose follow ammonia level GI evaluation KIM with esophageal varices continue nadolol, Lasix, spironolactone unclear if taking lactulose at home abdominal ultrasound to assess for ascites GI evaluation leukocytosis urinalysis pending, abdominal ultrasound to evaluate for ascites trend CBC low magnesium replaced in the ED, repeat in a.m. diabetes not able to eat currently we will cover the sliding scale - Toujeo and Trulicity are non formulary QT prolongation related to amiodarone, low magnesium magnesium replaced in the ED repeat EKG in a.m. tele monitoring hypertension continue losartan, Norvasc, Tylenol atrial fibrillation continue amiodarone, anticoagulation with Eliquis seizure disorder continue heparin anemia H/H at baseline follow CBC history of tremor, question of Parkinson's on 1 previous notes continue primidone mood hold sertraline for prolonged qt DVT prophylaxis- Eliquis code status- MOLST form in chart DNR DNI this case was discussed with Dr. Blanchard
[2019-12-23 14:52] LABS: Glucose, Whole Blood 98 mg/dL (60-115)
--- NOTE | 2019-12-23 20:32 | US_ITS ---
EXAMINATION: US ABDOMEN LIMITED CLINICAL INFORMATION: KIM? Ascites. COMPARISON: CT abdomen pelvis 12/09/2019 TECHNIQUE: Real-time imaging of the abdomen was performed for assessment of ascites.. FINDINGS: Examination of the right upper quadrant, left upper quadrant, left lower quadrant and right lower quadrant show no evidence of ascites. US/US abdomen limited IMPRESSION: No ascites is detected.
--- NOTE | 2019-12-23 20:51 | PM.GICN ---
History of Present Illness Data of Consult Service Date: 12/23/19 Requesting physician: Osei Blanchard Primary Care Provider: Unknown Physician HPI Reason for consult: confusion 74 yr old f with decompensated KIM cirrhosis who I am asked to see for confusion and suspected hepatic encephalopathy. Unable to obtain history, patient mumbling and not answering questions. Information from chart. Patient brought by ?family member to ED with AMS and weakness, CT brain negative, ammonia elevated, Mag low,mildly raised WCC She had recent admission with anemia few weeks back and had EGD with variceal banding and colonoscopy with several polyps removed. 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 Tubular adenoma of colon Type 2 diabetes mellitus with hyperglycemia Family History Family History Father Diabetes Hypertension CVD (cardiovascular disease) Mother Diabetes Hypertension Cancer Rectal cancer Daughter Diabetes Surgical History Surgical History Ganglion cyst H/O unilateral oophorectomy History of abdominal hysterectomy History of appendectomy History of carpal tunnel surgery History of cholecystectomy Hx of colonoscopy Social History Social History Household Members: Caregiver Housing: House Alcohol intake: former Smoking Status: Former smoker Second Hand Smoke Exposure: No Use of substances other than those prescribed or required for medical reasons: No Advance Directives: No Advance Directives Information Provided: Yes service: No Current occupational status: retired Meds Allergies Allergy/AdvReac Type Severity Reaction Status Date / Time lisinopril [From ZESTRIL] Allergy Intermediate RASH-FROM Verified 12/06/19 15:46 ZESTRIL propranolol [PROPRANOLOL] Allergy Mild HEADACHE Verified 12/05/19 15:23 atorvastatin [Lipitor] Allergy Unknown Unknown Verified 12/06/19 15:46 benazepril Allergy Unknown Unknown Verified 12/06/19 15:46 indomethacin [From INDOCIN] Allergy Unknown UNKNOWN Verified 12/06/19 15:46 simvastatin Allergy Unknown Unknown Verified 12/06/19 15:46 Home Medications Medication Instructions Recorded Confirmed Type alendronate 70 mg tablet 70 mg PO QWEEK 12/05/19 12/23/19 History allopurinol 100 mg tablet 100 mg PO DAILY 12/05/19 12/23/19 History amiodarone 200 mg tablet 200 mg PO DAILY 12/05/19 12/23/19 History amlodipine 5 mg tablet 5 mg PO DAILY 12/05/19 12/23/19 History apixaban 5 mg tablet 5 mg PO BID 12/05/19 12/23/19 History dulaglutide 1.5 mg/0.5 mL 1.5 mg SUBCUT QWEEK 12/05/19 12/23/19 History subcutaneous pen injector furosemide 20 mg tablet 20 mg PO DAILY 12/05/19 12/23/19 History insulin glargine U-300 conc 300 15 unit SUBCUT DAILY ml 12/05/19 12/23/19 History unit/mL (3 mL) subcutaneous pen insulin lispro 100 unit/mL 5.5 unit SUBCUT BEDTIME 12/05/19 12/23/19 History subcutaneous half-unit pen levetiracetam 500 mg tablet 500 mg PO Q12H 12/05/19 12/23/19 History losartan 100 mg tablet 100 mg PO DAILY 12/05/19 12/23/19 History metformin 500 mg tablet 500 mg PO BID 12/05/19 12/23/19 History multivit with 1 tab PO DAILY 12/05/19 12/23/19 History zbzkqmlo-bdea-WF-lutein 8 mg iron-400 mcg-300 mcg tablet omega-3 fatty acids 1,000 mg 1,000 mg PO DAILY 12/05/19 12/23/19 History capsule primidone 50 mg tablet 50 mg PO BID tab 12/05/19 12/23/19 History spironolactone 25 mg tablet 25 mg PO DAILY 12/05/19 12/23/19 History Physical Exam Vital Signs: Vital Signs: Last Vital Signs Temp 98.9 F 12/23/19 20:26 Pulse 62 12/23/19 20:26 Resp 17 11/13/20 20:26 BP 148/71 H 12/23/19 20:26 Pulse Ox 97 12/23/19 20:26 Body Mass Index 25.0 Const: General: confusion and lethargic Orientation/consciousness: No patient oriented x3, confusion and lethargic Eyes: General: appearance normal, both eyes and all related structures Cardio: Rate: regular rate Heart sounds: S1 normal heart sound present and S2 normal heart sound present GI: Inspection: Yes normal to inspection Palpation (GI): Soft to palpation Percussion: Yes normal to percussion Auscultation: normal bowel sounds Neuro: General: No patient oriented x3 and confusion Cognition (Neuro): abnormal cognition Results Labs CBC & Chem 7: 12/23/19 12:00 12/23/19 12:01 Labs: Short CBC 12/23/19 Range/Units 12:00 WBC 11.6 H (4.8-10.8) X10*3/uL Hgb 10.2 L (12.0-16.0) g/dl Hct 32.8 L (37-47) % Plt Count 188 (160-400) X10*3/uL BMP 12/23/19 12:01 Sodium 137 Potassium 3.9 Chloride 105 Carbon Dioxide 22 BUN 14 D Creatinine 0.81 Calcium 9.0 D Liver Function 12/23/19 Range/Units 12:01 Total Bilirubin 1.0 (0.0-1.0) mg/dL Direct Bilirubin 0.6 H (0.0-0.5) mg/dL AST 101 H (5-31) U/L ALT 54 H (0-31) U/L Alkaline Phosphatase 238 H (39-117) U/L Albumin 3.5 (3.5-5.0) g/dL Urine 12/23/19 Range/Units 13:36 Urine Color YELLOW Urine Appearance CLOUDY Urine pH 7.0 (5.0-8.0) Ur Specific [place] 1.015 (1.005-1.025) Urine Protein NEG (NEG-TRACE) MG/DL Urine Glucose (UA) NEG (NEG) MG/DL Assessment and Plan (1) Acute hepatic encephalopathy: Status: Acute (2) Cirrhosis of liver without ascites: Status: Acute (3) Weakness: Status: Acute 1/ Suspected hepatic encephalopathy, no obvious trigger, infection screen incl COVID neg so far, Mag mildly low, no evidence of acute GI bleeding, CT head neg for acute injury, may have splenorenal shunt or HCC (original CT not dedicated triple phase CT), may also be a post ictal state or ongoing atypical seizure PLAN: 1/ Optimize lytes, MAG>2, K >3.5, check ionized Ca 2/ lactulose aiming for 3 soft stools daily, can use PO or SC, can add rifaximin if needed 3/montior HGB, watch for signs of GI bleeding 4/ consider u tox and check drug levels of levetiracetam, primidone (both can cause mental changes, in addition amiodarone is a strong enzyme inducer may cause therapuetic failure of levetiracetam hence predisposing to seizures) and for tylenol 5/ us abdomen, to look for ascites, tap if enough present 6/ consider neuro consult in case needs EEG if clinical condition doesn;t improve Procedures Abscess I/D Date of Service: 12/23/19
[2019-12-23 21:07] LABS: Glucose, Whole Blood 88 mg/dL (60-115)
[2019-12-23] MEDS: 0.9 % Sodium Chloride Flush 3 ML SYRINGE IVFLUSH ×2 (22:18→22:28)
[2019-12-23] MEDS: Apixaban 5 MG TABLET PO (22:18)
[2019-12-23] MEDS: levETIRAcetam 500 MG TABLET PO (22:18)
[2019-12-23] MEDS: Primidone 50 MG TABLET PO (22:18)
[2019-12-23] MEDS: Lactulose 20 GM/30 ML SOLUTION PO (22:18)
[2019-12-23 22:22] LABS: Glucose, Whole Blood 90 mg/dL (60-115)
[2019-12-24] VITALS (11 sets, daily range): BP systolic 127–153; BP diastolic 63–85; PULSE 54–72; RESP 18–20; TEMP 36.2–36.6; O2SAT 95–100
[2019-12-24] MEDS: Omeprazole 40 MG CAPSULE.DR PO (05:53)
[2019-12-24 07:03] LABS: MANUAL DIFF FLAG NO
[2019-12-24 07:17] LABS: Basophils Absolute Auto 0.1 X10*3/uL (0.0-0.2); Basophils Percent Auto 0.7 % (0-2); Eosinophils Absolute Auto 0.2 X10*3/uL (0.0-0.4); Eosinophils Percent Auto 1.5 % (0-4); Hematocrit 30.3 % (37-47); Hemoglobin 9.4 g/dl (12.0-16.0); Imm Gran Abs Auto 0.04 X10*3/uL (0.00-0.03); Imm Gran Pct Auto 0.4 % (0.0-0.4); Lymphocytes Absolute Auto 1.1 X10*3/uL (1.2-4.9); Lymphocytes Percent Auto 10.7 % (20-40); Mean Corpuscular Volume 90.2 fL (80-98); Mean Platelet Volume 10.5 fL (9.4-12.3); Monocytes Absolute Auto 1.2 X10*3/uL (0.1-1.2); Neutrophils Absolute Auto 8.1 X10*3/uL (2.0-8.3); Neutrophils Percent Auto 75.7 % (45-73); Platelet Count 190 X10*3/uL (160-400); Red Blood Count 3.36 X10*6/uL (4.20-5.50); Red Cell Distribution Width 16.9 % (11.0-16.0); White Blood Count 10.7 X10*3/uL (4.8-10.8)
[2019-12-24 07:21] LABS: Ammonia 93 umol/L (13-55)
[2019-12-24 07:39] LABS: Alanine Aminotransferase 49 U/L (0-31); Albumin Level 3.4 g/dL (3.5-5.0); Alkaline Phosphatase 205 U/L (39-117); Anion Gap 14 (12-20); Aspartate Amino Transferase 98 U/L (5-31); Bilirubin Direct 0.6 mg/dL (0.0-0.5); Blood Urea Nitrogen 15 mg/dL (9-16); Calcium 8.5 mg/dL (8.4-10.2); Carbon Dioxide 21 mmol/L (22-29); Chloride 105 mmol/L (96-108); Creatinine Clr Calc Pharmacy 52.4; Estimated Glomerular Filt Rate > 60; Glucose Random 103 mg/dL (60-115); Potassium 3.6 mmol/l (3.3-5.1); Sodium 136 mmol/L (135-145); Total Protein 6.7 g/dL (6.5-8.0)
[2019-12-24 07:46] LABS: Magnesium 1.7 mg/dL (1.6-2.6)
[2019-12-24 08:00] LABS: Glucose, Whole Blood 112 mg/dL (60-115)
[2019-12-24] MEDS: Furosemide 20 MG TABLET PO (09:03)
[2019-12-24] MEDS: levETIRAcetam 500 MG TABLET PO ×2 (09:03→21:29)
[2019-12-24] MEDS: Amiodarone HCL 200 MG TABLET PO (09:03)
[2019-12-24] MEDS: Losartan Potassium 50 MG TABLET 100 MG PO (09:03)
[2019-12-24] MEDS: Lactulose 20 GM/30 ML SOLUTION PO ×2 (09:04→21:29)
[2019-12-24] MEDS: Spironolactone 25 MG TABLET PO (09:04)
[2019-12-24] MEDS: allopurinoL 100 MG TABLET PO (09:04)
[2019-12-24] MEDS: Primidone 50 MG TABLET PO ×2 (09:04→21:29)
[2019-12-24] MEDS: Apixaban 5 MG TABLET PO ×2 (09:04→21:29)
[2019-12-24] MEDS: amLODIPine Besylate 5 MG TABLET PO (09:04)
[2019-12-24] MEDS: 0.9 % Sodium Chloride Flush 3 ML SYRINGE IVFLUSH ×3 (09:05→21:29)
--- NOTE | 2019-12-24 10:30 | HO.PM.IMPN ---
Subjective Subjective Date of Service: 12/24/19 Interval History: weak Cardiovascular Cardiovascular: Reports no additional cardiovascular complaints Respiratory Respiratory: Reports no additional respiratory complaints Physical Exam Vital Signs: Vital Signs: Last Vital Signs Temp 97.7 F 12/24/19 07:51 Pulse 62 12/24/19 09:04 Resp 18 12/24/19 07:51 BP 153/79 H 12/24/19 09:04 Pulse Ox 96 12/24/19 07:51 Body Mass Index 24.3 General: lethargic, eyes open but not speaking, no acute distress Resp: CTA bilateral CVS: S1,S2,RRR GI: soft, non tender, non distended Neuro: asterixis Psych: impaired insight Objective Data Current Medications Generic Name Dose Route Start Last Admin Trade Name Freq PRN Reason Stop Dose Admin Acetaminophen 650 mg 12/23/19 20:32 Acetaminophen Supp 650 Mg Supp.Rect MD Q6H PRN Pain, Mild (Pain Scale 1-3) Allopurinol 100 mg 12/24/19 09:00 12/24/19 09:04 Allopurinol 100 Mg Tablet PO 100 mg DAILY LAN Administration Amiodarone HCl 200 mg 12/24/19 09:00 12/24/19 09:03 Amiodarone Hcl 200 Mg Tablet PO 200 mg DAILY LAN Administration Amlodipine Besylate 5 mg 12/24/19 09:00 12/24/19 09:04 Amlodipine Besylate 5 Mg Tablet PO 5 mg DAILY LAN Administration Protocol Apixaban 5 mg 12/23/19 21:00 12/24/19 09:04 Apixaban 5 Mg Tablet PO 5 mg BID LAN Administration Furosemide 20 mg 12/24/19 09:00 12/24/19 09:03 Furosemide 20 Mg Tablet PO 20 mg DAILY LAN Administration Protocol Insulin Human Lispro 0 unit 12/23/19 20:32 12/24/19 07:58 Insulin Lispro 100 Unit/Ml 3 Ml Vial SUBCUT Not Given QIDACHS [facility]1983 Protocol Lactulose 20 gm 12/23/19 21:00 12/24/19 09:04 Lactulose 20 Gm/30 Ml Solution PO 20 gm BID LAN Administration Levetiracetam 500 mg 12/23/19 20:32 12/24/19 09:03 Levetiracetam 500 Mg Tablet PO 500 mg Q12H LAN Administration Losartan Potassium 100 mg 12/24/19 09:00 12/24/19 09:03 Losartan Potassium 50 Mg Tablet PO 100 mg DAILY LAN Administration Protocol Multivitamins/Minerals 1 tab 12/24/19 09:00 12/24/19 09:04 Multivitamin With Minerals Tablet PO 1 tab DAILY LAN Administration Nadolol 40 mg 12/24/19 09:00 12/24/19 09:04 Nadolol 40 Mg Tablet PO 40 mg DAILY LAN Administration Protocol Omeprazole 40 mg 12/24/19 06:30 12/24/19 05:53 Omeprazole 40 Mg Capsule. PO 40 mg DAILY@0630 [facility] Administration Pharmacy Consult 1 each 12/23/19 12:49 Consult Rx Perform Med Rec MISCELLANE ONCE PRN Consult order Primidone 50 mg 12/23/19 21:00 12/24/19 09:04 Primidone 50 Mg Tablet PO 50 mg BID LAN Administration Sodium Chloride 3 ml 12/23/19 20:32 12/24/19 09:05 0.9 % Sodium Chloride Flush 3 Ml Syringe IVFLUSH 3 ml QSHIFT [facility]1983 Administration Spironolactone 25 mg 12/24/19 09:00 12/24/19 09:04 Spironolactone 25 Mg Tablet PO 25 mg DAILY [facility] Administration Protocol Zinc Oxide 1 appl 12/23/19 20:32 Zinc Oxide 20% Ointment 28.35 Gm Tube TOPICAL TID PRN skin irritation Protocol Labs CBC & Chem 7: 12/24/19 06:51 12/24/19 06:51 Microbiology Microbiology Results: Microbiology 12/23/19 13:22 Urine Catheterized - Straight Catheter Urine Culture - Preliminary Gram negative arielle Assessment and Plan (1) Acute hepatic encephalopathy: Status: Acute Assessment and Plan: 74-year-old female with a history KIM, diabetes, seizure disorder, atrial fibrillation on Eliquis, coronary artery disease among others who presents to the emergency department with increasing lethargy hepatic encephalopathy in setting of KIM cirrhosis continue lactulose For goal of 3 bowel movements a day continue nadolol, Lasix, Aldactone GI following hypomagnesemia replace and monitor diabetes insulin hypertension continue losartan, Norvasc, Tylenol atrial fibrillation continue amiodarone, anticoagulation with Eliquis seizure disorder continue keppra anemia H/H at baseline follow CBC history of tremor, question of Parkinson's on 1 previous notes continue primidone mood hold sertraline for prolonged qt DVT prophylaxis- Eliquis code status- MOLST form in chart DNR DNI
[2019-12-24 11:21] LABS: Glucose, Whole Blood 167 mg/dL (60-115)
[2019-12-24] MEDS: Magnesium Sulfate/H2O 2 GM/50 ML PIGGYBACK IV (11:26)
[2019-12-24] MEDS: Insulin Lispro 100 UNIT/ML 3 ML VIAL SUBCUT ×2 (11:30→21:28)
--- NOTE | 2019-12-24 15:35 | MHC.CM.PN ---
DIRECTOR BROADCAST completed via t/c to pts daughter/HCP, Sirena ([phone]) who reports the pt lives alone but the family pays for 24/7 care. She reports the pt has both a walker and a cane at home. She has primarily been using the walker when she feels up to ambulating at all however has often not been getting up. Sirena reports the pt has had [facility] for PT/OT in the past and they usually use [facility], she would be agreeable to those services if recommended at DC. Pts PCP is Susan Torres. IMM explained and a copy will be sent to Sirena's home via certified mail current DC plan is home with resumption of 24/7 private pay help. [facility] services will be added if ordered at DC. Pts family will transport
[2019-12-24] MEDS: cefTRIAXone sodium 1 GM in 0.9 % Sodium Chloride 50 ML IV (15:43)
[2019-12-24 16:39] LABS: Glucose, Whole Blood 92 mg/dL (60-115)
[2019-12-24 20:45] LABS: Glucose, Whole Blood 198 mg/dL (60-115)
[2019-12-25 03:09] VITALS: BP 144/70; PULSE 53; RESP 18; TEMP 36.5; O2SAT 96
[2019-12-25] MEDS: Omeprazole 40 MG CAPSULE.DR PO (05:34)
[2019-12-25 07:12] VITALS: BP 134/61; PULSE 54; RESP 18; TEMP 36.4; O2SAT 98
[2019-12-25 07:23] LABS: MANUAL DIFF FLAG NO
[2019-12-25 07:24] LABS: Glucose, Whole Blood 120 mg/dL (60-115)
[2019-12-25 07:39] LABS: Basophils Percent Auto 0.4 % (0-2); Eosinophils Absolute Auto 0.2 X10*3/uL (0.0-0.4); Hematocrit 31.8 % (37-47); Hemoglobin 9.8 g/dl (12.0-16.0); Imm Gran Abs Auto 0.04 X10*3/uL (0.00-0.03); Imm Gran Pct Auto 0.4 % (0.0-0.4); Lymphocytes Absolute Auto 1.2 X10*3/uL (1.2-4.9); Lymphocytes Percent Auto 11.3 % (20-40); Mean Corpuscular HGB Conc 30.8 g/dl (31.0-35.0); Mean Corpuscular Hemoglobin 27.8 pg (27.0-33.0); Mean Corpuscular Volume 90.3 fL (80-98); Mean Platelet Volume 10.7 fL (9.4-12.3); Monocytes Absolute Auto 1.2 X10*3/uL (0.1-1.2); Monocytes Percent Auto 11.9 % (2-11); Neutrophils Absolute Auto 7.7 X10*3/uL (2.0-8.3); Platelet Count 214 X10*3/uL (160-400); Red Blood Count 3.52 X10*6/uL (4.20-5.50); Red Cell Distribution Width 16.9 % (11.0-16.0); White Blood Count 10.4 X10*3/uL (4.8-10.8)
[2019-12-25 07:57] LABS: Anion Gap 14 (12-20); Blood Urea Nitrogen 14 mg/dL (9-16); Calcium 8.5 mg/dL (8.4-10.2); Carbon Dioxide 23 mmol/L (22-29); Chloride 106 mmol/L (96-108); Creatinine Clr Calc Pharmacy 53.8; Estimated Glomerular Filt Rate > 60; Glucose Fasting 111 mg/dL (60-99); Potassium 3.6 mmol/l (3.3-5.1); Sodium 139 mmol/L (135-145)
[2019-12-25 08:08] LABS: Magnesium 1.6 mg/dL (1.6-2.6)
[2019-12-25] MEDS: Amiodarone HCL 200 MG TABLET PO (08:17)
[2019-12-25] MEDS: Primidone 50 MG TABLET PO ×2 (08:17→21:04)
[2019-12-25] MEDS: levETIRAcetam 500 MG TABLET PO ×2 (08:17→21:04)
[2019-12-25] MEDS: Apixaban 5 MG TABLET PO ×2 (08:17→21:04)
[2019-12-25] MEDS: allopurinoL 100 MG TABLET PO (08:17)
[2019-12-25] MEDS: 0.9 % Sodium Chloride Flush 3 ML SYRINGE IVFLUSH ×3 (08:17→21:06)
[2019-12-25] MEDS: Spironolactone 25 MG TABLET PO (08:17)
[2019-12-25] MEDS: Lactulose 20 GM/30 ML SOLUTION PO ×2 (08:18→21:04)
[2019-12-25] MEDS: Furosemide 20 MG TABLET PO (08:18)
[2019-12-25] MEDS: amLODIPine Besylate 5 MG TABLET PO (08:18)
[2019-12-25] MEDS: Losartan Potassium 50 MG TABLET 100 MG PO (08:18)
--- NOTE | 2019-12-25 10:08 | HO.PM.IMPN ---
Subjective Subjective Date of Service: 12/25/19 Interval History: much more alert, wants to go home Cardiovascular Cardiovascular: Reports no additional cardiovascular complaints Respiratory Respiratory: Reports no additional respiratory complaints Physical Exam Vital Signs: Vital Signs: Last Vital Signs Temp 97.6 F 12/25/19 07:12 Pulse 54 12/25/19 07:12 Resp 18 12/25/19 07:12 BP 134/61 12/25/19 07:12 Pulse Ox 98 12/25/19 07:12 Body Mass Index 24.3 General: lethargic, eyes open but not speaking, no acute distress Resp: CTA bilateral CVS: S1,S2,RRR GI: soft, non tender, non distended Neuro: asterixis Psych: impaired insight Objective Data Current Medications Generic Name Dose Route Start Last Admin Trade Name Freq PRN Reason Stop Dose Admin Acetaminophen 650 mg 12/23/19 20:32 Acetaminophen Supp 650 Mg Supp.Rect PA Q6H PRN Pain, Mild (Pain Scale 1-3) Allopurinol 100 mg 12/24/19 09:00 12/25/19 08:17 Allopurinol 100 Mg Tablet PO 100 mg DAILY LAN Administration Amiodarone HCl 200 mg 12/24/19 09:00 12/25/19 08:17 Amiodarone Hcl 200 Mg Tablet PO 200 mg DAILY [facility] Administration Amlodipine Besylate 5 mg 12/24/19 09:00 12/25/19 08:18 Amlodipine Besylate 5 Mg Tablet PO 5 mg DAILY [facility] Administration Protocol Apixaban 5 mg 12/23/19 21:00 12/25/19 08:17 Apixaban 5 Mg Tablet PO 5 mg BID LAN Administration Furosemide 20 mg 12/24/19 09:00 12/25/19 08:18 Furosemide 20 Mg Tablet PO 20 mg DAILY [facility] Administration Protocol Ceftriaxone Sodium 1 gm/ 50 mls @ 100 mls/hr 12/24/19 15:00 12/24/19 16:34 Sodium Chloride IV Infused Q24H LAN Infusion Magnesium Sulfate 2 gm in 50 mls @ 25 mls/hr 12/25/19 09:03 IV 12/25/19 11:02 ONCE ONE Insulin Human Lispro 0 unit 12/23/19 20:32 12/25/19 07:32 Insulin Lispro 100 Unit/Ml 3 Ml Vial SUBCUT Not Given QIDACHS [facility] Protocol Lactulose 20 gm 12/23/19 21:00 12/25/19 08:18 Lactulose 20 Gm/30 Ml Solution PO 20 gm BID LAN Administration Levetiracetam 500 mg 12/23/19 20:32 12/25/19 08:17 Levetiracetam 500 Mg Tablet PO 500 mg Q12H LAN Administration Losartan Potassium 100 mg 12/24/19 09:00 12/25/19 08:18 Losartan Potassium 50 Mg Tablet PO 100 mg DAILY [facility] Administration Protocol Multivitamins/Minerals 1 tab 12/24/19 09:00 12/25/19 08:17 Multivitamin With Minerals Tablet PO 1 tab DAILY [facility] Administration Nadolol 40 mg 12/24/19 09:00 12/25/19 08:17 Nadolol 40 Mg Tablet PO 40 mg DAILY [facility] Administration Protocol Omeprazole 40 mg 12/24/19 06:30 12/25/19 05:34 Omeprazole 40 Mg Capsule. PO 40 mg DAILY@0630 [facility] Administration Pharmacy Consult 1 each 12/23/19 12:49 Consult Rx Perform Med Rec MISCELLANE ONCE PRN Consult order Primidone 50 mg 12/23/19 21:00 12/25/19 08:17 Primidone 50 Mg Tablet PO 50 mg BID LAN Administration Sodium Chloride 3 ml 12/23/19 20:32 12/25/19 08:17 0.9 % Sodium Chloride Flush 3 Ml Syringe IVFLUSH 3 ml QSHIFT [facility] Administration Spironolactone 25 mg 12/24/19 09:00 12/25/19 08:17 Spironolactone 25 Mg Tablet PO 25 mg DAILY [facility] Administration Protocol Zinc Oxide 1 appl 12/23/19 20:32 Zinc Oxide 20% Ointment 28.35 Gm Tube TOPICAL TID PRN skin irritation Protocol Labs CBC & Chem 7: 12/25/19 05:55 12/25/19 05:55 Microbiology Microbiology Results: Microbiology 12/23/19 13:22 Urine Catheterized - Straight Catheter Urine Culture - Final Escherichia coli 12/23/19 12:07 Blood - Venous Blood Culture - Preliminary No growth after 24 hours. 12/23/19 12:01 Blood - Venous Blood Culture - Preliminary No growth after 24 hours. Assessment and Plan (1) Acute hepatic encephalopathy: Status: Acute Assessment and Plan: 74-year-old female with a history KIM, diabetes, seizure disorder, atrial fibrillation on Eliquis, coronary artery disease among others who presents to the emergency department with increasing lethargy hepatic encephalopathy in setting of KIM cirrhosis continue lactulose For goal of 3 bowel movements a day continue nadolol, Lasix, Aldactone GI following much improved today possible uti ecoli ceftriaxone hypomagnesemia replace and monitor diabetes insulin hypertension continue losartan, Norvasc, Tylenol atrial fibrillation continue amiodarone, anticoagulation with Eliquis seizure disorder continue keppra anemia H/H at baseline follow CBC history of tremor, question of Parkinson's on 1 previous notes continue primidone mood hold sertraline for prolonged qt DVT prophylaxis- Eliquis code status- MOLST form in chart DNR DNI
[2019-12-25] MEDS: Magnesium Sulfate/H2O 2 GM/50 ML PIGGYBACK IV (10:17)
[2019-12-25 11:56] LABS: Glucose, Whole Blood 193 mg/dL (60-115)
[2019-12-25 12:00] VITALS: BP 109/54; PULSE 52; RESP 18; TEMP 36.6; O2SAT 94
[2019-12-25] MEDS: Insulin Lispro 100 UNIT/ML 3 ML VIAL SUBCUT (12:28)
[2019-12-25] MEDS: cefTRIAXone sodium 1 GM in 0.9 % Sodium Chloride 50 ML IV (15:10)
[2019-12-25 15:59] VITALS: BP 111/61; PULSE 50; RESP 18; TEMP 36.3; O2SAT 95
[2019-12-25 16:48] LABS: Glucose, Whole Blood 129 mg/dL (60-115)
--- NOTE | 2019-12-25 19:07 | PC.NURSE ---
PT ONLY HAVING ONE BM THIS SHIFT- SPOKE WITH DR WILLIAMSON AT 1700- AWAITING FURTHER ORDERS, ALSO DISCUSSED NEED OF PT CONSULT 2/2 WEAKNESS AND DAUGHTER REPORTING PT AMBULATORY INDEPENDENT AT HOME WITH WALKER WITH DR WILLIAMSON- PT ABLE TO FEED SELF JELLO THIS EVENING; PT OOB TO COMMODE AFTER DINNER BUT MOVING VERY SLOWLY AND DELAYED- PT BACK TO BED AFTERWARDS- HIGH FALL RISK PROTOCOL REMAINING IN PLACE FOR PT SAFETY;
[2019-12-25 19:30] VITALS: BP 109/55; PULSE 54; RESP 18; TEMP 36.8; O2SAT 95
[2019-12-25 21:11] LABS: Glucose, Whole Blood 113 mg/dL (60-115)
[2019-12-25 23:35] VITALS: BP 118/59; PULSE 52; RESP 16; TEMP 36.2; O2SAT 95
[2019-12-26] VITALS (9 sets, daily range): BP systolic 111–143; BP diastolic 57–72; PULSE 51–54; RESP 16–18; TEMP 36.1–36.6; O2SAT 94–98
[2019-12-26] MEDS: Omeprazole 40 MG CAPSULE.DR PO (05:13)
[2019-12-26 06:37] LABS: MANUAL DIFF FLAG NO
[2019-12-26 06:59] LABS: Basophils Percent Auto 0.4 % (0-2); Eosinophils Absolute Auto 0.2 X10*3/uL (0.0-0.4); Hematocrit 31.4 % (37-47); Hemoglobin 9.7 g/dl (12.0-16.0); Imm Gran Abs Auto 0.04 X10*3/uL (0.00-0.03); Imm Gran Pct Auto 0.4 % (0.0-0.4); Lymphocytes Absolute Auto 1.4 X10*3/uL (1.2-4.9); Lymphocytes Percent Auto 14.2 % (20-40); Mean Corpuscular HGB Conc 30.9 g/dl (31.0-35.0); Mean Corpuscular Volume 90.8 fL (80-98); Mean Platelet Volume 10.6 fL (9.4-12.3); Monocytes Absolute Auto 1.1 X10*3/uL (0.1-1.2); Monocytes Percent Auto 11.7 % (2-11); Neutrophils Absolute Auto 6.9 X10*3/uL (2.0-8.3); Neutrophils Percent Auto 71.3 % (45-73); Platelet Count 208 X10*3/uL (160-400); Red Blood Count 3.46 X10*6/uL (4.20-5.50); Red Cell Distribution Width 16.9 % (11.0-16.0); White Blood Count 9.7 X10*3/uL (4.8-10.8)
[2019-12-26 07:20] LABS: Magnesium 1.6 mg/dL (1.6-2.6)
[2019-12-26 07:22] LABS: Anion Gap 15 (12-20); Blood Urea Nitrogen 17 mg/dL (9-16); Calcium 8.9 mg/dL (8.4-10.2); Carbon Dioxide 20 mmol/L (22-29); Chloride 107 mmol/L (96-108); Creatinine Clr Calc Pharmacy 49.3; Estimated Glomerular Filt Rate > 60; Glucose Fasting 112 mg/dL (60-99); Potassium 3.8 mmol/l (3.3-5.1); Sodium 138 mmol/L (135-145)
[2019-12-26 07:44] LABS: Glucose, Whole Blood 136 mg/dL (60-115)
[2019-12-26] MEDS: Lactulose 20 GM/30 ML SOLUTION PO ×3 (08:01→20:44)
[2019-12-26] MEDS: amLODIPine Besylate 5 MG TABLET PO (08:01)
[2019-12-26] MEDS: Amiodarone HCL 200 MG TABLET PO (08:01)
[2019-12-26] MEDS: 0.9 % Sodium Chloride Flush 3 ML SYRINGE IVFLUSH ×3 (08:01→20:47)
[2019-12-26] MEDS: Losartan Potassium 50 MG TABLET 100 MG PO (08:02)
[2019-12-26] MEDS: Primidone 50 MG TABLET PO ×2 (08:02→20:44)
[2019-12-26] MEDS: levETIRAcetam 500 MG TABLET PO ×2 (08:03→20:44)
[2019-12-26] MEDS: Spironolactone 25 MG TABLET PO (08:03)
[2019-12-26] MEDS: Furosemide 20 MG TABLET PO (08:03)
[2019-12-26] MEDS: allopurinoL 100 MG TABLET PO (08:03)
[2019-12-26] MEDS: Apixaban 5 MG TABLET PO ×2 (08:03→20:44)
--- NOTE | 2019-12-26 10:07 | MHC.CLN ---
RECOMMEND 1500 DM 2GM NA DIET R/T HX DM AND CHF/CAD
--- NOTE | 2019-12-26 10:10 | HO.PM.IMPN ---
Subjective Subjective Date of Service: 12/26/19 Interval History: alert his AM, but was lethargic yesterday Cardiovascular Cardiovascular: Reports no additional cardiovascular complaints Respiratory Respiratory: Reports no additional respiratory complaints Physical Exam Vital Signs: Vital Signs: Last Vital Signs Temp 97.6 F 12/26/19 07:39 Pulse 52 12/26/19 08:03 Resp 18 12/26/19 07:39 BP 130/63 12/26/19 08:03 Pulse Ox 94 12/26/19 07:39 Body Mass Index 24.3 General: lethargic, but more alert, feeding herself, no acute distress Resp: CTA bilateral CVS: S1,S2,RRR GI: soft, non tender, non distended Neuro: asterixis Psych: impaired insight Objective Data Current Medications Generic Name Dose Route Start Last Admin Trade Name Freq PRN Reason Stop Dose Admin Acetaminophen 650 mg 12/23/19 20:32 Acetaminophen Supp 650 Mg Supp.Rect [place] Q6H PRN Pain, Mild (Pain Scale 1-3) Allopurinol 100 mg 12/24/19 09:00 12/26/19 08:03 Allopurinol 100 Mg Tablet PO 100 mg DAILY LAN Administration Amiodarone HCl 200 mg 12/24/19 09:00 12/26/19 08:01 Amiodarone Hcl 200 Mg Tablet PO 200 mg DAILY [facility] Administration Amlodipine Besylate 5 mg 12/24/19 09:00 12/26/19 08:01 Amlodipine Besylate 5 Mg Tablet PO 5 mg DAILY [facility] Administration Protocol Apixaban 5 mg 12/23/19 21:00 12/26/19 08:03 Apixaban 5 Mg Tablet PO 5 mg BID LAN Administration Furosemide 20 mg 12/24/19 09:00 12/26/19 08:03 Furosemide 20 Mg Tablet PO 20 mg DAILY [facility] Administration Protocol Ceftriaxone Sodium 1 gm/ 50 mls @ 100 mls/hr 12/24/19 15:00 12/25/19 15:45 Sodium Chloride IV Infused Q24H LAN Infusion Magnesium Sulfate 2 gm in 50 mls @ 25 mls/hr 12/26/19 10:07 IV 12/26/19 12:06 ONCE ONE Insulin Human Lispro 0 unit 12/23/19 20:32 12/26/19 08:03 Insulin Lispro 100 Unit/Ml 3 Ml Vial SUBCUT Not Given QIDACHS [facility] Protocol Lactulose 20 gm 12/26/19 09:00 12/26/19 08:01 Lactulose 20 Gm/30 Ml Solution PO 20 gm TID LAN Administration Levetiracetam 500 mg 12/23/19 20:32 12/26/19 08:03 Levetiracetam 500 Mg Tablet PO 500 mg Q12H LAN Administration Losartan Potassium 100 mg 12/24/19 09:00 12/26/19 08:02 Losartan Potassium 50 Mg Tablet PO 100 mg DAILY LAN Administration Protocol Multivitamins/Minerals 1 tab 12/24/19 09:00 12/26/19 08:01 Multivitamin With Minerals Tablet PO 1 tab DAILY [facility] Administration Nadolol 40 mg 12/24/19 09:00 12/26/19 08:02 Nadolol 40 Mg Tablet PO 40 mg DAILY [facility] Administration Protocol Omeprazole 40 mg 12/24/19 06:30 12/26/19 05:13 Omeprazole 40 Mg Capsule. PO 40 mg DAILY@0630 [facility] Administration Pharmacy Consult 1 each 12/23/19 12:49 Consult Rx Perform Med Rec MISCELLANE ONCE PRN Consult order Primidone 50 mg 12/23/19 21:00 12/26/19 08:02 Primidone 50 Mg Tablet PO 50 mg BID [facility] Administration Sodium Chloride 3 ml 12/23/19 20:32 12/26/19 08:01 0.9 % Sodium Chloride Flush 3 Ml Syringe IVFLUSH 3 ml QSHIFT [facility] Administration Spironolactone 25 mg 12/24/19 09:00 12/26/19 08:03 Spironolactone 25 Mg Tablet PO 25 mg DAILY [facility] Administration Protocol Zinc Oxide 1 appl 12/23/19 20:32 Zinc Oxide 20% Ointment 28.35 Gm Tube TOPICAL TID PRN skin irritation Protocol Labs CBC & Chem 7: 12/26/19 05:25 12/26/19 05:25 Microbiology Microbiology Results: Microbiology 12/23/19 12:07 Blood - Venous Blood Culture - Preliminary No growth after 48 hours. 12/23/19 12:01 Blood - Venous Blood Culture - Preliminary No growth after 48 hours. 12/23/19 13:22 Urine Catheterized - Straight Catheter Urine Culture - Final Escherichia coli Assessment and Plan (1) Acute hepatic encephalopathy: Status: Acute Assessment and Plan: 74-year-old female with a history KIM, diabetes, seizure disorder, atrial fibrillation on Eliquis, coronary artery disease among others who presents to the emergency department with increasing lethargy hepatic encephalopathy in setting of KIM cirrhosis continue lactulose For goal of 3 bowel movements a day, increased lactulose to 3 times a day as only had one BM yesterday continue nadolol, Lasix, Aldactone GI following much improved yesterday AM, but became more lethargic towards evening, discussed with GI, recommended neuro eval to rule out possible seizures/postictal state d/w HCP, patient had been previously adamant about not going to SNF, will try to respect those wishes possible uti ecoli continue ceftriaxone hypomagnesemia replace and monitor diabetes insulin hypertension continue losartan, Norvasc, Tylenol atrial fibrillation continue amiodarone, anticoagulation with Eliquis seizure disorder continue keppra anemia H/H at baseline follow CBC history of tremor, question of Parkinson's on 1 previous notes continue primidone mood hold sertraline for prolonged qt DVT prophylaxis- Eliquis code status- MOLST form in chart DNR DNI
[2019-12-26 11:23] LABS: Glucose, Whole Blood 216 mg/dL (60-115)
[2019-12-26] MEDS: Magnesium Sulfate/H2O 2 GM/50 ML PIGGYBACK IV (11:27)
[2019-12-26] MEDS: Insulin Lispro 100 UNIT/ML 3 ML VIAL SUBCUT (12:10)
--- NOTE | 2019-12-26 13:47 | PM.NEUROCN ---
History of Present Illness Data of Consult Primary Care Provider: Unknown Physician 74 years old woman with underlying history of complex partial seizure disorder and tremor who I was asked to see for change in mental status. She was brought to hospital with lethargy. She was not sure why she was here. There was no evidence of recent seizure. There was no history of trauma. Review of Systems Review of Systems: Somewhat limited. 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 Tubular adenoma of colon Type 2 diabetes mellitus with hyperglycemia Family History Family History Father Diabetes Hypertension CVD (cardiovascular disease) Mother Diabetes Hypertension Cancer Rectal cancer Daughter Diabetes Surgical History Surgical History Ganglion cyst H/O unilateral oophorectomy History of abdominal hysterectomy History of appendectomy History of carpal tunnel surgery History of cholecystectomy Hx of colonoscopy Social History Social History Household Members: Unknown / Unable to assess Housing: Unknown / Unable to assess Alcohol intake: former Smoking Status: Former smoker Second Hand Smoke Exposure: No service: No Current occupational status: retired Meds Allergies Allergy/AdvReac Type Severity Reaction Status Date / Time lisinopril [From ZESTRIL] Allergy Intermediate RASH-FROM Verified 12/06/19 15:46 ZESTRIL propranolol [PROPRANOLOL] Allergy Mild HEADACHE Verified 12/05/19 15:23 atorvastatin [Lipitor] Allergy Unknown Unknown Verified 12/06/19 15:46 benazepril Allergy Unknown Unknown Verified 12/06/19 15:46 indomethacin [From INDOCIN] Allergy Unknown UNKNOWN Verified 12/06/19 15:46 simvastatin Allergy Unknown Unknown Verified 12/06/19 15:46 Home Medications Medication Instructions Recorded Confirmed Type alendronate 70 mg tablet 70 mg PO QWEEK 12/05/19 12/23/19 History allopurinol 100 mg tablet 100 mg PO DAILY 12/05/19 12/23/19 History amiodarone 200 mg tablet 200 mg PO DAILY 12/05/19 12/23/19 History amlodipine 5 mg tablet 5 mg PO DAILY 12/05/19 12/23/19 History apixaban 5 mg tablet 5 mg PO BID 12/05/19 12/23/19 History dulaglutide 1.5 mg/0.5 mL 1.5 mg SUBCUT QWEEK 12/05/19 12/23/19 History subcutaneous pen injector furosemide 20 mg tablet 20 mg PO DAILY 12/05/19 12/23/19 History insulin glargine U-300 conc 300 15 unit SUBCUT DAILY ml 12/05/19 12/23/19 History unit/mL (3 mL) subcutaneous pen insulin lispro 100 unit/mL 5.5 unit SUBCUT BEDTIME 12/05/19 12/23/19 History subcutaneous half-unit pen levetiracetam 500 mg tablet 500 mg PO Q12H 12/05/19 12/23/19 History losartan 100 mg tablet 100 mg PO DAILY 12/05/19 12/23/19 History metformin 500 mg tablet 500 mg PO BID 12/05/19 12/23/19 History multivit with 1 tab PO DAILY 12/05/19 12/23/19 History [id number]-[id number]-DX-lutein 8 mg iron-400 mcg-300 mcg tablet omega-3 fatty acids 1,000 mg 1,000 mg PO DAILY 12/05/19 12/23/19 History capsule primidone 50 mg tablet 50 mg PO BID tab 12/05/19 12/23/19 History spironolactone 25 mg tablet 25 mg PO DAILY 12/05/19 12/23/19 History Physical Exam Vital Signs: Vital Signs: Last Vital Signs Temp 97.0 F 12/26/19 11:18 Pulse 54 12/26/19 11:18 Resp 18 12/26/19 11:18 BP 122/64 12/26/19 11:18 Pulse Ox 97 12/26/19 11:18 Body Mass Index 24.3 She was alert and awake with wake affect. Spontaneity and fluency of speech were okay and she was able to comprehend and follow commands though she was slow. She was not in any distress. There was no nystagmus. There was no obvious tremor or as to risks. Deep tendon reflexes are absent with flexor plantars. Const: General: confusion Orientation/consciousness: confusion Neuro: General: confusion Results Labs CBC & Chem 7: 12/26/19 05:25 12/26/19 05:25 Labs: Short CBC 12/26/19 Range/Units 05:25 WBC 9.7 (4.8-10.8) X10*3/uL Hgb 9.7 L (12.0-16.0) g/dl Hct 31.4 L (37-47) % Plt Count 208 (160-400) X10*3/uL BMP 12/26/19 05:25 Sodium 138 Potassium 3.8 Chloride 107 Carbon Dioxide 20 L BUN 17 H Creatinine 0.84 Calcium 8.9 Her initial ammonia level was high. Head CT revealed moderate microvascular ischemic changes. Microbiology Microbiology Results: Microbiology 12/23/19 12:07 Blood - Venous Blood Culture - Preliminary No growth after 48 hours. 12/23/19 12:01 Blood - Venous Blood Culture - Preliminary No growth after 48 hours. 12/23/19 13:22 Urine Catheterized - Straight Catheter Urine Culture - Final Escherichia coli Assessment and Plan (1) Acute hepatic encephalopathy: Status: Acute 74 years old woman with hepatic encephalopathy. She also had moderate microvascular ischemic changes of brain but that probably was not the main factor. I would suggest eliminating primidone. Also her dose of Keppra can be decreased to 250 mg twice a day. She has underlying history of seizure disorder and EEG is recommended to rule out any possibility of ongoing epileptic discharges. Procedures Abscess I/D Date of Service: 12/26/19
[2019-12-26] MEDS: cefTRIAXone sodium 1 GM in 0.9 % Sodium Chloride 50 ML IV (14:10)
--- NOTE | 2019-12-26 14:56 | MHC.CM.PN ---
per multi dis rounds dc expected i n 1 to 2 days home with hvns
[2019-12-26 16:15] LABS: Glucose, Whole Blood 129 mg/dL (60-115)
[2019-12-26 20:45] LABS: Glucose, Whole Blood 136 mg/dL (60-115)
[2019-12-27] VITALS (10 sets, daily range): BP systolic 128–150; BP diastolic 63–89; PULSE 50–60; RESP 16–18; TEMP 36.2–36.8; O2SAT 95–98
--- NOTE | 2019-12-27 | EEG_ITS ---
This is a 16-channel EEG with an EKG lead. The patient is reported awake during the tracing. Background EEG rhythm is intermittently about 10 hertz, low to medium amplitude posteriorly and lower amplitude fast anteriorly with the patient transitioning frequently into drowsiness resulting in lower amplitude slow rhythm. No definite asymmetry or sharp wave activity was noted. Cardiac lead revealed bradycardia with a rate of about 60 per minute. Photic stimulation did not produce any significant driving. Hyperventilation was not performed. IMPRESSION: 1. No definite epileptic discharges noted on this EEG . 2. Bradycardia with a rate of about 60 per minute. MD HERBERT Goldstein/RONAN / [id number]
[2019-12-27] MEDS: Omeprazole 40 MG CAPSULE.DR PO (05:40)
[2019-12-27 06:38] LABS: MANUAL DIFF FLAG NO
[2019-12-27 06:56] LABS: Basophils Absolute Auto 0.1 X10*3/uL (0.0-0.2); Basophils Percent Auto 0.5 % (0-2); Eosinophils Absolute Auto 0.2 X10*3/uL (0.0-0.4); Eosinophils Percent Auto 1.6 % (0-4); Hematocrit 31.1 % (37-47); Hemoglobin 9.5 g/dl (12.0-16.0); Imm Gran Abs Auto 0.08 X10*3/uL (0.00-0.03); Imm Gran Pct Auto 0.8 % (0.0-0.4); Lymphocytes Absolute Auto 1.3 X10*3/uL (1.2-4.9); Lymphocytes Percent Auto 13.7 % (20-40); Mean Corpuscular HGB Conc 30.5 g/dl (31.0-35.0); Mean Corpuscular Hemoglobin 28.2 pg (27.0-33.0); Mean Corpuscular Volume 92.3 fL (80-98); Mean Platelet Volume 10.8 fL (9.4-12.3); Monocytes Absolute Auto 1.3 X10*3/uL (0.1-1.2); Monocytes Percent Auto 12.9 % (2-11); Neutrophils Absolute Auto 6.9 X10*3/uL (2.0-8.3); Neutrophils Percent Auto 70.5 % (45-73); Platelet Count 189 X10*3/uL (160-400); Red Blood Count 3.37 X10*6/uL (4.20-5.50); White Blood Count 9.8 X10*3/uL (4.8-10.8)
[2019-12-27 07:13] LABS: Glucose, Whole Blood 127 mg/dL (60-115)
[2019-12-27 07:18] LABS: Anion Gap 12 (12-20); Blood Urea Nitrogen 17 mg/dL (9-16); Calcium 8.5 mg/dL (8.4-10.2); Carbon Dioxide 23 mmol/L (22-29); Chloride 111 mmol/L (96-108); Creatinine Clr Calc Pharmacy 52.4; Estimated Glomerular Filt Rate > 60; Glucose Fasting 112 mg/dL (60-99); Magnesium 1.6 mg/dL (1.6-2.6); Potassium 3.5 mmol/l (3.3-5.1); Sodium 142 mmol/L (135-145)
[2019-12-27] MEDS: allopurinoL 100 MG TABLET PO (09:11)
[2019-12-27] MEDS: amLODIPine Besylate 5 MG TABLET PO (09:11)
[2019-12-27] MEDS: 0.9 % Sodium Chloride Flush 3 ML SYRINGE IVFLUSH ×2 (09:11→15:42)
[2019-12-27] MEDS: levETIRAcetam 500 MG TABLET 250 MG PO ×2 (09:12→22:22)
[2019-12-27] MEDS: Apixaban 5 MG TABLET PO ×2 (09:12→22:21)
[2019-12-27] MEDS: Losartan Potassium 50 MG TABLET 100 MG PO (09:12)
[2019-12-27] MEDS: Amiodarone HCL 200 MG TABLET PO (09:12)
[2019-12-27] MEDS: Lactulose 20 GM/30 ML SOLUTION PO ×3 (09:13→22:21)
[2019-12-27] MEDS: Furosemide 20 MG TABLET PO (09:13)
[2019-12-27] MEDS: Spironolactone 25 MG TABLET PO (09:19)
[2019-12-27 10:59] LABS: Glucose, Whole Blood 186 mg/dL (60-115)
[2019-12-27] MEDS: Insulin Lispro 100 UNIT/ML 3 ML VIAL SUBCUT ×2 (12:03→16:39)
--- NOTE | 2019-12-27 13:38 | P.PNIM_ITS ---
Subjective Subjective Date of Service: 12/27/19 Interval History: seen and examined this AM reports she wants to go home oriented to place and time, denies any other complaints ROS General - no fevers or chills Cardiovascular - no chest pain Respiratory - no shortness of breath or cough Abdominal- no abdominal pain, nausea, vomiting, diarrhea Physical Exam Vital Signs: Vital Signs: Last Vital Signs Temp 98.0 F 12/27/19 11:12 Pulse 52 12/27/19 11:12 Resp 18 12/27/19 11:12 BP 148/70 H 12/27/19 11:12 Pulse Ox 98 12/27/19 11:12 Body Mass Index 24.3 General - no acute distress, appears comfortable Cardiovascular - regular rate and rhythm, S1-S2 Lungs - normal respiratory effort, clear to auscultation bilaterally, no wheezing Abdomen - soft, nontender, no rebound regarding Extremities - no edema bilaterally Neuro - oriented to place/time; otherwise disoriented Objective Data Current Medications Generic Name Dose Route Start Last Admin Trade Name Freq PRN Reason Stop Dose Admin Acetaminophen 650 mg 12/23/19 20:32 Acetaminophen Supp 650 Mg Supp.Rect [place] Q6H PRN Pain, Mild (Pain Scale 1-3) Allopurinol 100 mg 12/24/19 09:00 12/27/19 09:11 Allopurinol 100 Mg Tablet PO 100 mg DAILY [facility] Administration Amiodarone HCl 200 mg 12/24/19 09:00 12/27/19 09:12 Amiodarone Hcl 200 Mg Tablet PO 200 mg DAILY [facility] Administration Amlodipine Besylate 5 mg 12/24/19 09:00 12/27/19 09:11 Amlodipine Besylate 5 Mg Tablet PO 5 mg DAILY [facility] Administration Protocol Apixaban 5 mg 12/23/19 21:00 12/27/19 09:12 Apixaban 5 Mg Tablet PO 5 mg BID [facility] Administration Furosemide 20 mg 12/24/19 09:00 12/27/19 09:13 Furosemide 20 Mg Tablet PO 20 mg DAILY [facility] Administration Protocol Ceftriaxone Sodium 1 gm/ 50 mls @ 100 mls/hr 12/24/19 15:00 12/26/19 14:44 Sodium Chloride IV Infused Q24H LAN Infusion Insulin Human Lispro 0 unit 12/23/19 20:32 12/27/19 12:03 Insulin Lispro 100 Unit/Ml 3 Ml Vial SUBCUT 2 unit QIDACHS [facility] Administration Protocol Lactulose 20 gm 12/26/19 09:00 12/27/19 09:13 Lactulose 20 Gm/30 Ml Solution PO 20 gm TID [facility] Administration Levetiracetam 250 mg 12/27/19 09:00 12/27/19 09:12 Levetiracetam 500 Mg Tablet PO 250 mg Q12H [facility] Administration Losartan Potassium 100 mg 12/24/19 09:00 12/27/19 09:12 Losartan Potassium 50 Mg Tablet PO 100 mg DAILY [facility] Administration Protocol Multivitamins/Minerals 1 tab 12/24/19 09:00 12/27/19 09:12 Multivitamin With Minerals Tablet PO 1 tab DAILY [facility] Administration Nadolol 40 mg 12/24/19 09:00 12/27/19 09:12 Nadolol 40 Mg Tablet PO 40 mg DAILY [facility] Administration Protocol Omeprazole 40 mg 12/24/19 06:30 12/27/19 05:40 Omeprazole 40 Mg Capsule. PO 40 mg DAILY@0630 [facility] Administration Pharmacy Consult 1 each 12/23/19 12:49 Consult Rx Perform Med Rec MISCELLANE ONCE PRN Consult order Sodium Chloride 3 ml 12/23/19 20:32 12/27/19 09:11 0.9 % Sodium Chloride Flush 3 Ml Syringe IVFLUSH 3 ml QSHIFT [facility] Administration Spironolactone 25 mg 12/24/19 09:00 12/27/19 09:19 Spironolactone 25 Mg Tablet PO 25 mg DAILY [facility] Administration Protocol Zinc Oxide 1 appl 12/23/19 20:32 Zinc Oxide 20% Ointment 28.35 Gm Tube TOPICAL TID PRN skin irritation Protocol Labs CBC & Chem 7: 12/27/19 05:02 12/27/19 05:36 Microbiology Microbiology Results: Microbiology 12/23/19 12:07 Blood - Venous Blood Culture - Preliminary No growth after 48 hours. 12/23/19 12:01 Blood - Venous Blood Culture - Preliminary No growth after 48 hours. 12/23/19 13:22 Urine Catheterized - Straight Catheter Urine Culture - Final Escherichia coli Assessment and Plan (1) Acute hepatic encephalopathy: Status: Acute Assessment and Plan: This is a 74 yo F with a PMH of KIM, DM, Seizure d/o, a. fib on [facility], CAD who is admitted to the hospital for increasing lethargy. 1. Acute Encephalopathy, likely toxic and metabolic clinically appears to be improving -- d/w the daughter, based off her description of her mother's baseline, pt nearly at basline multifcatorial -- hepatic encephalopathy + UTI+ possiblye seizures/med in continue lactulose, continue rocephin, taper meds per neuro recs (primidone d/c'ed, keppra decreased to 250mg bid. plan for eeg 2. HypoMg stable at 1.6 continue monitoring as needed 3. A. fib rate controlled continue baseline meds 4. anemia h/h stable, continue 5. seizures dec. keppra to 250mg twice daily eeg ordered DNR/DNI DVT pptx, Eliquis dispo: home in the next 24-48 hours with services.
[2019-12-27] MEDS: cefTRIAXone sodium 1 GM in 0.9 % Sodium Chloride 50 ML IV (15:40)
[2019-12-27 16:07] LABS: Glucose, Whole Blood 176 mg/dL (60-115)
[2019-12-27 21:09] LABS: Glucose, Whole Blood 123 mg/dL (60-115)
[2019-12-28] MEDS: 0.9 % Sodium Chloride Flush 3 ML SYRINGE IVFLUSH ×3 (00:38→15:52)
[2019-12-28 03:07] VITALS: BP 146/71; PULSE 51; RESP 18; TEMP 36.6; O2SAT 97
[2019-12-28] MEDS: Omeprazole 40 MG CAPSULE.DR PO (06:20)
[2019-12-28 07:45] LABS: Glucose, Whole Blood 116 mg/dL (60-115)
[2019-12-28 07:46] VITALS: BP 143/66; PULSE 56; RESP 18; TEMP 36.1; O2SAT 94
[2019-12-28] MEDS: Lactulose 20 GM/30 ML SOLUTION PO ×2 (08:02→21:14)
[2019-12-28] MEDS: levETIRAcetam 500 MG TABLET 250 MG PO ×2 (08:02→21:10)
[2019-12-28] MEDS: Furosemide 20 MG TABLET PO (08:03)
[2019-12-28] MEDS: Spironolactone 25 MG TABLET PO (08:03)
[2019-12-28] MEDS: Losartan Potassium 50 MG TABLET 100 MG PO (08:03)
[2019-12-28] MEDS: allopurinoL 100 MG TABLET PO (08:04)
[2019-12-28] MEDS: amLODIPine Besylate 5 MG TABLET PO (08:04)
[2019-12-28] MEDS: Amiodarone HCL 200 MG TABLET PO (08:04)
[2019-12-28] MEDS: Apixaban 5 MG TABLET PO ×2 (08:04→21:11)
[2019-12-28 12:00] VITALS: BP 140/73; PULSE 52; RESP 18; TEMP 36.3; O2SAT 94
--- NOTE | 2019-12-28 12:12 | P.PNIM_ITS ---
Subjective Subjective Date of Service: 12/28/19 Interval History: seen and examined this AM much more awake and alert this AM denying any complaints and wants to go home was initially hesistant on EEG, but ultimately agreed ROS unreliable due to baseline confusion Physical Exam Vital Signs: Vital Signs: Last Vital Signs Temp 97.3 F 12/28/19 12:00 Pulse 52 12/28/19 12:00 Resp 18 12/28/19 12:00 BP 140/73 H 12/28/19 12:00 Pulse Ox 94 12/28/19 12:00 Body Mass Index 24.3 Objective Data Current Medications Generic Name Dose Route Start Last Admin Trade Name Freq PRN Reason Stop Dose Admin Acetaminophen 650 mg 12/23/19 20:32 Acetaminophen Supp 650 Mg Supp.Rect [place] Q6H PRN Pain, Mild (Pain Scale 1-3) Allopurinol 100 mg 12/24/19 09:00 12/28/19 08:04 Allopurinol 100 Mg Tablet PO 100 mg DAILY LAN Administration Amiodarone HCl 200 mg 12/24/19 09:00 12/28/19 08:04 Amiodarone Hcl 200 Mg Tablet PO 200 mg DAILY LAN Administration Amlodipine Besylate 5 mg 12/24/19 09:00 12/28/19 08:04 Amlodipine Besylate 5 Mg Tablet PO 5 mg DAILY LAN Administration Protocol Apixaban 5 mg 12/23/19 21:00 12/28/19 08:04 Apixaban 5 Mg Tablet PO 5 mg BID LAN Administration Furosemide 20 mg 12/24/19 09:00 12/28/19 08:03 Furosemide 20 Mg Tablet PO 20 mg DAILY LAN Administration Protocol Ceftriaxone Sodium 1 gm/ 50 mls @ 100 mls/hr 12/24/19 15:00 12/27/19 16:15 Sodium Chloride IV Infused Q24H LAN Infusion Insulin Human Lispro 0 unit 12/23/19 20:32 12/28/19 08:04 Insulin Lispro 100 Unit/Ml 3 Ml Vial SUBCUT Not Given QIDACHS [facility] Protocol Lactulose 20 gm 12/28/19 21:00 Lactulose 20 Gm/30 Ml Solution PO BID LAN Levetiracetam 250 mg 12/27/19 09:00 12/28/19 08:02 Levetiracetam 500 Mg Tablet PO 250 mg Q12H LAN Administration Losartan Potassium 100 mg 12/24/19 09:00 12/28/19 08:03 Losartan Potassium 50 Mg Tablet PO 100 mg DAILY [facility] Administration Protocol Multivitamins/Minerals 1 tab 12/24/19 09:00 12/28/19 08:03 Multivitamin With Minerals Tablet PO 1 tab DAILY [facility] Administration Nadolol 40 mg 12/24/19 09:00 12/28/19 08:03 Nadolol 40 Mg Tablet PO 40 mg DAILY [facility] Administration Protocol Omeprazole 40 mg 12/24/19 06:30 12/28/19 06:20 Omeprazole 40 Mg Capsule. PO 40 mg DAILY@0630 [facility] Administration Pharmacy Consult 1 each 12/23/19 12:49 Consult Rx Perform Med Rec MISCELLANE ONCE PRN Consult order Sodium Chloride 3 ml 12/23/19 20:32 12/28/19 08:04 0.9 % Sodium Chloride Flush 3 Ml Syringe IVFLUSH 3 ml QSHIFT [facility] Administration Spironolactone 25 mg 12/24/19 09:00 12/28/19 08:03 Spironolactone 25 Mg Tablet PO 25 mg DAILY [facility] Administration Protocol Zinc Oxide 1 appl 12/23/19 20:32 Zinc Oxide 20% Ointment 28.35 Gm Tube TOPICAL TID PRN skin irritation Protocol Labs CBC & Chem 7: 12/27/19 05:02 12/27/19 05:36 Microbiology Microbiology Results: Microbiology 12/23/19 12:07 Blood - Venous Blood Culture - Preliminary No growth after 48 hours. 12/23/19 12:01 Blood - Venous Blood Culture - Preliminary No growth after 48 hours. 12/23/19 13:22 Urine Catheterized - Straight Catheter Urine Culture - Final Escherichia coli
[2019-12-28 12:18] LABS: Glucose, Whole Blood 138 mg/dL (60-115)
--- NOTE | 2019-12-28 12:44 | HO.PM.IMPN ---
Subjective Subjective Date of Service: 12/28/19 Interval History: seen and examined more alert today no issues reported had 5 BM yesterday per rn clinical documentation specialist ROS unreliable Physical Exam Vital Signs: Vital Signs: Last Vital Signs Temp 97.3 F 12/28/19 12:00 Pulse 52 12/28/19 12:00 Resp 18 12/28/19 12:00 BP 140/73 H 12/28/19 12:00 Pulse Ox 94 12/28/19 12:00 Body Mass Index 24.3 General - no acute distress, appears comfortable Cardiovascular - regular rate and rhythm, S1-S2 Lungs - normal respiratory effort, clear to auscultation bilaterally, no wheezing Abdomen - soft, nontender, no rebound regarding Extremities - no edema bilaterally Neuro - oriented to place/time; otherwise disoriented Objective Data Current Medications Generic Name Dose Route Start Last Admin Trade Name Freq PRN Reason Stop Dose Admin Acetaminophen 650 mg 12/23/19 20:32 Acetaminophen Supp 650 Mg Supp.Rect [place] Q6H PRN Pain, Mild (Pain Scale 1-3) Allopurinol 100 mg 12/24/19 09:00 12/28/19 08:04 Allopurinol 100 Mg Tablet PO 100 mg DAILY LAN Administration Amiodarone HCl 200 mg 12/24/19 09:00 12/28/19 08:04 Amiodarone Hcl 200 Mg Tablet PO 200 mg DAILY [facility] Administration Amlodipine Besylate 5 mg 12/24/19 09:00 12/28/19 08:04 Amlodipine Besylate 5 Mg Tablet PO 5 mg DAILY [facility] Administration Protocol Apixaban 5 mg 12/23/19 21:00 12/28/19 08:04 Apixaban 5 Mg Tablet PO 5 mg BID LAN Administration Furosemide 20 mg 12/24/19 09:00 12/28/19 08:03 Furosemide 20 Mg Tablet PO 20 mg DAILY [facility] Administration Protocol Ceftriaxone Sodium 1 gm/ 50 mls @ 100 mls/hr 12/24/19 15:00 12/27/19 16:15 Sodium Chloride IV 12/28/19 15:29 Infused Q24H [facility] Infusion Insulin Human Lispro 0 unit 12/23/19 20:32 12/28/19 12:21 Insulin Lispro 100 Unit/Ml 3 Ml Vial SUBCUT Not Given QIDACHS [facility] Protocol Lactulose 20 gm 12/28/19 21:00 Lactulose 20 Gm/30 Ml Solution PO BID [facility] Levetiracetam 250 mg 12/27/19 09:00 12/28/19 08:02 Levetiracetam 500 Mg Tablet PO 250 mg Q12H [facility] Administration Losartan Potassium 100 mg 12/24/19 09:00 12/28/19 08:03 Losartan Potassium 50 Mg Tablet PO 100 mg DAILY LAN Administration Protocol Multivitamins/Minerals 1 tab 12/24/19 09:00 12/28/19 08:03 Multivitamin With Minerals Tablet PO 1 tab DAILY [facility] Administration Nadolol 40 mg 12/24/19 09:00 12/28/19 08:03 Nadolol 40 Mg Tablet PO 40 mg DAILY [facility] Administration Protocol Omeprazole 40 mg 12/24/19 06:30 12/28/19 06:20 Omeprazole 40 Mg Capsule. PO 40 mg DAILY@0630 [facility] Administration Pharmacy Consult 1 each 12/23/19 12:49 Consult Rx Perform Med Rec MISCELLANE ONCE PRN Consult order Sodium Chloride 3 ml 12/23/19 20:32 12/28/19 08:04 0.9 % Sodium Chloride Flush 3 Ml Syringe IVFLUSH 3 ml QSHIFT [facility] Administration Spironolactone 25 mg 12/24/19 09:00 12/28/19 08:03 Spironolactone 25 Mg Tablet PO 25 mg DAILY [facility] Administration Protocol Zinc Oxide 1 appl 12/23/19 20:32 Zinc Oxide 20% Ointment 28.35 Gm Tube TOPICAL TID PRN skin irritation Protocol Labs CBC & Chem 7: 12/27/19 05:02 12/27/19 05:36 Microbiology Microbiology Results: Microbiology 12/23/19 12:07 Blood - Venous Blood Culture - Preliminary No growth after 48 hours. 12/23/19 12:01 Blood - Venous Blood Culture - Preliminary No growth after 48 hours. 12/23/19 13:22 Urine Catheterized - Straight Catheter Urine Culture - Final Escherichia coli Assessment and Plan (1) Acute hepatic encephalopathy: Status: Acute Assessment and Plan: This is a 74 yo F with a PMH of KIM, DM, Seizure d/o, a. fib on Eliquis, CAD who is admitted to the hospital for increasing lethargy. 1. Acute Encephalopathy, likely toxic and metabolic multifactorial including uti, hepatic as well as neuro meds UTI -- day 06/13 for IV rocephin Hepatic - continue lactulose, change to BID medications -- keppra decreased to 250mg bid, primidone stopped 2. HypoMg stable at 1.6 continue monitoring as needed 3. A. fib rate controlled continue baseline meds 4. anemia h/h stable, continue 5. seizures dec. keppra to 250mg twice daily eeg today 6. Asthenia pt eval plan remains for home with 24/7 care which the family is already doing for her DNR/DNI DVT pptx, Elieloiseis dispo: anticipate d/c by tomorrow if no significant findings on EEG
--- NOTE | 2019-12-28 15:45 | MHC.CM.PN ---
dc plan remanins homcedric with resumption of 24/7 pp home care and hvns for ppt and ot
[2019-12-28] MEDS: cefTRIAXone sodium 1 GM in 0.9 % Sodium Chloride 50 ML IV (15:51)
[2019-12-28 15:57] VITALS: BP 142/69; PULSE 51; RESP 18; TEMP 36.1; O2SAT 99
[2019-12-28 16:55] LABS: Glucose, Whole Blood 101 mg/dL (60-115)
[2019-12-28 20:08] VITALS: BP 131/64; PULSE 53; RESP 18; TEMP 36.6; O2SAT 98
[2019-12-28 21:05] LABS: Glucose, Whole Blood 128 mg/dL (60-115)
[2019-12-28 23:40] VITALS: BP 116/65; PULSE 52; RESP 18; TEMP 37; O2SAT 96
[2019-12-29] VITALS (7 sets, daily range): BP systolic 130–138; BP diastolic 68; PULSE 51–60; RESP 18–20; TEMP 36.2–36.4; O2SAT 96–98
[2019-12-29] MEDS: 0.9 % Sodium Chloride Flush 3 ML SYRINGE IVFLUSH ×2 (00:32→09:54)
[2019-12-29] MEDS: Omeprazole 40 MG CAPSULE.DR PO (06:32)
[2019-12-29 07:02] LABS: Glucose, Whole Blood 109 mg/dL (60-115)
--- NOTE | 2019-12-29 09:33 | P.DS_ITS ---
DS: Providers Provider Date of admission: 12/23/19 14:39 Primary care physician: Unknown Physician Consults: 12/23/19 20:32 Consult to Gastroenterology Routine Consulting Provider: Katie Gallego Reason for consultation: hepatic encephalopathy Has provider been notified: No 12/26/19 09:34 Consult to Neurology Routine Consulting Provider: [facility] Reason for consultation: AMS unclear if hepatic or maybe postictal DS: Diagnosis Discharge Diagnosis (1) Acute hepatic encephalopathy: Status: Acute (2) UTI (urinary tract infection): Status: Acute (3) Polypharmacy: Status: Acute (4) KIM (nonalcoholic steatohepatitis): Status: Acute DS: Medications Discharge Medications Home Medications: Home Medications Medication Instructions Recorded Confirmed alendronate 70 mg tablet 70 mg PO QWEEK 12/05/19 12/23/19 allopurinol 100 mg tablet 100 mg PO DAILY 12/05/19 12/23/19 amiodarone 200 mg tablet 200 mg PO DAILY 12/05/19 12/23/19 amlodipine 5 mg tablet 5 mg PO DAILY 12/05/19 12/23/19 apixaban 5 mg tablet 5 mg PO BID 12/05/19 12/23/19 dulaglutide 1.5 mg/0.5 mL 1.5 mg SUBCUT QWEEK 12/05/19 12/23/19 subcutaneous pen injector furosemide 20 mg tablet 20 mg PO DAILY 12/05/19 12/23/19 insulin glargine U-300 conc 300 15 unit SUBCUT DAILY ml 12/05/19 12/23/19 unit/mL (3 mL) subcutaneous pen insulin lispro 100 unit/mL 5.5 unit SUBCUT BEDTIME 12/05/19 12/23/19 subcutaneous half-unit pen losartan 100 mg tablet 100 mg PO DAILY 12/05/19 12/23/19 metformin 500 mg tablet 500 mg PO BID 12/05/19 12/23/19 multivit with 1 tab PO DAILY 12/05/19 12/23/19 yzaovnbm-gfol-XG-lutein 8 mg iron-400 mcg-300 mcg tablet omega-3 fatty acids 1,000 mg 1,000 mg PO DAILY 12/05/19 12/23/19 capsule spironolactone 25 mg tablet 25 mg PO DAILY 12/05/19 12/23/19 Previous Rx's Medication Instructions Recorded sertraline 100 mg tablet 100 mg PO DAILY 90 Days #90 tab 11/16/19 nadolol 40 mg PO DAILY #30 tab 12/13/19 omeprazole 40 mg PO DAILY #30 cap 12/13/19 zinc oxide 1 applic TOPICAL TID PRN #28 g 12/13/19 lactulose 20 g PO BID #1000 ml 12/29/19 levetiracetam 250 mg PO Q12H #60 tab 12/29/19 DS: Summary Hospital Course Hospital Course: HPI from admission H&P: this is a 74-year-old female with an extensive past medical history who presents to the hospital from home with complaints of rectal bleed as well as increased lethargy. History is obtained mostly from the ED PA as patient is somnolent and is not really giving me any history. I also reviewed the EMR and the operations research group manager's note from 12/04. It appears that patient has caretakers have been concerned about the patient as she has becoming more lethargic and has had rectal bleeding. Patient has a new diagnosis of Parkinson's disease which was recently diagnosed at [facility]. Patient has also been falling. Labs done outpatient reveals patient to be more anemic. Rest of review of system cannot be obtained as patient not cooperating. On arrival to the ED hemodynamically stable with no significant abnormal vitals , no hypoxia Labs are significant for WBC count of 13, hemoglobin of 8.2. on review of her chart, patient's hemoglobin has been progressively dropping from June of this year at 11.3-8.2 today. Patient is on Eliquis for AFib. Patient's other labs are significant for a PT of 28.5, INR of 2.4, sodium of 133, BUN of 22 with a creatinine of 1.18 ( baseline), lactic acid of 2.4, magnesium of 1.5, AST of 107, ALT of 52, alk-phos of 214. COVID-19 negative, chest x-ray no evidence for acute distress abdominal CT showed cirrhotic liver with no acute findings in the abdomen or pelvis head CT negative for acute intracranial injury Hospital Course: Patient presented with encephalopathy. Work-up Revealed multiple potential causes. Her ammonia was noted to be elevated, likely secondary to her known KIM. She was started on lactulose and had a good response. She will be discharged home on lactulose twice a day with the goal of 4 bowel movements daily. This can be up titrated as needed. An additional cause of her encephalopathy may have been related to urinary tract infection and her urine ultimately grew E coli which was sensitive to cephalosporins. she was treated with IV ceftriaxone in the hospital and has completed her course of antibiotics during hospitalization. Blood cultures are negative at the time of discharge. Lastly due to her known seizure disorder, and her waxing and waning status an EEG and neurological evaluation was sought. Neurology recommended decreasing her Keppra to 250 mg twice daily As well as discontinuation of her primidone. She underwent EEG which was read as no definitive epileptic discharges noted on this EEG. Prior to discharge, patient was seen by Physical therapy who recommended home PT / 24, 7 care. The patient has these services in place already. She will be discharged home to resume her usual care with the exceptions of her medications changes as outlined above. Patient's daughter who was involved in her care has been notified of the above and would like patient home with care and not LTC at SNF. Time Spent with Patient Time attestation: Total time spent providing and/or coordinating discharge services: Physical Exam Vital Signs: Vital Signs: Last Vital Signs Temp 97.6 F 12/29/19 07:07 Pulse 56 12/29/19 07:07 Resp 18 12/29/19 07:07 BP 130/68 12/29/19 07:07 Pulse Ox 96 12/29/19 07:07 Body Mass Index 24.3 General - no acute distress, appears comfortable Cardiovascular - regular rate and rhythm, S1-S2 Lungs - normal respiratory effort, clear to auscultation bilaterally, no wheezing Abdomen - soft, nontender, no rebound regarding Extremities - no edema bilaterally Neuro - oriented to place/time; otherwise disoriented -- at baseline orientation per daughter DS: Data Data Completed and Pending Completed studies during hospitalization [Text1]: Procedures Excision of Cecum, Via Natural or Artificial Opening Endoscopic (12/09/19) Excision of Sigmoid Colon, Via Natural or Artificial Opening Endoscopic, Diagnostic (12/09/19) Excision of Transverse Colon, Via Natural or Artificial Opening Endoscopic, Diagnostic (12/09/19) Occlusion of Esophageal Vein with Extraluminal Device, Via Natural or Artificial Opening Endoscopic (12/09/19) Transfusion of Nonautologous Red Blood Cells into Peripheral Vein, Percutaneous Approach (12/09/19) Labs on day of discharge: Laboratory Last Values WBC 9.8 X10*3/uL (4.8-10.8) 12/27/19 05:02 RBC 3.37 X10*6/uL (4.20-5.50) L 12/27/19 05:02 Hgb 9.5 g/dl (12.0-16.0) L 12/27/19 05:02 Hct 31.1 % (37-47) L 12/27/19 05:02 MCV 92.3 fL (80-98) 12/27/19 05:02 MCH 28.2 pg (27.0-33.0) 12/27/19 05:02 MCHC 30.5 g/dl (31.0-35.0) L 12/27/19 05:02 RDW 17.0 % (11.0-16.0) H 12/27/19 05:02 Plt Count 189 X10*3/uL (160-400) 12/27/19 05:02 MPV 10.8 fL (9.4-12.3) 12/27/19 05:02 Immature Gran % (Auto) 0.8 % (0.0-0.4) H 12/27/19 05:02 Neut % (Auto) 70.5 % (45-73) 12/27/19 05:02 Lymph % (Auto) 13.7 % (20-40) L 12/27/19 05:02 Jenkins % (Auto) 12.9 % (2-11) H 12/27/19 05:02 Eos % (Auto) 1.6 % (0-4) 12/27/19 05:02 Baso % (Auto) 0.5 % (0-2) 12/27/19 05:02 Lymph # (Auto) 1.3 X10*3/uL (1.2-4.9) 12/27/19 05:02 Jenkins # (Auto) 1.3 X10*3/uL (0.1-1.2) H 12/27/19 05:02 Eos # (Auto) 0.2 X10*3/uL (0.0-0.4) 12/27/19 05:02 Baso # (Auto) 0.1 X10*3/uL (0.0-0.2) 12/27/19 05:02 Abs Immat Gran (auto) 0.08 X10*3/uL (0.00-0.03) H 12/27/19 05:02 Absolute Neuts (auto) 6.9 X10*3/uL (2.0-8.3) 12/27/19 05:02 Absolute Nucleated RBC 0.000 X10*3/uL (0.0-0.012) 12/27/19 05:02 Nucleated RBC % (auto) 0.0 /100WBC (0.0-0.2) 12/27/19 05:02 PT 21.9 SEC (10.8-13.0) H D 12/23/19 12:00 INR 1.8 (0.9-1.1) H 12/23/19 12:00 APTT 45.7 SEC (24.1-38.0) H 12/23/19 12:00 VBG pH 7.46 (7.32-7.43) H 12/23/19 13:38 VBG pCO2 30 mmhg 12/23/19 13:38 VBG Oxygen Liters/Min TNP 12/23/19 13:38 VBG pO2 44 mmhg 12/23/19 13:38 VBG HCO3 20 mmol/L 12/23/19 13:38 VBG O2 Saturation 79.7 % 12/23/19 13:38 VBG Base Excess -2.7 mmol/L 12/23/19 13:38 Sodium 142 mmol/L (135-145) 12/27/19 05:36 Potassium 3.5 mmol/l (3.3-5.1) 12/27/19 05:36 Chloride 111 mmol/L (96-108) H 12/27/19 05:36 Carbon Dioxide 23 mmol/L (22-29) 12/27/19 05:36 Anion Gap 12 (12-20) 12/27/19 05:36 BUN 17 mg/dL (9-16) H 12/27/19 05:36 Creatinine 0.79 mg/dL (0.5-1.4) 12/27/19 05:36 Estim Creat Clear Calc 52.4 12/27/19 05:36 Estimated GFR > 60 12/27/19 05:36 POC Glucose 109 mg/dL (60-115) 12/29/19 06:52 Random Glucose 103 mg/dL (60-115) 12/24/19 06:51 Fasting Glucose 112 mg/dL (60-99) H 12/27/19 05:36 Lactic Acid 1.7 mmol/L (0.5-2.0) 12/23/19 12:07 Calcium 8.5 mg/dL (8.4-10.2) 12/27/19 05:36 Magnesium 1.6 mg/dL (1.6-2.6) 12/27/19 05:36 Total Bilirubin 1.0 mg/dL (0.0-1.0) 12/24/19 06:51 Direct Bilirubin 0.6 mg/dL (0.0-0.5) H 12/24/19 06:51 AST 98 U/L (5-31) H 12/24/19 06:51 ALT 49 U/L (0-31) H 12/24/19 06:51 Alkaline Phosphatase 205 U/L (39-117) H 12/24/19 06:51 Ammonia 93 umol/L (13-55) H 12/24/19 06:51 Troponin I High Sens 4.3 ng/L (<3.5-17.0) 12/23/19 12:01 Total Protein 6.7 g/dL (6.5-8.0) 12/24/19 06:51 Albumin 3.4 g/dL (3.5-5.0) L 12/24/19 06:51 Lipase 105 U/L (8-78) H 12/23/19 12:01 TSH 3.19 uIU/mL (0.32-4.0) 12/23/19 12:01 Urine Color YELLOW 12/23/19 13:36 Urine Appearance CLOUDY 12/23/19 13:36 Urine pH 7.0 (5.0-8.0) 12/23/19 13:36 Ur Specific [place] 1.015 (1.005-1.025) 12/23/19 13:36 Urine Protein NEG MG/DL (NEG-TRACE) 12/23/19 13:36 Urine Glucose (UA) NEG MG/DL (NEG) 12/23/19 13:36 Urine Ketones NEG MG/DL (NEG) 12/23/19 13:36 Urine Blood NEG (NEG) 12/23/19 13:36 Urine Nitrite NEG (NEG) 12/23/19 13:36 Ur Leukocyte Esterase TRACE (NEG) H 12/23/19 13:36 Urine RBC 0 /HPF (0) 12/23/19 13:36 Urine WBC 5-9 /HPF (0-4) H 12/23/19 13:36 Ur Squamous Epith Cells TRACE /LPF 12/23/19 13:36 Urine Bacteria 4+ /LPF 12/23/19 13:36 COVID-19 (RUDDY) Negative (Negative) 12/23/19 13:38 COVID-19 Clin Com See Note 12/23/19 13:38 Discharge Plan Discharge Patient Disposition: Home Health Service Referrals: Jas Freeman MD [Physician] - 1 Week (01/02/2020 @ 2:45pm. If you can't keep this appointment please call and reschedule.) Discharge Medications: New levetiracetam 500 mg Tablet 250 mg PO Q12H Qty: 60 RF: 0 lactulose 20 gram/30 mL Solution 20 g PO BID Qty: 1000 RF: 0 Continued sertraline 100 mg tablet 100 mg PO DAILY 90 Days Qty: 90 RF: 0 zinc oxide 20 % Ointment 1 applic topical TID PRN (Reason: skin irritation) Qty: 28 RF: 0 nadolol 40 mg tablet 40 mg PO DAILY Qty: 30 RF: 0 omeprazole 40 mg capsule,delayed release(DR/EC) 40 mg PO DAILY Qty: 30 RF: 0 Centrum Silver Women 8 mg iron-400 mcg-300 mcg tablet 1 tab PO DAILY RF: 0 omega-3 fatty acids [Fish Oil Concentrate] 1,000 mg capsule 1,000 mg PO DAILY RF: 0 Eliquis 5 mg tablet 5 mg PO BID RF: 0 Hold Instructions: Resume on 12/19/19. allopurinol 100 mg tablet 100 mg PO DAILY RF: 0 amiodarone 200 mg tablet 200 mg PO DAILY RF: 0 furosemide [Lasix] 20 mg tablet 20 mg PO DAILY RF: 0 spironolactone 25 mg tablet 25 mg PO DAILY RF: 0 amlodipine 5 mg tablet 5 mg PO DAILY RF: 0 alendronate [Fosamax] 70 mg tablet 70 mg PO QWEEK RF: 0 Trulicity 1.5 mg/0.5 mL pen injector 1.5 mg subcut QWEEK RF: 0 metformin 500 mg tablet 500 mg PO BID RF: 0 Toujeo Max U-300 SoloStar 300 unit/mL (3 mL) insulin pen 15 unit subcut DAILY RF: 0 losartan 100 mg tablet 100 mg PO DAILY RF: 0 insulin lispro [Humalog Melquiades KwikPen U-100] 100 unit/mL insulin pen, half- unit 5.5 unit subcut BEDTIME RF: 0 Discontinued levetiracetam 500 mg tablet 500 mg PO Q12H RF: 0 primidone 50 mg tablet 50 mg PO BID RF: 0 Discharge Orders: Discharge Order (Routine); Ordered 12/29/19 Ordered By: Raghu Galindo Diet: advance to usual diet Activity on Discharge: As tolerated Visit Report Forms: Patient Portal Discharge page Care Plan Goals: To feel better and stay out of the hospital Health Concerns: Hepatic Encepahlopathy UTI Seizures Plan of Treatment: Hepatic Encephalopathy - Take Lactulose twice daily. Aim for 4 bowel movements daily UTI - you have finished antibiotics in the hospital Seizures - Decrease Keppra to 250mg twice daily. Stop taking primidone. Your EEG did not show any seizure activity.
[2019-12-29] MEDS: Apixaban 5 MG TABLET PO (09:51)
[2019-12-29] MEDS: Amiodarone HCL 200 MG TABLET PO (09:51)
[2019-12-29] MEDS: levETIRAcetam 500 MG TABLET 250 MG PO (09:52)
--- NOTE | 2019-12-29 09:53 | MHC.CM.PN ---
PT CLEARED FOR DC TODAY. DISCHARGE PLAN IS HOME WITH RESUMPTION OF 24/7 CARE AND [place] [facility]. [facility] NOTIFIED VIA [employer]. VM MESSAGE LEFT FOR PTS DAUGHTER/HCP, FLORIDALMA ([phone]) REQUESTING A CALL BACK TO COORDINATE DC
[2019-12-29] MEDS: Losartan Potassium 50 MG TABLET 100 MG PO (09:57)
[2019-12-29] MEDS: amLODIPine Besylate 5 MG TABLET PO (09:57)
[2019-12-29] MEDS: Furosemide 20 MG TABLET PO (09:58)
[2019-12-29] MEDS: allopurinoL 100 MG TABLET PO (09:58)
[2019-12-29] MEDS: Spironolactone 25 MG TABLET PO (10:03)
[2019-12-29] MEDS: Lactulose 20 GM/30 ML SOLUTION PO (10:04)
[2019-12-29 11:35] LABS: Glucose, Whole Blood 221 mg/dL (60-115)
--- NOTE | 2019-12-29 11:55 | MHC.CM.PN ---
SUMA spoke to pts daughter Sirena ([phone]) to confirm DC plan. Sirena is aware the pt is cleared to discharge today and she reports she already spoke to the pts home caregiver who will be prepared to receive pt at home starting at 1300 hours. Sirena reports she would like the pt sent home via ambulance which she reports is usually covered by [facility]. SUMA contacted [facility] ambulance company to arrange transport. They were booked until 1400 hours. SUMA contacted Sirena again to inform her of the 1400 hour ambulance transport. SUMA also informed her that [facility] had been notified of pts pending discharge and would be resuming services. Sirena agreeable to discharge plan
[2019-12-29] MEDS: Insulin Lispro 100 UNIT/ML 3 ML VIAL SUBCUT (12:04)
== END 2019-12-29 15:05 | disposition home health service (06) | DRG 441 ==
LOC: HO.ED 13:17 → HO.IMC 17:36
PROVIDERS: Physician Assistant Medical; Admitting Provider Internal Medicine; Emergency Provider Emergency Medicine; Visit Provider Family Medicine
DX: K72.00 Acute and subacute hepatic failure without coma (principal); G93.41 Metabolic encephalopathy; N39.0 Urinary tract infection, site not specified; I48.91 Unspecified atrial fibrillation; D72.829 Elevated white blood cell count, unspecified; E11.9 Type 2 diabetes mellitus without complications; G40.909 Epilepsy, unspecified, not intractable, without status epilepticus; E83.42 Hypomagnesemia; R94.31 Abnormal electrocardiogram [ECG] [EKG]; K75.81 Nonalcoholic steatohepatitis (NASH); K74.60 Unspecified cirrhosis of liver; I25.10 Atherosclerotic heart disease of native coronary artery without angina pectoris; D64.9 Anemia, unspecified; Z20.828 Contact with and (suspected) exposure to other viral communicable diseases; B96.20 Unspecified Escherichia coli [E. coli] as the cause of diseases classified elsewhere; Z87.891 Personal history of nicotine dependence; Z79.4 Long term (current) use of insulin; Z79.01 Long term (current) use of anticoagulants; Z79.899 Other long term (current) drug therapy; Z66 Do not resuscitate
CPT/HCPCS: 36415; 70450; 71045; 76705; 80048; 80076; 81001; 81003; 82140; 82803; 82947; 83605; 83690; 83735; 84443; 84484; 85025; 85610; 85730; 87040; 87086; 87088; 87186; 87635; 93005; 95816; 97162; 99285; J0696; J3475

== ENCOUNTER 2020-01-02 15:17 | Outpatient (REF) | payer MEDICARE, SELFPAY ==
[2020-01-02 15:37] LABS: MANUAL DIFF FLAG NO
[2020-01-02 15:38] LABS: Basophils Percent Auto 0.4 % (0-2); Eosinophils Absolute Auto 0.2 X10*3/uL (0.0-0.4); Eosinophils Percent Auto 1.6 % (0-4); Hemoglobin 9.6 g/dl (12.0-16.0); Imm Gran Abs Auto 0.05 X10*3/uL (0.00-0.03); Imm Gran Pct Auto 0.5 % (0.0-0.4); Lymphocytes Absolute Auto 1.1 X10*3/uL (1.2-4.9); Lymphocytes Percent Auto 11.7 % (20-40); Mean Corpuscular Hemoglobin 28.5 pg (27.0-33.0); Mean Platelet Volume 10.3 fL (9.4-12.3); Monocytes Absolute Auto 1.2 X10*3/uL (0.1-1.2); Monocytes Percent Auto 12.5 % (2-11); Neutrophils Absolute Auto 6.8 X10*3/uL (2.0-8.3); Neutrophils Percent Auto 73.3 % (45-73); Platelet Count 204 X10*3/uL (160-400); Red Blood Count 3.37 X10*6/uL (4.20-5.50); Red Cell Distribution Width 17.6 % (11.0-16.0); White Blood Count 9.3 X10*3/uL (4.8-10.8)
[2020-01-02 16:10] LABS: Ammonia 82 umol/L (13-55)
[2020-01-02 16:29] LABS: Alanine Aminotransferase 52 U/L (0-31); Albumin Level 3.5 g/dL (3.5-5.0); Alkaline Phosphatase 250 U/L (39-117); Aspartate Amino Transferase 107 U/L (5-31); Bilirubin Direct 0.4 mg/dL (0.0-0.5); Bilirubin Total 0.7 mg/dL (0.0-1.0); Total Protein 6.9 g/dL (6.5-8.0); Uric Acid 4.4 mg/dL (2.4-5.7)
[2020-01-02 16:35] LABS: Ferritin 59 ng/mL (10-250)
== END 2020-01-02 15:18 | disposition home or self-care (01) ==
LOC: HO.LAB 15:17
PROVIDERS: PCP Internal Medicine; Visit Provider Internal Medicine
DX: K75.81 Nonalcoholic steatohepatitis (NASH) (principal); M10.9 Gout, unspecified; D64.9 Anemia, unspecified; Z00.00 Encounter for general adult medical examination without abnormal findings
CPT/HCPCS: 36415; 80076; 82140; 82728; 84550; 85025

== ENCOUNTER → 2020-01-19 09:07 | Outpatient (BNVA) | payer MEDICARE, SELFPAY | PROVIDERS: PCP Internal Medicine; Referring Provider Internal Medicine; Visit Provider Internal Medicine Gastroenterology | DX: D64.9 Anemia, unspecified (principal); K74.60 Unspecified cirrhosis of liver; I85.10 Secondary esophageal varices without bleeding; E11.9 Type 2 diabetes mellitus without complications; I50.9 Heart failure, unspecified; I25.10 Atherosclerotic heart disease of native coronary artery without angina pectoris; I48.91 Unspecified atrial fibrillation; Z79.01 Long term (current) use of anticoagulants; Z79.899 Other long term (current) drug therapy; Z79.84 Long term (current) use of oral hypoglycemic drugs | CPT/HCPCS: Q3014 ==

== ENCOUNTER 2020-02-06 15:34 | Outpatient (REF) | payer MEDICARE, SELFPAY ==
[2020-02-06 18:05] LABS: Basophils Percent Auto 0.2 % (0-2); Eosinophils Absolute Auto 0.3 X10*3/uL (0.0-0.4); Hematocrit 30.7 % (37-47); Hemoglobin 9.2 g/dl (12.0-16.0); Imm Gran Abs Auto 0.13 X10*3/uL (0.00-0.03); Lymphocytes Absolute Auto 1.1 X10*3/uL (1.2-4.9); Lymphocytes Percent Auto 8.6 % (20-40); MANUAL DIFF FLAG SCAN; Mean Corpuscular Volume 93.6 fL (80-98); Mean Platelet Volume 11.4 fL (9.4-12.3); Monocytes Absolute Auto 1.8 X10*3/uL (0.1-1.2); Monocytes Percent Auto 14.5 % (2-11); Neutrophils Absolute Auto 9.3 X10*3/uL (2.0-8.3); Neutrophils Percent Auto 73.7 % (45-73); Platelet Count 245 X10*3/uL (160-400); Red Blood Count 3.28 X10*6/uL (4.20-5.50); Red Cell Distribution Width 20.7 % (11.0-16.0); SCAN SMEAR FLAG 1; White Blood Count 12.6 X10*3/uL (4.8-10.8)
[2020-02-06 18:17] LABS: Alanine Aminotransferase 48 U/L (0-31); Albumin Level 3.4 g/dL (3.5-5.0); Alkaline Phosphatase 244 U/L (39-117); Anion Gap 13 (12-20); Aspartate Amino Transferase 99 U/L (5-31); B Type Natriuretic Peptide 408 pg/mL (<100); Bilirubin Direct 0.7 mg/dL (0.0-0.5); Bilirubin Total 1.3 mg/dL (0.0-1.0); Blood Urea Nitrogen 15 mg/dL (9-16); Calcium 8.6 mg/dL (8.4-10.2); Carbon Dioxide 20 mmol/L (22-29); Chloride 113 mmol/L (96-108); Estimated Glomerular Filt Rate > 60; Glucose Random 128 mg/dL (60-115); Potassium 3.8 mmol/l (3.3-5.1); Sodium 142 mmol/L (135-145); Total Protein 7.2 g/dL (6.5-8.0)
[2020-02-06 18:23] LABS: SLIDE REVIEW VERIFIED
[2020-02-07 15:22] LABS: Prot Elec - Albumin 3.1 g/dL (3.8-4.8); Prot Elec - Alpha1 0.4 g/dL (0.2-0.3); Prot Elec - Alpha2 0.8 g/dL (0.5-0.9); Prot Elec - Beta 1 0.5 g/dL (0.4-0.6); Prot Elec - Beta 2 0.7 g/dL (0.2-0.5); Prot Elec - Gamma 1.5 g/dL (0.8-1.7)
== END 2020-02-06 15:35 | disposition home or self-care (01) ==
LOC: HO.LAB 15:34
PROVIDERS: Absent Provider Internal Medicine Gastroenterology; PCP Internal Medicine; Visit Provider Internal Medicine
DX: I50.30 Unspecified diastolic (congestive) heart failure (principal); K74.60 Unspecified cirrhosis of liver; D64.9 Anemia, unspecified
CPT/HCPCS: 36415; 80053; 80076; 82248; 83880; 84155; 84165; 85025

== ENCOUNTER 2020-02-08 14:42 | Outpatient (REF) | payer MEDICARE, SELFPAY ==
[2020-02-08 14:52] LABS: Glucose Urine UA NEG (NEG); Leukocyte Esterase Urine NEG (NEG); Nitrite Urine NEG (NEG); Specific Gravity - Urine 1.015 (1.005-1.025); Urine Blood NEG (NEG); Urine Ketones NEG (NEG); Urine Protein NEG (NEG-TRACE)
[2020-02-08 14:53] LABS: Appearance Urine CLEAR; Color Urine YELLOW
[2020-02-08 15:01] LABS: Bacteria Urine 2+ /LPF; Mucus Urine TRACE /LPF; RBC Urine 0 /HPF (0); Squamous Epithelial Cell Urine 1+ /LPF; WBC Urine 0 /HPF (0-4)
== END 2020-02-08 14:43 | disposition home or self-care (01) ==
LOC: HO.LNP 14:42
PROVIDERS: Visit Provider Nurse Practitioner
DX: R35.0 Frequency of micturition (principal)
CPT/HCPCS: 81001

== ENCOUNTER 2020-02-15 12:29 | Outpatient (REF) | payer MEDICARE, SELFPAY ==
[2020-02-15 13:33] LABS: Basophils Absolute Auto 0.1 X10*3/uL (0.0-0.2); Basophils Percent Auto 0.4 % (0-2); Eosinophils Absolute Auto 0.1 X10*3/uL (0.0-0.4); Eosinophils Percent Auto 1.1 % (0-4); Hematocrit 30.8 % (37-47); Hemoglobin 9.5 g/dl (12.0-16.0); Imm Gran Abs Auto 0.09 X10*3/uL (0.00-0.03); Imm Gran Pct Auto 0.7 % (0.0-0.4); Lymphocytes Absolute Auto 1.2 X10*3/uL (1.2-4.9); Lymphocytes Percent Auto 9.7 % (20-40); MANUAL DIFF FLAG SCAN; Mean Corpuscular HGB Conc 30.8 g/dl (31.0-35.0); Mean Corpuscular Hemoglobin 28.9 pg (27.0-33.0); Mean Corpuscular Volume 93.6 fL (80-98); Mean Platelet Volume 11.1 fL (9.4-12.3); Monocytes Absolute Auto 1.6 X10*3/uL (0.1-1.2); Monocytes Percent Auto 12.9 % (2-11); Neutrophils Absolute Auto 9.4 X10*3/uL (2.0-8.3); Neutrophils Percent Auto 75.2 % (45-73); Platelet Count 214 X10*3/uL (160-400); Red Blood Count 3.29 X10*6/uL (4.20-5.50); Red Cell Distribution Width 20.4 % (11.0-16.0); SCAN SMEAR FLAG 1; White Blood Count 12.5 X10*3/uL (4.8-10.8)
[2020-02-15 13:44] LABS: Ammonia 111 umol/L (13-55)
[2020-02-15 13:57] LABS: Alanine Aminotransferase 43 U/L (0-31); Albumin Level 3.2 g/dL (3.5-5.0); Alkaline Phosphatase 207 U/L (39-117); Anion Gap 20 (12-20); Aspartate Amino Transferase 93 U/L (5-31); Bilirubin Total 1.2 mg/dL (0.0-1.0); Blood Urea Nitrogen 20 mg/dL (9-16); Calcium 8.9 mg/dL (8.4-10.2); Carbon Dioxide 18 mmol/L (22-29); Chloride 110 mmol/L (96-108); Estimated Glomerular Filt Rate 51; Glucose Random 204 mg/dL (60-115); Potassium 3.5 mmol/l (3.3-5.1); Sodium 144 mmol/L (135-145); Total Protein 7.1 g/dL (6.5-8.0)
[2020-02-15 14:48] LABS: SLIDE REVIEW VERIFIED
== END 2020-02-15 12:30 | disposition home or self-care (01) ==
LOC: HO.LAB 12:29
PROVIDERS: Visit Provider Internal Medicine
DX: K74.60 Unspecified cirrhosis of liver (principal); R53.83 Other fatigue
CPT/HCPCS: 36415; 80053; 82140; 85025

== ENCOUNTER → 2020-02-16 12:17 | Outpatient (BNVA) | payer MEDICARE, SELFPAY | PROVIDERS: PCP Internal Medicine; Visit Provider Internal Medicine | DX: I48.0 Paroxysmal atrial fibrillation (principal); I21.4 Non-ST elevation (NSTEMI) myocardial infarction; I50.32 Chronic diastolic (congestive) heart failure; E11.8 Type 2 diabetes mellitus with unspecified complications; I10 Essential (primary) hypertension; E78.5 Hyperlipidemia, unspecified; K75.81 Nonalcoholic steatohepatitis (NASH) | CPT/HCPCS: 99212 ==

== ENCOUNTER 2020-02-21 08:36 | Outpatient (REF) | payer MEDICARE, SELFPAY ==
--- NOTE | 2020-02-21 08:42 | US_ITS ---
EXAMINATION: US ABDOMEN LIMITED CLINICAL INFORMATION: K74.60 - Unspecified cirrhosis of liver. COMPARISON: Ultrasound abdomen Limited 12/23/2019, ultrasound abdomen complete 08/02/2019, CT abdomen noncontrast 12/09/2019 TECHNIQUE: Real-time imaging of the right upper quadrant abdominal viscera. FINDINGS: PANCREAS: The pancreas is largely obscured by bowel gas and not clearly visualized. LIVER: The liver has fine nodular surface contour and coarsening of the parenchymal echotexture consistent with the cirrhosis noted on prior studies. There is no focal hepatic parenchymal lesion. No intrahepatic ductal dilatation. Color Doppler shows portal flow towards the liver. GALLBLADDER: Prior cholecystectomy. COMMON BILE DUCT: Normal in caliber measuring 0.6 cm in diameter. RIGHT KIDNEY: Normal. No hydronephrosis. No renal calculi or focal parenchymal lesions. The kidney measures 10.5 cm in maximum dimension. There is a lower pole cyst measuring 1.6 cm. FREE FLUID: Moderate ascites present, new from prior ultrasound 12/23/2019. US/US abdomen limited IMPRESSION: 1. Cirrhosis. No focal hepatic parenchymal lesion. Portal flow towards the liver. 2. Moderate ascites, new from prior 12/23/2019. 3. Prior cholecystectomy. No ductal dilatation.
== END 2020-02-21 08:37 | disposition home or self-care (01) ==
LOC: HO.US 08:36
PROVIDERS: Visit Provider Internal Medicine
DX: K74.60 Unspecified cirrhosis of liver (principal)
CPT/HCPCS: 76705

== ENCOUNTER 2020-02-28 12:13 | Day surgery (SDC) | payer MEDICARE, SELFPAY ==
[2020-02-28 12:57] VITALS: BMI 33.6
[2020-02-28 13:11] LABS: Glucose, Whole Blood 119 mg/dL (60-115)
--- NOTE | 2020-02-28 13:14 | US_ITS ---
PROCEDURE: ULTRASOUND-GUIDED PARACENTESIS CLINICAL INFORMATION: Cirrhosis with ascites. COMPARISON: None TECHNIQUE: Following explaining ultrasound-guided paracentesis procedure, benefits and risk to patient's daughter, a written consent was obtained in presence of IR nurse. Preliminary ultrasound imaging was performed through the abdomen and an optimal site was selected through the right abdomen. The site was marked, cleaned and draped in usual sterile manner. 1% lidocaine was injected at puncture site. Through a small skin incision a 4 [place] Yueh catheter was advanced into the peritoneal space. After obtaining all fluid and observing no more fluid return, catheter was withdrawn and complete hemostasis achieved at puncture site. Sterile dressing applied postprocedure. Patient tolerated procedure extremely well. Patient was monitored by IR nurse during the paracentesis. FINDINGS: On preliminary ultrasound imaging there is a large amount of free fluid. Approximately 5 L of clear yellowish fluid was taken from the right lower quadrant. Part of this fluid was sent to lab for diagnostic testing. US/US paracentesis abd w/image IMPRESSION: Successful ultrasound-guided paracentesis performed with approximately 5 L of clear yellowish fluid drained. Part of this fluid was sent to lab as per Dr. Torres's orders.
[2020-02-28 13:53] LABS: Basophils Absolute Auto 0.1 X10*3/uL (0.0-0.2); Basophils Percent Auto 0.4 % (0-2); Eosinophils Absolute Auto 0.2 X10*3/uL (0.0-0.4); Eosinophils Percent Auto 1.7 % (0-4); Hematocrit 30.5 % (37-47); Hemoglobin 9.3 g/dl (12.0-16.0); Imm Gran Abs Auto 0.11 X10*3/uL (0.00-0.03); Imm Gran Pct Auto 0.8 % (0.0-0.4); Lymphocytes Absolute Auto 1.6 X10*3/uL (1.2-4.9); Lymphocytes Percent Auto 11.2 % (20-40); MANUAL DIFF FLAG SCAN; Mean Corpuscular HGB Conc 30.5 g/dl (31.0-35.0); Mean Platelet Volume 10.6 fL (9.4-12.3); Monocytes Percent Auto 13.9 % (2-11); Neutrophils Absolute Auto 10.1 X10*3/uL (2.0-8.3); Platelet Count 223 X10*3/uL (160-400); Red Blood Count 3.21 X10*6/uL (4.20-5.50); Red Cell Distribution Width 19.9 % (11.0-16.0); SCAN SMEAR FLAG 1; White Blood Count 14.1 X10*3/uL (4.8-10.8)
[2020-02-28 13:59] LABS: Prothrombin Time 23.7 SEC (10.8-13.0)
[2020-02-28 14:18] LABS: SLIDE REVIEW VERIFIED
[2020-02-28 15:35] VITALS: BP 128/67; PULSE 57; RESP 20; TEMP 36.5; O2SAT 97
[2020-02-28 15:50] VITALS: BP 126/62; PULSE 59; RESP 20; O2SAT 97
[2020-02-28 15:50] LABS: MN% 95.8 %; PMN% 4.2 %; WBC Peritoneal Fluid 0.157 X10*3/uL
[2020-02-28 15:54] LABS: RBC Peritoneal Fluid < 0.002 X10*6/uL
[2020-02-28 16:05] VITALS: BP 121/54; PULSE 63; RESP 20; O2SAT 98
[2020-02-28 16:16] LABS: BF Shift QC OK YES; Lymphocyte Peritoneal Fl 28 %; Man Diluent Bkgrd OK YES; Monocytes Peritoneal Fl 28 %; Neutrophils Peritoneal Fluid 8 %; Other Peritioneal Fl 36 %
[2020-02-28 16:35] VITALS: BP 123/99; PULSE 60; RESP 20; O2SAT 97
--- NOTE | 2020-02-28 17:00 | PC.NURSE ---
ASSISTED PATIENT TO BATHROOM TO [id number]. STEADY GAIT WITH CONTACT GUARD FOR ASSIST. NO DIZZINESS. IV REMOVED. ASSISTED TO DRESS.
--- NOTE | 2020-02-28 19:03 | PM.EVENT ---
Event Note Date of Service: 03/02/20 Event Note: Patient was seen briefly in the or prep area after she arrived to have a large volume paracentesis scheduled for today. History was obtained from patient's daughter who was at the bedside. Patient is unable to give accurate history due to underlying dementia. Patient has had progressive abdominal distension and lower extremity edema. Patient's daughter was advised to increase spironolactone to 50 mg daily (from 25 mg) and furosemide to 40 mg daily (from 20 mg) Continue daily or twice weekly weights Repeat labs next week to check electrolytes and Creatinine. 03/02/20: labs reviewed - no evidence of SBP. SAAG ratio is 2.6 cw portal hypertension.
[2020-02-29 07:16] LABS: Albumin Peritoneal Fluid 0.6; Glucose Peritoneal Fluid 154; LDH Peritoneal Fluid 40; Total Protein Peritoneal Fluid 1.1
[2020-02-29 07:20] LABS: Amylase Peritoneal Fluid 21
== END 2020-02-28 17:01 | disposition home or self-care (01) ==
PROVIDERS: Radiology Diagnostic Radiology; PCP Internal Medicine; Visit Provider Radiology Diagnostic Radiology
DX: R18.8 Other ascites (principal); K74.60 Unspecified cirrhosis of liver
CPT/HCPCS: 36415; 49083; 82042; 82150; 82945; 82947; 83615; 84157; 85025; 85610; 85730; 87070; 87073; 87205; 89051; J3010

== ENCOUNTER 2020-03-02 14:33 | Outpatient (REF) | payer MEDICARE, SELFPAY ==
[2020-03-02 14:45] LABS: Appearance Urine HAZY; Color Urine YELLOW; Glucose Urine UA NEG (NEG); Leukocyte Esterase Urine NEG (NEG); Nitrite Urine NEG (NEG); Urine Blood NEG (NEG); Urine Ketones NEG (NEG); Urine Protein NEG (NEG-TRACE)
== END 2020-03-02 14:34 | disposition home or self-care (01) ==
LOC: HO.LNP 14:33
PROVIDERS: Visit Provider Internal Medicine
DX: Z13.89 Encounter for screening for other disorder (principal)
CPT/HCPCS: 81003

== ENCOUNTER 2020-03-02 15:47 | Inpatient (IN) | payer MEDICARE, SELFPAY ==
[2020-03-02] VITALS (9 sets, daily range): BP systolic 113–134; BP diastolic 50–78; PULSE 58–62; RESP 16–22; TEMP 36.8–37; O2SAT 96–98; BMI 26.6
[2020-03-02 16:38] LABS: Basophils Absolute Auto 0.1 X10*3/uL (0.0-0.2); Basophils Percent Auto 0.3 % (0-2); Eosinophils Absolute Auto 0.1 X10*3/uL (0.0-0.4); Eosinophils Percent Auto 0.9 % (0-4); Hemoglobin 9.7 g/dl (12.0-16.0); INTERNATIONAL NORM RATIO 1.5 (0.9-1.1); Imm Gran Abs Auto 0.11 X10*3/uL (0.00-0.03); Imm Gran Pct Auto 0.7 % (0.0-0.4); Lymphocytes Absolute Auto 1.5 X10*3/uL (1.2-4.9); Lymphocytes Percent Auto 9.9 % (20-40); MANUAL DIFF FLAG SCAN; Mean Corpuscular HGB Conc 30.3 g/dl (31.0-35.0); Mean Corpuscular Hemoglobin 28.6 pg (27.0-33.0); Mean Corpuscular Volume 94.4 fL (80-98); Mean Platelet Volume 10.7 fL (9.4-12.3); Monocytes Absolute Auto 1.9 X10*3/uL (0.1-1.2); Monocytes Percent Auto 13.2 % (2-11); Platelet Count 263 X10*3/uL (160-400); Prothrombin Time 18.2 SEC (10.8-13.0); Red Blood Count 3.39 X10*6/uL (4.20-5.50); Red Cell Distribution Width 19.9 % (11.0-16.0); SCAN SMEAR FLAG 1; White Blood Count 14.7 X10*3/uL (4.8-10.8)
--- NOTE | 2020-03-02 16:50 | ECG_ITS ---
Test Reason : [id number] Blood Pressure : / mmHG Vent. Rate : 059 BPM Atrial Rate : 059 BPM P-R Int : 192 ms QRS Dur : 090 ms QT Int : 484 ms P-R-T Axes : 052 -15 036 degrees QTc Int : 479 ms Sinus bradycardia with sinus arrhythmia Nonspecific ST abnormality Abnormal ECG When compared with ECG of 23-DEC-2019 11:39, No significant change was found Referred By: Ac Pickard Electronically Signed By:Ap Proctor
[2020-03-02 16:58] LABS: Anion Gap 15 (12-20); Blood Urea Nitrogen 22 mg/dL (9-16); Calcium 8.9 mg/dL (8.4-10.2); Carbon Dioxide 13 mmol/L (22-29); Chloride 116 mmol/L (96-108); Cholesterol 200 mg/dL; Estimated Glomerular Filt Rate 36; Glucose Random 160 mg/dL (60-115); HDL Cholesterol 21 mg/dL; LDL Cholesterol Calculated 128 mg/dl; Potassium 3.9 mmol/l (3.3-5.1); Sodium 140 mmol/L (135-145); Triglycerides 255 mg/dL
[2020-03-02 17:04] LABS: B Type Natriuretic Peptide 184 pg/mL (<100); Troponin-I High Sensitivity 6.4 ng/L (<3.5-17.0)
[2020-03-02 17:08] LABS: SLIDE REVIEW VERIFIED
--- NOTE | 2020-03-02 17:28 | ED.GENADULT ---
HPI - General Adult General Chief complaint: Weakness Stated complaint: ams fever Time Seen by Provider: 03/02/20 17:15 Source: patient and EMS Mode of arrival: EMS Limitations: altered mental status History of Present Illness HPI narrative: 74 years old female with known history of liver cirrhosis secondary to KIM, patient had a history of acute hepatic encephalopathy with multiple admission to the hospital, patient was found more lethargic than usual, brought in by EMS for further workup, patient had recent pre toenail paracentesis fell today that ascites is rebuilding with no abdominal tenderness. Related Data Home Medications Medication Instructions Recorded Confirmed amlodipine 5 mg tablet 5 mg PO DAILY 12/05/19 02/16/20 apixaban 5 mg tablet 5 mg PO BID 12/05/19 02/16/20 dulaglutide 1.5 mg/0.5 mL 1.5 mg SUBCUT QWEEK 12/05/19 02/16/20 subcutaneous pen injector insulin glargine U-300 conc 300 15 unit SUBCUT DAILY ml 12/05/19 02/16/20 unit/mL (3 mL) subcutaneous pen losartan 100 mg tablet 100 mg PO DAILY 12/05/19 02/16/20 multivit with 1 tab PO DAILY 12/05/19 02/16/20 aendqnmv-bnov-LN-lutein 8 mg iron-400 mcg-300 mcg tablet omega-3 fatty acids 1,000 mg 1,000 mg PO DAILY 12/05/19 02/16/20 capsule spironolactone 25 mg tablet 25 mg PO DAILY 12/05/19 02/16/20 levetiracetam 500 mg tablet 250 mg PO DAILY tab 02/06/20 02/16/20 Previous Rx's Medication Instructions Recorded zinc oxide 1 applic TOPICAL TID PRN #28 g 12/13/19 alendronate 70 mg tablet 70 mg PO QWEEK #12 tab 12/30/19 allopurinol 100 mg tablet 100 mg PO DAILY #30 tab 12/30/19 pen needle, diabetic 32 gauge x #5 box 01/11/2002/14 nadolol 40 mg tablet 40 mg PO DAILY #90 tab 01/16/20 lactulose 20 gram/30 mL oral 20 g PO BID #1000 ml 01/18/20 solution omeprazole 40 mg capsule,delayed 40 mg PO DAILY #90 cap 01/18/20 release rifaximin 550 mg tablet 550 mg PO BID 30 Days #60 tab 01/24/20 insulin lispro 100 unit/mL See Rx Instructions SUBCUT TID 90 01/25/20 subcutaneous pen Days #45 ml pen needle, diabetic 32 gauge x #400 ea 01/25/20 furosemide 20 mg tablet 20 mg PO DAILY #90 tab 02/15/20 sertraline 100 mg tablet 100 mg PO DAILY #90 tab 02/16/20 metformin 500 mg tablet 500 mg PO BID #90 tab 02/28/20 Allergies Allergy/AdvReac Type Severity Reaction Status Date / Time lisinopril [From ZESTRIL] Allergy Intermediate RASH-FROM Verified 03/02/20 16:06 ZESTRIL propranolol [PROPRANOLOL] Allergy Mild HEADACHE Verified 03/02/20 16:06 atorvastatin [Lipitor] Allergy Unknown Unknown Verified 03/02/20 16:06 benazepril Allergy Unknown Unknown Verified 03/02/20 16:06 indomethacin [From INDOCIN] Allergy Unknown UNKNOWN Verified 03/02/20 16:06 simvastatin Allergy Unknown Unknown Verified 03/02/20 16:06 Review of Systems Review of Systems: Yes Unobtainable due to mental status [facility] Past Medical History Medical History Anxiety and depression Atrial fibrillation Chronic heart failure with preserved ejection fraction Congestive heart failure with LV diastolic dysfunction, NYHA class 2 Coronary artery disease Essential hypertension Essential tremor Gout Hypercholesterolemia Hypertension KIM (nonalcoholic steatohepatitis) NSTEMI (non-ST elevated myocardial infarction) Osteopenia Other and unspecified hyperlipidemia PAF (paroxysmal atrial fibrillation) 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 Tubular adenoma of colon Type 2 diabetes mellitus with hyperglycemia Type 2 diabetes mellitus with unspecified complications Surgical History Ganglion cyst H/O unilateral oophorectomy History of abdominal hysterectomy History of appendectomy History of carpal tunnel surgery History of cholecystectomy Hx of colonoscopy Family History Family History Father Diabetes Hypertension CVD (cardiovascular disease) Mother Diabetes Hypertension Cancer Rectal cancer Daughter Diabetes Social History Social History (Updated 03/02/20 @ 20:22 by JOHANNY Nichols) Household Members: Caregiver Housing: Unknown / Unable to assess Alcohol intake: former Smoking Status: Never smoker Second Hand Smoke Exposure: No Advance Directives: Yes Advance Directives on File: Yes Advance Directives Date on File: 02/28/20 service: No Current occupational status: retired Physical Exam Vital Signs: Vital Signs: Last Vital Signs Temp 98.3 F 03/02/20 17:37 Pulse 58 03/02/20 20:18 Resp 22 H 03/02/20 20:18 BP 119/61 03/02/20 20:18 Pulse Ox 98 03/02/20 20:18 Body Mass Index 26.6 Vital signs have been reviewed as normal and appeared to be correct. Blood pressure normal. Heart rate normal. Respiration rate normal. Temperature normal. Oxygen saturation normal. Appearance: Lethargic, arousable by calling her name, No acute distress. Head: Normal external exam. Normocephalic. Atraumatic. No Mcghee signs noted. No raccoon eyes noted Eyes: PERRLA. EOMI. Conjunctiva and sclera normal. Eyelids normal. ENT: EAC normal. TM's Normal. Pharynx normal. Uvula midline. Moist mucous membranes. No trismus noted. No drooling noted. No muffled voice noted. Neck: Normal inspection. Neck supple. FROM. No adenopathy. Thyroid Normal. No meningeal signs. No neck mass noted. CVS: Normal heart rate and rhythm. Heart sound normal. No murmurs noted. Pulses normal throughout. Respiratory: No respiratory distress. Painless inspiration. Breath sounds normal. No wheezes/rales/rhonchi noted. Chest nontender. No accessory muscle usage noted or decreased air movement noted. Abdomen: Distended but nontender. Bowel sounds normal in all 4 quadrants. No distention noted. No organomegaly noted. No visible injury noted. Back: No CVA tenderness. Full range of motion noted. Skin: Skin warm and dry. Normal skin color. Normal skin turgor. No rashes/lesions/lacerations noted. Extremities: No lower extremity edema. Extremities exhibit normal range of motion. Extremities nontender. Neuro: Regard examiner intermittently, No motor deficit. No sensory deficit. Procedures Paracentesis Time Out Performed: Yes Fluid: bloody Post Procedure Exam: awake, alert, normal BP, normal HR and normal SpO2 Patient Tolerated Procedure: other (Correction: total of 3 L of serous peritoneal fluid was drained.) Complications: none Medical Decision Making MDM Narrative Medical decision making narrative: Assessment and plan. 74-year-old female with history of liver cirrhosis likely secondary to KIM, with multiple admission and hospitalization for acute hepatic encephalopathy despite patient is taking lactulose at home. Patient presented today with lethargy and her ammonia level was 93. Patient was seen and evaluated by Dr. Gino hart from [facility] in the emergency department who recommended to give the patient albumin/start the patient on lactulose/check for SBP. Lab Data Result diagrams: 03/02/20 16:11 03/02/20 16:11 Labs: Lab Results 03/02/20 03/02/20 03/02/20 Range/Units 16:11 16:11 16:11 WBC 14.7 H (4.8-10.8) X10*3/uL RBC 3.39 L (4.20-5.50) X10*6/uL Hgb 9.7 L (12.0-16.0) g/dl Hct 32.0 L (37-47) % MCV 94.4 (80-98) fL MCH 28.6 (27.0-33.0) pg MCHC 30.3 L (31.0-35.0) g/dl RDW 19.9 H (11.0-16.0) % Plt Count 263 (160-400) X10*3/uL MPV 10.7 (9.4-12.3) fL Immature Gran % (Auto) 0.7 H (0.0-0.4) % Neut % (Auto) 75.0 H (45-73) % Lymph % (Auto) 9.9 L (20-40) % [place] % (Auto) 13.2 H (2-11) % Eos % (Auto) 0.9 (0-4) % Baso % (Auto) 0.3 (0-2) % Lymph # (Auto) 1.5 (1.2-4.9) X10*3/uL [place] # (Auto) 1.9 H (0.1-1.2) X10*3/uL Eos # (Auto) 0.1 (0.0-0.4) X10*3/uL Baso # (Auto) 0.1 (0.0-0.2) X10*3/uL Abs Immat Gran (auto) 0.11 H (0.00-0.03) X10*3/uL Absolute Neuts (auto) 11.0 H (2.0-8.3) X10*3/uL Absolute Nucleated RBC 0.000 (0.0-0.012) X10*3/uL Nucleated RBC % (auto) 0.0 (0.0-0.2) /100WBC Smear Tech's Comments VERIFIED PT 18.2 H D (10.8-13.0) SEC INR 1.5 H (0.9-1.1) Sodium 140 (135-145) mmol/L Potassium 3.9 (3.3-5.1) mmol/l Chloride 116 H (96-108) mmol/L Carbon Dioxide 13 L (22-29) mmol/L Anion Gap 15 (12-20) BUN 22 H (9-16) mg/dL Creatinine 1.42 H (0.5-1.4) mg/dL Estim Creat Clear Calc 29.0 Estimated GFR 36 Random Glucose 160 H (60-115) mg/dL Calcium 8.9 (8.4-10.2) mg/dL Ammonia (13-55) umol/L Troponin I High Sens (<3.5-17.0) ng/L B-Natriuretic Peptide (<100) pg/mL Triglycerides 255 mg/dL Cholesterol 200 mg/dL LDL Cholesterol, Calc 128 mg/dl HDL Cholesterol 21 mg/dL Hold Red Top Hold Yellow Top Peritoneal WBC X10*3/uL Peritoneal RBC X10*6/uL Periton Neutrophils % Periton Lymphocytes % Peritoneal Monocytes % Peritoneal Eosinophils % Peritoneal Basophils % Peritoneal Other Cells % COVID-19 ([facility]) (Negative) COVID-19 Clin Com 03/02/20 03/02/20 03/02/20 Range/Units 16:11 16:13 17:46 WBC (4.8-10.8) X10*3/uL RBC (4.20-5.50) X10*6/uL Hgb (12.0-16.0) g/dl Hct (37-47) % MCV (80-98) fL MCH (27.0-33.0) pg MCHC (31.0-35.0) g/dl RDW (11.0-16.0) % Plt Count (160-400) X10*3/uL MPV (9.4-12.3) fL Immature Gran % (Auto) (0.0-0.4) % Neut % (Auto) (45-73) % Lymph % (Auto) (20-40) % [place] % (Auto) (2-11) % Eos % (Auto) (0-4) % Baso % (Auto) (0-2) % Lymph # (Auto) (1.2-4.9) X10*3/uL [place] # (Auto) (0.1-1.2) X10*3/uL Eos # (Auto) (0.0-0.4) X10*3/uL Baso # (Auto) (0.0-0.2) X10*3/uL Abs Immat Gran (auto) (0.00-0.03) X10*3/uL Absolute Neuts (auto) (2.0-8.3) X10*3/uL Absolute Nucleated RBC (0.0-0.012) X10*3/uL Nucleated RBC % (auto) (0.0-0.2) /100WBC Smear Tech's Comments PT (10.8-13.0) SEC INR (0.9-1.1) Sodium (135-145) mmol/L Potassium (3.3-5.1) mmol/l Chloride (96-108) mmol/L Carbon Dioxide (22-29) mmol/L Anion Gap (12-20) BUN (9-16) mg/dL Creatinine (0.5-1.4) mg/dL Estim Creat Clear Calc Estimated GFR Random Glucose (60-115) mg/dL Calcium (8.4-10.2) mg/dL Ammonia 98 H (13-55) umol/L Troponin I High Sens 6.4 (<3.5-17.0) ng/L B-Natriuretic Peptide 184 H (<100) pg/mL Triglycerides mg/dL Cholesterol mg/dL LDL Cholesterol, Calc mg/dl HDL Cholesterol mg/dL Hold Red Top Hold Yellow Top See Note Peritoneal WBC X10*3/uL Peritoneal RBC X10*6/uL Periton Neutrophils % Periton Lymphocytes % Peritoneal Monocytes % Peritoneal Eosinophils % Peritoneal Basophils % Peritoneal Other Cells % COVID-19 ([facility]) (Negative) COVID-19 Clin Com 03/02/20 03/02/20 03/02/20 Range/Units 17:47 17:48 19:06 WBC (4.8-10.8) X10*3/uL RBC (4.20-5.50) X10*6/uL Hgb (12.0-16.0) g/dl Hct (37-47) % MCV (80-98) fL MCH (27.0-33.0) pg MCHC (31.0-35.0) g/dl RDW (11.0-16.0) % Plt Count (160-400) X10*3/uL MPV (9.4-12.3) fL Immature Gran % (Auto) (0.0-0.4) % Neut % (Auto) (45-73) % Lymph % (Auto) (20-40) % [place] % (Auto) (2-11) % Eos % (Auto) (0-4) % Baso % (Auto) (0-2) % Lymph # (Auto) (1.2-4.9) X10*3/uL [place] # (Auto) (0.1-1.2) X10*3/uL Eos # (Auto) (0.0-0.4) X10*3/uL Baso # (Auto) (0.0-0.2) X10*3/uL Abs Immat Gran (auto) (0.00-0.03) X10*3/uL Absolute Neuts (auto) (2.0-8.3) X10*3/uL Absolute Nucleated RBC (0.0-0.012) X10*3/uL Nucleated RBC % (auto) (0.0-0.2) /100WBC Smear Tech's Comments PT (10.8-13.0) SEC INR (0.9-1.1) Sodium (135-145) mmol/L Potassium (3.3-5.1) mmol/l Chloride (96-108) mmol/L Carbon Dioxide (22-29) mmol/L Anion Gap (12-20) BUN (9-16) mg/dL Creatinine (0.5-1.4) mg/dL Estim Creat Clear Calc Estimated GFR Random Glucose (60-115) mg/dL Calcium (8.4-10.2) mg/dL Ammonia (13-55) umol/L Troponin I High Sens (<3.5-17.0) ng/L B-Natriuretic Peptide (<100) pg/mL Triglycerides mg/dL Cholesterol mg/dL LDL Cholesterol, Calc mg/dl HDL Cholesterol mg/dL Hold Red Top See Note Hold Yellow Top Peritoneal WBC 0.290 X10*3/uL Peritoneal RBC 0.011 X10*6/uL Periton Neutrophils 4 % Periton Lymphocytes 34 % Peritoneal Monocytes 52 % Peritoneal Eosinophils 0 % Peritoneal Basophils 0 % Peritoneal Other Cells 10 % COVID-19 ([facility]) Negative (Negative) COVID-19 Clin Com See Note Discharge Plan Discharge Clinical Impression: Acute hepatic encephalopathy, S/P abdominal paracentesis Ascites Qualifiers: Ascites type: other type Qualified Code(s): R18.8 - Other ascites Patient Disposition: Admitted As Inpatient
--- NOTE | 2020-03-02 17:52 | P.CNGI_ITS ---
History of Present Illness Data of Consult Service Date: 03/02/20 Requesting physician: Ac Pickard Primary Care Provider: Mahsa Torres MD HPI Reason for consult: change in mental status, lethargy 74 YF with Type 2 DM, CAD, CHF with NYHA class 2, AF on chronic anticoagulation, Htn, Gout, and ESLD brought to [facility] ED with a change in mental status. Pt is followed in GI with ESLD complicated by portal hypertension, esophageal varices, hepatic encephalopathy and recent onset ascites. Patient was hospitalized in mid December with hepatic encephalopathy without clear precipitating factors. Pt's daughter HCP Sirena ([place] [facility] [place] [phone] called the GI clinic this afternoon stating that patient has been weak and lethargic and is oriented only to herself. Did not ask to go to the bathroom and was incontinent of urine and stool. Patient's daughter was advised to bring the patient to ED for further evaluation. She is continuing to take the lactulose 3 times a day and Rifaximin was added 1- 2 days ago. Patient had an uneventful large volume paracenteses on 02/27/[address] Masters Ascitic fluid analysis was negative for SBP and consistent with portal hypertension. She lives at home with 24 hour care givers. Pt has dementia and was [place] [facility] [place] suspected to have Parkinson's disease. Pt is awake and replies to some questions. It is not possible to get a meaningf ul history from the patient due to dementia. Per patient's daughter, her weight has been stable since recent paracentesis. Pt is on a low sodium diet. Baseline wt is 138 lbs. Labs showed leucocytosis, increase in BUN and Cr of 1.42 (increased from 1.05 on 02/28/20) Patient's mom was diagnosed with rectal cancer in her 60s. PAST GI HISTORY BY REVIEW OF MEDICAL RECORDS: Past Labs showed worsening anemia with WBC count of 13, hemoglobin of 8.2. On review of her chart, patient's hemoglobin has been progressively dropping from June of this year at 11.3-8.2 . Patient's other labs were significant for a PT of 28.5, INR of 2.4, sodium of 133, BUN of 22 with a creatinine of 1.18 ( baseline), lactic acid of 2.4, magnesium of 1.5, AST of 107, ALT of 52, alk-phos of 214. COVID-19 negative, chest x-ray no evidence for acute distress. Head CT negative for acute intracranial injury ENDOSCOPIC STUDIES: 12/12/19 EGD AND COLONOSCOPY SHOWED: Endoscopy Findings: ESOPHAGUS: Grade 3-4 four column varices from 25 to 35 cms - band ligation x 5 with flattening of varices. GE junction at 35 cms. Focal esophagtitis at GE junction STOMACH: Mild portal hypertensive gastropathy involving the entire gastric mucosa. Colonoscopy Findings: Ten medium to large polyps removed Moderate diverticulosis seen in the left colon Moderate hemorrhoids on retroflexed exam. Plan: Patient has a FU appointment on 01/25/20 in the GI Clinic with Charla Rodriguez NP -. Repeat Colonoscopy interval based on path results - in 1-2 years if polyps are adenomatous if pt remains in stable health. Above findings were reviewed with the patient and colon polyps and diverticulosis handouts were given in the discharge area IMAGING STUDIES: 12/08/[address] scan showed: LIVER, GALLBLADDER, AND BILIARY TREE: Normal size of the liver with nodular Contour. No focal hepatic lesion. No biliary ductal dilatation. The gallbladder is not seen. PANCREAS: Unremarkable. SPLEEN: Unremarkable. Pt is followed in the GI clinic by Charla Rodriguez NP for KIM and was last seen in 12/05/2019: Pt complained of abdominal bloating, decreased appetite and intermittent rectal bleeding. Her extended day teacher tells me that they gave concerns, the patient is having a bloated stomach and some rectal bleeding. She was seen at [facility] and they did a CT for her brain and she has a new dx of Parkinsons Disease. Her mother of CRC. [facility] last colonoscopy was in 2016 and there were 3 polyps, she has a hx of multiple polyps on scopes and would officially be due for scope in 2021. She came home from [facility] with diarrhea, and was tested for c diff. 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 Her eating habits have changed, she used to eat well but now she is not eating much. It appears that she is having trouble with her hand handling silverware, and she is sleeping alot. BUT this is not the cause of the eating as the staff will readily feed her. They did notice that her butt was extremely raw when she came [place] [facility] [place] and her hemorrhoids were hanging out. They have been using hemorrhoid cream and calmoseptine cream with some relief. Generally, I do not think the anemia is new I reviewed her labs and is normocytic, normochromic so she may have some sort of thalassemia. I will get a ferritin to double-check and consider she should be on iron replacement therapy. I think that her change in mental status may be due to urine tract infection given the patient's history of diarrhea and her history of excoriated broken down skin after her brief hospitalization. This is a common reason for change in mental status and weakness acutely in the elderly and I think it is a good idea to rule out even though it is not exactly a Gastroenterology problem. I have recommended that they start Kandis on fiber as this is very soothing and will help with both constipation and diarrhea until we determine exactly what the problem is. Once we have these tests back and we evaluate her response to any treatment we might render from these I will consider whether not we want to do her colonoscopy early. I really think the rectal bleeding is more from perianal trauma but she does have a strong history and would have been do a due in 2021 for re-screening anyway. If her appetite continues to be off a probably need to consider an EGD. All of this was presented to the family and they are in agreement Review of Systems Review of Systems: Not obtainable due to dementia and altered mental status PMFSH Past Medical History Medical History Anxiety and depression Atrial fibrillation Chronic heart failure with preserved ejection fraction Congestive heart failure with LV diastolic dysfunction, NYHA class 2 Coronary artery disease Essential hypertension Essential tremor Gout Hypercholesterolemia Hypertension KIM (nonalcoholic steatohepatitis) NSTEMI (non-ST elevated myocardial infarction) Osteopenia Other and unspecified hyperlipidemia PAF (paroxysmal atrial fibrillation) 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 Tubular adenoma of colon Type 2 diabetes mellitus with hyperglycemia Type 2 diabetes mellitus with unspecified complications Family History Family History Father Diabetes Hypertension CVD (cardiovascular disease) Mother Diabetes Hypertension Cancer Rectal cancer Daughter Diabetes Surgical History Surgical History Ganglion cyst H/O unilateral oophorectomy History of abdominal hysterectomy History of appendectomy History of carpal tunnel surgery History of cholecystectomy Hx of colonoscopy Social History Social History (Updated 03/02/20 @ 20:22 by JOHANNY Nichols) Household Members: Unknown / Unable to assess Housing: Unknown / Unable to assess Alcohol intake: former Smoking Status: Never smoker Second Hand Smoke Exposure: No Use of substances other than those prescribed or required for medical reasons: Unknown Substance Use Type: Unknown Last Used Substance: Unknown Currently Displaying Signs/Symptoms of Drug Intoxication Withdrawal: No Advance Directives: Yes Advance Directives on File: Yes Advance Directives Date on File: 02/28/20 Do you have thoughts of harming others: None Do you have a plan to hurt others: No Plan Recently lost weight without trying: Unsure service: No Current occupational status: retired Meds Allergies Allergy/AdvReac Type Severity Reaction Status Date / Time lisinopril [From ZESTRIL] Allergy Intermediate RASH-FROM Verified 03/02/20 16:06 ZESTRIL propranolol [PROPRANOLOL] Allergy Mild HEADACHE Verified 03/02/20 16:06 atorvastatin [Lipitor] Allergy Unknown Unknown Verified 03/02/20 16:06 benazepril Allergy Unknown Unknown Verified 03/02/20 16:06 indomethacin [From INDOCIN] Allergy Unknown UNKNOWN Verified 03/02/20 16:06 simvastatin Allergy Unknown Unknown Verified 03/02/20 16:06 Home Medications Medication Instructions Recorded Confirmed Type amlodipine 5 mg tablet 5 mg PO DAILY 12/05/19 03/02/20 History apixaban 5 mg tablet 5 mg PO BID 12/05/19 03/02/20 History insulin glargine U-300 conc 300 15 unit SUBCUT DAILY ml 12/05/19 03/02/20 History unit/mL (3 mL) subcutaneous pen losartan 100 mg tablet 100 mg PO DAILY 12/05/19 03/02/20 History spironolactone 25 mg tablet 25 mg PO DAILY 12/05/19 03/02/20 History amiodarone 200 mg PO DAILY 03/02/20 03/02/20 History insulin lispro [Humalog KwikPen 11 unit SUBCUT TIDAC 03/02/20 03/02/20 History Insulin] levetiracetam [Keppra] 250 mg PO DAILY 03/02/20 03/02/20 History Physical Exam Vital Signs: Vital Signs: Last Vital Signs Temp 98.3 F 03/02/20 17:37 Pulse 62 03/02/20 17:37 Resp 18 03/02/20 17:37 BP 118/55 L 03/02/20 17:37 Pulse Ox 97 03/02/20 17:37 Body Mass Index 26.6 Const: General: no acute distress and ill appearing Nutritional Appearance: average body habitus Orientation/consciousness: oriented to person Limitations: altered mental status HENMT: Head: Yes normal to inspection Ears: hearing grossly normal bilaterally Eyes: Sclerae: sclerae normal Pupils: Equal, round and reactive pupils pr esent Neck: Neck: Yes normal visual inspection Chest: Chest palpation & inspection: normal inspection of the chest Resp: Effort & Inspection: normal respiratory effort Auscultation: clear to auscultation bilaterally Cardio: Palpation: normal PMI Rate: regular rate Rhythm: regular rhythm Heart sounds: S1 normal heart sound present, S2 normal heart sound present and no murmurs GI: Inspection: Yes distended Palpation (GI): Soft to palpation, nontender and No hepatosplenomegaly present Auscultation: normal bowel sounds Rectal Exam - Female: deferred Skin: General skin exam: no rashes or lesions noted Neuro: General: oriented to person, gait normal and moves all extremities Cranial nerves: Yes Equal, round and reactive pupils present Psych: Appearance: grossly normal Results Labs CBC & Chem 7: 03/04/20 05:09 03/04/20 05:09 Labs: Short CBC 03/02/20 Range/Units 16:11 WBC 14.7 H (4.8-10.8) X10*3/uL Hgb 9.7 L (12.0-16.0) g/dl Hct 32.0 L (37-47) % Plt Count 263 (160-400) X10*3/uL BMP 03/02/20 16:11 Sodium 140 Potassium 3.9 Chloride 116 H Carbon Dioxide 13 L BUN 22 H Creatinine 1.42 H Calcium 8.9 Assessment and Plan (1) Cirrhosis of liver with ascites: Problem details: Abd CT scan showed cirrhosis attributed to KIM. Liver Fibrosis score was 0.69 with fibrosis stage of F3 in 2016. Cirrhosis can be due to Autoimmune hepatitis or PBC or congestive hepatopathy. MELD score is 18. Hepatitis B & C serologies were negative in 2009. WESLY was positive in a titer 1:40, antimitochondrial antibody and anti smooth muscle antibody were normal. Status: Acute (2) Esophageal varices in cirrhosis: Status: Acute (3) Hepatic encephalopathy: Status: Acute 74 YF with Type 2 DM, CAD, CHF with NYHA class 2, AF on chronic anticoagulation, Htn, Gout, and KIM with ESLD complicated by esophageal varices, portal hypertension with thrombocytopenia and hepatic encephalopathy. Pt has developed recent onset ascites and had a LVP with removal of 5 litres if ascitic fluid on 02/28/20. No SBP on AF analysis. Patient is on Eliquis for AFib. Dose of diuretics was increased to spironolactone 50 mg and furosemide 40 mg a day. Pt was brought into the ED with a change in mental status. This is likely due to worsening hepatic encephalopathy due to renal insufficiency (likely pre-renal due to diuretics). She may have SBP RECOMMENDATIONS: 1. Agree with repeat LV paracentesis with albumin infusion in the ED to rule out SBP. 2. Hold diuretics and monitor renal function. 3. Check urine sodium and monitor urine output. 4. Continue lactulose 2-3 times daily and titrate to 2-3 soft bowel movements a day. 5. Continue Rifaximin 550 mg twice daily. 6. Check AFP to rule out HCC - added. Patient's daughter Sirena was called and updated on patient's status, labs and treatment plan Pts code status is DNR. Dr Tony is oncall for GI this weekend.
[2020-03-02 18:12] LABS: COVID-19 Test Negative (Negative); IDNOW Serial# 9DD0AD1C
[2020-03-02 18:12] LABS: Ammonia 98 umol/L (13-55)
--- NOTE | 2020-03-02 18:56 | PC.NURSE ---
PARACENTESIS STARTED AT 1851 BY MD TAPIA BP 113/52 PRIOR
[2020-03-02] MEDS: Albumin Human 25 % 100 ML IV (19:24)
[2020-03-02 19:32] LABS: MN% 97.3 %; PMN% 2.7 %; RBC Peritoneal Fluid 0.011 X10*6/uL
[2020-03-02 20:04] LABS: Basophils Peritoneal Fl 0 %; Eosinophils Peritoneal Fl 0 %; Lymphocyte Peritoneal Fl 34 %; Monocytes Peritoneal Fl 52 %; Neutrophils Peritoneal Fluid 4 %; Other Peritioneal Fl 10 %
[2020-03-02 20:05] LABS: BF Shift QC OK YES
--- NOTE | 2020-03-02 20:17 | P.HPHOSP_ITS ---
History of Present Illness Date of Service: 03/02/20 Chief Complaint: lethargy This is a 74 year old female with history of Type 2 DM, CAD, CHF with NYHA class 2, AFib on chronic anticoagulation, Htn, Gout, and ESLD brought [place] [facility] with increasing lethargy. Pt is followed in GI with ESLD complicated by portal hy pertension, esophageal varices, hepatic encephalopathy and recent onset ascites. Pt's daughter called the GI clinic reporting increased weakness and lethargy and was recommended to bring the patient to ED for further evaluation. Her was significant 98 and creatinine 1.42. Urinalysis was unremarkable. she underwent bedside paracentesis in ED and fluid studies are pending at this time. Lactulose and albumin was ordered and the decision was made to admit her for further management. Due to patient's underlying dementia she is unable to provide any significant history. 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 Tubular adenoma of colon Type 2 diabetes mellitus with hyperglycemia Type 2 diabetes mellitus with unspecified complications Family History Father Diabetes Hypertension CVD (cardiovascular disease) Mother Diabetes Hypertension Cancer Rectal cancer Daughter Diabetes Surgical History Ganglion cyst H/O unilateral oophorectomy History of abdominal hysterectomy History of appendectomy History of carpal tunnel surgery History of cholecystectomy Hx of colonoscopy Social History (Updated 03/02/20 @ 20:22 by JOHANNY Nichols) Household Members: Caregiver Housing: Unknown / Unable to assess Alcohol intake: former Smoking Status: Never smoker Second Hand Smoke Exposure: No Advance Directives: Yes Advance Directives on File: Yes Advance Directives Date on File: 02/28/20 service: No Current occupational status: retired Meds Allergies Allergy/AdvReac Type Severity Reaction Status Date / Time lisinopril [From ZESTRIL] Allergy Intermediate RASH-FROM Verified 03/02/20 16:06 ZESTRIL propranolol [PROPRANOLOL] Allergy Mild HEADACHE Verified 03/02/20 16:06 atorvastatin [Lipitor] Allergy Unknown Unknown Verified 03/02/20 16:06 benazepril Allergy Unknown Unknown Verified 03/02/20 16:06 indomethacin [From INDOCIN] Allergy Unknown UNKNOWN Verified 03/02/20 16:06 simvastatin Allergy Unknown Unknown Verified 03/02/20 16:06 Home Medications Medication Instructions Recorded Confirmed Type amlodipine 5 mg tablet 5 mg PO DAILY 12/05/19 03/02/20 History apixaban 5 mg tablet 5 mg PO BID 12/05/19 03/02/20 History insulin glargine U-300 conc 300 15 unit SUBCUT DAILY ml 12/05/19 03/02/20 History unit/mL (3 mL) subcutaneous pen losartan 100 mg tablet 100 mg PO DAILY 12/05/19 03/02/20 History spironolactone 25 mg tablet 25 mg PO DAILY 12/05/19 03/02/20 History amiodarone 200 mg PO DAILY 03/02/20 03/02/20 History insulin lispro [Humalog KwikPen 11 unit SUBCUT TIDAC 03/02/20 03/02/20 History Insulin] levetiracetam [Keppra] 250 mg PO DAILY 03/02/20 03/02/20 History Physical Exam Vital Signs and Narrative: Vital Signs: Last Vital Signs Temp 98.3 F 03/02/20 17:37 Pulse 59 03/02/20 19:14 Resp 16 03/02/20 19:14 BP 119/51 L 03/02/20 19:14 Pulse Ox 96 03/02/20 19:14 Body Mass Index 26.6 Const: General: awake and lethargic Nutritional Appearance: well nourished Orientation/consciousness: lethargic HENMT: Head: Yes normocephalic and Yes atraumatic Eyes: Sclerae: sclerae normal Chest: Chest palpation & inspection: normal inspection of the chest Resp: Effort & Inspection: normal respiratory effort and no respiratory distress Cardio: Rate: regular rate GI: Other: undergoing bedside paracentesis Palpation (GI): Soft to palpation and nontender Skin: General skin exam: no rashes or lesions noted Neuro: Cranial nerves: Yes CN's II-XII intact bilaterally and Yes Bilaterally intact EOM present Extrem: General: Yes normal to inspection Results Labs CBC and Chem 7: 03/02/20 16:11 03/02/20 16:11 Labs: Laboratory Results - last 24 hr 03/02/20 03/02/20 03/02/20 16:11 16:11 16:11 MCV 94.4 MCH 28.6 MCHC 30.3 L RDW 19.9 H Plt Count 263 MPV 10.7 Immature Gran % (Auto) 0.7 H Neut % (Auto) 75.0 H Lymph % (Auto) 9.9 L [place] % (Auto) 13.2 H Eos % (Auto) 0.9 Baso % (Auto) 0.3 Lymph # (Auto) 1.5 [place] # (Auto) 1.9 H Eos # (Auto) 0.1 Baso # (Auto) 0.1 Abs Immat Gran (auto) 0.11 H Absolute Neuts (auto) 11.0 H Absolute Nucleated RBC 0.000 Nucleated RBC % (auto) 0.0 Smear Tech's Comments VERIFIED PT 18.2 H D INR 1.5 H Anion Gap 15 Estim Creat Clear Calc 29.0 Estimated GFR 36 Random Glucose 160 H Calcium 8.9 Ammonia Troponin I High Sens B-Natriuretic Peptide Triglycerides 255 Cholesterol 200 LDL Cholesterol, Calc 128 HDL Cholesterol 21 Hold Red Top Hold Yellow Top Peritoneal WBC Peritoneal RBC Periton Neutrophils Periton Lymphocytes Peritoneal Monocytes Peritoneal Eosinophils Peritoneal Basophils Peritoneal Other Cells COVID-19 ([facility]UD[facility]) COVID-19 Clin Com 03/02/20 03/02/20 03/02/20 16:11 16:13 17:46 MCV MCH MCHC RDW Plt Count MPV Immature Gran % (Auto) Neut % (Auto) Lymph % (Auto) [place] % (Auto) Eos % (Auto) Baso % (Auto) Lymph # (Auto) [place] # (Auto) Eos # (Auto) Baso # (Auto) Abs Immat Gran (auto) Absolute Neuts (auto) Absolute Nucleated RBC Nucleated RBC % (auto) Smear Tech's Comments PT INR Anion Gap Estim Creat Clear Calc Estimated GFR Random Glucose Calcium Ammonia 98 H Troponin I High Sens 6.4 B-Natriuretic Peptide 184 H Triglycerides Cholesterol LDL Cholesterol, Calc HDL Cholesterol Hold Red Top Hold Yellow Top See Note Peritoneal WBC Peritoneal RBC Periton Neutrophils Periton Lymphocytes Peritoneal Monocytes Peritoneal Eosinophils Peritoneal Basophils Peritoneal Other Cells COVID-19 ([facility]UD[facility]) COVID-19 Clin Com 03/02/20 03/02/20 03/02/20 17:47 17:48 19:06 MCV MCH MCHC RDW Plt Count MPV Immature Gran % (Auto) Neut % (Auto) Lymph % (Auto) [place] % (Auto) Eos % (Auto) Baso % (Auto) Lymph # (Auto) [place] # (Auto) Eos # (Auto) Baso # (Auto) Abs Immat Gran (auto) Absolute Neuts (auto) Absolute Nucleated RBC Nucleated RBC % (auto) Smear Tech's Comments PT INR Anion Gap Estim Creat Clear Calc Estimated GFR Random Glucose Calcium Ammonia Troponin I High Sens B-Natriuretic Peptide Triglycerides Cholesterol LDL Cholesterol, Calc HDL Cholesterol Hold Red Top See Note Hold Yellow Top Peritoneal WBC 0.290 Peritoneal RBC 0.011 Periton Neutrophils 4 Periton Lymphocytes 34 Peritoneal Monocytes 52 Peritoneal Eosinophils 0 Peritoneal Basophils 0 Peritoneal Other Cells 10 COVID-19 ([facility]UD[facility]) Negative COVID-19 Clin Com See Note Assessment and Plan (1) Acute hepatic encephalopathy: Status: Acute (2) Ascites: Qualifiers: Ascites type: other type Qualified Code(s): R18.8 - Other ascites Status: Acute this is a 74-year-old female with a history KIM, diabetes, seizure disorder, atrial fibrillation on Eliquis, coronary artery disease among others who presents to the emergency department with increasing lethargy found to have hepatic encephalopathy hepatic encephalopathy given additional dose of lactulose in ED. continue lactulose, rifaximin follow ammonia level GI evaluated in ED KIM with esophageal varices Pt has developed recent onset ascites and had a LVP with removal of 5 litres if ascitic fluid on 02/28/20. s/p paracentesis in ED - fluid studies pending continue nadolol hold lasix, aldactone for MARCI MARCI SCr 1.42, baseline around .7 to 1 diuretic doses recently increased hold diuretics Follow renal function closely leukocytosis urinalysis negative, abdominal fluid studies pending trend CBC diabetes Toujeo will be converted to Lantus SSI, POCs hypertension continue Norvasc hold losartan for MARCI atrial fibrillation Amiodarone recently d/c per cardiology note continue anticoagulation with Eliquis seizure disorder continue keppra anemia H/H at baseline follow CBC tremor, question of Parkinson's no longer on primidone mood sertraline DVT prophylaxis- Eliquis code status- MOLST form in chart DNR DNI this case was discussed with Dr. Grimaldo
--- NOTE | 2020-03-02 20:17 | PC.NURSE ---
3L FLUIDS DRAWN FROM PARACENTESIS. SPECIMENS OBTAINED. VS WNL.
[2020-03-02] MEDS: Apixaban 5 MG TABLET PO (21:42)
[2020-03-02] MEDS: Lactulose 20 GM/30 ML SOLUTION PO (22:33)
[2020-03-02] MEDS: rifAXIMin 550 MG TABLET PO (23:20)
[2020-03-03] VITALS (7 sets, daily range): BP systolic 106–176; BP diastolic 55–76; PULSE 54–59; RESP 16–20; TEMP 36.4–37.2; O2SAT 95–99; BMI 26.2
[2020-03-03 00:32] LABS: Glucose, Whole Blood 137 mg/dL (60-115)
--- NOTE | 2020-03-03 00:52 | PC.NURSE ---
PATIENT HAD EX LG BOWEL MOVEMENT
--- NOTE | 2020-03-03 01:06 | PC.NURSE ---
Called floor to give report. This medical underwriter was told that patient was in a room at the moment and would be given a message.
[2020-03-03] MEDS: 0.9 % Sodium Chloride Flush 3 ML SYRINGE IVFLUSH ×3 (01:56→16:49)
[2020-03-03 06:19] LABS: MANUAL DIFF FLAG NO
[2020-03-03 06:27] LABS: Basophils Percent Auto 0.4 % (0-2); Eosinophils Absolute Auto 0.2 X10*3/uL (0.0-0.4); Eosinophils Percent Auto 1.6 % (0-4); Hematocrit 29.6 % (37-47); Imm Gran Abs Auto 0.05 X10*3/uL (0.00-0.03); Imm Gran Pct Auto 0.4 % (0.0-0.4); Lymphocytes Absolute Auto 1.3 X10*3/uL (1.2-4.9); Lymphocytes Percent Auto 11.8 % (20-40); Mean Corpuscular HGB Conc 30.4 g/dl (31.0-35.0); Mean Corpuscular Hemoglobin 28.6 pg (27.0-33.0); Mean Platelet Volume 10.9 fL (9.4-12.3); Monocytes Absolute Auto 1.4 X10*3/uL (0.1-1.2); Neutrophils Absolute Auto 8.3 X10*3/uL (2.0-8.3); Neutrophils Percent Auto 73.8 % (45-73); Platelet Count 197 X10*3/uL (160-400); Red Blood Count 3.15 X10*6/uL (4.20-5.50); Red Cell Distribution Width 19.9 % (11.0-16.0); White Blood Count 11.2 X10*3/uL (4.8-10.8)
[2020-03-03 06:46] LABS: Ammonia 91 umol/L (13-55)
[2020-03-03 07:10] LABS: Blood Urea Nitrogen 20 mg/dL (9-16); Calcium 8.5 mg/dL (8.4-10.2); Creatinine Clr Calc Pharmacy 38.8; Estimated Glomerular Filt Rate 51; Glucose Random 133 mg/dL (60-115)
[2020-03-03 07:24] LABS: Anion Gap 15 (12-20); Carbon Dioxide 14 mmol/L (22-29); Chloride 119 mmol/L (96-108); Potassium 3.8 mmol/l (3.3-5.1); Sodium 144 mmol/L (135-145)
[2020-03-03 08:27] LABS: Glucose, Whole Blood 174 mg/dL (60-115)
[2020-03-03] MEDS: Insulin Lispro 100 UNIT/ML 3 ML VIAL SUBCUT ×3 (08:57→22:04)
[2020-03-03] MEDS: Sertraline HCL 100 MG TABLET PO (09:14)
[2020-03-03] MEDS: levETIRAcetam 250 MG TABLET PO (09:14)
[2020-03-03] MEDS: Lactulose 20 GM/30 ML SOLUTION PO ×4 (09:14→22:04)
[2020-03-03] MEDS: Apixaban 5 MG TABLET PO ×2 (09:15→22:04)
[2020-03-03] MEDS: rifAXIMin 550 MG TABLET PO ×2 (09:15→22:04)
[2020-03-03] MEDS: amLODIPine Besylate 5 MG TABLET PO (09:15)
[2020-03-03] MEDS: Omeprazole 40 MG CAPSULE.DR PO (09:16)
[2020-03-03] MEDS: Insulin Glargine,Hum.rec.anlog 100 UNIT/ML 10 ML VIAL 12 UNIT SUBCUT (09:16)
--- NOTE | 2020-03-03 10:14 | HO.PM.IMPN ---
Subjective Subjective Date of Service: 03/03/20 Interval History: not hungry Cardiovascular Cardiovascular: Reports no additional cardiovascular complaints Gastrointestinal Gastrointestinal: Reports no additional gastrointestinal complaints Physical Exam Vital Signs: Vital Signs: Last Vital Signs Temp 97.5 F 03/03/20 07:44 Pulse 59 03/03/20 09:15 Resp 17 03/03/20 07:44 BP 167/72 H 03/03/20 09:15 Pulse Ox 99 03/03/20 07:44 Body Mass Index 26.6 General: Alert, not talking much, no acute distress Resp: CTA bilateral CVS: S1,S2,RRR GI: soft, non tender, non distended Neuro: motor grossly intact Psych: impaired insight Objective Data Current Medications Generic Name Dose Route Start Last Admin Trade Name Freq PRN Reason Stop Dose Admin Acetaminophen 650 mg 03/02/20 20:49 Acetaminophen 325 Mg Tablet PO Q6H PRN Pain, Mild (Pain Scale 1-3) Amlodipine Besylate 5 mg 03/03/20 09:00 03/03/20 09:15 Amlodipine Besylate 5 Mg Tablet PO 5 mg DAILY LAN Administration Protocol Apixaban 5 mg 03/02/20 21:00 03/03/20 09:15 Apixaban 5 Mg Tablet PO 5 mg BID LAN Administration Docusate Sodium 100 mg 03/02/20 20:49 Docusate Sodium 100 Mg Capsule PO DAILY PRN Constipation Insulin Glargine 12 unit 03/03/20 09:00 03/03/20 09:16 Insulin Glargine,Hum.Rec.Anlog 100 Unit/Ml 10 Ml Vial SUBCUT 12 unit DAILY LAN Administration Insulin Human Lispro 0 unit 03/02/20 21:00 03/03/20 08:57 Insulin Lispro 100 Unit/Ml 3 Ml Vial SUBCUT 2 unit QIDACHS LAN Administration Protocol Lactulose 20 gm 03/03/20 09:00 03/03/20 09:14 Lactulose 20 Gm/30 Ml Solution PO 20 gm QID LAN Administration Levetiracetam 250 mg 03/03/20 09:00 03/03/20 09:14 Levetiracetam 250 Mg Tablet PO 250 mg DAILY LAN Administration Nadolol 40 mg 03/03/20 09:00 03/03/20 09:14 Nadolol 40 Mg Tablet PO 40 mg DAILY LAN Administration Protocol Omeprazole 40 mg 03/03/20 09:00 03/03/20 09:16 Omeprazole 40 Mg Capsule. PO 40 mg DAILY LAN Administration Pharmacy Consult 1 each 03/02/20 19:08 Consult Rx Perform Med Rec MISCELLANE ONCE PRN Consult order Rifaximin 550 mg 03/02/20 21:00 03/03/20 09:15 Rifaximin 550 Mg Tablet PO 550 mg BID LAN Administration Sertraline HCl 100 mg 03/03/20 09:00 03/03/20 09:14 Sertraline Hcl 100 Mg Tablet PO 100 mg DAILY LAN Administration Sodium Chloride 3 ml 03/03/20 00:00 03/03/20 09:07 0.9 % Sodium Chloride Flush 3 Ml Syringe IVFLUSH 3 ml QSHIFT LAN Administration Labs CBC & Chem 7: 03/03/20 05:15 03/03/20 05:15 Assessment and Plan (1) Acute hepatic encephalopathy: Status: Acute (2) Ascites: Status: Acute Assessment and Plan: this is a 74-year-old female with a history KIM, diabetes, seizure disorder, atrial fibrillation on Eliquis, coronary artery disease among others who presents to the emergency department with increasing lethargy found to have hepatic encephalopathy hepatic encephalopathy given additional dose of lactulose in ED. continue lactulose will increase to qid, goal 2-4 bm/day, rifaximin KIM with esophageal varices Pt has developed recent onset ascites and had a LVP with removal of 5 litres if ascitic fluid on 02/28/20. s/p paracentesis in ED - fluid studies negative for sbp continue nadolol hold lasix, aldactone for MARCI MARCI resolved leukocytosis urinalysis negative, abdominal fluid studies pending trend CBC diabetes Toujeo will be converted to Lantus SSI, POCs hypertension continue Norvasc hold losartan for MARCI atrial fibrillation Amiodarone recently d/c per cardiology note continue anticoagulation with Eliquis seizure disorder continue keppra anemia H/H at baseline follow CBC tremor, question of Parkinson's no longer on primidone mood sertraline DVT prophylaxis- Eliquis code status- MOLST form in chart DNR DNI
--- NOTE | 2020-03-03 11:51 | P.PNGI_ITS ---
Subjective Subjective Date of Service: 03/03/20 Interval History: Responds to voice, denies abd pain Physical Exam Vital Signs: Vital Signs: Last Vital Signs Temp 97.5 F 03/03/20 07:44 Pulse 59 03/03/20 09:15 Resp 17 03/03/20 07:44 BP 167/72 H 03/03/20 09:15 Pulse Ox 99 03/03/20 07:44 Body Mass Index 26.6 Const: Other: sleepy Cardio: Other: s1, s2 irreg GI: Other: abd soft, nontender Extrem: Other: no edema asterixis present Objective Data Labs CBC & Chem 7: 03/03/20 05:15 03/03/20 05:15 Progress Note: A&P Assessment and plan (1) Acute hepatic encephalopathy: Status: Acute Assessment and Plan: continue Xifaxan and lactulose renal function better, diuretics on hold. Time Spent With Patient Time: Total time spent is greater than 50% in coordination of care (as bere torres) at patient's floor/unit and/or counseling patient: Time with patient: less than 15 minutes
[2020-03-03 11:53] LABS: Glucose, Whole Blood 159 mg/dL (60-115)
--- NOTE | 2020-03-03 11:58 | PC.NURSE ---
pt needs assistance with meals. Matty is able to feed herself but does not. She will eat if fed, also if cued to eat. Pt had poor PO at breakfast and was fed lunch, ate 25% of lunch. Will continue to monitor
--- NOTE | 2020-03-03 14:48 | PC.NURSE ---
Pt having incresing distention to abdomen. Abdomen soft, slightly more distended than this AM. She denies pain.She has had several loose stools and has been cleaned and repositioned. She has a reddened area to buttocks and a stage II wound, barrier cream applied and pt frequently repositioned. Pt has been speaking in few sentences, answers some questions appropriately and at other times shrugs shoulders and does not answer. Daughter called and was updated. MD given daughter's contact info. Will wayneue to monitor
--- NOTE | 2020-03-03 15:04 | MHC.CM.PN ---
CM CONTACTED PTS HCP, FLORIDALMA GARNICA ([phone]) WHO REPORTS NOTHING HAS CHANGED FROM PTS MOST RECENT ADMISSION. PT STILL LIVES ALONE AND HAS 24/7 PRIVATELY PAID HOME CARE. PT USES A WALKER TO AMBULATE AND HAS RAILS IN HER BATHROOM. PT HAS A HCP ON FILE AND MUNDO LOPEZ IS HER PCP. IMM DELIVERED VERBALLY TO HCP AND A COPY WILL BE MAILED CURRENT DC PLAN IS HOME WITH RESUMPTION OF HOME CARE PT MAY NEED BLS TRANSPORT DEPENDING ON HER CONDITION/STRENGTH AT DC
[2020-03-03 16:26] LABS: Glucose, Whole Blood 180 mg/dL (60-115)
[2020-03-03 20:28] LABS: Glucose, Whole Blood 171 mg/dL (60-115)
[2020-03-04] VITALS (7 sets, daily range): BP systolic 114–146; BP diastolic 53–71; PULSE 51–55; RESP 16–18; TEMP 35.9–37; O2SAT 97–100
[2020-03-04] MEDS: 0.9 % Sodium Chloride Flush 3 ML SYRINGE IVFLUSH ×2 (00:27→09:30)
[2020-03-04 06:50] LABS: MANUAL DIFF FLAG NO
[2020-03-04 07:07] LABS: INTERNATIONAL NORM RATIO 1.7 (0.9-1.1); Prothrombin Time 19.8 SEC (10.8-13.0)
[2020-03-04 07:19] LABS: Basophils Absolute Auto 0.1 X10*3/uL (0.0-0.2); Basophils Percent Auto 0.4 % (0-2); Eosinophils Absolute Auto 0.2 X10*3/uL (0.0-0.4); Eosinophils Percent Auto 1.5 % (0-4); Hematocrit 29.2 % (37-47); Hemoglobin 8.8 g/dl (12.0-16.0); Imm Gran Abs Auto 0.09 X10*3/uL (0.00-0.03); Imm Gran Pct Auto 0.8 % (0.0-0.4); Lymphocytes Absolute Auto 1.3 X10*3/uL (1.2-4.9); Lymphocytes Percent Auto 11.3 % (20-40); Mean Corpuscular HGB Conc 30.1 g/dl (31.0-35.0); Mean Corpuscular Hemoglobin 28.8 pg (27.0-33.0); Mean Corpuscular Volume 95.4 fL (80-98); Mean Platelet Volume 11.3 fL (9.4-12.3); Monocytes Absolute Auto 1.2 X10*3/uL (0.1-1.2); Monocytes Percent Auto 10.9 % (2-11); Neutrophils Absolute Auto 8.5 X10*3/uL (2.0-8.3); Neutrophils Percent Auto 75.1 % (45-73); Platelet Count 219 X10*3/uL (160-400); Red Blood Count 3.06 X10*6/uL (4.20-5.50); Red Cell Distribution Width 20.1 % (11.0-16.0); White Blood Count 11.4 X10*3/uL (4.8-10.8)
[2020-03-04 07:38] LABS: Alanine Aminotransferase 43 U/L (0-31); Albumin Level 3.3 g/dL (3.5-5.0); Alkaline Phosphatase 214 U/L (39-117); Aspartate Amino Transferase 116 U/L (5-31); Bilirubin Direct 0.5 mg/dL (0.0-0.5); Blood Urea Nitrogen 23 mg/dL (9-16); Calcium 8.7 mg/dL (8.4-10.2); Creatinine Clr Calc Pharmacy 30.9; Estimated Glomerular Filt Rate 39; Glucose Fasting 134 mg/dL (60-99); Magnesium 1.8 mg/dL (1.6-2.6); Total Protein 6.7 g/dL (6.5-8.0)
[2020-03-04 07:54] LABS: Anion Gap 16 (12-20); Carbon Dioxide 15 mmol/L (22-29); Chloride 121 mmol/L (96-108); Potassium 4.3 mmol/l (3.3-5.1); Sodium 148 mmol/L (135-145)
[2020-03-04 08:13] LABS: Glucose, Whole Blood 144 mg/dL (60-115)
[2020-03-04 09:23] LABS: pH Peritoneal Fluid 7.48
[2020-03-04 09:27] LABS: Albumin Peritoneal Fluid 0.5
[2020-03-04] MEDS: rifAXIMin 550 MG TABLET PO ×2 (09:28→20:48)
[2020-03-04] MEDS: Sertraline HCL 100 MG TABLET PO (09:28)
[2020-03-04] MEDS: Sodium Bicarbonate 650 MG TABLET PO ×3 (09:28→20:48)
[2020-03-04] MEDS: Omeprazole 40 MG CAPSULE.DR PO (09:28)
[2020-03-04] MEDS: amLODIPine Besylate 5 MG TABLET PO (09:28)
[2020-03-04 09:29] LABS: LDH Peritoneal Fluid 37
[2020-03-04] MEDS: Apixaban 5 MG TABLET PO ×2 (09:29→20:48)
[2020-03-04] MEDS: Dextrose 5 % 1,000 ML 100 ML IVCONT ×2 (09:29→20:48)
[2020-03-04] MEDS: Insulin Glargine,Hum.rec.anlog 100 UNIT/ML 10 ML VIAL 12 UNIT SUBCUT (09:29)
[2020-03-04] MEDS: levETIRAcetam 250 MG TABLET PO (09:29)
[2020-03-04 09:30] LABS: Glucose Peritoneal Fluid 197
[2020-03-04 09:31] LABS: Amylase Peritoneal Fluid 20
--- NOTE | 2020-03-04 10:08 | P.PNIM_ITS ---
Subjective Subjective Date of Service: 03/04/20 Interval History: feeling better Cardiovascular Cardiovascular: Reports no additional cardiovascular complaints Genitourinary Genitourinary: Reports no additional female genitourinary complaints Physical Exam Vital Signs: Vital Signs: Last Vital Signs Temp 97.2 F 03/04/20 07:25 Pulse 52 03/04/20 09:28 Resp 16 03/04/20 07:25 BP 128/58 L 03/04/20 09:28 Pulse Ox 99 03/04/20 07:25 Body Mass Index 26.2 General: Alert, no acute distress Resp: CTA bilateral CVS: S1,S2,RRR GI: soft, non tender, non distended Neuro: motor grossly intact Psych: appropriate affect Objective Data Current Medications Generic Name Dose Route Start Last Admin Trade Name Freq PRN Reason Stop Dose Admin Acetaminophen 650 mg 03/02/20 20:49 Acetaminophen 325 Mg Tablet PO Q6H PRN Pain, Mild (Pain Scale 1-3) Amlodipine Besylate 5 mg 03/03/20 09:00 03/04/20 09:28 Amlodipine Besylate 5 Mg Tablet PO 5 mg DAILY LAN Administration Protocol Apixaban 5 mg 03/02/20 21:00 03/04/20 09:29 Apixaban 5 Mg Tablet PO 5 mg BID LAN Administration Docusate Sodium 100 mg 03/02/20 20:49 Docusate Sodium 100 Mg Capsule PO DAILY PRN Constipation Dextrose 1,000 mls @ 100 mls/hr 03/04/20 08:30 03/04/20 09:29 D5w IVCONT 100 mls/hr .Q10H LAN Administration Insulin Glargine 12 unit 03/03/20 09:00 03/04/20 09:29 Insulin Glargine,Hum.Rec.Anlog 100 Unit/Ml 10 Ml Vial SUBCUT 12 unit DAILY LAN Administration Insulin Human Lispro 0 unit 03/02/20 21:00 03/04/20 09:29 Insulin Lispro 100 Unit/Ml 3 Ml Vial SUBCUT Not Given QIDACHS [facility] Protocol Lactulose 20 gm 03/03/20 09:00 03/04/20 09:44 Lactulose 20 Gm/30 Ml Solution PO Not Given QID LAN Levetiracetam 250 mg 03/03/20 09:00 03/04/20 09:29 Levetiracetam 250 Mg Tablet PO 250 mg DAILY LAN Administration Nadolol 40 mg 03/03/20 09:00 03/04/20 09:28 Nadolol 40 Mg Tablet PO 40 mg DAILY LAN Administration Protocol Omeprazole 40 mg 03/03/20 09:00 03/04/20 09:28 Omeprazole 40 Mg Capsule. PO 40 mg DAILY LAN Administration Pharmacy Consult 1 each 03/02/20 19:08 Consult Rx Perform Med Rec MISCELLANE ONCE PRN Consult order Rifaximin 550 mg 03/02/20 21:00 03/04/20 09:28 Rifaximin 550 Mg Tablet PO 550 mg BID LAN Administration Sertraline HCl 100 mg 03/03/20 09:00 03/04/20 09:28 Sertraline Hcl 100 Mg Tablet PO 100 mg DAILY LAN Administration Sodium Bicarbonate 650 mg 03/04/20 09:00 03/04/20 09:28 Sodium Bicarbonate 650 Mg Tablet PO 650 mg TID LAN Administration Sodium Chloride 3 ml 03/03/20 00:00 03/04/20 09:30 0.9 % Sodium Chloride Flush 3 Ml Syringe IVFLUSH 3 ml QSHIFT LAN Administration Labs CBC & Chem 7: 03/04/20 05:09 03/04/20 05:09 Assessment and Plan (1) Acute hepatic encephalopathy: Status: Acute (2) Ascites: Status: Acute Assessment and Plan: this is a 74-year-old female with a history KIM, diabetes, seizure disorder, atrial fibrillation on Eliquis, coronary artery disease among others who presents to the emergency department with increasing lethargy found to have hepatic encephalopathy hepatic encephalopathy continue lactulose for 2-4bm/day, rifaximin mental status improved today, feeding self KIM with esophageal varices Pt has developed recent onset ascites and had a LVP with removal of 5 litres of ascitic fluid on 02/28/20. also s/p paracentesis in ED - fluid studies negative for sbp continue nadolol hold lasix, aldactone for MARCI MARCI resolved hypernatremia and metabolic acidosis start d5w, sodium bicarb po diabetes Toujeo will be converted to Lantus SSI, POCs hypertension continue Norvasc hold losartan for MARCI atrial fibrillation Amiodarone recently d/c per cardiology note continue anticoagulation with Eliquis seizure disorder continue keppra anemia H/H at baseline follow CBC tremor, question of Parkinson's no longer on primidone mood sertraline DVT prophylaxis- Eliquis code status- MOLST form in chart DNR DNI
[2020-03-04 12:18] LABS: Glucose, Whole Blood 337 mg/dL (60-115)
[2020-03-04] MEDS: Insulin Lispro 100 UNIT/ML 3 ML VIAL SUBCUT ×2 (12:39→21:16)
--- NOTE | 2020-03-04 12:39 | PM.GIPN ---
Subjective Subjective Date of Service: 03/04/20 Interval History: more alert today denies pain Physical Exam Vital Signs: Vital Signs: Last Vital Signs Temp 97.6 F 03/04/20 11:24 Pulse 54 03/04/20 11:24 Resp 16 03/04/20 11:24 BP 119/58 L 03/04/20 11:24 Pulse Ox 99 03/04/20 11:24 Body Mass Index 26.2 GI: Other: ascites present, nontender bowel sounds present Extrem: Other: asterixis improved Objective Data Labs CBC & Chem 7: 03/04/20 05:09 03/04/20 05:09 Progress Note: A&P Assessment and plan (1) Hepatic encephalopathy: Status: Acute Assessment and Plan: improving continue present rx Time Spent With Patient Time: Total time spent is greater than 50% in coordination of care (as documented) at patient's floor/unit and/or counseling patient: Time with patient: less than 15 minutes
[2020-03-04 17:05] LABS: Glucose, Whole Blood 120 mg/dL (60-115)
[2020-03-04] MEDS: Lactulose 20 GM/30 ML SOLUTION PO ×2 (17:48→20:47)
[2020-03-04 21:06] LABS: Glucose, Whole Blood 156 mg/dL (60-115)
--- NOTE | 2020-03-04 23:00 | PC.NURSE ---
patient requires air mattress, not available at this moment.reported to receiving RN to install one when possible.
[2020-03-05] VITALS (8 sets, daily range): BP systolic 118–142; BP diastolic 59–71; PULSE 51–58; RESP 18–20; TEMP 36.5–37.2; O2SAT 95–100; BMI 26.2; BMI 27.0
[2020-03-05] MEDS: Dextrose 5 % 1,000 ML 100 ML IVCONT (05:59)
[2020-03-05 06:11] LABS: MANUAL DIFF FLAG NO
[2020-03-05 06:16] LABS: Basophils Absolute Auto 0.1 X10*3/uL (0.0-0.2); Basophils Percent Auto 0.6 % (0-2); Eosinophils Absolute Auto 0.2 X10*3/uL (0.0-0.4); Eosinophils Percent Auto 1.8 % (0-4); Hemoglobin 8.5 g/dl (12.0-16.0); Imm Gran Abs Auto 0.09 X10*3/uL (0.00-0.03); Imm Gran Pct Auto 0.9 % (0.0-0.4); Lymphocytes Absolute Auto 1.2 X10*3/uL (1.2-4.9); Lymphocytes Percent Auto 11.2 % (20-40); Mean Corpuscular HGB Conc 30.4 g/dl (31.0-35.0); Mean Corpuscular Hemoglobin 28.2 pg (27.0-33.0); Monocytes Absolute Auto 1.3 X10*3/uL (0.1-1.2); Neutrophils Absolute Auto 7.7 X10*3/uL (2.0-8.3); Neutrophils Percent Auto 73.5 % (45-73); Platelet Count 186 X10*3/uL (160-400); Red Blood Count 3.01 X10*6/uL (4.20-5.50); Red Cell Distribution Width 19.5 % (11.0-16.0); White Blood Count 10.5 X10*3/uL (4.8-10.8)
[2020-03-05 07:18] LABS: Anion Gap 14 (12-20); Blood Urea Nitrogen 18 mg/dL (9-16); Calcium 8.4 mg/dL (8.4-10.2); Carbon Dioxide 16 mmol/L (22-29); Chloride 111 mmol/L (96-108); Creatinine Clr Calc Pharmacy 42.5; Estimated Glomerular Filt Rate 57; Glucose Fasting 173 mg/dL (60-99); Magnesium 1.4 mg/dL (1.6-2.6); Potassium 4.1 mmol/l (3.3-5.1); Sodium 137 mmol/L (135-145)
[2020-03-05] MEDS: Omeprazole 40 MG CAPSULE.DR PO (08:20)
[2020-03-05] MEDS: amLODIPine Besylate 5 MG TABLET PO (08:20)
[2020-03-05] MEDS: rifAXIMin 550 MG TABLET PO ×2 (08:20→20:56)
[2020-03-05] MEDS: Sodium Bicarbonate 650 MG TABLET PO ×3 (08:20→20:56)
[2020-03-05] MEDS: Magnesium Oxide 400 MG TABLET PO (08:20)
[2020-03-05] MEDS: levETIRAcetam 250 MG TABLET PO (08:21)
[2020-03-05] MEDS: Apixaban 5 MG TABLET PO ×2 (08:21→20:56)
[2020-03-05] MEDS: Sertraline HCL 100 MG TABLET PO (08:21)
[2020-03-05] MEDS: Magnesium Sulfate/H2O 2 GM/50 ML PIGGYBACK IV (08:22)
[2020-03-05] MEDS: Lactulose 20 GM/30 ML SOLUTION PO ×4 (08:22→20:56)
[2020-03-05 08:35] LABS: Glucose, Whole Blood 167 mg/dL (60-115)
[2020-03-05] MEDS: Insulin Glargine,Hum.rec.anlog 100 UNIT/ML 10 ML VIAL 12 UNIT SUBCUT (08:57)
--- NOTE | 2020-03-05 09:39 | HO.PM.IMPN ---
Subjective Subjective Date of Service: 03/05/20 Interval History: weak, but better than 2 days ago Cardiovascular Cardiovascular: Reports no additional cardiovascular complaints Respiratory Respiratory: Reports no additional respiratory complaints Physical Exam Vital Signs: Vital Signs: Last Vital Signs Temp 98.3 F 03/05/20 08:00 Pulse 56 03/05/20 08:20 Resp 20 03/05/20 08:00 BP 135/65 03/05/20 08:20 Pulse Ox 95 03/05/20 08:00 Body Mass Index 26.2 General: Alert, no acute distress Resp: CTA bilateral CVS: S1,S2,RRR GI: soft, non tender, distended - mild, not tight Neuro: motor grossly intact Psych: appropriate affect Objective Data Current Medications Generic Name Dose Route Start Last Admin Trade Name Freq PRN Reason Stop Dose Admin Acetaminophen 650 mg 03/02/20 20:49 Acetaminophen 325 Mg Tablet PO Q6H PRN Pain, Mild (Pain Scale 1-3) Amlodipine Besylate 5 mg 03/03/20 09:00 03/05/20 08:20 Amlodipine Besylate 5 Mg Tablet PO 5 mg DAILY LAN Administration Protocol Apixaban 5 mg 03/02/20 21:00 03/05/20 08:21 Apixaban 5 Mg Tablet PO 5 mg BID LAN Administration Docusate Sodium 100 mg 03/02/20 20:49 Docusate Sodium 100 Mg Capsule PO DAILY PRN Constipation Insulin Glargine 12 unit 03/03/20 09:00 03/05/20 08:57 Insulin Glargine,Hum.Rec.Anlog 100 Unit/Ml 10 Ml Vial SUBCUT 12 unit DAILY LAN Administration Insulin Human Lispro 0 unit 03/02/20 21:00 03/05/20 08:56 Insulin Lispro 100 Unit/Ml 3 Ml Vial SUBCUT Not Given QIDACHS LAN Protocol Lactulose 20 gm 03/03/20 09:00 03/05/20 08:22 Lactulose 20 Gm/30 Ml Solution PO 20 gm QID LAN Administration Levetiracetam 250 mg 03/03/20 09:00 03/05/20 08:21 Levetiracetam 250 Mg Tablet PO 250 mg DAILY LAN Administration Nadolol 40 mg 03/03/20 09:00 03/05/20 08:22 Nadolol 40 Mg Tablet PO Not Given DAILY LAN Protocol Omeprazole 40 mg 03/03/20 09:00 03/05/20 08:20 Omeprazole 40 Mg Capsule. PO 40 mg DAILY LAN Administration Pharmacy Consult 1 each 03/02/20 19:08 Consult Rx Perform Med Rec MISCELLANE ONCE PRN Consult order Rifaximin 550 mg 03/02/20 21:00 03/05/20 08:20 Rifaximin 550 Mg Tablet PO 550 mg BID LAN Administration Sertraline HCl 100 mg 03/03/20 09:00 03/05/20 08:21 Sertraline Hcl 100 Mg Tablet PO 100 mg DAILY LAN Administration Sodium Bicarbonate 650 mg 03/04/20 09:00 03/05/20 08:20 Sodium Bicarbonate 650 Mg Tablet PO 650 mg TID LAN Administration Sodium Chloride 3 ml 03/03/20 00:00 03/05/20 09:30 0.9 % Sodium Chloride Flush 3 Ml Syringe IVFLUSH Not Given QSHIFT [facility] Labs CBC & Chem 7: 03/05/20 05:35 03/05/20 05:35 Assessment and Plan (1) Acute hepatic encephalopathy: Status: Acute (2) Ascites: Status: Acute Assessment and Plan: this is a 74-year-old female with a history KIM, diabetes, seizure disorder, atrial fibrillation on Eliquis, coronary artery disease among others who presented to the emergency department with increasing lethargy found to have hepatic encephalopathy hepatic encephalopathy continue lactulose for 2-4bm/day, rifaximin mental status improved over the last couple of days, although fluctuating, feeding self occasionally, at baseline patient is ambulatory with assistance would like dc home with 24hour care in the next 1-2 days if continues to improve. d/w daughter austin, considering transition to hospice once discharged and has requested informational consult. KIM with esophageal varices Pt has developed recent onset ascites and had a LVP with removal of 5 litres of ascitic fluid on 02/28/20. also s/p paracentesis in ED - fluid studies negative for sbp continue nadolol holding lasix, aldactone for MARCI MARCI resolved hypernatremia and metabolic acidosis hypernatremia resolved, dced d5w continue sodium bicarb po diabetes Toujeo will be converted to Lantus SSI, POCs hypertension continue Norvasc hold losartan for MARCI atrial fibrillation Amiodarone recently d/c per cardiology note continue anticoagulation with Eliquis seizure disorder continue keppra anemia H/H at baseline follow CBC tremor, question of Parkinson's no longer on primidone mood sertraline DVT prophylaxis- Eliquis code status- MOLST form in chart DNR DNI
[2020-03-05 12:01] LABS: Glucose, Whole Blood 148 mg/dL (60-115)
--- NOTE | 2020-03-05 13:26 | MHC.CLN ---
RE: CONSULT RECOMMEND 1200DM 2GM NA DIET R/T HX DM/CAD/CHF WILL START GLUCERNA AND DUKE TO PROMOTE WOUND HEALING
--- NOTE | 2020-03-05 15:03 | MHC.CM.PN ---
Referral sent for consult with [facility]. Pt active with [facility].
[2020-03-05] MEDS: 0.9 % Sodium Chloride Flush 3 ML SYRINGE IVFLUSH ×2 (16:04→20:56)
[2020-03-05 16:08] LABS: Vitamin B12 1497 pg/mL (200-900)
[2020-03-05 16:13] LABS: Glucose, Whole Blood 188 mg/dL (60-115)
[2020-03-05] MEDS: Insulin Lispro 100 UNIT/ML 3 ML VIAL SUBCUT ×2 (16:50→20:56)
[2020-03-05 20:15] LABS: Glucose, Whole Blood 168 mg/dL (60-115)
[2020-03-06] VITALS (7 sets, daily range): BP systolic 114–150; BP diastolic 57–67; PULSE 56–72; RESP 18–20; TEMP 36.5–37; O2SAT 95–98
--- NOTE | 2020-03-06 | US_ITS ---
EXAMINATION: US ABDOMEN LIMITED CLINICAL INFORMATION: Ascites. Patient presents for therapeutic paracentesis. COMPARISON: Previous paracentesis exam 02/28/2020 TECHNIQUE: Limited 4 quadrant abdominal ultrasound FINDINGS: There is a small amount of ascites in both upper quadrants. Therapeutic paracentesis was not performed due to small volume of ascites. US/US abdomen limited IMPRESSION: Small amount of ascites. Therapeutic paracentesis was not performed.
[2020-03-06 06:18] LABS: MANUAL DIFF FLAG NO
[2020-03-06 06:36] LABS: Ammonia 96 umol/L (13-55)
[2020-03-06 06:53] LABS: Basophils Percent Auto 0.4 % (0-2); Eosinophils Absolute Auto 0.2 X10*3/uL (0.0-0.4); Eosinophils Percent Auto 1.4 % (0-4); Hematocrit 27.4 % (37-47); Hemoglobin 8.4 g/dl (12.0-16.0); Imm Gran Abs Auto 0.08 X10*3/uL (0.00-0.03); Imm Gran Pct Auto 0.7 % (0.0-0.4); Lymphocytes Absolute Auto 0.9 X10*3/uL (1.2-4.9); Lymphocytes Percent Auto 8.6 % (20-40); Mean Corpuscular HGB Conc 30.7 g/dl (31.0-35.0); Mean Corpuscular Hemoglobin 28.3 pg (27.0-33.0); Mean Corpuscular Volume 92.3 fL (80-98); Mean Platelet Volume 11.2 fL (9.4-12.3); Monocytes Absolute Auto 1.3 X10*3/uL (0.1-1.2); Monocytes Percent Auto 11.7 % (2-11); Neutrophils Absolute Auto 8.4 X10*3/uL (2.0-8.3); Neutrophils Percent Auto 77.2 % (45-73); Platelet Count 180 X10*3/uL (160-400); Red Blood Count 2.97 X10*6/uL (4.20-5.50); Red Cell Distribution Width 19.1 % (11.0-16.0); White Blood Count 10.9 X10*3/uL (4.8-10.8)
[2020-03-06 06:54] LABS: Anion Gap 14 (12-20); Blood Urea Nitrogen 21 mg/dL (9-16); Calcium 8.3 mg/dL (8.4-10.2); Carbon Dioxide 16 mmol/L (22-29); Chloride 114 mmol/L (96-108); Creatinine Clr Calc Pharmacy 33.4; Estimated Glomerular Filt Rate 42; Glucose Fasting 162 mg/dL (60-99); Potassium 3.8 mmol/l (3.3-5.1); Sodium 140 mmol/L (135-145)
[2020-03-06 07:43] LABS: Glucose, Whole Blood 136 mg/dL (60-115)
[2020-03-06] MEDS: rifAXIMin 550 MG TABLET PO ×2 (08:53→22:29)
[2020-03-06] MEDS: Sertraline HCL 100 MG TABLET PO (08:53)
[2020-03-06] MEDS: amLODIPine Besylate 5 MG TABLET PO (08:53)
[2020-03-06] MEDS: Omeprazole 40 MG CAPSULE.DR PO (08:53)
[2020-03-06] MEDS: 0.9 % Sodium Chloride Flush 3 ML SYRINGE IVFLUSH ×3 (08:53→22:30)
[2020-03-06] MEDS: Lactulose 20 GM/30 ML SOLUTION PO ×2 (08:54→22:29)
[2020-03-06] MEDS: Apixaban 5 MG TABLET PO ×2 (08:54→22:29)
[2020-03-06] MEDS: Sodium Bicarbonate 650 MG TABLET PO ×3 (08:54→22:29)
[2020-03-06] MEDS: Insulin Glargine,Hum.rec.anlog 100 UNIT/ML 10 ML VIAL 12 UNIT SUBCUT (08:54)
[2020-03-06] MEDS: levETIRAcetam 250 MG TABLET PO (08:54)
[2020-03-06 11:51] LABS: Glucose, Whole Blood 301 mg/dL (60-115)
[2020-03-06] MEDS: Insulin Lispro 100 UNIT/ML 3 ML VIAL SUBCUT ×2 (12:14→17:08)
--- NOTE | 2020-03-06 12:44 | MHC.CM.PN ---
Per 's request, CM spoke with Daughter/HCP/Sirena @ [phone]. Per Sirena, no decision regarding Hospice has been made. Patient will return home with resumption of [facility] and if in the future Hospice is the plan, [facility] would likely be able to transition into Hospice easily. Sirena requested a call from , who is agreeable to call Sirena back. SUMA will continue to follow for dc planning.
--- NOTE | 2020-03-06 15:04 | P.PNIM_ITS ---
Subjective Subjective Date of Service: 03/06/20 Interval History: Patient seen and examined at bedside Patient is more awake today Cardiovascular Cardiovascular: Reports no additional cardiovascular complaints Respiratory Respiratory: Reports no additional respiratory complaints Gastrointestinal Gastrointestinal: Reports no additional gastrointestinal complaints Physical Exam Vital Signs: Vital Signs: Last Vital Signs Temp 97.7 F 03/06/20 12:57 Pulse 56 03/06/20 12:57 Resp 18 03/06/20 12:57 BP 114/57 L 03/06/20 12:57 Pulse Ox 97 03/06/20 12:57 Body Mass Index 27.0 Const: General: awake and lethargic Nutritional Appearance: well nourished Orientation/consciousness: lethargic HENMT: Head: Yes normocephalic and Yes atraumatic Eyes: Sclerae: sclerae normal Chest: Chest palpation & inspection: normal inspection of the chest Resp: Effort & Inspection: normal respiratory effort and no respiratory distress Cardio: Rate: regular rate GI: Other: undergoing bedside paracentesis Palpation (GI): Soft to palpation and nontender Skin: General skin exam: no rashes or lesions noted Neuro: Cranial nerves: Yes CN's II-XII intact bilaterally and Yes Bilaterally intact EOM present Extrem: General: Yes normal to inspection Objective Data Current Medications Generic Name Dose Route Start Last Admin Trade Name Freq PRN Reason Stop Dose Admin Acetaminophen 650 mg 03/02/20 20:49 Acetaminophen 325 Mg Tablet PO Q6H PRN Pain, Mild (Pain Scale 1-3) Amlodipine Besylate 5 mg 03/03/20 09:00 03/06/20 08:53 Amlodipine Besylate 5 Mg Tablet PO 5 mg DAILY LAN Administration Protocol Apixaban 5 mg 03/02/20 21:00 03/06/20 08:54 Apixaban 5 Mg Tablet PO 5 mg BID LAN Administration Docusate Sodium 100 mg 03/02/20 20:49 Docusate Sodium 100 Mg Capsule PO DAILY PRN Constipation Albumin Human 100 mls @ 100 mls/hr 03/06/20 14:45 Kedbumin 25 % IV 03/06/20 16:44 Q1H [facility] Insulin Glargine 12 unit 03/03/20 09:00 03/06/20 08:54 Insulin Glargine,Hum.Rec.Anlog 100 Unit/Ml 10 Ml Vial SUBCUT 12 unit DAILY LAN Administration Insulin Human Lispro 0 unit 03/02/20 21:00 03/06/20 12:14 Insulin Lispro 100 Unit/Ml 3 Ml Vial SUBCUT 8 unit QIDACHS [facility] Administration Protocol Lactulose 20 gm 03/06/20 15:00 Lactulose 20 Gm/30 Ml Solution PO TID LAN Levetiracetam 250 mg 03/03/20 09:00 03/06/20 08:54 Levetiracetam 250 Mg Tablet PO 250 mg DAILY LAN Administration Nadolol 40 mg 03/03/20 09:00 03/06/20 08:53 Nadolol 40 Mg Tablet PO 40 mg DAILY LAN Administration Protocol Omeprazole 40 mg 03/03/20 09:00 03/06/20 08:53 Omeprazole 40 Mg Capsule. PO 40 mg DAILY [facility] Administration Pharmacy Consult 1 each 03/02/20 19:08 Consult Rx Perform Med Rec MISCELLANE ONCE PRN Consult order Rifaximin 550 mg 03/02/20 21:00 03/06/20 08:53 Rifaximin 550 Mg Tablet PO 550 mg BID LAN Administration Sertraline HCl 100 mg 03/03/20 09:00 03/06/20 08:53 Sertraline Hcl 100 Mg Tablet PO 100 mg DAILY LAN Administration Sodium Bicarbonate 650 mg 03/04/20 09:00 03/06/20 08:54 Sodium Bicarbonate 650 Mg Tablet PO 650 mg TID LAN Administration Sodium Chloride 3 ml 03/03/20 00:00 03/06/20 08:53 0.9 % Sodium Chloride Flush 3 Ml Syringe IVFLUSH 3 ml QSHIFT [facility] Administration Labs CBC & Chem 7: 03/06/20 05:39 03/06/20 05:39 Assessment and Plan (1) Acute hepatic encephalopathy: Status: Acute (2) Ascites: Status: Acute Assessment and Plan: this is a 74-year-old female with a history KIM, diabetes, seizure disorder, atrial fibrillation on Eliquis, coronary artery disease among others who presented to the emergency department with increasing lethargy found to have hep atic encephalopathy hepatic encephalopathy improving Continue rifaximin Lactulose dose reduced b.i.d. given diarrhea KIM with esophageal varices Pt has developed recent onset ascites and had a LVP with removal of 5 litres of ascitic fluid on 02/28/20. also s/p paracentesis in ED - fluid studies negative for sbp continue nadolol holding lasix, aldactone for AMRCI per gastroenterology, will hold Lasix and Aldactone on discharge, patient will follow-up with gastroenterology Dr. Dobbs will decide outpatient for restarting Lasix Plan for large volume paracentesis today Will give albumin MARCI initially resolved Lasix were restarted, creatinine mildly trended up today Will hold Lasix Monitor kidney functions hypernatremia and metabolic acidosis hypernatremia resolved, dced d5w continue sodium bicarb po diabetes Continue Lantus SSI, POCs hypertension continue Norvasc hold losartan for MARCI atrial fibrillation Amiodarone recently d/c per cardiology note continue anticoagulation with Eliquis seizure disorder continue keppra anemia H/H at baseline follow CBC tremor, question of Parkinson's no longer on primidone mood sertraline DVT prophylaxis- Eliquis code status- MOLST form in chart DNR DNI Plan to dc home with 24hour care in the next 1-2 days if continues to improve. And if kidney function remained stable Family will decide for hospice after discharge have not decided yet
[2020-03-06 16:55] LABS: Glucose, Whole Blood 189 mg/dL (60-115)
--- NOTE | 2020-03-06 18:10 | PC.NURSE ---
Patient OOB frequently with standby assist/walker to BR for loose stools (occasionally incontinent). Lactulose decreased to BID from QID per MD order. Good appetite. POC covered PRN with SS. Pt had left unit to go for paracentesis, however very little acites noted and procedure cancelled. Albumin to be held per MD order. Foam dressing placed on coccyx for scab fell off of Stage II (see pictures #1 #2). Patient can be alert and oriented at times but also has periods of confusion. Bed alarm and chair alarm on fo safety. Tele NSR. Denies SOB/CP at this time. Will continue to monitor
[2020-03-06 20:09] LABS: Glucose, Whole Blood 161 mg/dL (60-115)
[2020-03-07 04:00] VITALS: BP 132/60; PULSE 52; RESP 18; TEMP 36.8; O2SAT 97
[2020-03-07 07:21] VITALS: BP 130/63; PULSE 51; RESP 18; TEMP 36.2; O2SAT 96
[2020-03-07 07:25] LABS: Glucose, Whole Blood 112 mg/dL (60-115)
[2020-03-07] MEDS: Insulin Glargine,Hum.rec.anlog 100 UNIT/ML 10 ML VIAL 12 UNIT SUBCUT (08:19)
[2020-03-07] MEDS: levETIRAcetam 250 MG TABLET PO (08:19)
[2020-03-07] MEDS: 0.9 % Sodium Chloride Flush 3 ML SYRINGE IVFLUSH ×2 (08:19→15:59)
[2020-03-07] MEDS: rifAXIMin 550 MG TABLET PO (08:19)
[2020-03-07] MEDS: Sodium Bicarbonate 650 MG TABLET PO ×2 (08:19→15:59)
[2020-03-07] MEDS: Omeprazole 40 MG CAPSULE.DR PO (08:19)
[2020-03-07] MEDS: Apixaban 5 MG TABLET PO (08:19)
[2020-03-07] MEDS: Sertraline HCL 100 MG TABLET PO (08:19)
[2020-03-07] MEDS: amLODIPine Besylate 5 MG TABLET PO (08:19)
[2020-03-07] MEDS: Lactulose 20 GM/30 ML SOLUTION PO (08:19)
--- NOTE | 2020-03-07 11:30 | MHC.CLN ---
F/U PO INTAKE 75-100% IMPROVED DIET RX: 1200DM 2GM NA-APPROPRIATE PT RECEIVING GLUCERNA AND DUKE TO PROMOTE WOUND HEALING FOLLOWING
[2020-03-07 11:57] LABS: Glucose, Whole Blood 230 mg/dL (60-115)
[2020-03-07 12:00] VITALS: BP 137/66; PULSE 78; RESP 18; TEMP 36.8; O2SAT 94
[2020-03-07] MEDS: Insulin Lispro 100 UNIT/ML 3 ML VIAL SUBCUT ×2 (12:05→16:25)
--- NOTE | 2020-03-07 12:08 | MHC.CM.PN ---
Patient has been medically cleared for dc to home today with resumption of 01/09 private [facility] and [facility], who has been notified of today's dc. SUMA spoke with Daughter/HCP/Sirena at [phone] who is aware of and in agreement with the dc plan. Sirena requested that another IMM NOT be mailed out again. Last IMM addressed 03/03/20.Patient will dc to home today at 6PM, via [facility]
--- NOTE | 2020-03-07 12:27 | PM.DS ---
DS: Providers Provider Date of Service: 03/07/20 Date of admission: 03/02/20 20:14 Primary care physician: Mahsa Torres MD DS: Diagnosis Discharge Diagnosis (1) Acute hepatic encephalopathy: Status: Acute (2) Ascites: Status: Acute (3) MARCI (acute kidney injury): Status: Acute (4) KIM (nonalcoholic steatohepatitis): Status: Acute DS: Medications Discharge Medications Home Medications: Home Medications Medication Instructions Recorded Confirmed amlodipine 5 mg tablet 5 mg PO DAILY 12/05/19 03/02/20 apixaban 5 mg tablet 5 mg PO BID 12/05/19 03/02/20 insulin glargine U-300 conc 300 15 unit SUBCUT DAILY ml 12/05/19 03/02/20 unit/mL (3 mL) subcutaneous pen insulin lispro [Humalog KwikPen 11 unit SUBCUT TIDAC 03/02/20 03/02/20 Insulin] levetiracetam [Keppra] 250 mg PO DAILY 03/02/20 03/02/20 Previous Rx's Medication Instructions Recorded allopurinol 100 mg tablet 100 mg PO DAILY #30 tab 12/30/19 pen needle, diabetic 32 gauge x #5 box 01/11/20 1/ nadolol 40 mg tablet 40 mg PO DAILY #90 tab 01/16/20 lactulose 20 gram/30 mL oral 20 g PO BID #1000 ml 01/18/20 solution omeprazole 40 mg capsule,delayed 40 mg PO DAILY #90 cap 01/18/20 release rifaximin 550 mg tablet 550 mg PO BID 30 Days #60 tab 01/24/20 pen needle, diabetic 32 gauge x #400 ea 01/25/20 sertraline 100 mg tablet 100 mg PO DAILY #90 tab 02/16/20 metformin 500 mg tablet 500 mg PO BID #90 tab 02/28/20 DS: Summary Hospital Course Hospital Course: Patient presented to the hospital with confusion which who is in secondary to hepatic encephalopathy. She was treated with higher frequency of lactulose and continued on rifaximin. She was ruled out for SBP with a negative large volume paracentesis. Patient was restarted on her diuretics but had mild resultant acute kidney insult these were discontinued. Re-initiation will be determined on an outpatient setting by Gastroenterology. Her Lasix, Aldactone, losartan have been discontinued the time of discharge. Her other chronic conditions were stable at time of discharge. She will resume her 01/09 her home. Consideration for palliative/hospice care transition has been recommended to her daughter. Time Spent with Patient Time attestation: Total time spent providing and/or coordinating discharge services: Discharge coordination time: Greater than 30 minutes Physical Exam Vital Signs: Vital Signs: Last Vital Signs Temp 98.2 F 03/07/20 12:00 Pulse 78 03/07/20 12:00 Resp 18 03/07/20 12:00 BP 137/66 03/07/20 12:00 Pulse Ox 94 03/07/20 12:00 Body Mass Index 27.0 Const: Other: General - no acute distress, appears comfortable Cardiovascular - regular rate and rhythm, S1-S2 Lungs - normal respiratory effort, clear to auscultation bilaterally, no wheezing Abdomen - soft, nontender, no rebound or guarding Extremities - no edema bilaterally Neuro - awake and alert, no focal deficits DS: Data Data Completed and Pending Completed studies during hospitalization [Text1]: Procedures Excision of Cecum, Via Natural or Artificial Opening Endoscopic (12/09/19) Excision of Sigmoid Colon, Via Natural or Artificial Opening Endoscopic, Diagnostic (12/09/19) Excision of Transverse Colon, Via Natural or Artificial Opening Endoscopic, Diagnostic (12/09/19) Occlusion of Esophageal Vein with Extraluminal Device, Via Natural or Artificial Opening Endoscopic (12/09/19) Transfusion of Nonautologous Red Blood Cells into Peripheral Vein, Percutaneous Approach (12/09/19) Labs on day of discharge: Laboratory Tests 03/02/20 03/02/20 03/02/20 16:11 16:11 16:11 WBC 14.7 H RBC 3.39 L Hgb 9.7 L Hct 32.0 L MCV 94.4 MCH 28.6 MCHC 30.3 L RDW 19.9 H Plt Count 263 MPV 10.7 Immature Gran % (Auto) 0.7 H Neut % (Auto) 75.0 H Lymph % (Auto) 9.9 L [place] % (Auto) 13.2 H Eos % (Auto) 0.9 Baso % (Auto) 0.3 Lymph # (Auto) 1.5 [place] # (Auto) 1.9 H Eos # (Auto) 0.1 Baso # (Auto) 0.1 Abs Immat Gran (auto) 0.11 H Absolute Neuts (auto) 11.0 H Absolute Nucleated RBC 0.000 Nucleated RBC % (auto) 0.0 Smear Tech's Comments VERIFIED PT 18.2 H D INR 1.5 H Sodium 140 Potassium 3.9 Chloride 116 H Carbon Dioxide 13 L Anion Gap 15 BUN 22 H Creatinine 1.42 H Estim Creat Clear Calc 29.0 Estimated GFR 36 POC Glucose Random Glucose 160 H Fasting Glucose Calcium 8.9 Magnesium Total Bilirubin Direct Bilirubin AST ALT Alkaline Phosphatase Ammonia Troponin I High Sens B-Natriuretic Peptide Total Protein Albumin Triglycerides 255 Cholesterol 200 LDL Cholesterol, Calc 128 HDL Cholesterol 21 Vitamin B12 Hold Red Top Hold Yellow Top Peritoneal pH Peritoneal WBC Peritoneal RBC Periton Neutrophils Periton Lymphocytes Peritoneal Monocytes Peritoneal Eosinophils Peritoneal Basophils Peritoneal Other Cells Peritoneal Tot Protein Peritoneal Albumin Peritoneal LDH Peritoneal Glucose Peritoneal Amylase COVID-19 (RUDDY) [employer] [place] 03/02/20 03/02/20 03/02/20 16:11 16:13 17:46 WBC RBC Hgb Hct MCV MCH MCHC RDW Plt Count MPV Immature Gran % (Auto) Neut % (Auto) Lymph % (Auto) [place] % (Auto) Eos % (Auto) Baso % (Auto) Lymph # (Auto) [place] # (Auto) Eos # (Auto) Baso # (Auto) Abs Immat Gran (auto) Absolute Neuts (auto) Absolute Nucleated RBC Nucleated RBC % (auto) Smear Tech's Comments PT INR Sodium Potassium Chloride Carbon Dioxide Anion Gap BUN Creatinine Estim Creat Clear Calc Estimated GFR POC Glucose Random Glucose Fasting Glucose Calcium Magnesium Total Bilirubin Direct Bilirubin AST ALT Alkaline Phosphatase Ammonia 98 H Troponin I High Sens 6.4 B-Natriuretic Peptide 184 H Total Protein Albumin Triglycerides Cholesterol LDL Cholesterol, Calc HDL Cholesterol Vitamin B12 Hold Red Top Hold Yellow Top See Note Peritoneal pH Peritoneal WBC Peritoneal RBC Periton Neutrophils Periton Lymphocytes Peritoneal Monocytes Peritoneal Eosinophils Peritoneal Basophils Peritoneal Other Cells Peritoneal Tot Protein Peritoneal Albumin Peritoneal LDH Peritoneal Glucose Peritoneal Amylase COVID-19 (RUDDY) COVID-19 [employer] 03/02/20 03/02/20 03/02/20 17:47 17:48 19:06 WBC RBC Hgb Hct MCV MCH MCHC RDW Plt Count MPV Immature Gran % (Auto) Neut % (Auto) Lymph % (Auto) [place] % (Auto) Eos % (Auto) Baso % (Auto) Lymph # (Auto) [place] # (Auto) Eos # (Auto) Baso # (Auto) Abs Immat Gran (auto) Absolute Neuts (auto) Absolute Nucleated RBC Nucleated RBC % (auto) Smear Tech's Comments PT INR Sodium Potassium Chloride Carbon Dioxide Anion Gap BUN Creatinine Estim Creat Clear Calc Estimated GFR POC Glucose Random Glucose Fasting Glucose Calcium Magnesium Total Bilirubin Direct Bilirubin AST ALT Alkaline Phosphatase Ammonia Troponin I High Sens B-Natriuretic Peptide Total Protein Albumin Triglycerides Cholesterol LDL Cholesterol, Calc HDL Cholesterol Vitamin B12 Hold Red Top See Note Hold Yellow Top Peritoneal pH Peritoneal WBC 0.290 Peritoneal RBC 0.011 Periton Neutrophils 4 Periton Lymphocytes 34 Peritoneal Monocytes 52 Peritoneal Eosinophils 0 Peritoneal Basophils 0 Peritoneal Other Cells 10 Peritoneal Tot Protein Peritoneal Albumin Peritoneal LDH Peritoneal Glucose Peritoneal Amylase COVID-19 (RUDDY) Negative COVID-19 [facility] Com See Note 03/02/20 03/02/20 03/02/20 19:06 19:06 21:37 WBC RBC Hgb Hct MCV MCH MCHC RDW Plt Count MPV Immature Gran % (Auto) Neut % (Auto) Lymph % (Auto) [place] % (Auto) Eos % (Auto) Baso % (Auto) Lymph # (Auto) [place] # (Auto) Eos # (Auto) Baso # (Auto) Abs Immat Gran (auto) Absolute Neuts (auto) Absolute Nucleated RBC Nucleated RBC % (auto) Smear Tech's Comments PT INR Sodium Potassium Chloride Carbon Dioxide Anion Gap BUN Creatinine Estim Creat Clear Calc Estimated GFR POC Glucose 137 H Random Glucose Fasting Glucose Calcium Magnesium Total Bilirubin Direct Bilirubin AST ALT Alkaline Phosphatase Ammonia Troponin I High Sens B-Natriuretic Peptide Total Protein Albumin Triglycerides Cholesterol LDL Cholesterol, Calc HDL Cholesterol Vitamin B12 Hold Red Top Hold Yellow Top Peritoneal pH 7.48 Peritoneal WBC Peritoneal RBC Periton Neutrophils Periton Lymphocytes Peritoneal Monocytes Peritoneal Eosinophils Peritoneal Basophils Peritoneal Other Cells Peritoneal Tot Protein 1.0 Peritoneal Albumin 0.5 Peritoneal LDH 37 Peritoneal Glucose 197 Peritoneal Amylase 20 COVID-19 (RUDDY) COVID-19 [employer] 03/03/20 03/03/20 03/03/20 05:15 05:15 05:15 WBC 11.2 H RBC 3.15 L Hgb 9.0 L Hct 29.6 L MCV 94.0 MCH 28.6 MCHC 30.4 L RDW 19.9 H Plt Count 197 D MPV 10.9 Immature Gran % (Auto) 0.4 Neut % (Auto) 73.8 H Lymph % (Auto) 11.8 L [place] % (Auto) 12.0 H Eos % (Auto) 1.6 Baso % (Auto) 0.4 Lymph # (Auto) 1.3 [place] # (Auto) 1.4 H Eos # (Auto) 0.2 Baso # (Auto) 0.0 Abs Immat Gran (auto) 0.05 H Absolute Neuts (auto) 8.3 Absolute Nucleated RBC 0.000 Nucleated RBC % (auto) 0.0 Smear Tech's Comments PT INR Sodium 144 Potassium 3.8 Chloride 119 H Carbon Dioxide 14 L Anion Gap 15 BUN 20 H Creatinine 1.06 Estim Creat Clear Calc 38.8 Estimated GFR 51 POC Glucose Random Glucose 133 H Fasting Glucose Calcium 8.5 Magnesium Total Bilirubin Direct Bilirubin AST ALT Alkaline Phosphatase Ammonia 91 H Troponin I High Sens B-Natriuretic Peptide Total Protein Albumin Triglycerides Cholesterol LDL Cholesterol, Calc HDL Cholesterol Vitamin B12 Hold Red Top Hold Yellow Top Peritoneal pH Peritoneal WBC Peritoneal RBC Periton Neutrophils Periton Lymphocytes Peritoneal Monocytes Peritoneal Eosinophils Peritoneal Basophils Peritoneal Other Cells Peritoneal Tot Protein Peritoneal Albumin Peritoneal LDH Peritoneal Glucose Peritoneal Amylase COVID-19 (RUDDY) COVID-19 [employer] 03/03/20 03/03/20 03/03/20 07:47 11:36 16:22 WBC RBC Hgb Hct MCV MCH MCHC RDW Plt Count MPV Immature Gran % (Auto) Neut % (Auto) Lymph % (Auto) [place] % (Auto) Eos % (Auto) Baso % (Auto) Lymph # (Auto) [place] # (Auto) Eos # (Auto) Baso # (Auto) Abs Immat Gran (auto) Absolute Neuts (auto) Absolute Nucleated RBC Nucleated RBC % (auto) Smear Tech's Comments PT INR Sodium Potassium Chloride Carbon Dioxide Anion Gap BUN Creatinine Estim Creat Clear Calc Estimated GFR POC Glucose 174 H 159 H 180 H Random Glucose Fasting Glucose Calcium Magnesium Total Bilirubin Direct Bilirubin AST ALT Alkaline Phosphatase Ammonia Troponin I High Sens B-Natriuretic Peptide Total Protein Albumin Triglycerides Cholesterol LDL Cholesterol, Calc HDL Cholesterol Vitamin B12 Hold Red Top Hold Yellow Top Peritoneal pH Peritoneal WBC Peritoneal RBC Periton Neutrophils Periton Lymphocytes Peritoneal Monocytes Peritoneal Eosinophils Peritoneal Basophils Peritoneal Other Cells Peritoneal Tot Protein Peritoneal Albumin Peritoneal LDH Peritoneal Glucose Peritoneal Amylase COVID-19 (RUDDY) COVID-19 [employer] 03/03/20 03/04/20 03/04/20 20:14 05:09 05:09 WBC 11.4 H RBC 3.06 L Hgb 8.8 L Hct 29.2 L MCV 95.4 MCH 28.8 MCHC 30.1 L RDW 20.1 H Plt Count 219 MPV 11.3 Immature Gran % (Auto) 0.8 H Neut % (Auto) 75.1 H Lymph % (Auto) 11.3 L [place] % (Auto) 10.9 Eos % (Auto) 1.5 Baso % (Auto) 0.4 Lymph # (Auto) 1.3 [place] # (Auto) 1.2 Eos # (Auto) 0.2 Baso # (Auto) 0.1 Abs Immat Gran (auto) 0.09 H Absolute Neuts (auto) 8.5 H Absolute Nucleated RBC 0.000 Nucleated RBC % (auto) 0.0 Smear Tech's Comments PT 19.8 H INR 1.7 H Sodium Potassium Chloride Carbon Dioxide Anion Gap BUN Creatinine Estim Creat Clear Calc Estimated GFR POC Glucose 171 H Random Glucose Fasting Glucose Calcium Magnesium Total Bilirubin Direct Bilirubin AST ALT Alkaline Phosphatase Ammonia Troponin I High Sens B-Natriuretic Peptide Total Protein Albumin Triglycerides Cholesterol LDL Cholesterol, Calc HDL Cholesterol Vitamin B12 Hold Red Top Hold Yellow Top Peritoneal pH Peritoneal WBC Peritoneal RBC Periton Neutrophils Periton Lymphocytes Peritoneal Monocytes Peritoneal Eosinophils Peritoneal Basophils Peritoneal Other Cells Peritoneal Tot Protein Peritoneal Albumin Peritoneal LDH Peritoneal Glucose Peritoneal Amylase COVID-19 (RUDDY) COVID-19 Clin Com 03/04/20 03/04/20 03/04/20 05:09 07:25 11:24 WBC RBC Hgb Hct MCV MCH MCHC RDW Plt Count MPV Immature Gran % (Auto) Neut % (Auto) Lymph % (Auto) [place] % (Auto) Eos % (Auto) Baso % (Auto) Lymph # (Auto) [place] # (Auto) Eos # (Auto) Baso # (Auto) Abs Immat Gran (auto) Absolute Neuts (auto) Absolute Nucleated RBC Nucleated RBC % (auto) Smear Tech's Comments PT INR Sodium 148 H Potassium 4.3 Chloride 121 H Carbon Dioxide 15 L Anion Gap 16 BUN 23 H Creatinine 1.32 Estim Creat Clear Calc 30.9 Estimated GFR 39 POC Glucose 144 H 337 H Random Glucose Fasting Glucose 134 H Calcium 8.7 Magnesium 1.8 Total Bilirubin 1.0 Direct Bilirubin 0.5 AST 116 H ALT 43 H Alkaline Phosphatase 214 H Ammonia Troponin I High Sens B-Natriuretic Peptide Total Protein 6.7 Albumin 3.3 L Triglycerides Cholesterol LDL Cholesterol, Calc HDL Cholesterol Vitamin B12 Hold Red Top Hold Yellow Top Peritoneal pH Peritoneal WBC Peritoneal RBC Periton Neutrophils Periton Lymphocytes Peritoneal Monocytes Peritoneal Eosinophils Peritoneal Basophils Peritoneal Other Cells Peritoneal Tot Protein Peritoneal Albumin Peritoneal LDH Peritoneal Glucose Peritoneal Amylase COVID-19 (RUDDY) COVID-19 [employer] 03/04/20 03/04/20 03/05/20 16:58 19:36 05:35 WBC 10.5 RBC 3.01 L Hgb 8.5 L Hct 28.0 L MCV 93.0 MCH 28.2 MCHC 30.4 L RDW 19.5 H Plt Count 186 MPV 11.0 Immature Gran % (Auto) 0.9 H Neut % (Auto) 73.5 H Lymph % (Auto) 11.2 L [place] % (Auto) 12.0 H Eos % (Auto) 1.8 Baso % (Auto) 0.6 Lymph # (Auto) 1.2 [place] # (Auto) 1.3 H Eos # (Auto) 0.2 Baso # (Auto) 0.1 Abs Immat Gran (auto) 0.09 H Absolute Neuts (auto) 7.7 Absolute Nucleated RBC 0.000 Nucleated RBC % (auto) 0.0 Smear Tech's Comments PT INR Sodium Potassium Chloride Carbon Dioxide Anion Gap BUN Creatinine Estim Creat Clear Calc Estimated GFR POC Glucose 120 H 156 H Random Glucose Fasting Glucose Calcium Magnesium Total Bilirubin Direct Bilirubin AST ALT Alkaline Phosphatase Ammonia Troponin I High Sens B-Natriuretic Peptide Total Protein Albumin Triglycerides Cholesterol LDL Cholesterol, Calc HDL Cholesterol Vitamin B12 Hold Red Top Hold Yellow Top Peritoneal pH Peritoneal WBC Peritoneal RBC Periton Neutrophils Periton Lymphocytes Peritoneal Monocytes Peritoneal Eosinophils Peritoneal Basophils Peritoneal Other Cells Peritoneal Tot Protein Peritoneal Albumin Peritoneal LDH Peritoneal Glucose Peritoneal Amylase COVID-19 (RUDDY) COVID-19 [employer] 03/05/20 03/05/20 03/05/20 05:35 07:30 08:09 WBC RBC Hgb Hct MCV MCH MCHC RDW Plt Count MPV Immature Gran % (Auto) Neut % (Auto) Lymph % (Auto) [place] % (Auto) Eos % (Auto) Baso % (Auto) Lymph # (Auto) [place] # (Auto) Eos # (Auto) Baso # (Auto) Abs Immat Gran (auto) Absolute Neuts (auto) Absolute Nucleated RBC Nucleated RBC % (auto) Smear Tech's Comments PT INR Sodium 137 Potassium 4.1 Chloride 111 H Carbon Dioxide 16 L Anion Gap 14 BUN 18 H Creatinine 0.96 Estim Creat Clear Calc 42.5 Estimated GFR 57 POC Glucose 167 H Random Glucose Fasting Glucose 173 H Calcium 8.4 Magnesium 1.4 L* Total Bilirubin Direct Bilirubin AST ALT Alkaline Phosphatase Ammonia Troponin I High Sens B-Natriuretic Peptide Total Protein Albumin Triglycerides Cholesterol LDL Cholesterol, Calc HDL Cholesterol Vitamin B12 1497 H Hold Red Top Hold Yellow Top Peritoneal pH Peritoneal WBC Peritoneal RBC Periton Neutrophils Periton Lymphocytes Peritoneal Monocytes Peritoneal Eosinophils Peritoneal Basophils Peritoneal Other Cells Peritoneal Tot Protein Peritoneal Albumin Peritoneal LDH Peritoneal Glucose Peritoneal Amylase COVID-19 (RUDDY) COVID-19 Clin Com 03/05/20 03/05/20 03/05/20 11:47 15:34 19:08 WBC RBC Hgb Hct MCV MCH MCHC RDW Plt Count MPV Immature Gran % (Auto) Neut % (Auto) Lymph % (Auto) [place] % (Auto) Eos % (Auto) Baso % (Auto) Lymph # (Auto) [place] # (Auto) Eos # (Auto) Baso # (Auto) Abs Immat Gran (auto) Absolute Neuts (auto) Absolute Nucleated RBC Nucleated RBC % (auto) Smear Tech's Comments PT INR Sodium Potassium Chloride Carbon Dioxide Anion Gap BUN Creatinine Estim Creat Clear Calc Estimated GFR POC Glucose 148 H 188 H 168 H Random Glucose Fasting Glucose Calcium Magnesium Total Bilirubin Direct Bilirubin AST ALT Alkaline Phosphatase Ammonia Troponin I High Sens B-Natriuretic Peptide Total Protein Albumin Triglycerides Cholesterol LDL Cholesterol, Calc HDL Cholesterol Vitamin B12 Hold Red Top Hold Yellow Top Peritoneal pH Peritoneal WBC Peritoneal RBC Periton Neutrophils Periton Lymphocytes Peritoneal Monocytes Peritoneal Eosinophils Peritoneal Basophils Peritoneal Other Cells Peritoneal Tot Protein Peritoneal Albumin Peritoneal LDH Peritoneal Glucose Peritoneal Amylase COVID-19 (RUDDY) COVID-19 Clin Com 03/06/20 03/06/20 03/06/20 05:39 05:39 05:39 WBC 10.9 H RBC 2.97 L Hgb 8.4 L Hct 27.4 L MCV 92.3 MCH 28.3 MCHC 30.7 L RDW 19.1 H Plt Count 180 MPV 11.2 Immature Gran % (Auto) 0.7 H Neut % (Auto) 77.2 H Lymph % (Auto) 8.6 L [place] % (Auto) 11.7 H Eos % (Auto) 1.4 Baso % (Auto) 0.4 Lymph # (Auto) 0.9 L [place] # (Auto) 1.3 H Eos # (Auto) 0.2 Baso # (Auto) 0.0 Abs Immat Gran (auto) 0.08 H Absolute Neuts (auto) 8.4 H Absolute Nucleated RBC 0.000 Nucleated RBC % (auto) 0.0 Smear Tech's Comments PT INR Sodium 140 Potassium 3.8 Chloride 114 H Carbon Dioxide 16 L Anion Gap 14 BUN 21 H Creatinine 1.24 Estim Creat Clear Calc 33.4 Estimated GFR 42 POC Glucose Random Glucose Fasting Glucose 162 H Calcium 8.3 L Magnesium Total Bilirubin Direct Bilirubin AST ALT Alkaline Phosphatase Ammonia 96 H Troponin I High Sens B-Natriuretic Peptide Total Protein Albumin Triglycerides Cholesterol LDL Cholesterol, Calc HDL Cholesterol Vitamin B12 Hold Red Top Hold Yellow Top Peritoneal pH Peritoneal WBC Peritoneal RBC Periton Neutrophils Periton Lymphocytes Peritoneal Monocytes Peritoneal Eosinophils Peritoneal Basophils Peritoneal Other Cells Peritoneal Tot Protein Peritoneal Albumin Peritoneal LDH Peritoneal Glucose Peritoneal Amylase COVID-19 (RUDDY) [employer] [place] 03/06/20 03/06/20 03/06/20 07:18 11:01 16:51 WBC RBC Hgb Hct MCV MCH MCHC RDW Plt Count MPV Immature Gran % (Auto) Neut % (Auto) Lymph % (Auto) [place] % (Auto) Eos % (Auto) Baso % (Auto) Lymph # (Auto) [place] # (Auto) Eos # (Auto) Baso # (Auto) Abs Immat Gran (auto) Absolute Neuts (auto) Absolute Nucleated RBC Nucleated RBC % (auto) Smear Tech's Comments PT INR Sodium Potassium Chloride Carbon Dioxide Anion Gap BUN Creatinine Estim Creat Clear Calc Estimated GFR POC Glucose 136 H 301 H 189 H Random Glucose Fasting Glucose Calcium Magnesium Total Bilirubin Direct Bilirubin AST ALT Alkaline Phosphatase Ammonia Troponin I High Sens B-Natriuretic Peptide Total Protein Albumin Triglycerides Cholesterol LDL Cholesterol, Calc HDL Cholesterol Vitamin B12 Hold Red Top Hold Yellow Top Peritoneal pH Peritoneal WBC Peritoneal RBC Periton Neutrophils Periton Lymphocytes Peritoneal Monocytes Peritoneal Eosinophils Peritoneal Basophils Peritoneal Other Cells Peritoneal Tot Protein Peritoneal Albumin Peritoneal LDH Peritoneal Glucose Peritoneal Amylase COVID-19 (RUDDY) COVID-19 [employer] 03/06/20 03/07/20 03/07/20 20:06 07:18 11:54 WBC RBC Hgb Hct MCV MCH MCHC RDW Plt Count MPV Immature Gran % (Auto) Neut % (Auto) Lymph % (Auto) [place] % (Auto) Eos % (Auto) Baso % (Auto) Lymph # (Auto) [place] # (Auto) Eos # (Auto) Baso # (Auto) Abs Immat Gran (auto) Absolute Neuts (auto) Absolute Nucleated RBC Nucleated RBC % (auto) Smear Tech's Comments PT INR Sodium Potassium Chloride Carbon Dioxide Anion Gap BUN Creatinine Estim Creat Clear Calc Estimated GFR POC Glucose 161 H 112 230 H Random Glucose Fasting Glucose Calcium Magnesium Total Bilirubin Direct Bilirubin AST ALT Alkaline Phosphatase Ammonia Troponin I High Sens B-Natriuretic Peptide Total Protein Albumin Triglycerides Cholesterol LDL Cholesterol, Calc HDL Cholesterol Vitamin B12 Hold Red Top Hold Yellow Top Peritoneal pH Peritoneal WBC Peritoneal RBC Periton Neutrophils Periton Lymphocytes Peritoneal Monocytes Peritoneal Eosinophils Peritoneal Basophils Peritoneal Other Cells Peritoneal Tot Protein Peritoneal Albumin Peritoneal LDH Peritoneal Glucose Peritoneal Amylase COVID-19 (RUDDY) COVID-19 Clin Com Discharge Plan Discharge Patient Disposition: Home Health Service Referrals: [facility] [Outside] Kasandra Dobbs MD [Physician] - Po,Mahsa Nevarez MD [Primary Care Provider] - Discharge Medications: Continued allopurinol 100 mg tablet 100 mg PO DAILY Qty: 30 RF: 3 (DME) NovoFine Plus 32 gauge x 1/6 needle See Rx Instructions .ROUTE .MEDSUPPLY Qty: 5 RF: 0 nadolol 40 mg tablet 40 mg PO DAILY Qty: 90 RF: 1 lactulose 20 gram/30 mL solution 20 g PO BID Qty: 1000 RF: 12 omeprazole 40 mg capsule,delayed release(DR/EC) 40 mg PO DAILY Qty: 90 RF: 3 Xifaxan 550 mg tablet 550 mg PO BID 30 Days Qty: 60 RF: 1 (DME) pen needle, diabetic [BD Ryanne 2nd Gen Pen Needle] 32 gauge x 5/32 needle See Rx Instructions .MEDSUPPLY Qty: 400 RF: 4 sertraline 100 mg tablet 100 mg PO DAILY Qty: 90 RF: 2 metformin 500 mg tablet 500 mg PO BID Qty: 90 RF: 2 levetiracetam [Keppra] 250 mg Tablet 250 mg PO DAILY RF: 0 insulin lispro [Humalog KwikPen Insulin] 100 unit/mL insulin pen 11 unit subcut TIDAC RF: 0 Eliquis 5 mg tablet 5 mg PO BID RF: 0 Hold Instructions: Resume on 12/19/19. amlodipine 5 mg tablet 5 mg PO DAILY RF: 0 Toujeo Max U-300 SoloStar 300 unit/mL (3 mL) insulin pen 15 unit subcut DAILY RF: 0 Discontinued furosemide [Lasix] 20 mg tablet 20 mg PO DAILY Qty: 90 RF: 1 amiodarone 200 mg Tablet 200 mg PO DAILY RF: 0 spironolactone 25 mg tablet 25 mg PO DAILY RF: 0 losartan 100 mg tablet 100 mg PO DAILY RF: 0 Discharge Orders: Discharge Order (Routine); Ordered 03/07/20 Ordered By: Raghu Galindo Diet: advance to usual diet Activity on Discharge: As tolerated Stand Alone Forms: Patient Portal Discharge page Care Plan Goals: To stay healthy and out of the hospital. Health Concerns: Hepatic Encephalopathy Ascites / Fluid Plan of Treatment: Hepatic Encephalopathy - Take Lacutlose twice daily. Take Rifixamin Ascites / Fluid - Do not take lasix / aldactone until advised to do so by your doctors
[2020-03-07 15:22] VITALS: BP 121/60; PULSE 59; RESP 18; TEMP 36.8; O2SAT 96
[2020-03-07 16:26] LABS: Glucose, Whole Blood 187 mg/dL (60-115)
== END 2020-03-07 18:26 | disposition home health service (06) | DRG 442 ==
LOC: HO.ED 19:24 → HO.EDOVER 20:24 → HO.IMC 03-03 00:41
PROVIDERS: Internal Medicine; Internal Medicine Gastroenterology; Physician Assistant Medical; Radiology Diagnostic Radiology; Admitting Provider Internal Medicine; Emergency Provider Emergency Medicine; PCP Internal Medicine; Visit Provider Family Medicine
DX: K72.00 Acute and subacute hepatic failure without coma (principal); N17.9 Acute kidney failure, unspecified; I85.00 Esophageal varices without bleeding; R18.8 Other ascites; E87.2 Acidosis; E87.0 Hyperosmolality and hypernatremia; F32.9 Major depressive disorder, single episode, unspecified; F41.9 Anxiety disorder, unspecified; G40.909 Epilepsy, unspecified, not intractable, without status epilepticus; M10.9 Gout, unspecified; G20 Parkinson's disease; I48.91 Unspecified atrial fibrillation; K75.81 Nonalcoholic steatohepatitis (NASH); K74.60 Unspecified cirrhosis of liver; Z20.828 Contact with and (suspected) exposure to other viral communicable diseases; Z79.4 Long term (current) use of insulin; Z79.01 Long term (current) use of anticoagulants; Z79.899 Other long term (current) drug therapy; Z66 Do not resuscitate
CPT/HCPCS: 36415; 49083; 76705; 80048; 80061; 80076; 81003; 82042; 82140; 82150; 82607; 82945; 82947; 83615; 83735; 83880; 83986; 84157; 84484; 85025; 85610; 85730; 87070; 87073; 87205; 87635; 89051; 93005; 99284; 99285; J3010; J3475; P9047

== ENCOUNTER 2020-03-12 14:09 | Inpatient (IN) | payer MEDICARE, SELFPAY ==
--- NOTE | ~2020-03-12 | US_ITS ---
EXAMINATION: US ABDOMEN LIMITED CLINICAL INFORMATION: Recurrent ascites. Patient presents for tunneled intra-abdominal Pleurx catheter placement. COMPARISON: Previous paracentesis exam 03/12/2020 and 02/28/2020 TECHNIQUE: Limited 4 quadrant abdominal ultrasound FINDINGS: There is a very small amount of ascites seen. There is to little ascites for placement of tunneled Pleurx catheter. US/US abdomen limited IMPRESSION: Very small amount of ascites. Tunneled Pleurx catheter not placed.
[2020-03-12 14:32] VITALS: BP 123/60; BP 132/72; PULSE 56; PULSE 58; RESP 18; TEMP 36.6; O2SAT 98; O2SAT 99; BMI 29.3
--- NOTE | 2020-03-12 14:40 | ECG_ITS ---
Test Reason : WEAKNESS Blood Pressure : / mmHG Vent. Rate : 056 BPM Atrial Rate : 056 BPM P-R Int : 198 ms QRS Dur : 084 ms QT Int : 514 ms P-R-T Axes : 057 -21 031 degrees QTc Int : 496 ms Sinus bradycardia Nonspecific ST abnormality Prolonged QT Abnormal ECG When compared with ECG of 02-MAR-2020 16:50, No significant change was found Referred By: Nery Suresh Electronically Signed By:CASEY DUVALL MD
--- NOTE | 2020-03-12 14:40 | XR_ITS ---
EXAMINATION: XR CHEST CLINICAL INFORMATION: Lethargy. COMPARISON: Chest done on 12/23/2019. TECHNIQUE: Frontal view of the chest was obtained. FINDINGS: Subtle apparent retrocardiac opacity is noted along the left peridiaphragmatic region, new since prior study likely represent nonspecific airspace disease including hypoventilatory, atelectatic changes versus infiltrate or combination thereof. The remainder of the lung sen are clear. The heart size is within normal limit. There is no pleural effusion or pneumothorax present. The visualized upper abdomen is unremarkable. XR/XR chest 1V IMPRESSION: Subtle apparent retrocardiac airspace disease along the left peridiaphragmatic region, new since prior study dated 12/23/2019, nonspecific in appearance, may represent hypoventilatory, atelectatic changes versus infiltrate or combination thereof.
--- NOTE | 2020-03-12 14:49 | US_ITS ---
EXAMINATION: ULTRASOUND-GUIDED PARACENTESIS CLINICAL INFORMATION: Acute mental status change. Ascites. COMPARISON: Previous paracentesis 02/28/2020 TECHNIQUE: Procedure risks and benefits including bleeding, infection and low blood pressure were discussed with the patient's healthcare proxy, her son by telephone, and informed consent was obtained. The left lower quadrant was prepped and draped in the usual sterile fashion. The skin and soft tissues were anesthetized with percent lidocaine plain. Using ultrasound guidance and a 5 Khmer rapid centesis catheter, access to the ascitic fluid was obtained. 2.3 L of clear yellow fluid was removed. Diagnostic specimen was sent. FINDINGS: There is a moderate amount of ascites. US/US paracentesis abd w/image IMPRESSION: Ultrasound-guided paracentesis.
[2020-03-12 15:35] LABS: Basophils Absolute Auto 0.1 X10*3/uL (0.0-0.2); Basophils Percent Auto 0.4 % (0-2); Eosinophils Absolute Auto 0.2 X10*3/uL (0.0-0.4); Eosinophils Percent Auto 1.1 % (0-4); Hematocrit 29.8 % (37-47); Hemoglobin 9.1 g/dl (12.0-16.0); Imm Gran Abs Auto 0.16 X10*3/uL (0.00-0.03); Imm Gran Pct Auto 1.2 % (0.0-0.4); Lymphocytes Absolute Auto 1.3 X10*3/uL (1.2-4.9); Lymphocytes Percent Auto 9.3 % (20-40); MANUAL DIFF FLAG SCAN; Mean Corpuscular HGB Conc 30.5 g/dl (31.0-35.0); Mean Corpuscular Hemoglobin 28.7 pg (27.0-33.0); Mean Platelet Volume 11.2 fL (9.4-12.3); Monocytes Absolute Auto 1.7 X10*3/uL (0.1-1.2); Monocytes Percent Auto 12.1 % (2-11); Neutrophils Absolute Auto 10.5 X10*3/uL (2.0-8.3); Neutrophils Percent Auto 75.9 % (45-73); Platelet Count 226 X10*3/uL (160-400); Red Blood Count 3.17 X10*6/uL (4.20-5.50); Red Cell Distribution Width 19.2 % (11.0-16.0); SCAN SMEAR FLAG 1; White Blood Count 13.8 X10*3/uL (4.8-10.8)
[2020-03-12 15:41] LABS: Prothrombin Time 23.4 SEC (10.8-13.0)
[2020-03-12 15:44] LABS: Partial Thromboplastin Time 39.5 SEC (24.1-38.0)
[2020-03-12 15:52] LABS: SLIDE REVIEW VERIFIED
--- NOTE | 2020-03-12 16:10 | HO.RADPN ---
RADIOLOGY Narrative Narrative: Left lower quadrant paracentesis performed using 5Fr catheter. 2.3 L clear yellow fluid removed. Diagnostic specimen sent.
[2020-03-12 16:15] LABS: B Type Natriuretic Peptide 211 pg/mL (<100); Influenza A PCR NEGATIVE (Negative); Influenza B PCR NEGATIVE (Negative); Resp Syncy Virus RNA Qual PCR NEGATIVE (Negative); SARS COV2 PCR INHOUSE NEGATIVE (Negative)
[2020-03-12 16:23] LABS: Lactic Acid 3.3 mmol/L (0.5-2.0)
[2020-03-12] MEDS: Lidocaine HCl 1 % MPF 5 ML VIAL SUBCUT (16:24)
--- NOTE | 2020-03-12 16:26 | ED_ITS ---
HPI - Weakness General Chief complaint: Weakness Stated complaint: LETHARGY Time Seen by Provider: 03/12/20 14:24 Source: EMS Mode of arrival: EMS History of Present Illness HPI Narrative: 74-year-old female with a past medical history of KIM and cirrhosis with varices, recent GI bleed, hepatic encephalopathy with multiple admissions, recently d/c from our hospital on 03/07 for hepatic encephalopathy and MARCI s/p large volume paracentesis, presenting to the ED for increased lethargy/weakness, increase abdominal fluid, nausea, and vomiting. Unable to obtain history from patient due to AMS MD Complaint: generalized weakness Related Data Home Medications Medication Instructions Recorded Confirmed amlodipine 5 mg tablet 5 mg PO DAILY 12/05/19 03/12/20 insulin glargine U-300 conc 300 15 unit SUBCUT DAILY ml 12/05/19 03/12/20 unit/mL (3 mL) subcutaneous pen insulin lispro [Humalog KwikPen 11 unit SUBCUT TIDAC 03/02/20 03/12/20 Insulin] levetiracetam [Keppra] 250 mg PO DAILY 03/02/20 03/12/20 dulaglutide [Trulicity] 1.5 mg SUBCUT QWEEK 03/12/20 03/12/20 Previous Rx's Medication Instructions Recorded allopurinol 100 mg tablet 100 mg PO DAILY #30 tab 12/30/19 nadolol 40 mg tablet 40 mg PO DAILY #90 tab 01/16/20 lactulose 20 gram/30 mL oral 20 g PO BID #1000 ml 01/18/20 solution omeprazole 40 mg capsule,delayed 40 mg PO DAILY #90 cap 01/18/20 release rifaximin 550 mg tablet 550 mg PO BID 30 Days #60 tab 01/24/20 sertraline 100 mg tablet 100 mg PO DAILY #90 tab 02/16/20 metformin 500 mg tablet 500 mg PO BID #90 tab 02/28/20 apixaban 5 mg tablet 5 mg PO BID #180 tab 03/12/20 Allergies Allergy/AdvReac Type Severity Reaction Status Date / Time lisinopril [From ZESTRIL] Allergy Intermediate RASH-FROM Verified 03/02/20 16:06 ZESTRIL propranolol [PROPRANOLOL] Allergy Mild HEADACHE Verified 03/02/20 16:06 atorvastatin [Lipitor] Allergy Unknown Unknown Verified 03/02/20 16:06 benazepril Allergy Unknown Unknown Verified 03/02/20 16:06 indomethacin [From INDOCIN] Allergy Unknown UNKNOWN Verified 03/02/20 16:06 simvastatin Allergy Unknown Unknown Verified 03/02/20 16:06 Review of Systems Review of Systems: ROS unobtainable due to patient's AMS [facility] Past Medical History Attestation statement: The following information was validated with the patient. 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 Tubular adenoma of colon Type 2 diabetes mellitus with hyperglycemia Type 2 diabetes mellitus with unspecified complications Surgical History Ganglion cyst H/O unilateral oophorectomy History of abdominal hysterectomy History of appendectomy History of carpal tunnel surgery History of cholecystectomy Hx of colonoscopy Family History Family History Father Diabetes Hypertension CVD (cardiovascular disease) Mother Diabetes Hypertension Cancer Rectal cancer Daughter Diabetes Social History Social History (Updated 03/02/20 @ 20:22 by JOHANNY Nichols) Household Members: Unknown / Unable to assess Housing: Unknown / Unable to assess Alcohol intake: former Smoking Status: Never smoker Second Hand Smoke Exposure: No Substance Use Type: Unknown Advance Directives: Yes Advance Directives on File: Yes Advance Directives Date on File: 02/28/20 service: No Current occupational status: retired Physical Exam Vital Signs: Vital Signs: Last Vital Signs Temp 98 F 03/12/20 14:32 Pulse 58 03/12/20 14:32 Resp 18 03/12/20 14:32 BP 132/72 03/12/20 14:32 Pulse Ox 98 03/12/20 14:32 Body Mass Index 29.3 Const: General: lethargic Orientation/consciousness: oriented to person and lethargic HENMT: Head: Yes normal to inspection Ears: hearing grossly normal bilaterally General nose exam: Normal external nose present Face and sinus: Yes normal facial exam Eyes: General: appearance normal, both eyes and all related structures EOM: EOMs intact bilaterally Neck: Neck: Yes normal visual inspection Resp: Effort & Inspection: normal respiratory effort Auscultation: clear to auscultation bilaterally Cardio: Rate: regular rate Heart sounds: S1 normal heart sound present and S2 normal heart sound present GI: Inspection: Yes normal to inspection and Yes distended Palpation (GI): Soft to palpation, nontender, no guarding and not rigid Skin: Rashes: no rashes Wounds: no wounds Neuro: Other: Lethargic, alert to voice, intermittently following commands General: oriented to person Extrem: General: Yes normal to inspection Course Course Course Narrative: * 1627 - leukocytosis of 13.8. H&H at baseline. Lactic acidosis 3.3 likely from liver dysfunction XR chest 1V IMPRESSION: Subtle apparent retrocardiac airspace disease along the left peridiaphragmatic region, new since prior study dated 12/23/2019, nonspecific in appearance, may represent hypoventilatory, atelectatic changes versus infiltrate or combination thereof. >>Empiric IV Zosyn and Vancomycin ordered * Patient returned from IR paracentesis had 2.3L removed > albumin repletion ordered in the ED * AST/ALT/bilirubin/lipase/BNP elevated at patient's baseline 1700--ED care transfer to JOHANNY Denney pending ammonia and peritoneal fluid results. Anticipated admission MDM - Weakness MDM Narrative Medical decision making narrative: 74-year-old female with a past medical history of KIM and cirrhosis with varices, recent GI bleed, hepatic encephalopathy with multiple admissions, recently d/c from our hospital on 03/07 for hepatic encephalopathy and MACRI s/p large volume paracentesis, presenting to the ED for increased lethargy/weakness, increase abdominal fluid, nausea, and vomiting. On exam VSS, lethargic, altered, concern for encephalopathy versus i nfection or metabolic abnormalities. Low concern for SBP. Low concern for sepsis at this time, or meningitis/encephalitis Plan: EKG, labs, ammonia, lactic/blood cultures, CXR, IR guided paracentesis Lab Data Result diagrams: 03/12/20 15:10 03/12/20 15:10 Labs: Lab Results 03/12/20 03/12/20 03/12/20 Range/Units 15:10 15:10 15:10 WBC 13.8 H (4.8-10.8) X10*3/uL RBC 3.17 L (4.20-5.50) X10*6/uL Hgb 9.1 L (12.0-16.0) g/dl Hct 29.8 L (37-47) % MCV 94.0 (80-98) fL MCH 28.7 (27.0-33.0) pg MCHC 30.5 L (31.0-35.0) g/dl RDW 19.2 H (11.0-16.0) % Plt Count 226 D (160-400) X10*3/uL MPV 11.2 (9.4-12.3) fL Immature Gran % (Auto) 1.2 H (0.0-0.4) % Neut % (Auto) 75.9 H (45-73) % Lymph % (Auto) 9.3 L (20-40) % [place] % (Auto) 12.1 H (2-11) % Eos % (Auto) 1.1 (0-4) % Baso % (Auto) 0.4 (0-2) % Lymph # (Auto) 1.3 (1.2-4.9) X10*3/uL [place] # (Auto) 1.7 H (0.1-1.2) X10*3/uL Eos # (Auto) 0.2 (0.0-0.4) X10*3/uL Baso # (Auto) 0.1 (0.0-0.2) X10*3/uL Abs Immat Gran (auto) 0.16 H (0.00-0.03) X10*3/uL Absolute Neuts (auto) 10.5 H (2.0-8.3) X10*3/uL Absolute Nucleated RBC 0.000 (0.0-0.012) X10*3/uL Nucleated RBC % (auto) 0.0 (0.0-0.2) /100WBC Smear Tech's Comments VERIFIED PT 23.4 H (10.8-13.0) SEC INR 2.0 H (0.9-1.1) APTT 39.5 H (24.1-38.0) SEC Sodium 140 (135-145) mmol/L Potassium 4.2 (3.3-5.1) mmol/L Chloride 115 H (96-108) mmol/L Carbon Dioxide 12 L (22-29) mmol/L Anion Gap 17 (12-20) BUN 29 H (9-16) mg/dL Creatinine 1.26 (0.5-1.4) mg/dL Estim Creat Clear Calc 32.8 Estimated GFR 42 Random Glucose 107 (60-115) mg/dL Lactic Acid (0.5-2.0) mmol/L Calcium 8.1 L (8.4-10.2) mg/dL Magnesium 2.1 (1.6-2.6) mg/dL Total Bilirubin 1.0 (0.0-1.0) mg/dL Direct Bilirubin 0.6 H (0.0-0.5) mg/dL AST 111 H (5-31) U/L ALT 41 H (0-31) U/L Alkaline Phosphatase 219 H (39-117) U/L Troponin I High Sens (<3.5-17.0) ng/L B-Natriuretic Peptide (<100) pg/mL Total Protein 6.7 (6.5-8.0) g/dL Albumin 3.2 L (3.5-5.0) g/dL Lipase 157 H (8-78) U/L Peritoneal WBC X10*3/uL Peritoneal RBC X10*6/uL Coronavirus (PCR) (Negative) Influenza Type A (PCR) (Negative) Influenza Type B (PCR) (Negative) RSV RNA Qual (PCR) (Negative) 03/12/20 03/12/20 03/12/20 Range/Units 15:10 15:10 15:10 WBC (4.8-10.8) X10*3/uL RBC (4.20-5.50) X10*6/uL Hgb (12.0-16.0) g/dl Hct (37-47) % MCV (80-98) fL MCH (27.0-33.0) pg MCHC (31.0-35.0) g/dl RDW (11.0-16.0) % Plt Count (160-400) X10*3/uL MPV (9.4-12.3) fL Immature Gran % (Auto) (0.0-0.4) % Neut % (Auto) (45-73) % Lymph % (Auto) (20-40) % [place] % (Auto) (2-11) % Eos % (Auto) (0-4) % Baso % (Auto) (0-2) % Lymph # (Auto) (1.2-4.9) X10*3/uL [place] # (Auto) (0.1-1.2) X10*3/uL Eos # (Auto) (0.0-0.4) X10*3/uL Baso # (Auto) (0.0-0.2) X10*3/uL Abs Immat Gran (auto) (0.00-0.03) X10*3/uL Absolute Neuts (auto) (2.0-8.3) X10*3/uL Absolute Nucleated RBC (0.0-0.012) X10*3/uL Nucleated RBC % (auto) (0.0-0.2) /100WBC Smear Tech's Comments PT (10.8-13.0) SEC INR (0.9-1.1) APTT (24.1-38.0) SEC Sodium (135-145) mmol/L Potassium (3.3-5.1) mmol/L Chloride (96-108) mmol/L Carbon Dioxide (22-29) mmol/L Anion Gap (12-20) BUN (9-16) mg/dL Creatinine (0.5-1.4) mg/dL Estim Creat Clear Calc Estimated GFR Random Glucose (60-115) mg/dL Lactic Acid 3.3 H* (0.5-2.0) mmol/L Calcium (8.4-10.2) mg/dL Magnesium (1.6-2.6) mg/dL Total Bilirubin (0.0-1.0) mg/dL Direct Bilirubin (0.0-0.5) mg/dL AST (5-31) U/L ALT (0-31) U/L Alkaline Phosphatase (39-117) U/L Troponin I High Sens 7.0 (<3.5-17.0) ng/L B-Natriuretic Peptide 211 H (<100) pg/mL Total Protein (6.5-8.0) g/dL Albumin (3.5-5.0) g/dL Lipase (8-78) U/L Peritoneal WBC X10*3/uL Peritoneal RBC X10*6/uL Coronavirus (PCR) NEGATIVE (Negative) Influenza Type A (PCR) NEGATIVE (Negative) Influenza Type B (PCR) NEGATIVE (Negative) RSV RNA Qual (PCR) NEGATIVE (Negative) 03/12/20 Range/Units Unknown WBC (4.8-10.8) X10*3/uL RBC (4.20-5.50) X10*6/uL Hgb (12.0-16.0) g/dl Hct (37-47) % MCV (80-98) fL MCH (27.0-33.0) pg MCHC (31.0-35.0) g/dl RDW (11.0-16.0) % Plt Count (160-400) X10*3/uL MPV (9.4-12.3) fL Immature Gran % (Auto) (0.0-0.4) % Neut % (Auto) (45-73) % Lymph % (Auto) (20-40) % [place] % (Auto) (2-11) % Eos % (Auto) (0-4) % Baso % (Auto) (0-2) % Lymph # (Auto) (1.2-4.9) X10*3/uL [place] # (Auto) (0.1-1.2) X10*3/uL Eos # (Auto) (0.0-0.4) X10*3/uL Baso # (Auto) (0.0-0.2) X10*3/uL Abs Immat Gran (auto) (0.00-0.03) X10*3/uL Absolute Neuts (auto) (2.0-8.3) X10*3/uL Absolute Nucleated RBC (0.0-0.012) X10*3/uL Nucleated RBC % (auto) (0.0-0.2) /100WBC Smear Tech's Comments PT (10.8-13.0) SEC INR (0.9-1.1) APTT (24.1-38.0) SEC Sodium (135-145) mmol/L Potassium (3.3-5.1) mmol/L Chloride (96-108) mmol/L Carbon Dioxide (22-29) mmol/L Anion Gap (12-20) BUN (9-16) mg/dL Creatinine (0.5-1.4) mg/dL Estim Creat Clear Calc Estimated GFR Random Glucose (60-115) mg/dL Lactic Acid (0.5-2.0) mmol/L Calcium (8.4-10.2) mg/dL Magnesium (1.6-2.6) mg/dL Total Bilirubin (0.0-1.0) mg/dL Direct Bilirubin (0.0-0.5) mg/dL AST (5-31) U/L ALT (0-31) U/L Alkaline Phosphatase (39-117) U/L Troponin I High Sens (<3.5-17.0) ng/L B-Natriuretic Peptide (<100) pg/mL Total Protein (6.5-8.0) g/dL Albumin (3.5-5.0) g/dL Lipase (8-78) U/L Peritoneal WBC 0.324 X10*3/uL Peritoneal RBC < 0.002 X10*6/uL Coronavirus (PCR) (Negative) Influenza Type A (PCR) (Negative) Influenza Type B (PCR) (Negative) RSV RNA Qual (PCR) (Negative) Discharge Plan Discharge Clinical Impression: Encephalopathy Patient Disposition: Admitted As Inpatient
[2020-03-12 16:31] LABS: MN% 85.5 %; PMN% 14.5 %; WBC Peritoneal Fluid 0.324 X10*3/uL
[2020-03-12 16:37] LABS: RBC Peritoneal Fluid < 0.002 X10*6/uL
[2020-03-12 16:47] LABS: BF Shift QC OK YES; Man Diluent Bkgrd OK YES
[2020-03-12 16:54] LABS: Alanine Aminotransferase 41 U/L (0-31); Albumin Level 3.2 g/dL (3.5-5.0); Alkaline Phosphatase 219 U/L (39-117); Anion Gap 17 (12-20); Aspartate Amino Transferase 111 U/L (5-31); Bilirubin Direct 0.6 mg/dL (0.0-0.5); Blood Urea Nitrogen 29 mg/dL (9-16); Calcium 8.1 mg/dL (8.4-10.2); Carbon Dioxide 12 mmol/L (22-29); Chloride 115 mmol/L (96-108); Creatinine Clr Calc Pharmacy 32.8; Estimated Glomerular Filt Rate 42; Glucose Random 107 mg/dL (60-115); Lipase 157 U/L (8-78); Magnesium 2.1 mg/dL (1.6-2.6); Potassium 4.2 mmol/L (3.3-5.1); Sodium 140 mmol/L (135-145); Total Protein 6.7 g/dL (6.5-8.0)
[2020-03-12 17:27] LABS: Reflex Lactate? Lactic Acid Added
[2020-03-12 17:51] LABS: Ammonia 81 umol/L (13-55)
[2020-03-12 18:03] LABS: Lactic Acid 2.4 mmol/L (0.5-2.0)
[2020-03-12] MEDS: Piperacillin Sodium/Tazobactam 3.375 GM in 0.9 % Sodium Chloride 50 ML IV (18:14)
[2020-03-12] MEDS: Albumin Human 25 % 100 ML IV (18:15)
[2020-03-12 18:47] LABS: Troponin-I High Sensitivity 6.9 ng/L (<3.5-17.0)
[2020-03-12 19:09] VITALS: BP 120/56; PULSE 99; RESP 15; O2SAT 99
[2020-03-12] MEDS: vancomycin HCL 750 MG in 0.9 % Sodium Chloride 250 ML 265 MG IV (19:19)
[2020-03-12 19:30] LABS: Reflex Lactate? Lactic Acid Added
--- NOTE | 2020-03-12 19:34 | P.HPHOSP_ITS ---
History of Present Illness Date of Service: 03/12/20 Chief Complaint: Confusion [age] old female with a past medical history of hypertension hyperlipidemia, diabetes CAD AFib on Eliquis, decompensated liver cirrhosis with ascites, encephalopathy, dementia presented to the hospital with chief complaint of confusion. Patient was recently discharged from the hospital for hepatic encephalopathy/HPI. Currently presented with increased generalized weakness/lethargy/distal abdominal distention/nausea/vomiting. Patient is a poor historian. Most of the history obtained from the records. ER course: Patient was noted to have distended abdomen status post bedside paracentesis with 2 with relief of fluid removed. Albumin infused. Chest x-ray showed pneumonia, given IV vancomycin and Zosyn. Also noted mild lactic acidosis. Ammonia level elevated to 80. Ascitic fluid WBC in 300s. Creatinine 1.2 [facility] 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 Tubular adenoma of colon Type 2 diabetes mellitus with hyperglycemia Type 2 diabetes mellitus with unspecified complications Family History Father Diabetes Hypertension CVD (cardiovascular disease) Mother Diabetes Hypertension Cancer Rectal cancer Daughter Diabetes Surgical History Ganglion cyst H/O unilateral oophorectomy History of abdominal hysterectomy History of appendectomy History of carpal tunnel surgery History of cholecystectomy Hx of colonoscopy Social History (Updated 03/02/20 @ 20:22 by JOHANNY Nichols) Household Members: Unknown / Unable to assess Housing: Unknown / Unable to assess Alcohol intake: unknown Smoking Status: Smoker, status unknown Second Hand Smoke Exposure: No Use of substances other than those prescribed or required for medical reasons: No Substance Use Type: Unknown Advance Directives: Yes Advance Directives on File: Yes Advance Directives Date on File: 02/28/20 service: No Current occupational status: retired Meds Allergies Allergy/AdvReac Type Severity Reaction Status Date / Time lisinopril [From ZESTRIL] Allergy Intermediate RASH-FROM Verified 03/02/20 16:06 ZESTRIL propranolol [PROPRANOLOL] Allergy Mild HEADACHE Verified 03/02/20 16:06 atorvastatin [Lipitor] Allergy Unknown Unknown Verified 03/02/20 16:06 benazepril Allergy Unknown Unknown Verified 03/02/20 16:06 indomethacin [From INDOCIN] Allergy Unknown UNKNOWN Verified 03/02/20 16:06 simvastatin Allergy Unknown Unknown Verified 03/02/20 16:06 Home Medications Medication Instructions Recorded Confirmed Type amlodipine 5 mg tablet 5 mg PO DAILY 12/05/19 03/12/20 History insulin glargine U-300 conc 300 15 unit SUBCUT DAILY ml 12/05/19 03/12/20 History unit/mL (3 mL) subcutaneous pen insulin lispro [Humalog KwikPen 11 unit SUBCUT TIDAC 03/02/20 03/12/20 History Insulin] levetiracetam [Keppra] 250 mg PO DAILY 03/02/20 03/12/20 History dulaglutide [Trulicity] 1.5 mg SUBCUT QWEEK 03/12/20 03/12/20 History Physical Exam Vital Signs and Narrative: Vital Signs: Last Vital Signs Temp 98 F 03/12/20 14:32 Pulse 58 03/12/20 14:32 Resp 18 03/12/20 14:32 BP 132/72 03/12/20 14:32 Pulse Ox 98 03/12/20 14:32 Body Mass Index 29.3 Gen: Appears be in no acute distress; breathing comfortably HEENT: NCAT, Moist mucosa. Pulmonary: Clear, fair air entry CVS: Normal S1-S2 Abdomen: BS+, Soft, Nontender Extremities: Warm well perfused Neuro: Drowsy. Results Labs CBC and Chem 7: 03/12/20 15:10 03/12/20 15:10 Labs: Laboratory Results - last 24 hr 03/12/20 03/12/20 03/12/20 15:10 15:10 15:10 MCV 94.0 MCH 28.7 MCHC 30.5 L RDW 19.2 H Plt Count 226 D MPV 11.2 Immature Gran % (Auto) 1.2 H Neut % (Auto) 75.9 H Lymph % (Auto) 9.3 L [place] % (Auto) 12.1 H Eos % (Auto) 1.1 Baso % (Auto) 0.4 Lymph # (Auto) 1.3 [place] # (Auto) 1.7 H Eos # (Auto) 0.2 Baso # (Auto) 0.1 Abs Immat Gran (auto) 0.16 H Absolute Neuts (auto) 10.5 H Absolute Nucleated RBC 0.000 Nucleated RBC % (auto) 0.0 Smear Tech's Comments VERIFIED PT 23.4 H INR 2.0 H APTT 39.5 H Anion Gap 17 Estim Creat Clear Calc 32.8 Estimated GFR 42 Random Glucose 107 Lactic Acid Calcium 8.1 L Magnesium 2.1 Total Bilirubin 1.0 Direct Bilirubin 0.6 H AST 111 H ALT 41 H Alkaline Phosphatase 219 H Ammonia Troponin I High Sens B-Natriuretic Peptide Total Protein 6.7 Albumin 3.2 L Lipase 157 H Peritoneal WBC Peritoneal RBC Coronavirus (PCR) Influenza Type A (PCR) Influenza Type B (PCR) RSV RNA Qual (PCR) 03/12/20 03/12/20 03/12/20 15:10 15:10 15:10 MCV MCH MCHC RDW Plt Count MPV Immature Gran % (Auto) Neut % (Auto) Lymph % (Auto) [place] % (Auto) Eos % (Auto) Baso % (Auto) Lymph # (Auto) [place] # (Auto) Eos # (Auto) Baso # (Auto) Abs Immat Gran (auto) Absolute Neuts (auto) Absolute Nucleated RBC Nucleated RBC % (auto) Smear Tech's Comments PT INR APTT Anion Gap Estim Creat Clear Calc Estimated GFR Random Glucose Lactic Acid 3.3 H* Calcium Magnesium Total Bilirubin Direct Bilirubin AST ALT Alkaline Phosphatase Ammonia Troponin I High Sens 7.0 B-Natriuretic Peptide 211 H Total Protein Albumin Lipase Peritoneal WBC Peritoneal RBC Coronavirus (PCR) NEGATIVE Influenza Type A (PCR) NEGATIVE Influenza Type B (PCR) NEGATIVE RSV RNA Qual (PCR) NEGATIVE 03/12/20 03/12/20 03/12/20 17:27 17:27 18:02 MCV MCH MCHC RDW Plt Count MPV Immature Gran % (Auto) Neut % (Auto) Lymph % (Auto) [place] % (Auto) Eos % (Auto) Baso % (Auto) Lymph # (Auto) [place] # (Auto) Eos # (Auto) Baso # (Auto) Abs Immat Gran (auto) Absolute Neuts (auto) Absolute Nucleated RBC Nucleated RBC % (auto) Smear Tech's Comments PT INR APTT Anion Gap Estim Creat Clear Calc Estimated GFR Random Glucose Lactic Acid 2.4 H* Calcium Magnesium Total Bilirubin Direct Bilirubin AST ALT Alkaline Phosphatase Ammonia 81 H Troponin I High Sens 6.9 B-Natriuretic Peptide Total Protein Albumin Lipase Peritoneal WBC Peritoneal RBC Coronavirus (PCR) Influenza Type A (PCR) Influenza Type B (PCR) RSV RNA Qual (PCR) 03/12/20 Unknown MCV MCH MCHC RDW Plt Count MPV Immature Gran % (Auto) Neut % (Auto) Lymph % (Auto) [place] % (Auto) Eos % (Auto) Baso % (Auto) Lymph # (Auto) [place] # (Auto) Eos # (Auto) Baso # (Auto) Abs Immat Gran (auto) Absolute Neuts (auto) Absolute Nucleated RBC Nucleated RBC % (auto) Smear Tech's Comments PT INR APTT Anion Gap Estim Creat Clear Calc Estimated GFR Random Glucose Lactic Acid Calcium Magnesium Total Bilirubin Direct Bilirubin AST ALT Alkaline Phosphatase Ammonia Troponin I High Sens B-Natriuretic Peptide Total Protein Albumin Lipase Peritoneal WBC 0.324 Peritoneal RBC < 0.002 Coronavirus (PCR) Influenza Type A (PCR) Influenza Type B (PCR) RSV RNA Qual (PCR) Imaging Radiologist's Impressions: Impressions Chest X-Ray 03/12/20 14:40 IMPRESSION: Subtle apparent retrocardiac airspace disease along the left peridiaphragmatic region, new since prior study dated 12/23/2019, nonspecific in appearance, may represent hypoventilatory, atelectatic changes versus infiltrate or combination thereof. Assessment and Plan (1) Encephalopathy: Status: Acute 74-year-old female with a past medical history of hypertension, hyperlipidemia, diabetes, AFib, CAD, CHF, dementia, decompensated liver cirrhosis with a history of ascites/hepatic encephalopathy presented with abdominal distension/lethargic/weakness/confusion. Hepatic encephalopathy: Patient noted to elevated ammonia levels. Continue lactulose and rifaximin. Supportive care. NPO for now. Bedside swallow screen. Fall precautions/seizure precautions Abdominal ascites: Status post bedside paracentesis in the ER. Removed 2.3 L. Ascitic fluid has WBC of 324. Less concern for SBP. Patient also received albumin in the ER. History of liver cirrhosis/varices: Patient is on oral all. A Hcap: Continue IV vancomycin and Zosyn. Diabetes: Insulin sliding scale. Hold home metformin and Trulicity. Monitor fingersticks and adjust insulins as needed. AFib: Continue Eliquis. Rate controlled History of seizures: Continue home Keppra History of hypertension: Continued on amlodipine. Code status: DNR/DNI
[2020-03-12 20:09] VITALS: BP 120/56; PULSE 99; RESP 15; TEMP 36.6; O2SAT 99
[2020-03-12 20:41] VITALS: BP 123/59; PULSE 57; RESP 16; O2SAT 100
[2020-03-12 20:45] LABS: Glucose, Whole Blood 88 mg/dL (60-115)
[2020-03-12 20:58] LABS: ~Lactic Acid-LAB USE ONLY 1.5 mmol/L (0.5-2.0)
[2020-03-12] MEDS: Lactulose 20 GM/30 ML SOLUTION 30 GM PO (21:16)
[2020-03-12 22:16] VITALS: BP 116/56; PULSE 56; RESP 15; TEMP 37.2; O2SAT 99
[2020-03-12 23:36] VITALS: BP 125/61; PULSE 55; RESP 18; O2SAT 98
[2020-03-13] VITALS (15 sets, daily range): BP systolic 122–152; BP diastolic 58–78; PULSE 53–75; RESP 14–20; TEMP 36.2–37.2; O2SAT 82–100
[2020-03-13 00:20] LABS: Glucose, Whole Blood 95 mg/dL (60-115)
[2020-03-13] MEDS: Piperacillin Sodium/Tazobactam 2.25 GM in 0.9 % Sodium Chloride 50 ML IV ×4 (00:54→17:33)
--- NOTE | 2020-03-13 01:40 | PC.NURSE ---
pATIENT MEDICATED PER EMAR NOTED WITH ANTIBIOTICS. pATIENT HAD A LARGE LOOSE BOWEL MOVEMENT. All bedding changed and new linen on. Patient had no complaints. Patient has skin breakdown on buttock and barrier cream was applied. She a small decubitus ulcer stage 1.
[2020-03-13] MEDS: vancomycin HCL 500 MG in 0.9 % Sodium Chloride 100 ML 110 MG IV (06:49)
[2020-03-13 06:51] LABS: MANUAL DIFF FLAG NO
[2020-03-13 07:09] LABS: Basophils Percent Auto 0.4 % (0-2); Eosinophils Absolute Auto 0.1 X10*3/uL (0.0-0.4); Eosinophils Percent Auto 1.4 % (0-4); Hematocrit 27.1 % (37-47); Hemoglobin 8.5 g/dl (12.0-16.0); Imm Gran Abs Auto 0.12 X10*3/uL (0.00-0.03); Imm Gran Pct Auto 1.2 % (0.0-0.4); Lymphocytes Absolute Auto 0.9 X10*3/uL (1.2-4.9); Lymphocytes Percent Auto 8.8 % (20-40); Mean Corpuscular HGB Conc 31.4 g/dl (31.0-35.0); Mean Corpuscular Hemoglobin 28.8 pg (27.0-33.0); Mean Corpuscular Volume 91.9 fL (80-98); Mean Platelet Volume 10.8 fL (9.4-12.3); Monocytes Absolute Auto 1.2 X10*3/uL (0.1-1.2); Monocytes Percent Auto 12.6 % (2-11); Neutrophils Absolute Auto 7.4 X10*3/uL (2.0-8.3); Neutrophils Percent Auto 75.6 % (45-73); Platelet Count 154 X10*3/uL (160-400); Red Blood Count 2.95 X10*6/uL (4.20-5.50); Red Cell Distribution Width 19.3 % (11.0-16.0); White Blood Count 9.8 X10*3/uL (4.8-10.8)
--- NOTE | 2020-03-13 08:02 | PC.NURSE ---
dressing on left side of abdomen appears clean. dry and intact. no drainage noted. no redness noted around dressing.
[2020-03-13 08:03] LABS: Total Protein Peritoneal Fluid 1.2
[2020-03-13 08:04] LABS: Glucose Peritoneal Fluid 137; LDH Peritoneal Fluid 41
[2020-03-13] MEDS: amLODIPine Besylate 5 MG TABLET PO (09:43)
[2020-03-13] MEDS: Apixaban 5 MG TABLET PO ×2 (09:43→10:10)
[2020-03-13] MEDS: Omeprazole 40 MG CAPSULE.DR PO (09:44)
[2020-03-13] MEDS: allopurinoL 100 MG TABLET PO (09:44)
[2020-03-13] MEDS: levETIRAcetam 250 MG TABLET PO (09:44)
[2020-03-13] MEDS: Sertraline HCL 100 MG TABLET PO (09:47)
[2020-03-13] MEDS: Lactulose 20 GM/30 ML SOLUTION 30 GM PO ×3 (09:47→22:04)
[2020-03-13] MEDS: metFORMIN HCl 500 MG TABLET PO ×3 (09:47→22:04)
[2020-03-13] MEDS: rifAXIMin 550 MG TABLET PO ×3 (09:47→22:04)
[2020-03-13] MEDS: Famotidine/PF 20 MG/2 ML VIAL IVPUSH ×3 (09:49→22:03)
[2020-03-13] MEDS: 0.9 % Sodium Chloride Flush 3 ML SYRINGE IVFLUSH ×2 (10:08→17:42)
--- NOTE | 2020-03-13 10:35 | PC.NURSE ---
pt's daughter sharifa bergman [phone] [place] [facility] [place] on pt status. dr. mazariegos at bedside pt aware of plan of care.
--- NOTE | 2020-03-13 12:00 | MHC.CM.PN ---
Addendum entered by Augusta Mtz RN 03/13/20 13:16: Daughter/HCP- Sirena Desouza [phone] Original Note: IMM 03/13/20, EMR reviewed, pt alert to name only and unable to answer questions, CM spoke with daughter/HCP who reports pt was not started on hospice after last D/C, continues to have 24hr/7day private duty home care and is active w/[facility], per daughter pt ambulates on occasion however does transfer with walker, per daughter pt had no fluid on her abdomen at D/C on 03/07 when am ultrasound was completed prior to D/C, pt had 2.2l of fluid removed this visit. Daughter reports she informed nursing today of sore pt has on buttock and requested to speak with hospitalist, SUMA messaged hospitalist with pt's daughters info. Discharge plan: Home w/resumption of 24hr home care and resumption of [facility] services. Pt will need transportation home, last visit pt had ambulance through [facility] due to insurance.
--- NOTE | 2020-03-13 12:37 | P.PNIM_ITS ---
Subjective Subjective Date of Service: 03/13/20 Interval History: weak Cardiovascular Cardiovascular: Reports no additional cardiovascular complaints Gastrointestinal Gastrointestinal: Reports no additional gastrointestinal complaints Physical Exam Vital Signs: Vital Signs: Last Vital Signs Temp 97.8 F 03/13/20 11:29 Pulse 57 03/13/20 11:29 Resp 16 03/13/20 11:29 BP 152/78 H 03/13/20 11:29 Pulse Ox 98 03/13/20 11:29 Body Mass Index 29.3 General: Alert, confused, not at baseline, but better than usual presentation, no acute distress Resp: CTA bilateral CVS: S1,S2,RRR GI: soft, non tender, non distended Neuro: motor grossly intact Psych: impaired insight Objective Data Current Medications Generic Name Dose Route Start Last Admin Trade Name Justoq PRN Reason Stop Dose Admin Allopurinol 100 mg 03/13/20 09:00 03/13/20 09:44 Allopurinol 100 Mg Tablet PO 100 mg DAILY LAN Administration Amlodipine Besylate 5 mg 03/13/20 09:00 03/13/20 09:43 Amlodipine Besylate 5 Mg Tablet PO 5 mg DAILY LAN Administration Protocol Apixaban 5 mg 03/13/20 08:36 03/13/20 10:10 Apixaban 5 Mg Tablet PO 5 mg BID LAN Administration Famotidine 20 mg 03/13/20 08:36 03/13/20 10:09 Famotidine/Pf 20 Mg/2 Ml Vial IVPUSH 20 mg BID LAN Administration Piperacillin Sod/Tazobactam 50 mls @ 100 mls/hr 03/13/20 00:00 03/13/20 12:06 Sod 2.25 gm/ Sodium Chloride IV 100 mls/hr Q6H LAN Administration Vancomycin HCl 500 mg/ Sodium 110 mls @ 110 mls/hr 03/13/20 07:00 03/13/20 07:49 Chloride IV Infused Q12H LAN Infusion Lactulose 30 gm 03/12/20 21:00 03/13/20 09:47 Lactulose 20 Gm/30 Ml Solution PO 30 gm TID LAN Administration Levetiracetam 250 mg 03/13/20 09:00 03/13/20 09:44 Levetiracetam 250 Mg Tablet PO 250 mg DAILY LAN Administration Metformin HCl 500 mg 03/13/20 08:36 03/13/20 10:09 Metformin Hcl 500 Mg Tablet PO 500 mg BID LAN Administration Nadolol 40 mg 03/13/20 09:00 03/13/20 09:46 Nadolol 40 Mg Tablet PO Not Given DAILY [facility] Protocol Non-Formulary Medication 1.5 mg 03/16/20 08:56 Dulaglutide [Trulicity] SUBCUT Fr [facility] Omeprazole 40 mg 03/13/20 09:00 03/13/20 09:44 Omeprazole 40 Mg Capsule.Dr PO 40 mg DAILY [facility] Administration Pharmacy Consult 1 each 03/12/20 14:39 Consult Rx Perform Med Rec MISCELLANE ONCE PRN Consult order Pharmacy Consult 1 each 03/12/20 16:33 Consult Rx Vancomycin Dosing MISCELLANE DAILY PRN Consult order Rifaximin 550 mg 03/13/20 08:36 03/13/20 10:09 Rifaximin 550 Mg Tablet PO 550 mg BID LAN Administration Sertraline HCl 100 mg 03/13/20 09:00 03/13/20 09:47 Sertraline Hcl 100 Mg Tablet PO 100 mg DAILY LAN Administration Sodium Chloride 3 ml 03/13/20 08:36 03/13/20 10:08 0.9 % Sodium Chloride Flush 3 Ml Syringe IVFLUSH 3 ml QSHIFT [facility] Administration Labs CBC & Chem 7: 03/13/20 06:39 03/12/20 15:10 Microbiology Microbiology Results: Microbiology 03/12/20 Unknown Ascites Fluid Gram Stain - Final 03/12/20 Unknown Ascites Fluid Anaerobic Culture - Preliminary No growth to date. 03/12/20 Unknown Ascites Fluid Body Fluid Culture - Preliminary No growth to date. 03/12/20 15:10 Blood - Venous Blood Culture - Preliminary Assessment and Plan (1) Encephalopathy: Status: Acute Assessment and Plan: 74F presented with abdominal distension and ams KIM cirrhosis with hepatic encephalopathy and symptomatic ascites s/p 2.3L paracentesis continue lacutlose, rifaximin ? pneumonia vs atelectasis doubt MRSA, continue zosyn for now DM insulin afib eliquis epilepsy keppra htn amlodipine
--- NOTE | 2020-03-13 15:14 | P.PNGI_ITS ---
Subjective Subjective Date of Service: 03/14/20 Interval History: 74 yo female who is being readmitted still in overflow bed in ER. Dr. Dobbs had just done consult on her see NOTE-03/02/20. Patient has KIM related cirrhosis with encephalopathy. She is diabetic. She has CAD with atrial fibrillation--on anticoagulant therapy. Patient's liver disease had been stable until the last year. It appears that patient is now a DNR/DNI. Evidently, the question of hospice had been raised but family was not ready for that. Physical Exam Vital Signs: Vital Signs: Last Vital Signs Temp 99 F 03/13/20 14:00 Pulse 62 03/13/20 14:00 Resp 18 03/13/20 14:00 BP 138/66 03/13/20 14:00 Pulse Ox 100 03/13/20 14:00 Body Mass Index 29.3 Const: General: no acute distress and confusion Nutritional Appearance: average body habitus Orientation/consciousness: oriented to person and confusion Resp: Effort & Inspection: normal respiratory effort and no respiratory distress Auscultation: diminished lung sounds Cardio: Jugular venous distension: no JVD Palpation: normal PMI Rate: regular rate and bradycardic (current and recent EKG) Rhythm: regular rhythm Skin: General skin exam: no rashes or lesions noted Neuro: General: oriented to person and confusion Extrem: General: No no calf tenderness, No clubbing and Yes edema Objective Data Labs CBC & Chem 7: 03/14/20 06:03 03/14/20 06:03 Labs: Laboratory Results - last 24 hr 03/12/20 03/12/20 03/12/20 15:10 15:10 15:10 WBC 13.8 H RBC 3.17 L Hgb 9.1 L Hct 29.8 L MCV 94.0 MCH 28.7 MCHC 30.5 L RDW 19.2 H Plt Count 226 D MPV 11.2 Immature Gran % (Auto) 1.2 H Neut % (Auto) 75.9 H Lymph % (Auto) 9.3 L [place] % (Auto) 12.1 H Eos % (Auto) 1.1 Baso % (Auto) 0.4 Lymph # (Auto) 1.3 [place] # (Auto) 1.7 H Eos # (Auto) 0.2 Baso # (Auto) 0.1 Abs Immat Gran (auto) 0.16 H Absolute Neuts (auto) 10.5 H Absolute Nucleated RBC 0.000 Nucleated RBC % (auto) 0.0 Smear Tech's Comments VERIFIED PT 23.4 H INR 2.0 H APTT 39.5 H Sodium 140 Potassium 4.2 Chloride 115 H Carbon Dioxide 12 L Anion Gap 17 BUN 29 H Creatinine 1.26 Estim Creat Clear Calc 32.8 Estimated GFR 42 POC Glucose Random Glucose 107 Lactic Acid Lactic Acid Fup @ 2Hr Calcium 8.1 L Magnesium 2.1 Total Bilirubin 1.0 Direct Bilirubin 0.6 H AST 111 H ALT 41 H Alkaline Phosphatase 219 H Ammonia Troponin I High Sens B-Natriuretic Peptide Total Protein 6.7 Albumin 3.2 L Lipase 157 H Peritoneal WBC Peritoneal RBC Peritoneal Tot Protein Peritoneal LDH Peritoneal Glucose Coronavirus (PCR) Influenza Type A (PCR) Influenza Type B (PCR) RSV RNA Qual (PCR) 03/12/20 03/12/20 03/12/20 15:10 15:10 15:10 WBC RBC Hgb Hct MCV MCH MCHC RDW Plt Count MPV Immature Gran % (Auto) Neut % (Auto) Lymph % (Auto) [place] % (Auto) Eos % (Auto) Baso % (Auto) Lymph # (Auto) [place] # (Auto) Eos # (Auto) Baso # (Auto) Abs Immat Gran (auto) Absolute Neuts (auto) Absolute Nucleated RBC Nucleated RBC % (auto) Smear Tech's Comments PT INR APTT Sodium Potassium Chloride Carbon Dioxide Anion Gap BUN Creatinine Estim Creat Clear Calc Estimated GFR POC Glucose Random Glucose Lactic Acid 3.3 H* Lactic Acid Fup @ 2Hr Calcium Magnesium Total Bilirubin Direct Bilirubin AST ALT Alkaline Phosphatase Ammonia Troponin I High Sens 7.0 B-Natriuretic Peptide 211 H Total Protein Albumin Lipase Peritoneal WBC Peritoneal RBC Peritoneal Tot Protein Peritoneal LDH Peritoneal Glucose Coronavirus (PCR) NEGATIVE Influenza Type A (PCR) NEGATIVE Influenza Type B (PCR) NEGATIVE RSV RNA Qual (PCR) NEGATIVE 03/12/20 03/12/20 03/12/20 17:27 17:27 18:02 WBC RBC Hgb Hct MCV MCH MCHC RDW Plt Count MPV Immature Gran % (Auto) Neut % (Auto) Lymph % (Auto) [place] % (Auto) Eos % (Auto) Baso % (Auto) Lymph # (Auto) [place] # (Auto) Eos # (Auto) Baso # (Auto) Abs Immat Gran (auto) Absolute Neuts (auto) Absolute Nucleated RBC Nucleated RBC % (auto) Smear Tech's Comments PT INR APTT Sodium Potassium Chloride Carbon Dioxide Anion Gap BUN Creatinine Estim Creat Clear Calc Estimated GFR POC Glucose Random Glucose Lactic Acid 2.4 H* Lactic Acid Fup @ 2Hr Calcium Magnesium Total Bilirubin Direct Bilirubin AST ALT Alkaline Phosphatase Ammonia 81 H Troponin I High Sens 6.9 B-Natriuretic Peptide Total Protein Albumin Lipase Peritoneal WBC Peritoneal RBC Peritoneal Tot Protein Peritoneal LDH Peritoneal Glucose Coronavirus (PCR) Influenza Type A (PCR) Influenza Type B (PCR) RSV RNA Qual (PCR) 03/12/20 03/12/20 03/12/20 20:39 20:40 Unknown WBC RBC Hgb Hct MCV MCH MCHC RDW Plt Count MPV Immature Gran % (Auto) Neut % (Auto) Lymph % (Auto) [place] % (Auto) Eos % (Auto) Baso % (Auto) Lymph # (Auto) [place] # (Auto) Eos # (Auto) Baso # (Auto) Abs Immat Gran (auto) Absolute Neuts (auto) Absolute Nucleated RBC Nucleated RBC % (auto) Smear Tech's Comments PT INR APTT Sodium Potassium Chloride Carbon Dioxide Anion Gap BUN Creatinine Estim Creat Clear Calc Estimated GFR POC Glucose 88 Random Glucose Lactic Acid Lactic Acid Fup @ 2Hr 1.5 Calcium Magnesium Total Bilirubin Direct Bilirubin AST ALT Alkaline Phosphatase Ammonia Troponin I High Sens B-Natriuretic Peptide Total Protein Albumin Lipase Peritoneal WBC Peritoneal RBC Peritoneal Tot Protein 1.2 Peritoneal LDH Peritoneal Glucose Coronavirus (PCR) Influenza Type A (PCR) Influenza Type B (PCR) RSV RNA Qual (PCR) 03/12/20 03/12/20 03/13/20 Unknown Unknown 00:14 WBC RBC Hgb Hct MCV MCH MCHC RDW Plt Count MPV Immature Gran % (Auto) Neut % (Auto) Lymph % (Auto) [place] % (Auto) Eos % (Auto) Baso % (Auto) Lymph # (Auto) [place] # (Auto) Eos # (Auto) Baso # (Auto) Abs Immat Gran (auto) Absolute Neuts (auto) Absolute Nucleated RBC Nucleated RBC % (auto) Smear Tech's Comments PT INR APTT Sodium Potassium Chloride Carbon Dioxide Anion Gap BUN Creatinine Estim Creat Clear Calc Estimated GFR POC Glucose 95 Random Glucose Lactic Acid Lactic Acid Fup @ 2Hr Calcium Magnesium Total Bilirubin Direct Bilirubin AST ALT Alkaline Phosphatase Ammonia Troponin I High Sens B-Natriuretic Peptide Total Protein Albumin Lipase Peritoneal WBC 0.324 Peritoneal RBC < 0.002 Peritoneal Tot Protein Peritoneal LDH 41 Peritoneal Glucose 137 Coronavirus (PCR) Influenza Type A (PCR) Influenza Type B (PCR) RSV RNA Qual (PCR) 03/13/20 06:39 WBC 9.8 RBC 2.95 L Hgb 8.5 L Hct 27.1 L MCV 91.9 MCH 28.8 MCHC 31.4 RDW 19.3 H Plt Count 154 L D MPV 10.8 Immature Gran % (Auto) 1.2 H Neut % (Auto) 75.6 H Lymph % (Auto) 8.8 L [place] % (Auto) 12.6 H Eos % (Auto) 1.4 Baso % (Auto) 0.4 Lymph # (Auto) 0.9 L [place] # (Auto) 1.2 Eos # (Auto) 0.1 Baso # (Auto) 0.0 Abs Immat Gran (auto) 0.12 H Absolute Neuts (auto) 7.4 Absolute Nucleated RBC 0.000 Nucleated RBC % (auto) 0.0 Smear Tech's Comments PT INR APTT Sodium Potassium Chloride Carbon Dioxide Anion Gap BUN Creatinine Estim Creat Clear Calc Estimated GFR POC Glucose Random Glucose Lactic Acid Lactic Acid Fup @ 2Hr Calcium Magnesium Total Bilirubin Direct Bilirubin AST ALT Alkaline Phosphatase Ammonia Troponin I High Sens B-Natriuretic Peptide Total Protein Albumin Lipase Peritoneal WBC Peritoneal RBC Peritoneal Tot Protein Peritoneal LDH Peritoneal Glucose Coronavirus (PCR) Influenza Type A (PCR) Influenza Type B (PCR) RSV RNA Qual (PCR) Microbiology Microbiology Results: Microbiology 03/12/20 Unknown Ascites Fluid Gram Stain - Final 03/12/20 Unknown Ascites Fluid Anaerobic Culture - Preliminary No growth to date. 03/12/20 Unknown Ascites Fluid Body Fluid Culture - Preliminary No growth to date. 03/12/20 15:10 Blood - Venous Blood Culture - Preliminary Progress Note: A&P Assessment and plan (1) Encephalopathy: Status: Acute Assessment and Plan: Patient continues with encephalopathy. Ammonia seems to continue to be chronically elevated. Continue xifaxin. Culture and cover for ? Pulomonary process. (2) Cirrhosis of liver with ascites: Problem details: Abd CT scan showed cirrhosis attributed to KIM. Liver Fibrosis score was 0.69 with fibrosis stage of F3 in 2016. Cirrhosis can be due to Autoimmune hepatitis or PBC or congestive hepatopathy. MELD score is 18. Hepatitis B & C serologies were negative in 2010. WESLY was positive in a titer 1:40, antimitochondrial antibody and anti smooth muscle antibody were normal. Status: Inactive Assessment and Plan: This problems continues to need managment--Albumin lower 3.2--?protein calorie nutriton focus. Given progression of her diseases, Hospice would be a reasonable option. Putting a catheter into drain ascites can be done. It really seems as though the encephalopathy is more of a management problem. Draining fluid without infusing albumin can lead to hypotension, worsening kidney function, etc. (3) Abnormal chest xray: Status: Acute Assessment and Plan: Patient is being coverd for acute process. continue to monitor Fall Risk Details Current Medications: Current Medications Generic Name Dose Route Start Last Admin Trade Name Freq PRN Reason Stop Dose Admin Allopurinol 100 mg 03/13/20 09:00 03/13/20 09:44 Allopurinol 100 Mg Tablet PO 100 mg DAILY LAN Administration Amlodipine Besylate 5 mg 03/13/20 09:00 03/13/20 09:43 Amlodipine Besylate 5 Mg Tablet PO 5 mg DAILY LAN Administration Protocol Apixaban 5 mg 03/13/20 08:36 03/13/20 10:10 Apixaban 5 Mg Tablet PO 5 mg BID LAN Administration Famotidine 20 mg 03/13/20 08:36 03/13/20 10:09 Famotidine/Pf 20 Mg/2 Ml Vial IVPUSH 20 mg BID LAN Administration Piperacillin Sod/Tazobactam 50 mls @ 100 mls/hr 03/13/20 00:00 03/13/20 12:06 Sod 2.25 gm/ Sodium Chloride IV 100 mls/hr Q6H LAN Administration Lactulose 30 gm 03/12/20 21:00 03/13/20 09:47 Lactulose 20 Gm/30 Ml Solution PO 30 gm TID LAN Administration Levetiracetam 250 mg 03/13/20 09:00 03/13/20 09:44 Levetiracetam 250 Mg Tablet PO 250 mg DAILY LAN Administration Metformin HCl 500 mg 03/13/20 08:36 03/13/20 10:09 Metformin Hcl 500 Mg Tablet PO 500 mg BID LAN Administration Nadolol 40 mg 03/13/20 09:00 03/13/20 09:46 Nadolol 40 Mg Tablet PO Not Given DAILY LAN Protocol Non-Formulary Medication 1.5 mg 03/16/20 08:56 Dulaglutide [Trulicity] SUBCUT Fr COUNT [facility]CLUD[facility] Omeprazole 40 mg 03/13/20 09:00 03/13/20 09:44 Omeprazole 40 Mg Capsule.Dr PO 40 mg DAILY LAN Administration Pharmacy Consult 1 each 03/12/20 14:39 Consult Rx Perform Med Rec MISCELLANE ONCE PRN Consult order Pharmacy Consult 1 each 03/12/20 16:33 Consult Rx Vancomycin Dosing MISCELLANE DAILY PRN Consult order Rifaximin 550 mg 03/13/20 08:36 03/13/20 10:09 Rifaximin 550 Mg Tablet PO 550 mg BID LAN Administration Sertraline HCl 100 mg 03/13/20 09:00 03/13/20 09:47 Sertraline Hcl 100 Mg Tablet PO 100 mg DAILY LAN Administration Sodium Chloride 3 ml 03/13/20 08:36 03/13/20 10:08 0.9 % Sodium Chloride Flush 3 Ml Syringe IVFLUSH 3 ml QSHIFT LAN Administration Time Spent With Patient Time: Total time spent is greater than 50% in coordination of care (as documented) at patient's floor/unit and/or counseling patient: Time with patient: 15 - 24 minutes
--- NOTE | 2020-03-13 15:20 | PC.NURSE ---
pt has a stage 2 pressure ulcer on right buttock. open reddened area noted. allewyn dressing applied. aware.
--- NOTE | 2020-03-13 15:31 | PC.NURSE ---
nurse to nurse report given to Alla CAMPA ([facility])
[2020-03-13 16:11] LABS: Glucose, Whole Blood 214 mg/dL (60-115)
--- NOTE | 2020-03-13 19:16 | P.EN_ITS ---
Event Note Date of Service: 03/13/20 Event Note: Spoke to Sirena (patient's daughter and HCP). She is requesting pl acement of peritoneal catheter so ascitic fluid can be drained at home. She and one of her brothers are considering transitioning to hospice care and managing future episodes of encephalopathy at home (since pt does not want to be hospitalized). Eliquis needs to be held x 48 hrs prior to placement of peritoneal catheter - order placed to hold Eliquis. I will re-discuss with IR in the am.
[2020-03-13 20:08] LABS: Glucose, Whole Blood 185 mg/dL (60-115)
[2020-03-14] VITALS (10 sets, daily range): BP systolic 130–150; BP diastolic 61–71; PULSE 53–58; RESP 16–23; TEMP 36–36.6; O2SAT 94–99; BMI 29.3
--- NOTE | 2020-03-14 | XR_ITS ---
EXAMINATION: XR CHEST CLINICAL INFORMATION: Pneumonia COMPARISON: March 12, 2020 and December 23, 2019 TECHNIQUE: AP portable view of the chest was obtained. FINDINGS: There has been improvement in the left lung base disease with some streaky densities now being apparent with no significant confluent disease. No pneumothorax or pleural effusion. There are small lung volumes present with what appears to be small amount of right base atelectasis. Heart normal size. No evidence of pulmonary edema. XR/XR chest 1V IMPRESSION: Improving left lower lobe disease.
[2020-03-14] MEDS: 0.9 % Sodium Chloride Flush 3 ML SYRINGE IVFLUSH ×4 (00:20→23:50)
[2020-03-14] MEDS: Piperacillin Sodium/Tazobactam 2.25 GM in 0.9 % Sodium Chloride 50 ML IV ×5 (00:21→23:50)
[2020-03-14 06:42] LABS: MANUAL DIFF FLAG NO
[2020-03-14 06:48] LABS: Basophils Percent Auto 0.4 % (0-2); Eosinophils Absolute Auto 0.1 X10*3/uL (0.0-0.4); Eosinophils Percent Auto 1.3 % (0-4); Hematocrit 28.8 % (37-47); Hemoglobin 8.7 g/dl (12.0-16.0); Imm Gran Abs Auto 0.09 X10*3/uL (0.00-0.03); Imm Gran Pct Auto 0.9 % (0.0-0.4); Lymphocytes Absolute Auto 1.1 X10*3/uL (1.2-4.9); Lymphocytes Percent Auto 10.8 % (20-40); Mean Corpuscular HGB Conc 30.2 g/dl (31.0-35.0); Mean Corpuscular Hemoglobin 28.2 pg (27.0-33.0); Mean Corpuscular Volume 93.5 fL (80-98); Mean Platelet Volume 10.9 fL (9.4-12.3); Monocytes Absolute Auto 1.3 X10*3/uL (0.1-1.2); Monocytes Percent Auto 12.8 % (2-11); Neutrophils Absolute Auto 7.4 X10*3/uL (2.0-8.3); Neutrophils Percent Auto 73.8 % (45-73); Platelet Count 169 X10*3/uL (160-400); Red Blood Count 3.08 X10*6/uL (4.20-5.50); Red Cell Distribution Width 19.7 % (11.0-16.0)
[2020-03-14 06:53] LABS: INTERNATIONAL NORM RATIO 1.3 (0.9-1.1); Prothrombin Time 15.9 SEC (10.8-13.0)
[2020-03-14 07:13] LABS: Vancomycin Trough 7.4 mcg/mL (10.0-20.0)
[2020-03-14 07:29] LABS: Glucose, Whole Blood 131 mg/dL (60-115)
[2020-03-14 07:30] LABS: Alanine Aminotransferase 45 U/L (0-31); Albumin Level 3.2 g/dL (3.5-5.0); Alkaline Phosphatase 179 U/L (39-117); Anion Gap 12 (12-20); Aspartate Amino Transferase 147 U/L (5-31); Bilirubin Direct 0.6 mg/dL (0.0-0.5); Bilirubin Total 1.3 mg/dL (0.0-1.0); Blood Urea Nitrogen 22 mg/dL (9-16); Calcium 8.4 mg/dL (8.4-10.2); Carbon Dioxide 16 mmol/L (22-29); Chloride 123 mmol/L (96-108); Creatinine Clr Calc Pharmacy 33.3; Estimated Glomerular Filt Rate 42; Glucose Fasting 130 mg/dL (60-99); Magnesium 1.9 mg/dL (1.6-2.6); Potassium 3.4 mmol/L (3.3-5.1); Sodium 148 mmol/L (135-145); Total Protein 6.5 g/dL (6.5-8.0)
[2020-03-14] MEDS: Famotidine/PF 20 MG/2 ML VIAL IVPUSH ×2 (08:07→20:13)
[2020-03-14 11:21] LABS: Glucose, Whole Blood 153 mg/dL (60-115)
[2020-03-14] MEDS: allopurinoL 100 MG TABLET PO (11:35)
[2020-03-14] MEDS: metFORMIN HCl 500 MG TABLET PO ×2 (11:35→20:13)
[2020-03-14] MEDS: levETIRAcetam 250 MG TABLET PO (11:35)
[2020-03-14] MEDS: rifAXIMin 550 MG TABLET PO ×2 (11:35→20:13)
[2020-03-14] MEDS: Omeprazole 40 MG CAPSULE.DR PO (11:35)
[2020-03-14] MEDS: Sertraline HCL 100 MG TABLET PO (11:36)
--- NOTE | 2020-03-14 11:58 | P.PNIM_ITS ---
Subjective Subjective Date of Service: 03/14/20 Interval History: wants to go home Cardiovascular Cardiovascular: Reports no additional cardiovascular complaints Respiratory Respiratory: Reports no additional respiratory complaints Physical Exam Vital Signs: Vital Signs: Last Vital Signs Temp 98 F 03/14/20 11:00 Pulse 54 03/14/20 11:36 Resp 18 03/14/20 10:59 BP 137/65 03/14/20 10:59 Pulse Ox 94 03/14/20 10:59 Body Mass Index 29.3 General: Alert, not talking much, no acute distress Resp: CTA bilateral CVS: S1,S2,RRR GI: soft, non tender, non distended Neuro: encephlopathic Psych: appropriate affect Objective Data Current Medications Generic Name Dose Route Start Last Admin Trade Name Freq PRN Reason Stop Dose Admin Allopurinol 100 mg 03/13/20 09:00 03/14/20 11:35 Allopurinol 100 Mg Tablet PO 100 mg DAILY LAN Administration Amlodipine Besylate 5 mg 03/13/20 09:00 03/14/20 11:36 Amlodipine Besylate 5 Mg Tablet PO Not Given DAILY LAN Protocol Famotidine 20 mg 03/13/20 08:36 03/14/20 08:07 Famotidine/Pf 20 Mg/2 Ml Vial IVPUSH 20 mg BID LAN Administration Piperacillin Sod/Tazobactam 50 mls @ 100 mls/hr 03/13/20 00:00 03/14/20 11:35 Sod 2.25 gm/ Sodium Chloride IV 100 mls/hr Q6H LAN Administration Dextrose 1,000 mls @ 80 mls/hr 03/14/20 12:00 D5w IVCONT .[id number] LAN Lactulose 30 gm 03/12/20 21:00 03/14/20 11:37 Lactulose 20 Gm/30 Ml Solution PO Not Given TID LAN Levetiracetam 250 mg 03/13/20 09:00 03/14/20 11:35 Levetiracetam 250 Mg Tablet PO 250 mg DAILY LAN Administration Metformin HCl 500 mg 03/13/20 08:36 03/14/20 11:35 Metformin Hcl 500 Mg Tablet PO 500 mg BID LAN Administration Nadolol 40 mg 03/13/20 09:00 03/14/20 11:36 Nadolol 40 Mg Tablet PO Not Given DAILY LAN Protocol Non-Formulary Medication 1.5 mg 03/16/20 08:56 Dulaglutide [Trulicity] SUBCUT Fr [facility] Omeprazole 40 mg 03/13/20 09:00 03/14/20 11:35 Omeprazole 40 Mg Capsule. PO 40 mg DAILY LAN Administration Pharmacy Consult 1 each 03/12/20 14:39 Consult Rx Perform Med Rec MISCELLANE ONCE PRN Consult order Pharmacy Consult 1 each 03/12/20 16:33 Consult Rx Vancomycin Dosing MISCELLANE DAILY PRN Consult order Rifaximin 550 mg 03/13/20 08:36 03/14/20 11:35 Rifaximin 550 Mg Tablet PO 550 mg BID LAN Administration Sertraline HCl 100 mg 03/13/20 09:00 03/14/20 11:36 Sertraline Hcl 100 Mg Tablet PO 100 mg DAILY LAN Administration Sodium Chloride 3 ml 03/13/20 08:36 03/14/20 08:07 0.9 % Sodium Chloride Flush 3 Ml Syringe IVFLUSH 3 ml QSHIFT [facility] Administration Labs CBC & Chem 7: 03/14/20 06:03 03/14/20 06:03 Microbiology Microbiology Results: Microbiology 03/12/20 Unknown Ascites Fluid Gram Stain - Final 03/12/20 Unknown Ascites Fluid Anaerobic Culture - Preliminary No growth to date. 03/12/20 Unknown Ascites Fluid Body Fluid Culture - Preliminary No growth after 1 day 03/12/20 15:10 Blood - Venous Blood Culture - Preliminary Gram negative arielle 03/12/20 15:10 Blood - Venous Blood Culture - Preliminary No growth after 24 hours. Assessment and Plan (1) Encephalopathy: Status: Acute Assessment and Plan: 74F presented with abdominal distension and ams KIM cirrhosis with hepatic encephalopathy and symptomatic ascites s/p 2.3L paracentesis continue lactulose, rifaximin family leaning towards palliative/hospice, plan for pleurx abdominal catheter, eliquis on hold, last dose AM 2/2 ? pneumonia vs atelectasis doubt MRSA, continue zosyn for now, check repeat cxr DM insulin afib eliquis on hold for pleurx epilepsy keppra htn amlodipine
--- NOTE | 2020-03-14 12:00 | MHC.CM.PN ---
DP Return Home with Hospice. Resume [employer] already in place, and [facility]. 01/09 care to resume at DC. CM will follow. LOS R/T need for catheter AC therapy to DC for procedure anticipate dc 2-3 days.
[2020-03-14] MEDS: Dextrose 5 % 1,000 ML 80 ML IVCONT ×2 (12:36→23:50)
--- NOTE | 2020-03-14 14:31 | MHC.CM.PN ---
DP PLEUREX Catheter insertion scheduled 03/16/20. [facility] notified of procedure date. CM will follow.
[2020-03-14] MEDS: Lactulose 20 GM/30 ML SOLUTION 30 GM PO ×2 (16:42→20:13)
[2020-03-14 16:51] LABS: Glucose, Whole Blood 235 mg/dL (60-115)
[2020-03-14 20:32] LABS: Glucose, Whole Blood 147 mg/dL (60-115)
[2020-03-15] VITALS (8 sets, daily range): BP systolic 101–136; BP diastolic 50–70; PULSE 51–80; RESP 16–20; TEMP 35.9–36.8; O2SAT 95–100
[2020-03-15] MEDS: Piperacillin Sodium/Tazobactam 2.25 GM in 0.9 % Sodium Chloride 50 ML IV ×3 (05:26→18:17)
[2020-03-15 06:04] LABS: MANUAL DIFF FLAG NO
[2020-03-15 06:11] LABS: Basophils Percent Auto 0.4 % (0-2); Eosinophils Absolute Auto 0.2 X10*3/uL (0.0-0.4); Eosinophils Percent Auto 2.4 % (0-4); Hematocrit 27.1 % (37-47); Hemoglobin 8.4 g/dl (12.0-16.0); Imm Gran Pct Auto 1.1 % (0.0-0.4); Lymphocytes Absolute Auto 1.3 X10*3/uL (1.2-4.9); Lymphocytes Percent Auto 14.2 % (20-40); Mean Corpuscular Hemoglobin 29.3 pg (27.0-33.0); Mean Corpuscular Volume 94.4 fL (80-98); Mean Platelet Volume 10.5 fL (9.4-12.3); Monocytes Percent Auto 11.1 % (2-11); Neutrophils Absolute Auto 6.4 X10*3/uL (2.0-8.3); Neutrophils Percent Auto 70.8 % (45-73); Platelet Count 150 X10*3/uL (160-400); Red Blood Count 2.87 X10*6/uL (4.20-5.50); Red Cell Distribution Width 19.3 % (11.0-16.0); White Blood Count 9.1 X10*3/uL (4.8-10.8)
[2020-03-15 06:50] LABS: Anion Gap 15 (12-20); Blood Urea Nitrogen 18 mg/dL (9-16); Carbon Dioxide 13 mmol/L (22-29); Chloride 116 mmol/L (96-108); Estimated Glomerular Filt Rate 46; Glucose Fasting 129 mg/dL (60-99); Magnesium 1.5 mg/dL (1.6-2.6); Potassium 3.2 mmol/L (3.3-5.1); Sodium 141 mmol/L (135-145)
[2020-03-15 07:35] LABS: Glucose, Whole Blood 119 mg/dL (60-115)
[2020-03-15] MEDS: Lactulose 20 GM/30 ML SOLUTION 30 GM PO ×3 (08:27→21:11)
[2020-03-15] MEDS: metFORMIN HCl 500 MG TABLET PO ×2 (08:27→21:11)
[2020-03-15] MEDS: Famotidine/PF 20 MG/2 ML VIAL IVPUSH ×2 (08:28→21:11)
[2020-03-15] MEDS: rifAXIMin 550 MG TABLET PO ×2 (08:28→21:11)
[2020-03-15] MEDS: Sertraline HCL 100 MG TABLET PO (08:29)
[2020-03-15] MEDS: amLODIPine Besylate 5 MG TABLET PO (08:29)
[2020-03-15] MEDS: Omeprazole 40 MG CAPSULE.DR PO (08:29)
[2020-03-15] MEDS: levETIRAcetam 250 MG TABLET PO (08:29)
[2020-03-15] MEDS: allopurinoL 100 MG TABLET PO (09:50)
[2020-03-15] MEDS: 0.9 % Sodium Chloride Flush 3 ML SYRINGE IVFLUSH (09:50)
--- NOTE | 2020-03-15 09:56 | P.PNIM_ITS ---
Subjective Subjective Date of Service: 03/15/20 Interval History: more alert today Cardiovascular Cardiovascular: Reports no additional cardiovascular complaints Respiratory Respiratory: Reports no additional respiratory complaints Physical Exam Vital Signs: Vital Signs: Last Vital Signs Temp 96.6 F L 03/15/20 07:48 Pulse 64 03/15/20 08:29 Resp 18 03/15/20 07:48 BP 120/65 03/15/20 08:29 Pulse Ox 100 03/15/20 07:48 Body Mass Index 29.3 General: AO X 3, no acute distress Resp: CTA bilateral CVS: S1,S2,RRR GI: soft, non tender, non distended Neuro: motor grossly intact Psych: appropriate affect Objective Data Current Medications Generic Name Dose Route Start Last Admin Trade Name Freq PRN Reason Stop Dose Admin Allopurinol 100 mg 03/13/20 09:00 03/15/20 09:50 Allopurinol 100 Mg Tablet PO 100 mg DAILY LAN Administration Amlodipine Besylate 5 mg 03/13/20 09:00 03/15/20 08:29 Amlodipine Besylate 5 Mg Tablet PO 5 mg DAILY LAN Administration Protocol Famotidine 20 mg 03/13/20 08:36 03/15/20 08:28 Famotidine/Pf 20 Mg/2 Ml Vial IVPUSH 20 mg BID LAN Administration Piperacillin Sod/Tazobactam 50 mls @ 100 mls/hr 03/13/20 00:00 03/15/20 06:41 Sod 2.25 gm/ Sodium Chloride IV Infused Q6H LAN Infusion Dextrose 1,000 mls @ 80 mls/hr 03/14/20 12:00 03/14/20 23:50 D5w IVCONT 80 mls/hr .[id number] LAN Administration Lactulose 30 gm 03/12/20 21:00 03/15/20 08:27 Lactulose 20 Gm/30 Ml Solution PO 30 gm TID LAN Administration Levetiracetam 250 mg 03/13/20 09:00 03/15/20 08:29 Levetiracetam 250 Mg Tablet PO 250 mg DAILY LAN Administration Magnesium Oxide 800 mg 03/15/20 09:56 Magnesium Oxide 400 Mg Tablet PO 03/15/20 09:57 ONCE ONE Metformin HCl 500 mg 03/13/20 08:36 03/15/20 08:27 Metformin Hcl 500 Mg Tablet PO 500 mg BID LAN Administration Nadolol 40 mg 03/13/20 09:00 03/15/20 08:28 Nadolol 40 Mg Tablet PO 40 mg DAILY [facility] Administration Protocol Non-Formulary Medication 1.5 mg 03/16/20 08:56 Dulaglutide [Trulicity] SUBCUT Fr [facility] Omeprazole 40 mg 03/13/20 09:00 03/15/20 08:29 Omeprazole 40 Mg Capsule. PO 40 mg DAILY [facility] Administration Pharmacy Consult 1 each 03/12/20 14:39 Consult Rx Perform Med Rec MISCELLANE ONCE PRN Consult order Pharmacy Consult 1 each 03/12/20 16:33 Consult Rx Vancomycin Dosing MISCELLANE DAILY PRN Consult order Potassium Chloride 40 meq 03/15/20 09:56 Potassium Chloride Er 20 Meq Tab.Er.Prt PO 03/15/20 09:57 ONCE ONE Rifaximin 550 mg 03/13/20 08:36 03/15/20 08:28 Rifaximin 550 Mg Tablet PO 550 mg BID [facility] Administration Sertraline HCl 100 mg 03/13/20 09:00 03/15/20 08:29 Sertraline Hcl 100 Mg Tablet PO 100 mg DAILY [facility] Administration Sodium Chloride 3 ml 03/13/20 08:36 03/15/20 09:50 0.9 % Sodium Chloride Flush 3 Ml Syringe IVFLUSH 3 ml QSHIFT [facility] Administration Labs CBC & Chem 7: 03/15/20 05:35 03/15/20 05:35 Microbiology Microbiology Results: Microbiology 03/12/20 15:10 Blood - Venous Blood Culture - Preliminary No growth after 48 hours. 03/12/20 15:10 Blood - Venous Blood Culture - Final Escherichia coli 03/12/20 Unknown Ascites Fluid Gram Stain - Final 03/12/20 Unknown Ascites Fluid Anaerobic Culture - Preliminary No growth to date. 03/12/20 Unknown Ascites Fluid Body Fluid Culture - Preliminary No growth after 1 day Assessment and Plan (1) Encephalopathy: Status: Acute Assessment and Plan: 74F presented with abdominal distension and ams KIM cirrhosis with hepatic encephalopathy and symptomatic ascites s/p 2.3L paracentesis continue lactulose, rifaximin family leaning towards palliative/hospice, plan for pleurx abdominal catheter, eliquis on hold, last dose AM 2/2 more alert today ? pneumonia vs atelectasis doubt MRSA, continue zosyn for now, repeat cxr improved DM insulin afib eliquis on hold for pleurx epilepsy keppra htn amlodipine
[2020-03-15] MEDS: Magnesium Oxide 400 MG TABLET 800 MG PO (11:15)
[2020-03-15] MEDS: Potassium Chloride ER 20 MEQ TAB.ER.PRT 40 MEQ PO (11:15)
[2020-03-15 11:25] LABS: Glucose, Whole Blood 214 mg/dL (60-115)
[2020-03-15] MEDS: Insulin Lispro 100 UNIT/ML 3 ML VIAL SUBCUT ×2 (12:34→21:12)
--- NOTE | 2020-03-15 13:32 | MHC.CM.PN ---
DP spoke w DTR/HCP Sirena Desouza. She will fax copy of insurance card to case management. Insurance card image is required [facility] orders for PLE[facility]. DP is to home with resumption of 01/09 care. CM will follow.
[2020-03-15 16:29] LABS: Glucose, Whole Blood 82 mg/dL (60-115)
[2020-03-15] MEDS: Dextrose 5 % 1,000 ML 80 ML IVCONT (17:01)
[2020-03-15 19:47] LABS: Glucose, Whole Blood 172 mg/dL (60-115)
[2020-03-16] MEDS: Piperacillin Sodium/Tazobactam 2.25 GM in 0.9 % Sodium Chloride 50 ML IV ×4 (00:31→17:13)
[2020-03-16] MEDS: 0.9 % Sodium Chloride Flush 3 ML SYRINGE IVFLUSH ×2 (00:32→17:13)
[2020-03-16 03:25] VITALS: BP 120/60; PULSE 62; RESP 18; TEMP 36.1; O2SAT 97
[2020-03-16 06:01] LABS: MANUAL DIFF FLAG NO
[2020-03-16 06:09] LABS: Basophils Absolute Auto 0.1 X10*3/uL (0.0-0.2); Basophils Percent Auto 0.7 % (0-2); Eosinophils Absolute Auto 0.3 X10*3/uL (0.0-0.4); Eosinophils Percent Auto 2.7 % (0-4); Hemoglobin 8.2 g/dl (12.0-16.0); Imm Gran Abs Auto 0.11 X10*3/uL (0.00-0.03); Imm Gran Pct Auto 1.1 % (0.0-0.4); Lymphocytes Absolute Auto 1.3 X10*3/uL (1.2-4.9); Lymphocytes Percent Auto 12.7 % (20-40); Mean Corpuscular HGB Conc 30.4 g/dl (31.0-35.0); Mean Corpuscular Hemoglobin 28.6 pg (27.0-33.0); Mean Corpuscular Volume 94.1 fL (80-98); Mean Platelet Volume 10.7 fL (9.4-12.3); Monocytes Absolute Auto 1.3 X10*3/uL (0.1-1.2); Monocytes Percent Auto 12.5 % (2-11); Neutrophils Absolute Auto 7.3 X10*3/uL (2.0-8.3); Neutrophils Percent Auto 70.3 % (45-73); Platelet Count 165 X10*3/uL (160-400); Red Blood Count 2.87 X10*6/uL (4.20-5.50); Red Cell Distribution Width 19.1 % (11.0-16.0); White Blood Count 10.4 X10*3/uL (4.8-10.8)
[2020-03-16 06:45] LABS: Anion Gap 15 (12-20); Blood Urea Nitrogen 15 mg/dL (9-16); Calcium 8.2 mg/dL (8.4-10.2); Carbon Dioxide 12 mmol/L (22-29); Chloride 116 mmol/L (96-108); Creatinine Clr Calc Pharmacy 33.1; Estimated Glomerular Filt Rate 42; Glucose Fasting 137 mg/dL (60-99); Magnesium 1.6 mg/dL (1.6-2.6); Potassium 3.6 mmol/L (3.3-5.1); Sodium 139 mmol/L (135-145)
[2020-03-16 07:32] LABS: Glucose, Whole Blood 134 mg/dL (60-115)
[2020-03-16 07:51] VITALS: BP 127/64; PULSE 64; RESP 20; TEMP 36.4; O2SAT 99
[2020-03-16 08:31] VITALS: BP 127/64; PULSE 64
[2020-03-16] MEDS: Famotidine/PF 20 MG/2 ML VIAL IVPUSH (08:31)
[2020-03-16] MEDS: amLODIPine Besylate 5 MG TABLET PO (08:31)
[2020-03-16] MEDS: Sertraline HCL 100 MG TABLET PO (08:31)
[2020-03-16] MEDS: Omeprazole 40 MG CAPSULE.DR PO (08:31)
[2020-03-16 08:32] VITALS: BP 127/64; PULSE 64
[2020-03-16] MEDS: rifAXIMin 550 MG TABLET PO (08:32)
[2020-03-16] MEDS: Sodium Bicarbonate 650 MG TABLET PO ×2 (08:32→14:24)
[2020-03-16] MEDS: allopurinoL 100 MG TABLET PO (08:32)
[2020-03-16] MEDS: levETIRAcetam 250 MG TABLET PO (08:32)
[2020-03-16] MEDS: metFORMIN HCl 500 MG TABLET PO (08:32)
[2020-03-16] MEDS: Lactulose 20 GM/30 ML SOLUTION 30 GM PO ×2 (10:41→14:24)
[2020-03-16 11:26] VITALS: BP 127/64; PULSE 53; RESP 18; TEMP 36.3; O2SAT 99
[2020-03-16 11:29] LABS: Glucose, Whole Blood 124 mg/dL (60-115)
--- NOTE | 2020-03-16 12:07 | MHC.CLN ---
F/U PO INTAKE 75% AVG DIET RX: 1800DM-WILL START 2GM NA R/T HX CHF WILL START DUKE AND GLUCERNA BID TO INCREASE KCALS AND PROMOTE WOUND HEALING FOLLOWING
--- NOTE | 2020-03-16 12:49 | MHC.CM.PN ---
Addendum entered by Lety Hernandez 03/16/20 12:53: Homecare has not been ordered by . No Pleurex catheter was inserted. Original Note: IMM 03/16/20 Female 74 dx ascites is DC to home today w 01/09 care and [facility]. HCP/DTR Sirena was notified of DC today. Transportation is booked for 5:30pm with [facility] as Pt has HNE.
--- NOTE | 2020-03-16 12:50 | PM.DS ---
DS: Providers Provider Date of Service: 03/16/20 Date of admission: 03/12/20 19:24 Primary care physician: Mahsa Torres MD Consults: 03/13/20 02:49 Consult to Gastroenterology Routine Consulting Provider: Rosio Mata Reason for consultation: Ascites/cirrhosis DS: Diagnosis Discharge Diagnosis (1) Encephalopathy: Status: Acute DS: Medications Discharge Medications Home Medications: Home Medications Medication Instructions Recorded Confirmed amlodipine 5 mg tablet 5 mg PO DAILY 12/05/19 03/12/20 insulin glargine U-300 conc 300 15 unit SUBCUT DAILY ml 12/05/19 03/12/20 unit/mL (3 mL) subcutaneous pen insulin lispro [Humalog KwikPen 11 unit SUBCUT TIDAC 03/02/20 03/12/20 Insulin] levetiracetam [Keppra] 250 mg PO DAILY 03/02/20 03/12/20 Trulicity 1.5 mg SUBCUT QWEEK 03/12/20 03/12/20 Previous Rx's Medication Instructions Recorded allopurinol 100 mg tablet 100 mg PO DAILY #30 tab 12/30/19 nadolol 40 mg tablet 40 mg PO DAILY #90 tab 01/16/20 lactulose 20 gram/30 mL oral 20 g PO BID #1000 ml 01/18/20 solution omeprazole 40 mg capsule,delayed 40 mg PO DAILY #90 cap 01/18/20 release rifaximin 550 mg tablet 550 mg PO BID 30 Days #60 tab 01/24/20 sertraline 100 mg tablet 100 mg PO DAILY #90 tab 02/16/20 metformin 500 mg tablet 500 mg PO BID #90 tab 02/28/20 apixaban 5 mg tablet 5 mg PO BID #180 tab 03/12/20 DS: Summary Hospital Course Hospital Course: His was admitted for panic encephalopathy. Was given lactulose and encephalopathy improved. Plan was to have PleurX catheter placed, however, patient did not have enough ascites in the end so will have to be pursued later when it reaccumulates. patient was also treated several days for quesitnable pneuymonia, will discontinue on discharge Time Spent with Patient Time attestation: Total time spent providing and/or coordinating discharge services: Discharge coordination time: Greater than 30 minutes Physical Exam Vital Signs: Vital Signs: Last Vital Signs Temp 97.3 F 03/16/20 11:26 Pulse 53 03/16/20 11:26 Resp 18 03/16/20 11:26 BP 127/64 03/16/20 11:26 Pulse Ox 99 03/16/20 11:26 Body Mass Index 29.3 General: AO X 3, no acute distress Resp: CTA bilateral CVS: S1,S2,RRR GI: soft, non tender, non distended Neuro: motor grossly intact Psych: appropriate affect DS: Data Data Completed and Pending Completed studies during hospitalization [Text1]: Procedures Drainage of Peritoneal Cavity, Percutaneous Approach (03/02/20) Excision of Cecum, Via Natural or Artificial Opening Endoscopic (12/09/19) Excision of Sigmoid Colon, Via Natural or Artificial Opening Endoscopic, Diagnostic (12/09/19) Excision of Transverse Colon, Via Natural or Artificial Opening Endoscopic, Diagnostic (12/09/19) Occlusion of Esophageal Vein with Extraluminal Device, Via Natural or Artificial Opening Endoscopic (12/09/19) Transfusion of Nonautologous Red Blood Cells into Peripheral Vein, Percutaneous Approach (12/09/19) Labs on day of discharge: Laboratory Tests 03/12/20 03/12/20 03/12/20 15:10 15:10 15:10 WBC 13.8 H RBC 3.17 L Hgb 9.1 L Hct 29.8 L MCV 94.0 MCH 28.7 MCHC 30.5 L RDW 19.2 H Plt Count 226 D MPV 11.2 Immature Gran % (Auto) 1.2 H Neut % (Auto) 75.9 H Lymph % (Auto) 9.3 L [place] % (Auto) 12.1 H Eos % (Auto) 1.1 Baso % (Auto) 0.4 Lymph # (Auto) 1.3 [place] # (Auto) 1.7 H Eos # (Auto) 0.2 Baso # (Auto) 0.1 Abs Immat Gran (auto) 0.16 H Absolute Neuts (auto) 10.5 H Absolute Nucleated RBC 0.000 Nucleated RBC % (auto) 0.0 Smear Tech's Comments VERIFIED PT 23.4 H INR 2.0 H APTT 39.5 H Sodium 140 Potassium 4.2 Chloride 115 H Carbon Dioxide 12 L Anion Gap 17 BUN 29 H Creatinine 1.26 Estim Creat Clear Calc 32.8 Estimated GFR 42 POC Glucose Random Glucose 107 Fasting Glucose Lactic Acid Lactic Acid Fup @ 2Hr Calcium 8.1 L Magnesium 2.1 Total Bilirubin 1.0 Direct Bilirubin 0.6 H AST 111 H ALT 41 H Alkaline Phosphatase 219 H Ammonia Troponin I High Sens B-Natriuretic Peptide Total Protein 6.7 Albumin 3.2 L Lipase 157 H Peritoneal WBC Peritoneal RBC Peritoneal Tot Protein Peritoneal LDH Peritoneal Glucose Vancomycin Trough Coronavirus (PCR) Influenza Type A (PCR) Influenza Type B (PCR) RSV RNA Qual (PCR) 03/12/20 03/12/20 03/12/20 15:10 15:10 15:10 WBC RBC Hgb Hct MCV MCH MCHC RDW Plt Count MPV Immature Gran % (Auto) Neut % (Auto) Lymph % (Auto) [place] % (Auto) Eos % (Auto) Baso % (Auto) Lymph # (Auto) [place] # (Auto) Eos # (Auto) Baso # (Auto) Abs Immat Gran (auto) Absolute Neuts (auto) Absolute Nucleated RBC Nucleated RBC % (auto) Smear Tech's Comments PT INR APTT Sodium Potassium Chloride Carbon Dioxide Anion Gap BUN Creatinine Estim Creat Clear Calc Estimated GFR POC Glucose Random Glucose Fasting Glucose Lactic Acid 3.3 H* Lactic Acid Fup @ 2Hr Calcium Magnesium Total Bilirubin Direct Bilirubin AST ALT Alkaline Phosphatase Ammonia Troponin I High Sens 7.0 B-Natriuretic Peptide 211 H Total Protein Albumin Lipase Peritoneal WBC Peritoneal RBC Peritoneal Tot Protein Peritoneal LDH Peritoneal Glucose Vancomycin Trough Coronavirus (PCR) NEGATIVE Influenza Type A (PCR) NEGATIVE Influenza Type B (PCR) NEGATIVE RSV RNA Qual (PCR) NEGATIVE 03/12/20 03/12/20 03/12/20 17:27 17:27 18:02 WBC RBC Hgb Hct MCV MCH MCHC RDW Plt Count MPV Immature Gran % (Auto) Neut % (Auto) Lymph % (Auto) [place] % (Auto) Eos % (Auto) Baso % (Auto) Lymph # (Auto) [place] # (Auto) Eos # (Auto) Baso # (Auto) Abs Immat Gran (auto) Absolute Neuts (auto) Absolute Nucleated RBC Nucleated RBC % (auto) Smear Tech's Comments PT INR APTT Sodium Potassium Chloride Carbon Dioxide Anion Gap BUN Creatinine Estim Creat Clear Calc Estimated GFR POC Glucose Random Glucose Fasting Glucose Lactic Acid 2.4 H* Lactic Acid Fup @ 2Hr Calcium Magnesium Total Bilirubin Direct Bilirubin AST ALT Alkaline Phosphatase Ammonia 81 H Troponin I High Sens 6.9 B-Natriuretic Peptide Total Protein Albumin Lipase Peritoneal WBC Peritoneal RBC Peritoneal Tot Protein Peritoneal LDH Peritoneal Glucose Vancomycin Trough Coronavirus (PCR) Influenza Type A (PCR) Influenza Type B (PCR) RSV RNA Qual (PCR) 03/12/20 03/12/20 03/12/20 20:39 20:40 Unknown WBC RBC Hgb Hct MCV MCH MCHC RDW Plt Count MPV Immature Gran % (Auto) Neut % (Auto) Lymph % (Auto) [place] % (Auto) Eos % (Auto) Baso % (Auto) Lymph # (Auto) [place] # (Auto) Eos # (Auto) Baso # (Auto) Abs Immat Gran (auto) Absolute Neuts (auto) Absolute Nucleated RBC Nucleated RBC % (auto) Smear Tech's Comments PT INR APTT Sodium Potassium Chloride Carbon Dioxide Anion Gap BUN Creatinine Estim Creat Clear Calc Estimated GFR POC Glucose 88 Random Glucose Fasting Glucose Lactic Acid Lactic Acid Fup @ 2Hr 1.5 Calcium Magnesium Total Bilirubin Direct Bilirubin AST ALT Alkaline Phosphatase Ammonia Troponin I High Sens B-Natriuretic Peptide Total Protein Albumin Lipase Peritoneal WBC Peritoneal RBC Peritoneal Tot Protein 1.2 Peritoneal LDH Peritoneal Glucose Vancomycin Trough Coronavirus (PCR) Influenza Type A (PCR) Influenza Type B (PCR) RSV RNA Qual (PCR) 03/12/20 03/12/20 03/13/20 Unknown Unknown 00:14 WBC RBC Hgb Hct MCV MCH MCHC RDW Plt Count MPV Immature Gran % (Auto) Neut % (Auto) Lymph % (Auto) [place] % (Auto) Eos % (Auto) Baso % (Auto) Lymph # (Auto) [place] # (Auto) Eos # (Auto) Baso # (Auto) Abs Immat Gran (auto) Absolute Neuts (auto) Absolute Nucleated RBC Nucleated RBC % (auto) Smear Tech's Comments PT INR APTT Sodium Potassium Chloride Carbon Dioxide Anion Gap BUN Creatinine Estim Creat Clear Calc Estimated GFR POC Glucose 95 Random Glucose Fasting Glucose Lactic Acid Lactic Acid Fup @ 2Hr Calcium Magnesium Total Bilirubin Direct Bilirubin AST ALT Alkaline Phosphatase Ammonia Troponin I High Sens B-Natriuretic Peptide Total Protein Albumin Lipase Peritoneal WBC 0.324 Peritoneal RBC < 0.002 Peritoneal Tot Protein Peritoneal LDH 41 Peritoneal Glucose 137 Vancomycin Trough Coronavirus (PCR) Influenza Type A (PCR) Influenza Type B (PCR) RSV RNA Qual (PCR) 03/13/20 03/13/20 03/13/20 06:39 16:07 19:49 WBC 9.8 RBC 2.95 L Hgb 8.5 L Hct 27.1 L MCV 91.9 MCH 28.8 MCHC 31.4 RDW 19.3 H Plt Count 154 L D MPV 10.8 Immature Gran % (Auto) 1.2 H Neut % (Auto) 75.6 H Lymph % (Auto) 8.8 L [place] % (Auto) 12.6 H Eos % (Auto) 1.4 Baso % (Auto) 0.4 Lymph # (Auto) 0.9 L [place] # (Auto) 1.2 Eos # (Auto) 0.1 Baso # (Auto) 0.0 Abs Immat Gran (auto) 0.12 H Absolute Neuts (auto) 7.4 Absolute Nucleated RBC 0.000 Nucleated RBC % (auto) 0.0 Smear Tech's Comments PT INR APTT Sodium Potassium Chloride Carbon Dioxide Anion Gap BUN Creatinine Estim Creat Clear Calc Estimated GFR POC Glucose 214 H 185 H Random Glucose Fasting Glucose Lactic Acid Lactic Acid Fup @ 2Hr Calcium Magnesium Total Bilirubin Direct Bilirubin AST ALT Alkaline Phosphatase Ammonia Troponin I High Sens B-Natriuretic Peptide Total Protein Albumin Lipase Peritoneal WBC Peritoneal RBC Peritoneal Tot Protein Peritoneal LDH Peritoneal Glucose Vancomycin Trough Coronavirus (PCR) Influenza Type A (PCR) Influenza Type B (PCR) RSV RNA Qual (PCR) 03/14/20 03/14/20 03/14/20 06:03 06:03 06:03 WBC 10.0 RBC 3.08 L Hgb 8.7 L Hct 28.8 L MCV 93.5 MCH 28.2 MCHC 30.2 L RDW 19.7 H Plt Count 169 MPV 10.9 Immature Gran % (Auto) 0.9 H Neut % (Auto) 73.8 H Lymph % (Auto) 10.8 L [place] % (Auto) 12.8 H Eos % (Auto) 1.3 Baso % (Auto) 0.4 Lymph # (Auto) 1.1 L [place] # (Auto) 1.3 H Eos # (Auto) 0.1 Baso # (Auto) 0.0 Abs Immat Gran (auto) 0.09 H Absolute Neuts (auto) 7.4 Absolute Nucleated RBC 0.000 Nucleated RBC % (auto) 0.0 Smear Tech's Comments PT 15.9 H D INR 1.3 H APTT Sodium Potassium Chloride Carbon Dioxide Anion Gap BUN Creatinine Estim Creat Clear Calc Estimated GFR POC Glucose Random Glucose Fasting Glucose Lactic Acid Lactic Acid Fup @ 2Hr Calcium Magnesium Total Bilirubin Direct Bilirubin AST ALT Alkaline Phosphatase Ammonia Troponin I High Sens B-Natriuretic Peptide Total Protein Albumin Lipase Peritoneal WBC Peritoneal RBC Peritoneal Tot Protein Peritoneal LDH Peritoneal Glucose Vancomycin Trough 7.4 L Coronavirus (PCR) Influenza Type A (PCR) Influenza Type B (PCR) RSV RNA Qual (PCR) 03/14/20 03/14/20 03/14/20 06:03 07:09 10:58 WBC RBC Hgb Hct MCV MCH MCHC RDW Plt Count MPV Immature Gran % (Auto) Neut % (Auto) Lymph % (Auto) [place] % (Auto) Eos % (Auto) Baso % (Auto) Lymph # (Auto) [place] # (Auto) Eos # (Auto) Baso # (Auto) Abs Immat Gran (auto) Absolute Neuts (auto) Absolute Nucleated RBC Nucleated RBC % (auto) Smear Tech's Comments PT INR APTT Sodium 148 H Potassium 3.4 Chloride 123 H Carbon Dioxide 16 L Anion Gap 12 BUN 22 H Creatinine 1.24 Estim Creat Clear Calc 33.3 Estimated GFR 42 POC Glucose 131 H 153 H Random Glucose Fasting Glucose 130 H Lactic Acid Lactic Acid Fup @ 2Hr Calcium 8.4 Magnesium 1.9 Total Bilirubin 1.3 H Direct Bilirubin 0.6 H AST 147 H ALT 45 H Alkaline Phosphatase 179 H Ammonia Troponin I High Sens B-Natriuretic Peptide Total Protein 6.5 Albumin 3.2 L Lipase Peritoneal WBC Peritoneal RBC Peritoneal Tot Protein Peritoneal LDH Peritoneal Glucose Vancomycin Trough Coronavirus (PCR) Influenza Type A (PCR) Influenza Type B (PCR) RSV RNA Qual (PCR) 03/14/20 03/14/20 03/15/20 16:36 20:26 05:35 WBC 9.1 RBC 2.87 L Hgb 8.4 L Hct 27.1 L MCV 94.4 MCH 29.3 MCHC 31.0 RDW 19.3 H Plt Count 150 L MPV 10.5 Immature Gran % (Auto) 1.1 H Neut % (Auto) 70.8 Lymph % (Auto) 14.2 L [place] % (Auto) 11.1 H Eos % (Auto) 2.4 Baso % (Auto) 0.4 Lymph # (Auto) 1.3 [place] # (Auto) 1.0 Eos # (Auto) 0.2 Baso # (Auto) 0.0 Abs Immat Gran (auto) 0.10 H Absolute Neuts (auto) 6.4 Absolute Nucleated RBC 0.000 Nucleated RBC % (auto) 0.0 Smear Tech's Comments PT INR APTT Sodium Potassium Chloride Carbon Dioxide Anion Gap BUN Creatinine Estim Creat Clear Calc Estimated GFR POC Glucose 235 H 147 H Random Glucose Fasting Glucose Lactic Acid Lactic Acid Fup @ 2Hr Calcium Magnesium Total Bilirubin Direct Bilirubin AST ALT Alkaline Phosphatase Ammonia Troponin I High Sens B-Natriuretic Peptide Total Protein Albumin Lipase Peritoneal WBC Peritoneal RBC Peritoneal Tot Protein Peritoneal LDH Peritoneal Glucose Vancomycin Trough Coronavirus (PCR) Influenza Type A (PCR) Influenza Type B (PCR) RSV RNA Qual (PCR) 03/15/20 03/15/20 03/15/20 05:35 07:27 11:21 WBC RBC Hgb Hct MCV MCH MCHC RDW Plt Count MPV Immature Gran % (Auto) Neut % (Auto) Lymph % (Auto) [place] % (Auto) Eos % (Auto) Baso % (Auto) Lymph # (Auto) [place] # (Auto) Eos # (Auto) Baso # (Auto) Abs Immat Gran (auto) Absolute Neuts (auto) Absolute Nucleated RBC Nucleated RBC % (auto) Smear Tech's Comments PT INR APTT Sodium 141 Potassium 3.2 L Chloride 116 H Carbon Dioxide 13 L Anion Gap 15 BUN 18 H Creatinine 1.15 Estim Creat Clear Calc 36.0 Estimated GFR 46 POC Glucose 119 H 214 H Random Glucose Fasting Glucose 129 H Lactic Acid Lactic Acid Fup @ 2Hr Calcium 8.0 L Magnesium 1.5 L Total Bilirubin Direct Bilirubin AST ALT Alkaline Phosphatase Ammonia Troponin I High Sens B-Natriuretic Peptide Total Protein Albumin Lipase Peritoneal WBC Peritoneal RBC Peritoneal Tot Protein Peritoneal LDH Peritoneal Glucose Vancomycin Trough Coronavirus (PCR) Influenza Type A (PCR) Influenza Type B (PCR) RSV RNA Qual (PCR) 03/15/20 03/15/20 03/16/20 16:15 19:41 05:39 WBC 10.4 RBC 2.87 L Hgb 8.2 L Hct 27.0 L MCV 94.1 MCH 28.6 MCHC 30.4 L RDW 19.1 H Plt Count 165 MPV 10.7 Immature Gran % (Auto) 1.1 H Neut % (Auto) 70.3 Lymph % (Auto) 12.7 L [place] % (Auto) 12.5 H Eos % (Auto) 2.7 Baso % (Auto) 0.7 Lymph # (Auto) 1.3 [place] # (Auto) 1.3 H Eos # (Auto) 0.3 Baso # (Auto) 0.1 Abs Immat Gran (auto) 0.11 H Absolute Neuts (auto) 7.3 Absolute Nucleated RBC 0.000 Nucleated RBC % (auto) 0.0 Smear Tech's Comments PT INR APTT Sodium Potassium Chloride Carbon Dioxide Anion Gap BUN Creatinine Estim Creat Clear Calc Estimated GFR POC Glucose 82 172 H Random Glucose Fasting Glucose Lactic Acid Lactic Acid Fup @ 2Hr Calcium Magnesium Total Bilirubin Direct Bilirubin AST ALT Alkaline Phosphatase Ammonia Troponin I High Sens B-Natriuretic Peptide Total Protein Albumin Lipase Peritoneal WBC Peritoneal RBC Peritoneal Tot Protein Peritoneal LDH Peritoneal Glucose Vancomycin Trough Coronavirus (PCR) Influenza Type A (PCR) Influenza Type B (PCR) RSV RNA Qual (PCR) 03/16/20 03/16/20 03/16/20 05:39 07:26 11:25 WBC RBC Hgb Hct MCV MCH MCHC RDW Plt Count MPV Immature Gran % (Auto) Neut % (Auto) Lymph % (Auto) [place] % (Auto) Eos % (Auto) Baso % (Auto) Lymph # (Auto) [place] # (Auto) Eos # (Auto) Baso # (Auto) Abs Immat Gran (auto) Absolute Neuts (auto) Absolute Nucleated RBC Nucleated RBC % (auto) Smear Tech's Comments PT INR APTT Sodium 139 Potassium 3.6 Chloride 116 H Carbon Dioxide 12 L Anion Gap 15 BUN 15 Creatinine 1.25 Estim Creat Clear Calc 33.1 Estimated GFR 42 POC Glucose 134 H 124 H Random Glucose Fasting Glucose 137 H Lactic Acid Lactic Acid Fup @ 2Hr Calcium 8.2 L Magnesium 1.6 Total Bilirubin Direct Bilirubin AST ALT Alkaline Phosphatase Ammonia Troponin I High Sens B-Natriuretic Peptide Total Protein Albumin Lipase Peritoneal WBC Peritoneal RBC Peritoneal Tot Protein Peritoneal LDH Peritoneal Glucose Vancomycin Trough Coronavirus (PCR) Influenza Type A (PCR) Influenza Type B (PCR) RSV RNA Qual (PCR) Preliminary micro results at discharge 03/12/20 Unknown Anaerobic Culture - Preliminary Ascites Fluid No growth to date. 03/12/20 15:10 Blood Culture - Preliminary Blood - Venous No growth after 48 hours. Discharge Plan Discharge Patient Disposition: Home, Self-Care Referrals: Po,Mahsa Nevarez MD [Primary Care Provider] - 1 Week (Please call and schedule a follow up appointment.) Discharge Medications: Continued allopurinol 100 mg tablet 100 mg PO DAILY Qty: 30 RF: 3 nadolol 40 mg tablet 40 mg PO DAILY Qty: 90 RF: 1 lactulose 20 gram/30 mL solution 20 g PO BID Qty: 1000 RF: 12 omeprazole 40 mg capsule,delayed release(DR/EC) 40 mg PO DAILY Qty: 90 RF: 3 Xifaxan 550 mg tablet 550 mg PO BID 30 Days Qty: 60 RF: 1 sertraline 100 mg tablet 100 mg PO DAILY Qty: 90 RF: 2 metformin 500 mg tablet 500 mg PO BID Qty: 90 RF: 2 apixaban [Eliquis] 5 mg tablet 5 mg PO BID Qty: 180 RF: 1 Hold Instructions: Resume on 12/19/19. levetiracetam [Keppra] 250 mg Tablet 250 mg PO DAILY RF: 0 insulin lispro [Humalog KwikPen Insulin] 100 unit/mL insulin pen 11 unit subcut TIDAC RF: 0 Trulicity 1.5 mg/0.5 mL pen injector 1.5 mg subcut QWEEK RF: 0 amlodipine 5 mg tablet 5 mg PO DAILY RF: 0 Toujeo Max U-300 SoloStar 300 unit/mL (3 mL) insulin pen 15 unit subcut DAILY RF: 0 Discharge Orders: Discharge Order (Routine); Ordered 03/16/20 Ordered By: Osei Blanchard Activity on Discharge: As tolerated Stand Alone Forms: Patient Portal Discharge page Visit Report Forms: Patient Portal Discharge page Care Plan Goals: avoid hopsitalizations Health Concerns: cirrhosis Plan of Treatment: await for ascites to build up and then pursue pleurx
[2020-03-16 15:25] VITALS: BP 143/63; PULSE 54; RESP 18; TEMP 36.9; O2SAT 96
[2020-03-16 16:43] LABS: Glucose, Whole Blood 154 mg/dL (60-115)
[2020-03-16] MEDS: Insulin Lispro 100 UNIT/ML 3 ML VIAL SUBCUT (17:13)
== END 2020-03-16 18:15 | disposition home or self-care (01) | DRG 441 ==
LOC: HO.ED 17:22 → HO.EDOVER 03-13 06:01 → HO.IMC 03-13 15:13
PROVIDERS: Physician Assistant; Admitting Provider Hospitalist; Emergency Provider Emergency Medicine; PCP Internal Medicine; Visit Provider Internal Medicine
DX: K72.90 Hepatic failure, unspecified without coma (principal); J18.9 Pneumonia, unspecified organism; R18.8 Other ascites; K75.81 Nonalcoholic steatohepatitis (NASH); E78.5 Hyperlipidemia, unspecified; F41.9 Anxiety disorder, unspecified; E11.9 Type 2 diabetes mellitus without complications; R76.0 Raised antibody titer; I48.91 Unspecified atrial fibrillation; G40.909 Epilepsy, unspecified, not intractable, without status epilepticus; F32.9 Major depressive disorder, single episode, unspecified; Z20.822 Contact with and (suspected) exposure to COVID-19; Z79.4 Long term (current) use of insulin; Z79.01 Long term (current) use of anticoagulants; Z79.899 Other long term (current) drug therapy; Z66 Do not resuscitate
CPT/HCPCS: 0241U; 32550; 36415; 49083; 71045; 76705; 80048; 80076; 80202; 82140; 82945; 82947; 83605; 83615; 83690; 83735; 83880; 84157; 84484; 85025; 85027; 85610; 85730; 87040; 87070; 87071; 87073; 87077; 87186; 87205; 89051; 93005; 96365; 96367; 97162; 97166; 97530; 97535; 99284; 99285; J2543; J3370; P9047

== ENCOUNTER → 2020-03-19 11:14 | Outpatient (BNVA) | payer MEDICARE, SELFPAY | PROVIDERS: PCP Internal Medicine; Visit Provider Internal Medicine Endocrinology, Diabetes & Metabolism | DX: Z76.89 Persons encountering health services in other specified circumstances (principal) | CPT/HCPCS: Q3014 ==